=== PATIENT | male | born 1930 | race Caucasian/White ===

== ENCOUNTER 2017-05-20 22:18 | Emergency (ER) | payer MEDICARE, BC ==
[2017-05-20 22:38] VITALS: BP 134/70
[2017-05-20] MEDS ORDERED: Cephalexin 500 MG Cap PO ONE (23:33)
--- NOTE | 2017-05-20 23:34 | EDM.PDOC ---
ED HPI GENERAL MEDICAL PROBLEM - General Chief Complaint: Respiratory Problem Stated Complaint: SWOLLEN LEG SOB Time Seen by Provider: 05/20/17 23:08 Source of Information: Reports: Patient, Family (Daughter, son-in-law), RN Notes Reviewed History Limitations: Reports: Physical Impairment (patient is hard of hearing) - History of Present Illness INITIAL COMMENTS - FREE TEXT/NARRATIVE: The patient has bilateral lower extremity edema with chronic venous stasis changes, however, he developed erythema to his right leg that surrounds the hyperpigmentation of his chronic venous stasis change, first noticed around 02: 00 this morning. It is warm to palpation. The patient has not had a fever, however, he has had chills. No prior similar symptoms. The patient ordinarily ambulates with a walker and cane. The patient is on Coumadin. The patient's PCP is Anne Magana. Right Leg Pain Score (Numeric/FACES): 8 - Related Data Allergies Allergy/AdvReac Type Severity Reaction Status Date / Time No Known Allergies Allergy Verified 05/20/17 22:33 Home Meds: Home Meds Levothyroxine [Synthroid] 50 mcg PO ACBRK 05/26/14 [History] Propranolol [Inderal] 20 mg PO DAILY 05/26/14 [History] Simvastatin [Zocor] 20 mg PO BEDTIME 05/26/14 [History] Allopurinol [Zyloprim] 150 mg PO DAILY 08/21/14 [History] Aspirin [[place] Aspirin] 81 mg PO DAILY 05/20/17 [History] Cholecalciferol (Vitamin D3) [Vitamin D3] 5,000 unit PO ASDIRECTED 05/20/17 [ History] Eye Vitamin? 05/20/17 [History] Ferrous Sulfate. 05/20/17 [History] Furosemide [Lasix] 80 mg PO BID 05/20/17 [History] Pantoprazole Sodium [Protonix] 40 mg PO BID 05/20/17 [History] Potassium Chloride 10 meq PO TID 05/20/17 [History] Warfarin [Coumadin] 2.5 mg PO ASDIRECTED 05/20/17 [History] Warfarin [Coumadin] 5 mg PO MOFR 05/20/17 [History] Cephalexin [Keflex] 500 mg PO Q12H #14 cap 05/21/17 [Rx] Past Medical History Cardiovascular History: Reports: Arrhythmia, CAD, Heart Failure, High Cholesterol, Hypertension Gastrointestinal History: Reports: GERD Genitourinary History: Reports: BPH, Chronic Renal Insuffiency Musculoskeletal History: Reports: Gout (suspected, not confirmed) Neurological History: Reports: Neuropathy, Peripheral (BLE's) Endocrine/Metabolic History: Reports: Hypothyroidism Oncologic (Cancer) History: Reports: Basal Cell Carcinoma - Past Surgical History HEENT Surgical History: Reports: Cataract Surgery (bilateral) Cardiovascular Surgical History: Reports: Coronary Artery Bypass (x 1 vessel), Pacer, Valve Replacement (porcine mitral valve) GI Surgical History: Reports: Cholecystectomy, Hernia, Inguinal (right) Musculoskeletal Surgical History: Reports: Arthroscopic Knee (left) Social & Family History - Tobacco Use Smoking Status *Q: Never Smoker Second Hand Smoke Exposure: No - Alcohol Use Alcohol Use History: No Days Per Week of Alcohol Use: 0 - Recreational Drug Use Recreational Drug Use: No - Living Situation & Occupation Living situation: Reports: , Alone Occupation: Retired ED ROS GENERAL - Review of Systems Review Of Systems: See Below Constitutional: Reports: No Symptoms HEENT: Reports: No Symptoms Respiratory: Reports: No Symptoms Cardiovascular: Reports: No Symptoms Endocrine: Reports: No Symptoms GI/Abdominal: Reports: No Symptoms : Reports: No Symptoms Musculoskeletal: Reports: No Symptoms Skin: Reports: No Symptoms Neurological: Reports: No Symptoms Psychiatric: Reports: No Symptoms Hematologic/Lymphatic: Reports: No Symptoms Immunologic: Reports: No Symptoms ED EXAM, GENERAL - Physical Exam Exam: See Below Exam Limited By: No Limitations General Appearance: Alert, WD/WN, No Apparent Distress Extremities: Other (There are chronic venous stasis changes to both legs, including hyperpigmentation and dried skin to the anterior aspects, however, on the right leg, surrounding the hyperpigmentation areas, is significant erythema , especially to the posterior leg. This does not extend to the foot, or above the knee. There is calor associated with the erythema, and the patient indicates that it is tender to palpation. Both feet are significantly edematous , and there is approximately 2+ pitting edema pretibially bilaterally. Neurovascular status of both lower extremities is intact.) Course - Vital Signs Last Recorded V/S: Last Vital Signs Temp 37.2 C 05/20/17 22:33 Pulse 72 05/20/17 22:33 Resp 18 05/20/17 22:33 BP 134/70 05/20/17 22:33 Pulse Ox 97 05/20/17 22:33 - Orders/Labs/Meds Labs: Laboratory Tests 05/20/17 05/20/17 05/20/17 Range/Units 23:37 23:37 23:37 WBC 26.93 H (4.23-9.07) K/mm3 RBC 3.13 L (4.63-6.08) M/mm3 Hgb 8.8 L (13.7-17.5) gm/L Hct 27.9 L (40.1-51.0) % MCV 89.1 (79.0-92.2) fl MCH 28.1 (25.7-32.2) pg MCHC 31.5 L (32.2-35.5) g/dl RDW Std Deviation 52.6 H (35.1-43.9) fL Plt Count 203 (163-337) K/mm3 MPV 9.6 (9.4-12.3) fl Neutrophils % (Manual) 91 H (40-60) % Band Neutrophils % 0 (0-10) % Lymphocytes % (Manual) 1 L (20-40) % Atypical Lymphs % 0 % Monocytes % (Manual) 8 (2-10) % Eosinophils % (Manual) 0 L (0.8-7.0) % Basophils % (Manual) 0 L (0.2-1.2) Platelet Estimate Adequate Plt Morphology Comment Normal Polychromasia 1+ slight Hypochromasia 1+ slight Poikilocytosis 2+ moderate Anisocytosis 1+ slight Microcytosis 1+ slight Macrocytosis 1+ slight Ovalocytes 1+ slight RBC Morph Comment Abnormal PT 22.1 H (8.0-13.0) SECONDS INR 1.94 Sodium 133 L (136-145) mEq/L Potassium 3.1 L (3.5-5.1) mEq/L Chloride 94 L (98-107) mEq/L Carbon Dioxide 31 (21-32) mEq/L Anion Gap 11.1 (5-15) BUN 54 H (7-18) mg/dL Creatinine 1.9 H (0.7-1.3) mg/dL Est Cr Clr Drug Dosing 30.82 mL/min Estimated GFR (MDRD) 34 (>60) mL/min BUN/Creatinine Ratio 28.4 H (14-18) Glucose 147 H (83-115) mg/dL Calcium 8.9 (8.5-10.1) mg/dL Total Bilirubin 1.4 H (0.2-1.0) mg/dL AST 31 (15-37) U/L ALT 29 (16-63) U/L Alkaline Phosphatase 70 (46-116) U/L Total Protein 6.9 (6.4-8.2) g/dl Albumin 3.6 (3.4-5.0) g/dl Globulin 3.3 gm/dL Albumin/Globulin Ratio 1.1 (1-2) Urine Color (Yellow) Urine Appearance (Clear) Urine pH (5.0-8.0) Ur Specific Noble (1.005-1.030) Urine Protein (Negative) Urine Glucose (UA) (Negative) Urine Ketones (Negative) Urine Occult Blood (Negative) Urine Nitrite (Negative) Urine Bilirubin (Negative) Urine Urobilinogen (0.2-1.0) Ur Leukocyte Esterase (Negative) Urine RBC (0-5) /hpf Urine WBC (0-5) /hpf Ur Epithelial Cells (0-5) /hpf Urine Bacteria (FEW) /hpf Hyaline Casts (0-5) /lpf Waxy Casts (0-5) /lpf Urine Mucus (FEW) /hpf 05/20/17 Range/Units 23:47 WBC (4.23-9.07) K/mm3 RBC (4.63-6.08) M/mm3 Hgb (13.7-17.5) gm/L Hct (40.1-51.0) % MCV (79.0-92.2) fl MCH (25.7-32.2) pg MCHC (32.2-35.5) g/dl RDW Std Deviation (35.1-43.9) fL Plt Count (163-337) K/mm3 MPV (9.4-12.3) fl Neutrophils % (Manual) (40-60) % Band Neutrophils % (0-10) % Lymphocytes % (Manual) (20-40) % Atypical Lymphs % % Monocytes % (Manual) (2-10) % Eosinophils % (Manual) (0.8-7.0) % Basophils % (Manual) (0.2-1.2) Platelet Estimate Plt Morphology Comment Polychromasia Hypochromasia Poikilocytosis Anisocytosis Microcytosis Macrocytosis Ovalocytes RBC Morph Comment PT (8.0-13.0) SECONDS INR Sodium (136-145) mEq/L Potassium (3.5-5.1) mEq/L Chloride (98-107) mEq/L Carbon Dioxide (21-32) mEq/L Anion Gap (5-15) BUN (7-18) mg/dL Creatinine (0.7-1.3) mg/dL Est Cr Clr Drug Dosing mL/min Estimated GFR (MDRD) (>60) mL/min BUN/Creatinine Ratio (14-18) Glucose (83-115) mg/dL Calcium (8.5-10.1) mg/dL Total Bilirubin (0.2-1.0) mg/dL AST (15-37) U/L ALT (16-63) U/L Alkaline Phosphatase (46-116) U/L Total Protein (6.4-8.2) g/dl Albumin (3.4-5.0) g/dl Globulin gm/dL Albumin/Globulin Ratio (1-2) Urine Color Yellow (Yellow) Urine Appearance Clear (Clear) Urine pH 6.0 (5.0-8.0) Ur Specific Noble 1.025 (1.005-1.030) Urine Protein Negative (Negative) Urine Glucose (UA) Negative (Negative) Urine Ketones Negative (Negative) Urine Occult Blood Negative (Negative) Urine Nitrite Negative (Negative) Urine Bilirubin Negative (Negative) Urine Urobilinogen 0.2 (0.2-1.0) Ur Leukocyte Esterase Negative (Negative) Urine RBC 0-5 (0-5) /hpf Urine WBC 0-5 (0-5) /hpf Ur Epithelial Cells Not seen (0-5) /hpf Urine Bacteria Rare (FEW) /hpf Hyaline Casts 0-5 (0-5) /lpf Waxy Casts 0-5 (0-5) /lpf Urine Mucus Moderate H (FEW) /hpf Meds: Medications Discontinued Medications Generic Name Dose Route Start Last Admin Trade Name Freq PRN Reason Stop Dose Admin Cephalexin 500 mg 05/20/17 23:33 05/20/17 23:57 Keflex PO 05/20/17 23:34 500 mg ONETIME ONE Administration - Re-Assessments/Exams Free Text/Narrative Re-Assessment/Exam: 05/20/17 23:26 The patient appears to have cellulitis of his right leg. There is a possibility that this could be a drug-associated rash, although it does not appear to be the skin necrosis associated with Coumadin use. Nevertheless, I will check an INR and then initiate the patient on oral Keflex. 05/21/17 00:58 Test results discussed with the patient, his daughter, and son-in-law. His workup is remarkable for a WBC count significantly elevated at 26.93, but with 0 % bandemia. He has moderate anemia, near his baseline. He is hypokalemic at 3.1 , but his daughter states that he missed a dose of oral potassium today. His renal function is impaired with a BUN/Cr of 54/1.9, up from his baseline of 75/ 1.5 on 08/23/2014. The patient's daughter states that his BUN/Cr was 40/1.29 on 04/02/2017. I suspect that his electrolyte abnormalities and worsening renal function are the result of Lasix, although I cannot be certain at this point. While the patient has several lab abnormalities, I do not see an indication to admit the patient to the hospital. I will e-prescribe Keflex, and I would like the patient follow-up with his PCP tomorrow. The daughter stated that she will see to it. Departure - Departure Time of Disposition: 01:00 Disposition: Home, Self-Care 01 Condition: Fair Clinical Impression: Cellulitis of right leg, Leukocytosis, Hypokalemia, Acute on chronic renal failure - Discharge Information Prescriptions: Cephalexin [Keflex] 500 mg PO Q12H #14 cap Instructions: Hypokalemia, Leukocytosis, Cellulitis, Adult, [id number] Referrals: Anne Magana NP [Primary Care Provider] - Forms: ED Department Discharge Additional Instructions: You were seen in the emergency room for a red rash on your right leg. Workup in the ER included a CBC, CMP, INR, and urinalysis. Your CBC is remarkable for an elevated WBC count of 26.93 and moderate anemia. Your potassium is low at 3.1, and your kidney function is worse, with a BUN/Cr of 54/1.9. Your INR is slightly low at 1.94. Your right leg rash is MOST LIKELY due to cellulitis, although it is possible that this is a reaction to one of your medications. You have been started on the antibiotic Keflex. Take one tablet every 12 hours, as prescribed. We recommend that you follow-up with your PCP, Anne Magana, tomorrow. Some of your medicines will need dose adjustment. If any other problems, please do not hesitate to return to the ER.
== END 2017-05-21 01:26 | disposition home or self-care (01) ==
LOC: JD.ED 22:18
DX: L03.115 Cellulitis of right lower limb (principal); I25.10 Atherosclerotic heart disease of native coronary artery without angina pectoris; I13.0 Hypertensive heart and chronic kidney disease with heart failure and stage 1 through stage 4 chronic kidney disease, or unspecified chronic kidney disease; N17.9 Acute kidney failure, unspecified; N18.9 Chronic kidney disease, unspecified; I50.9 Heart failure, unspecified; E78.00 Pure hypercholesterolemia, unspecified; K21.9 Gastro-esophageal reflux disease without esophagitis; D72.829 Elevated white blood cell count, unspecified; E87.6 Hypokalemia; Z79.899 Other long term (current) drug therapy; Z79.01 Long term (current) use of anticoagulants
CPT/HCPCS: 36415; 80053; 81001; 85025; 85610; 99285; A9270; P9612; 99283

== ENCOUNTER 2018-01-22 11:02 | Emergency (ER) | payer MEDICARE, BC ==
[2018-01-22 11:30] VITALS: BP 129/71
--- NOTE | 2018-01-22 12:56 | EDM.PDOC ---
ED HPI GENERAL MEDICAL PROBLEM - General Chief Complaint: Head Injury Stated Complaint: HEAD INJURY/FALL Time Seen by Provider: 01/22/18 11:13 Source of Information: Reports: Patient History Limitations: Reports: No Limitations - History of Present Illness INITIAL COMMENTS - FREE TEXT/NARRATIVE: The patient presents because he fell. He was outside at his home and he was doing some light gardening and he walked on some unstable ground and he fell and landed on his face. He has some abrasions to his forehead and nose. He also has some neck pain. He did not get knocked out but he had trouble getting up and had to crawl under the shade and then was able to call. He denies any other injuries. 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 He was recently put on antibiotics for that. Onset: Sudden Duration: Hour(s): Location: Reports: Face, Neck Quality: Reports: Sharp Severity: Mild Improves with: Reports: None Worsens with: Reports: None Context: Reports: Activity (He was out gardening and he fell) Associated Symptoms: Reports: No Other Symptoms Neck Pain Score (Numeric/FACES): 0 - Related Data Allergies Allergy/AdvReac Type Severity Reaction Status Date / Time No Known Allergies Allergy Verified 01/22/18 11:30 Home Meds: Home Meds Levothyroxine [Synthroid] 50 mcg PO ACBRK 05/26/14 [History] Propranolol [Inderal] 20 mg PO DAILY 05/26/14 [History] Simvastatin [Zocor] 20 mg PO BEDTIME 05/26/14 [History] Cholecalciferol (Vitamin D3) [Vitamin D3] 5,000 unit PO ASDIRECTED 05/20/17 [ History] Pantoprazole Sodium [Protonix] 40 mg PO BID 05/20/17 [History] Potassium Chloride 10 meq PO DAILY 05/20/17 [History] Warfarin [Coumadin] 2.5 mg PO ASDIRECTED 05/20/17 [History] Warfarin [Coumadin] 5 mg PO MOFR 05/20/17 [History] Cephalexin [Keflex] 500 mg PO Q12H #14 cap 05/21/17 [Rx] Ferrous Sulfate [Ferosul] 300 mg PO TID 01/22/18 [History] Mv-Mn/FA/Vit K/Lycop/Lut/Zeaxa [Ocuvite Eye + Multi Tablet] 1 ea PO DAILY [History] Torsemide [Demadex] 40 mg PO BID 01/22/18 [History] Past Medical History Cardiovascular History: Reports: Arrhythmia, CAD, Heart Failure, High Cholesterol, Hypertension Gastrointestinal History: Reports: GERD Genitourinary History: Reports: BPH, Chronic Renal Insuffiency Musculoskeletal History: Reports: Gout Neurological History: Reports: Neuropathy, Peripheral Endocrine/Metabolic History: Reports: Hypothyroidism Oncologic (Cancer) History: Reports: Basal Cell Carcinoma - Past Surgical History HEENT Surgical History: Reports: Cataract Surgery Cardiovascular Surgical History: Reports: Coronary Artery Bypass, Pacer, Valve Replacement GI Surgical History: Reports: Cholecystectomy, Hernia, Inguinal Musculoskeletal Surgical History: Reports: Arthroscopic Knee Social & Family History - Tobacco Use Smoking Status *Q: Never Smoker Second Hand Smoke Exposure: No - Caffeine Use Caffeine Use: Reports: Coffee - Living Situation & Occupation Living situation: Reports: , Alone Occupation: Retired ED ROS GENERAL - Review of Systems Review Of Systems: See Below Constitutional: Reports: No Symptoms HEENT: Reports: No Symptoms Respiratory: Reports: No Symptoms Cardiovascular: Reports: No Symptoms Endocrine: Reports: No Symptoms GI/Abdominal: Reports: No Symptoms : Reports: No Symptoms Musculoskeletal: Reports: Neck Pain Skin: Reports: No Symptoms Neurological: Reports: No Symptoms ED EXAM, HEAD INJURY - Physical Exam Exam: See Below Exam Limited By: No Limitations General Appearance: Alert, No Apparent Distress Head: Normocephalic, Other (Abrasions to his forehead and nose) Ears: Normal External Exam Nose: Other (Abrasion to his nose with no deformity or crepitus) Neck: Tender Lateral (Mild) Respiratory: No Respiratory Distress, Lungs Clear, Normal Breath Sounds Cardiovascular: Regular Rate, Rhythm, No Edema, No Murmur GI/Abdominal Exam: Soft, Non-Tender, No Organomegaly, No Mass Back Exam: Normal Inspection Extremities: Other (Left leg has erythema and edema) Course - Vital Signs Last Recorded V/S: Last Vital Signs Temp 98.7 F 01/22/18 11:21 Pulse 73 01/22/18 11:21 Resp 18 01/22/18 11:21 BP 129/71 01/22/18 11:21 Pulse Ox 99 01/22/18 11:21 - Orders/Labs/Meds Orders: Active Orders 24 hr Category Date Time Status Cervical Spine wo Cont [CT] Stat Exams 01/22/18 11:43 Taken Head wo Cont [CT] Stat Exams 01/22/18 11:42 Taken - Re-Assessments/Exams Free Text/Narrative Re-Assessment/Exam: 01/22/18 12:[address] of his head and cervical spine shows nothing acute. I will discharge him home. Departure - Departure Time of Disposition: 12:55 Disposition: Home, Self-Care 01 Condition: Good Clinical Impression: Fall Qualifiers: Encounter type: initial encounter Qualified Code(s): W19.XXXA - Unspecified fall, initial encounter Abrasion of face Qualifiers: Encounter type: initial encounter Qualified Code(s): S00.81XA - Abrasion of other part of head, initial encounter Cervical sprain Qualifiers: Encounter type: initial encounter Qualified Code(s): S13.9XXA - Sprain of joints and ligaments of unspecified parts of neck, initial encounter - Discharge Information Referrals: Anne Magana CHARGE POSTER [Primary Care Provider] - 1 Week Additional Instructions: Wash the abrasions on your face a couple times per day with warm soapy water and apply some antibiotic after. Take tylenol for pain. Please return if you are worse. - My Orders Last 24 Hours: My Active Orders 01/22/18 11:42 Head wo Cont [CT] Stat 01/22/18 11:43 Cervical Spine wo Cont [CT] Stat - Assessment/Plan Last 24 Hours: My Active Orders 01/22/18 11:42 Head wo Cont [CT] Stat 01/22/18 11:43 Cervical Spine wo Cont [CT] Stat
--- NOTE | 2018-01-22 13:58 | CT ---
Head CT Technique: Multiple axial sections through the brain were obtained. Intravenous contrast was not utilized. Comparison: Prior head CT exam of 02/28/10. Findings: Ventricles along the basal cisterns and sulci over the convexities are moderately prominent. Minimal diminished density is noted within portions of periventricular and subcortical white matter. No other abnormal parenchymal densities are seen. No evidence of intracranial hemorrhage. No midline shift or mass effect is seen. Moderate mucosal thickening seen within the right maxillary sinus. No acute calvarial abnormality is appreciated. Atherosclerotic calcification is seen within the carotid siphon. Impression: 1. Senescent change as described above. Incidental sinus findings. 2. No acute intracranial abnormality is seen. Diagnostic code #2 I agree with preliminary report from [facility], finalized at 01/22/18, 1:19 PM Central Time
--- NOTE | 2018-01-22 13:58 | CT ---
CT cervical spine Technique: Multiple axial sections were obtained from above C1 inferiorly to the top of T2. Reconstructed sagittal and coronal images were reviewed. Comparison: Previous CT cervical spine study of 03/27/10. Findings: Degenerative change is noted between the dens and anterior arch of C1. Mild disc space narrowing is noted at C2-C3 and C3-C4 as well as posteriorly at C4-C5. Vertebral body heights are maintained. Mild degenerative spurring is seen within the uncovertebral joints at C3-C4 and C4-C5. Posterior skull base is intact. Scattered degenerative change is seen throughout the apophyseal joints. I do not see a definite cervical spine fracture. Preliminary report ad questions a right transverse process of T2 which I do not believe is definitely present. Severe narrowing is noted within the apophyseal joints at C3-C4 on the right side with moderate to severe narrowing seen on the left side at C3-C4. Moderate narrowing is seen bilaterally within the neural foramina at C4-C5. Mild bilateral neural foraminal stenosis is noted at C5-C6. Other neural foramina are felt to be patent. No abnormal subluxation is seen. Impression: 1. Degenerative change as noted above. 2. Nothing acute is seen on CT study of the cervical spine. No definite fracture is identified within the transverse process of T2 on the right side as questioned on preliminary [facility] report. Diagnostic code #2 I agree with preliminary report from [facility], finalized at 01/22/18, 1:25 PM Central Time
== END 2018-01-22 13:05 | disposition home or self-care (01) ==
LOC: JD.ED 11:02
DX: S13.9XXA Sprain of joints and ligaments of unspecified parts of neck, initial encounter (principal); S00.81XA Abrasion of other part of head, initial encounter; I13.0 Hypertensive heart and chronic kidney disease with heart failure and stage 1 through stage 4 chronic kidney disease, or unspecified chronic kidney disease; I50.9 Heart failure, unspecified; E78.00 Pure hypercholesterolemia, unspecified; N18.9 Chronic kidney disease, unspecified; Z79.899 Other long term (current) drug therapy; W19.XXXA Unspecified fall, initial encounter
CPT/HCPCS: 70450; 70450-26; 72125; 72125-26; 99283; 99284-25

== ENCOUNTER 2018-01-24 12:01 | Inpatient (IN) | payer MEDICARE, BC ==
--- NOTE | 2018-01-24 12:28 | EDM.PDOC ---
ED HPI GENERAL MEDICAL PROBLEM - General Chief Complaint: Lower Extremity Injury/Pain Stated Complaint: LEFT LEG POSS. INFECTION Time Seen by Provider: 01/24/18 12:20 Source of Information: Reports: Patient History Limitations: Reports: No Limitations - History of Present Illness INITIAL COMMENTS - FREE TEXT/NARRATIVE: 87-year-old male presents the ED with gradually worsening cellulitis left lower extremity. He seems to be spreading slightly up the leg but it's become much more swollen over the last 2-1/2 days. Patient was seen in clinic on and started on Ceftin ear 300 mg twice daily. He had one tablet that night and subsequent is been taking it twice daily. He has no systemic signs of illness such as fever or chills. States pain in his leg is terrible kept him awake most of the night. It's biting burning it spasms on its own. He has peripheral neuropathy as well as peripheral vascular disease. He's had previous cellulitis in his left lower extremity on a few occasions. No diarrhea or problems with a Ceftin ear at this time. Note the patient is on Coumadin chronically due to atrial fibrillation and his INR on last week January 21 was 1.9. Onset: Gradual Onset Date: 01/18/18 (Gradually worsening redness and swelling left lower extremity to the knee.) Duration: Day(s): Location: Reports: Lower Extremity, Left (Cellulitis left lower extremity. Involves foot to knee.) Quality: Reports: Ache, Burning, Throbbing, Other Severity: Severe (Intermittent muscle spasms in the leg. Rates his current pain 8 or 9 out of 10.) Improves with: Reports: Other (Cool cloth seemed to ease the pain somewhat.) Worsens with: Reports: Movement Context: Denies: Activity, Exercise, Lifting, Sick Contact, Other Associated Symptoms: Reports: Cough, Malaise, Shortness of Breath. 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 RECLAMATION: Reports: Other (see below) Left Lower Leg Pain Score (Numeric/FACES): 10 - Related Data Allergies Allergy/AdvReac Type Severity Reaction Status Date / Time No Known Allergies Allergy Verified 01/22/18 11:30 Home Meds: Home Meds Levothyroxine [Synthroid] 50 mcg PO ACBRK 05/26/14 [History] Propranolol [Inderal] 20 mg PO DAILY 05/26/14 [History] Simvastatin [Zocor] 20 mg PO BEDTIME 05/26/14 [History] Cholecalciferol (Vitamin D3) [Vitamin D3] 5,000 unit PO MOWEFR 05/20/17 [History ] Pantoprazole Sodium [Protonix] 40 mg PO BID 05/20/17 [History] Potassium Chloride 10 meq PO BID 05/20/17 [History] Warfarin [Coumadin] 2.5 mg PO ASDIRECTED 05/20/17 [History] Mv-Mn/FA/Vit K/Lycop/Lut/Zeaxa [Ocuvite Eye + Multi Tablet] 1 ea PO DAILY [History] Torsemide [Demadex] 40 mg PO DAILY 01/22/18 [History] Cefdinir [Omnicef] 300 mg PO Q12HR 01/24/18 [History] Ferrous Sulfate [Ferosul] 5 ml PO TID 01/24/18 [History] Metolazone 2.5 mg PO ASDIRECTED PRN 01/24/18 [History] Past Medical History Cardiovascular History: Reports: Arrhythmia, Bypass, CAD, Heart Failure, High Cholesterol, Hypertension Gastrointestinal History: Reports: GERD Genitourinary History: Reports: BPH, Chronic Renal Insuffiency Musculoskeletal History: Reports: Gout Neurological History: Reports: Neuropathy, Peripheral Endocrine/Metabolic History: Reports: Hypothyroidism Oncologic (Cancer) History: Reports: Basal Cell Carcinoma - Past Surgical History HEENT Surgical History: Reports: Cataract Surgery Cardiovascular Surgical History: Reports: Coronary Artery Bypass, Pacer, Valve Replacement GI Surgical History: Reports: Cholecystectomy, Hernia, Inguinal Musculoskeletal Surgical History: Reports: Arthroscopic Knee Social & Family History - Family History Family Medical History: Noncontributory - Tobacco Use Smoking Status *Q: Never Smoker - Caffeine Use Caffeine Use: Reports: Coffee - Recreational Drug Use Recreational Drug Use: No - Living Situation & Occupation Living situation: Reports: , Alone Occupation: Retired Review of Systems - Review of Systems Review Of Systems: See Below Constitutional: Reports: Weakness. Denies: Chills, Diaphoresis, Fever Eyes: Reports: Decreased Acuity Nose: Reports: Other (Bruised up his nose a bit from falling on [place], May 25.) Mouth/Throat: Reports: No Symptoms Respiratory: Reports: Shortness of Breath, Cough. Denies: Wheezing, Pleuritic Chest Pain (On minimal exertion.), Sputum, Hemoptysis (Occasional nonproductive cough) Cardiovascular: Reports: Edema, Irregular Heart Rate (Chronic dependent edema chronic irregular heartbeat I believe atrial fibrillation.), Other (Known coronary disease). Denies: Chest Pain GI/Abdominal: Reports: No Symptoms Genitourinary: Reports: Other (Urinary frequency with nocturia 4) Musculoskeletal: Reports: Back Pain, Joint Pain (Knees shoulders and neck at times) Skin: Reports: Bruising (Bruising is seen in the easy bleeding because he is on Coumadin.), Rash (Currently has a severe red), Erythema ( painful rash left lower extremity compatible with cellulitisleft lower extremity ) Neurological: Reports: Paresthesia (On this tingling burning lancinating shooting pains in his left lower extremity at present), Difficulty Walking ( Known peripheral neuropathy early unable to walk due to pain in his left lower extremity.), Other Psychiatric: Reports: No Symptoms ED EXAM, GENERAL - Physical Exam Exam: See Below Exam Limited By: No Limitations General Appearance: Alert, WD/WN, Mild Distress, Other Eye Exam: Bilateral Eye: Normal Inspection Nose: Other (Has skinned up his nose from falling 3 days ago. Has a bruise across the bridge of his nose. Bruise between his eyes on his mid forehead with slight swelling and abrasion to the left forehead.) Head: Facial Swelling (Swelling and abrasions to the left mid forehead.As mentioned above), Other Neck: Limited Range of Motion, Tender Lateral (Tender laterally bilaterally. Decreased range of motion). No: Full Range of Motion, Lymphadenopathy (L), Lymphadenopathy (R) Respiratory/Chest: No Respiratory Distress, Lungs Clear, Decreased Breath Sounds , Other (Pacemaker left upper anterior chest.). No: Respiratory Distress, Rhonchi (Slightly decreased air entry to the bases bilaterally with no adventitial sounds at this time), Wheezing Cardiovascular: No Murmur, No Rub, Irregularly Irregular. No: Normal Peripheral Pulses, No Edema GI/Abdominal: Normal Bowel Sounds, Soft, Non-Tender, No Organomegaly, Pelvis Stable Back Exam: Decreased Range of Motion, Other. No: Full Range of Motion, CVA Tenderness (L), CVA Tenderness (R) (Had a very difficult time sitting the patient up due to back pain.) Extremities: Pedal Edema (Severe left lung lower extremity. Mild right lower extremity.), Leg Pain (8 out of 10 left lower extremity below the knee.), Limited Range of Motion (Limited range of motion of his left knee. He clinically has a effusion of the left knee as well particularly in the suprapatellar recess.), Increased Warmth (Throughout the left lower extremity. It is angry and red.), Redness (Left lower extremity is very red and swollen from the dorsal foot to the knee. It is very warm to palpation component with an active infection or cellulitis. The dorsal aspect of his foot is grossly swollen to nearly twice the thickness of his foot) Neurological: Other (Known peripheral neuropathy in both lower extremities.) Psychiatric: Normal Affect, Other (Appears quite tired as he has not slept well for couple of nights due to pain in his leg.) EKG INTERPRETATION EKG Date: 01/24/18 Time: 12:43 Rhythm: Other (100% ventricular paced rhythm at 70/m) Rate (Beats/Min): 70 EKG Interpretation Comments: 100% paced ventricular rhythm. No further analysis attempted. Course - Vital Signs Last Recorded V/S: Last Vital Signs Temp 36.8 C 01/24/18 12:10 Pulse 71 01/24/18 12:10 Resp 16 01/24/18 12:10 BP 122/85 01/24/18 12:10 Pulse Ox 100 01/24/18 12:10 - Orders/Labs/Meds Orders: Active Orders 24 hr Category Date Time Status Admission Status [Patient Status] [ADT] Routine ADT 01/24/18 14:58 Active EKG Documentation Completion [RC] STAT Care 01/24/18 12:22 Active Peripheral IV Care [RC] . DIRECTED Care 01/24/18 12:22 Active VL Duplex Lwr Ext Veins Ltd Lt [US] Stat Exams 01/24/18 12:33 Taken CULTURE BLOOD [BC] Stat Lab 01/24/18 12:20 Received CULTURE BLOOD [BC] Stat Lab 01/24/18 12:45 Received Sodium Chloride 0.9% [Normal Saline] 1,000 ml Med 01/24/18 14:15 Active IV ASDIRECTED Sodium Chloride 0.9% [Saline Flush] Med 01/24/18 12:22 Active 10 ml FLUSH ASDIRECTED PRN Blood Culture x2 Reflex Set [OM.PC] Stat Oth 01/24/18 12:21 Ordered Peripheral IV Insertion Adult [OM.PC] Stat Ot 01/24/18 12:22 Ordered Medication Orders Sodium Chloride (Normal Saline) 1,000 mls @ 75 mls/hr IV ASDIRECTED DARCY Last Admin: 01/24/18 14:39 Dose: 75 mls/hr Sodium Chloride (Saline Flush) 10 ml FLUSH ASDIRECTED PRN PRN Reason: Keep Vein Open Last Admin: 01/24/18 12:49 Dose: 10 ml Admin: 01/24/18 12:31 Dose: 10 ml Labs: Laboratory Tests 01/24/18 01/24/18 01/24/18 Range/Units 12:20 12:20 12:20 WBC 10.95 H (4.23-9.07) K/mm3 RBC 4.27 L (4.63-6.08) M/mm3 Hgb 12.7 L (13.7-17.5) gm/L Hct 38.2 L (40.1-51.0) % MCV 89.5 (79.0-92.2) fl MCH 29.7 (25.7-32.2) pg MCHC 33.2 (32.2-35.5) g/dl RDW Std Deviation 56.0 H (35.1-43.9) fL Plt Count 260 (163-337) K/mm3 MPV 10.2 (9.4-12.3) fl Neutrophils % (Manual) 87 H (40-60) % Band Neutrophils % 0 (0-10) % Lymphocytes % (Manual) 3 L (20-40) % Atypical Lymphs % 0 % Monocytes % (Manual) 9 (2-10) % Eosinophils % (Manual) 0 L (0.8-7.0) % Basophils % (Manual) 1 (0.2-1.2) Platelet Estimate Adequate Plt Morphology Comment Normal RBC Morph Comment Normal PT (9.5-12.1) SECONDS INR Sodium 134 L (136-145) mEq/L Potassium 4.9 (3.5-5.1) mEq/L Chloride 97 L (98-107) mEq/L Carbon Dioxide 27 (21-32) mEq/L Anion Gap 14.9 (5-15) BUN 64 H (7-18) mg/dL Creatinine 1.8 H (0.7-1.3) mg/dL Est Cr Clr Drug Dosing 31.96 mL/min Estimated GFR (MDRD) 36 (>60) mL/min BUN/Creatinine Ratio 35.6 H (14-18) Glucose 115 (83-115) mg/dL Calcium 9.8 (8.5-10.1) mg/dL Magnesium 2.5 H (1.8-2.4) mg/dl Total Bilirubin 1.1 H (0.2-1.0) mg/dL AST 30 (15-37) U/L ALT 47 (16-63) U/L Alkaline Phosphatase 136 H (46-116) U/L Creatine Kinase 71 (39-308) U/L C-Reactive Protein 11.0 H* (<1.0) mg/dL NT-Pro-B Natriuret Pep 2019 H (0-450) pg/mL Total Protein 8.0 (6.4-8.2) g/dl Albumin 3.9 (3.4-5.0) g/dl Globulin 4.1 gm/dL Albumin/Globulin Ratio 1.0 (1-2) //18 Range/Units 12:20 WBC (4.23-9.07) K/mm3 RBC (4.63-6.08) M/mm3 Hgb (13.7-17.5) gm/L Hct (40.1-51.0) % MCV (79.0-92.2) fl MCH (25.7-32.2) pg MCHC (32.2-35.5) g/dl RDW Std Deviation (35.1-43.9) fL Plt Count (163-337) K/mm3 MPV (9.4-12.3) fl Neutrophils % (Manual) (40-60) % Band Neutrophils % (0-10) % Lymphocytes % (Manual) (20-40) % Atypical Lymphs % % Monocytes % (Manual) (2-10) % Eosinophils % (Manual) (0.8-7.0) % Basophils % (Manual) (0.2-1.2) Platelet Estimate Plt Morphology Comment RBC Morph Comment PT 19.3 H (9.5-12.1) SECONDS INR 1.79 Sodium (136-145) mEq/L Potassium (3.5-5.1) mEq/L Chloride (98-107) mEq/L Carbon Dioxide (21-32) mEq/L Anion Gap (5-15) BUN (7-18) mg/dL Creatinine (0.7-1.3) mg/dL Est Cr Clr Drug Dosing mL/min Estimated GFR (MDRD) (>60) mL/min BUN/Creatinine Ratio (14-18) Glucose (83-115) mg/dL Calcium (8.5-10.1) mg/dL Magnesium (1.8-2.4) mg/dl Total Bilirubin (0.2-1.0) mg/dL AST (15-37) U/L ALT (16-63) U/L Alkaline Phosphatase (46-116) U/L Creatine Kinase (39-308) U/L C-Reactive Protein (<1.0) mg/dL NT-Pro-B Natriuret Pep (0-450) pg/mL Total Protein (6.4-8.2) g/dl Albumin (3.4-5.0) g/dl Globulin gm/dL Albumin/Globulin Ratio (1-2) Meds: Medications Generic Name Dose Route Start Last Admin Trade Name Freq PRN Reason Stop Dose Admin Sodium Chloride 1,000 mls @ 75 mls/hr 01/24/18 14:15 01/24/18 14:39 Normal Saline IV 75 mls/hr ASDIRECTED DARCY Administration Sodium Chloride 10 ml 01/24/18 12:22 01/24/18 12:49 Saline Flush FLUSH 10 ml ASDIRECTED PRN Administration Keep Vein Open Discontinued Medications Generic Name Dose Route Start Last Admin Trade Name Freq PRN Reason Stop Dose Admin Furosemide 40 mg 01/24/18 14:13 01/24/18 14:34 Lasix IVPUSH 01/24/18 14:14 40 mg NOW ONE Administration Hydromorphone HCl 0.5 mg 01/24/18 12:31 01/24/18 12:48 Dilaudid IVPUSH 01/24/18 12:32 0.5 mg ONETIME ONE Administration Clindamycin Phosphate 900 mg/ 106 mls @ 100 mls/hr 01/24/18 12:32 01/24/18 12 :49 Sodium Chloride IV 01/24/18 13:35 100 mls/hr ONETIME ONE Administration Vancomycin HCl 1,500 mg/ 250 mls @ 166.667 mls/hr 01/24/18 14:53 Sodium Chloride IV 01/24/18 14:54 ONETIME ONE Ondansetron HCl 4 mg 01/24/18 12:31 01/24/18 12:48 Zofran IVPUSH 01/24/18 12:32 4 mg ONETIME ONE Administration - Radiology Interpretation Free Text/Narrative:: 87-year-old male presents to the ED with painful swollen left lower extremity that is gradually worsened over the last week. Has had previous cellulitis in this extremity. He was seen in clinic last , January 21 and started on Cefdinir 300 mg twice a day. However in spite of antibiotic treatment the cellulitis has progressed as the swelling is worsened dramatically. He is anticoagulated with Coumadin because of arrhythmia. He has last INR apparently was 1.9 on last week. Dosage was not adjusted. He is feeling perhaps slightly more short of breath but he denies any fever or chills. Appetite remains quite good. Clinically he has a severe cellulitis of his left lower extremity. There is no open wounds at this time however it's just a matter of time to the wounds breakdown due to the amount of edema in the left lower extremity. Ultrasound performed of the leg to make sure there is no DVT. Labs including blood cultures 2 to be done with PT/INR. We'll start him on clindamycin 900 mg IV. - Re-Assessments/Exams Free Text/Narrative Re-Assessment/Exam: 01/24/18 13:57 Labs are back. White count is elevated at 10.95 with a left shift of 87% neutrophils and no bands hemoglobin is 12.7 with hematocrit of 38.2. Platelet count is 260,000. PT is 19.3 with an INR of 1.79 in is therefore somewhat subtherapeutic. Sodium is 134 with potassium of 4.9. Chloride is 97 with a bicarbonate of 27. Anion gap is normal at 14.9. BUN is markedly elevated at 64. Creatinine is 1.8. EGFR is 36 indicating stage III chronic kidney disease. Glucose is 1:15. Calcium normal at 9.8. Magnesium 2.5 which is slightly elevated bilirubin is 1.1. AST ALT are normal. C-reactive protein is elevated at 11.0. BNP is elevated at 2019 making fluid management difficult. Will give him Lasix 40 mg IV. Due to his elevated BUN he is going to need some fluids as well. We'll start him on low-dose normal saline at 75 mils an hour 01/24/18 14:05 Doppler ultrasound has been completed on the left lower extremity and no evidence of DVT within the common femoral, superficial femoral or popliteal veins were appreciated. Veins including the posterior tibial and peroneal veins were not well seen due to soft tissue swelling. Plan will be to speak to Dr. Roche --lead application architect hospitalist with a view to admission to the hospital for IV antibiotics. 01/24/18 14:13 I have spoken with Dr. Roche and she will see the patient in the ED. we discussed adding vancomycin to his treatment plan to cover potential MRSA infection ,and she is in agreement. Dosage will be reduced to 15 mg/kg loading dose at due to his renal insufficiency. He will therefore be given 1500 mg IV. Departure - Departure Time of Disposition: 14:55 Disposition: Admitted As Inpatient 68 Condition: Poor Clinical Impression: Cellulitis of left lower extremity, Chronic renal insufficiency, stage III ( moderate), Subtherapeutic international normalized ratio (INR) Congestive heart failure with left ventricular diastolic dysfunction Qualifiers: Congestive heart failure chronicity: chronic Qualified Code(s): I50.32 - Chronic diastolic (congestive) heart failure - Discharge Information Referrals: Anne Magana NP [Primary Care Provider] - Forms: ED Department Discharge Additional Instructions: Patient to be admitted to the med surgery floor on telemetry due to severe cellulitis of his left lower extremity. This is further complicated due to congestive heart failure and renal insufficiency. - My Orders Last 24 Hours: My Active Orders 01/24/18 12:20 CULTURE BLOOD [BC] Stat 01/24/18 12:21 Blood Culture x2 Reflex Set [OM.PC] Stat 01/24/18 12:22 EKG Documentation Completion [RC] STAT Peripheral IV Care [RC] . DIRECTED Sodium Chloride 0.9% [Saline Flush] 10 ml FLUSH ASDIRECTED PRN Peripheral IV Insertion Adult [OM.PC] Stat 01/24/18 12:33 VL Duplex Lwr Ext Veins Ltd Lt [US] Stat 01/24/18 12:45 CULTURE BLOOD [BC] Stat 01/24/18 14:15 Sodium Chloride 0.9% [Normal Saline] 1,000 ml IV ASDIRECTED 01/24/18 14:58 Admission Status [Patient Status] [ADT] Routine - Assessment/Plan Last 24 Hours: My Active Orders 01/24/18 12:20 CULTURE BLOOD [BC] Stat 01/24/18 12:21 Blood Culture x2 Reflex Set [OM.PC] Stat 01/24/18 12:22 EKG Documentation Completion [RC] STAT Peripheral IV Care [RC] . DIRECTED Sodium Chloride 0.9% [Saline Flush] 10 ml FLUSH ASDIRECTED PRN Peripheral IV Insertion Adult [OM.PC] Stat 01/24/18 12:33 VL Duplex Lwr Ext Veins Ltd Lt [US] Stat 01/24/18 12:45 CULTURE BLOOD [BC] Stat 01/24/18 14:15 Sodium Chloride 0.9% [Normal Saline] 1,000 ml IV ASDIRECTED 01/24/18 14:58 Admission Status [Patient Status] [ADT] Routine
[2018-01-24] MEDS ORDERED: HYDROmorphone 0.5 MG/0.5 ML SYRINGE IVPUSH ONE (12:31)
[2018-01-24] MEDS ORDERED: Ondansetron 4 MG/2 ML SDV IVPUSH ONE (12:31)
[2018-01-24] MEDS: Sodium Chloride 0.9% 10 ML Syringe FLUSH PRN ×2 (12:31→12:49)
[2018-01-24] MEDS ORDERED: Clindamycin Phosphate 900 MG in Sodium Chloride 0.9% 100 ML IV ONE (12:32)
[2018-01-24] MEDS ORDERED: Furosemide 40 MG/4 ML VIAL IVPUSH ONE (14:13)
[2018-01-24] MEDS: Sodium Chloride 0.9% 1,000 ML IV SCH (14:39)
--- NOTE | 2018-01-24 15:09 | PCM.HP ---
<Deo Molina - Last Filed: 01/24/18 18:44> H&P History of Present Illness - General Admit Problem/Dx: Admission Diagnosis/Problem Admission Diagnosis/Problem Cellulitis of left lower leg - Related Data Allergies/Adverse Reactions: Allergies Allergy/AdvReac Type Severity Reaction Status Date / Time No Known Allergies Allergy Verified 01/24/18 16:13 Home Medications: Home Meds Levothyroxine [Synthroid] 50 mcg PO ACBRK 05/26/14 [History] Propranolol [Inderal] 20 mg PO DAILY 05/26/14 [History] Simvastatin [Zocor] 20 mg PO BEDTIME 05/26/14 [History] Cholecalciferol (Vitamin D3) [Vitamin D3] 5,000 unit PO MOWEFR 05/20/17 [History ] Pantoprazole Sodium [Protonix] 40 mg PO BID 05/20/17 [History] Potassium Chloride 10 meq PO DAILY 05/20/17 [History] Warfarin [Coumadin] 2.5 mg PO ASDIRECTED 05/20/17 [History] Mv-Mn/FA/Vit K/Lycop/Lut/Zeaxa [Ocuvite Eye + Multi Tablet] 1 ea PO DAILY [History] Torsemide [Demadex] 40 mg PO DAILY 01/22/18 [History] Ferrous Sulfate [Ferosul] 5 ml PO TID 01/24/18 [History] Warfarin [Coumadin] 5 mg PO ASDIRECTED 01/24/18 [History] Exam - Vital Signs Vital Signs: Last Vital Signs Temp 36.9 C 01/24/18 15:50 Pulse 70 01/24/18 15:50 Resp 15 01/24/18 15:50 BP 109/82 01/24/18 15:50 Pulse Ox 97 01/24/18 15:50 - Patient Data Lab Results Last 24 hrs: Laboratory Results - last 24 hr 01/24/18 01/24/18 01/24/18 Range/Units 12:20 12:20 12:20 WBC 10.95 H (4.23-9.07) K/mm3 RBC 4.27 L (4.63-6.08) M/mm3 Hgb 12.7 L (13.7-17.5) gm/L Hct 38.2 L (40.1-51.0) % MCV 89.5 (79.0-92.2) fl MCH 29.7 (25.7-32.2) pg MCHC 33.2 (32.2-35.5) g/dl RDW Std Deviation 56.0 H (35.1-43.9) fL Plt Count 260 (163-337) K/mm3 MPV 10.2 (9.4-12.3) fl Neutrophils % (Manual) 87 H (40-60) % Band Neutrophils % 0 (0-10) % Lymphocytes % (Manual) 3 L (20-40) % Atypical Lymphs % 0 % Monocytes % (Manual) 9 (2-10) % Eosinophils % (Manual) 0 L (0.8-7.0) % Basophils % (Manual) 1 (0.2-1.2) Platelet Estimate Adequate Plt Morphology Comment Normal RBC Morph Comment Normal PT (9.5-12.1) SECONDS INR Sodium 134 L (136-145) mEq/L Potassium 4.9 (3.5-5.1) mEq/L Chloride 97 L (98-107) mEq/L Carbon Dioxide 27 (21-32) mEq/L Anion Gap 14.9 (5-15) BUN 64 H (7-18) mg/dL Creatinine 1.8 H (0.7-1.3) mg/dL Est Cr Clr Drug Dosing 31.96 mL/min Estimated GFR (MDRD) 36 (>60) mL/min BUN/Creatinine Ratio 35.6 H (14-18) Glucose 115 (83-115) mg/dL Calcium 9.8 (8.5-10.1) mg/dL Magnesium 2.5 H (1.8-2.4) mg/dl Total Bilirubin 1.1 H (0.2-1.0) mg/dL AST 30 (15-37) U/L ALT 47 (16-63) U/L Alkaline Phosphatase 136 H (46-116) U/L Creatine Kinase 71 (39-308) U/L C-Reactive Protein 11.0 H* (<1.0) mg/dL NT-Pro-B Natriuret Pep 2019 H (0-450) pg/mL Total Protein 8.0 (6.4-8.2) g/dl Albumin 3.9 (3.4-5.0) g/dl Globulin 4.1 gm/dL Albumin/Globulin Ratio 1.0 (1-2) //18 Range/Units 12:20 WBC (4.23-9.07) K/mm3 RBC (4.63-6.08) M/mm3 Hgb (13.7-17.5) gm/L Hct (40.1-51.0) % MCV (79.0-92.2) fl MCH (25.7-32.2) pg MCHC (32.2-35.5) g/dl RDW Std Deviation (35.1-43.9) fL Plt Count (163-337) K/mm3 MPV (9.4-12.3) fl Neutrophils % (Manual) (40-60) % Band Neutrophils % (0-10) % Lymphocytes % (Manual) (20-40) % Atypical Lymphs % % Monocytes % (Manual) (2-10) % Eosinophils % (Manual) (0.8-7.0) % Basophils % (Manual) (0.2-1.2) Platelet Estimate Plt Morphology Comment RBC Morph Comment PT 19.3 H (9.5-12.1) SECONDS INR 1.79 Sodium (136-145) mEq/L Potassium (3.5-5.1) mEq/L Chloride (98-107) mEq/L Carbon Dioxide (21-32) mEq/L Anion Gap (5-15) BUN (7-18) mg/dL Creatinine (0.7-1.3) mg/dL Est Cr Clr Drug Dosing mL/min Estimated GFR (MDRD) (>60) mL/min BUN/Creatinine Ratio (14-18) Glucose (83-115) mg/dL Calcium (8.5-10.1) mg/dL Magnesium (1.8-2.4) mg/dl Total Bilirubin (0.2-1.0) mg/dL AST (15-37) U/L ALT (16-63) U/L Alkaline Phosphatase (46-116) U/L Creatine Kinase (39-308) U/L C-Reactive Protein (<1.0) mg/dL NT-Pro-B Natriuret Pep (0-450) pg/mL Total Protein (6.4-8.2) g/dl Albumin (3.4-5.0) g/dl Globulin gm/dL Albumin/Globulin Ratio (1-2) Result Diagrams: 01/24/18 12:20 01/24/18 12:20 Orders Last 24hrs: Active Orders 24 hr Category Date Time Status Admission Status [Patient Status] [ADT] Routine ADT 01/24/18 14:58 Active Activity as Tolerated [RC] .Routine Care 01/24/18 15:20 Active Elevate Extremity [RC] Q6HR Care 01/24/18 15:54 Active Insert Guerrero Catheter [Insert Urinary Catheter] [OM.PC] Care 01/25/18 08:00 Ordered Q24H Urinary Catheter Assessment [RC] 10 Care 01/24/18 16:04 Active Consult to Case Management [CONS] Routine Cons 01/26/18 08:00 Active Consult to Occupational Therapy [OT Evaluation and Cons 01/26/18 09:30 Active Treatment] [CONS] Routine Consult to Physical Therapy [PT Evaluation and Cons 01/26/18 09:30 Active Treatment] [CONS] Routine Fluid Restriction [DIET] Diet 01/24/18 Dinner Active Heart Healthy Diet [DIET] Diet 01/24/18 Dinner Active Art Doppler w Stress [US] Routine Exams 01/27/18 09:00 Ordered Echo Comp wo Cont [US] Routine Exams 01/27/18 08:00 Ordered VL Duplex Lwr Ext Veins Ltd Lt [US] Stat Exams 01/24/18 12:33 Taken BMP [BASIC METABOLIC PANEL,BMP] [CHEM] DAILY Lab 01/25/18 05:00 Ordered BMP [BASIC METABOLIC PANEL,BMP] [CHEM] DAILY Lab 01/26/18 05:00 Ordered BMP [BASIC METABOLIC PANEL,BMP] [CHEM] DAILY Lab 01/27/18 05:00 Ordered BMP [BASIC METABOLIC PANEL,BMP] [CHEM] DAILY Lab 01/28/18 05:00 Ordered CBC WITH AUTO DIFF [HEME] DAILY Lab 01/25/18 05:00 Ordered CBC WITH AUTO DIFF [HEME] DAILY Lab 01/26/18 05:00 Ordered CBC WITH AUTO DIFF [HEME] DAILY Lab 01/27/18 05:00 Ordered CBC WITH AUTO DIFF [HEME] DAILY Lab 01/28/18 05:00 Ordered CRP, HIGH SENSITIVITY [REF] DAILY Lab 01/25/18 05:00 Ordered CRP, HIGH SENSITIVITY [REF] DAILY Lab 01/26/18 05:00 Ordered CRP, HIGH SENSITIVITY [REF] DAILY Lab 01/27/18 05:00 Ordered CRP, HIGH SENSITIVITY [REF] DAILY Lab 01/28/18 05:00 Ordered CULTURE BLOOD [BC] Stat Lab 01/24/18 12:20 Received CULTURE BLOOD [BC] Stat Lab 01/24/18 12:45 Received GLYCOSYLATED HEMOGLOBIN,HGBA1C [CHEM] Routine Lab 01/25/18 05:00 Ordered INR,PT,PROTHROMBIN TIME [COAG] DAILY Lab 01/25/18 05:00 Ordered INR,PT,PROTHROMBIN TIME [COAG] DAILY Lab 01/26/18 05:00 Ordered INR,PT,PROTHROMBIN TIME [COAG] DAILY Lab 01/27/18 05:00 Ordered INR,PT,PROTHROMBIN TIME [COAG] DAILY Lab 01/28/18 05:00 Ordered LACTIC ACID [CHEM] DAILY Lab 01/25/18 05:00 Ordered LACTIC ACID [CHEM] DAILY Lab 01/26/18 05:00 Ordered LACTIC ACID [CHEM] DAILY Lab 01/27/18 05:00 Ordered LACTIC ACID [CHEM] DAILY Lab 01/28/18 05:00 Ordered LIPID PANEL [CHEM] Routine Lab 01/25/18 05:00 Ordered MAGNESIUM [CHEM] DAILY Lab 01/25/18 05:00 Ordered MAGNESIUM [CHEM] DAILY Lab 01/26/18 05:00 Ordered MAGNESIUM [CHEM] DAILY Lab 01/27/18 05:00 Ordered MAGNESIUM [CHEM] DAILY Lab 01/28/18 05:00 Ordered PRO B-TYPE NATRIUR PEPT,BNPPRO [CHEM] DAILY Lab 01/25/18 05:00 Ordered PRO B-TYPE NATRIUR PEPT,BNPPRO [CHEM] DAILY Lab 01/26/18 05:00 Ordered TROPONIN I [CHEM] Routine Lab 01/25/18 05:00 Ordered TSH [CHEM] Routine Lab 01/25/18 05:00 Ordered VANCOMYCIN TROUGH [CHEM] Routine Lab 01/27/18 13:30 Ordered Acetaminophen [Tylenol] Med 01/24/18 15:24 Active 650 mg PO Q6H PRN Ampicillin/Sulbactam Na [Unasyn] 1.5 gm Med 01/24/18 18:00 Active Sodium Chloride 0.9% [Normal Saline] 100 ml IV Q6H Cholecalciferol (Vitamin D3) [Vitamin D3] Med 01/25/18 09:00 Active 5,000 unit PO MoWeFr@0900 Ferrous Sulfate [Ferosul] Med 01/24/18 21:00 Pending 5 ml PO TID Furosemide [Lasix] 100 mg Med 01/25/18 10:00 Active Sodium Chloride 0.9% [Normal Saline] 90 ml IV Q24H Gabapentin [Neurontin] Med 01/24/18 21:00 Active 200 mg PO BID Levothyroxine [Synthroid] Med 01/25/18 06:00 Active 50 mcg PO ACBRK Multivitamins,Therapeutic [Thera] Med 01/25/18 09:00 Active 1 each PO DAILY Pantoprazole [ProTONIX] Med 01/24/18 17:00 Active 40 mg PO BID@0700,1700 Potassium Chloride [Klor-Con 10] Med 01/24/18 17:00 Active 10 meq PO BIDMEALS Propranolol [Inderal] Med 01/25/18 09:00 Active 20 mg PO DAILY Simvastatin [Zocor] Med 01/24/18 21:00 Active 20 mg PO BEDTIME Sodium Chloride 0.9% [Normal Saline] 1,000 ml Med 01/24/18 14:15 Active IV ASDIRECTED Sodium Chloride 0.9% [Saline Flush] Med 01/24/18 12:22 Active 10 ml FLUSH ASDIRECTED PRN Vancomycin 1.5 gm Med 01/24/18 16:00 Active Sodium Chloride 0.9% [Normal Saline] 250 ml IV Q24H Vancomycin Pharmacy to Dose [Pharmacy to Dose - Med 01/24/18 15:30 Pending Vancomycin] 1 dose .XX ASDIRECTED Warfarin Pharmacy to Dose [Pharmacy to Dose - Warfarin] Med 01/24/18 16:00 Pending 1 dose .XX ASDIRECTED Warfarin [Coumadin] Med 01/24/18 18:00 Once 5 mg PO ONETIME ONE Blood Culture x2 Reflex Set [OM.PC] Stat Oth 01/24/18 12:21 Ordered Peripheral IV Insertion Adult [OM.PC] Stat Oth 01/24/18 12:22 Ordered JOSSY Hose [Antiembolic Hose] [OM.PC] Routine Oth 01/24/18 16:02 Ordered Resuscitation Status Routine Resus Stat 01/24/18 16:18 Ordered Medication Orders Acetaminophen (Tylenol) 650 mg PO Q6H PRN PRN Reason: Pain/Fever Cholecalciferol (Vitamin D3) 5,000 unit PO MoWeFr@0900 [facility] Gabapentin (Neurontin) 200 mg PO BID [facility] Sodium Chloride (Normal Saline) 1,000 mls @ 75 mls/hr IV ASDIRECTED [facility] Last Admin: 01/24/18 14:39 Dose: 75 mls/hr Ampicillin Sodium/Sulbactam (Sodium 1.5 gm/ Sodium Chloride) 100 mls @ 200 mls/ hr IV Q6H [facility] Vancomycin HCl 1.5 gm/ Sodium (Chloride) 250 mls @ 166.667 mls/hr IV Q24H [facility] Last Admin: 01/24/18 16:34 Dose: 166.667 mls/hr Furosemide 100 mg/ Sodium (Chloride) 100 mls @ 4 mls/hr IV Q24H [facility]; Protocol Stop: 01/27/18 09:59 Levothyroxine Sodium (Synthroid) 50 mcg PO ACBRK [facility] Multivitamins (Thera) 1 each PO DAILY [facility] Non-Formulary Medication (Ferrous Sulfate [Ferosul]) 5 ml PO TID [facility] Pantoprazole Sodium (Protonix) 40 mg PO BID@0700,1700 [facility] Last Admin: 01/24/18 16:34 Dose: 40 mg Potassium Chloride (Klor-Con 10) 10 meq PO BIDMEALS [facility] Last Admin: 01/24/18 16:22 Dose: Propranolol HCl (Inderal) 20 mg PO DAILY [facility] Simvastatin (Zocor) 20 mg PO BEDTIME [facility] Sodium Chloride (Saline Flush) 10 ml FLUSH ASDIRECTED PRN PRN Reason: Keep Vein Open Last Admin: 01/24/18 12:49 Dose: 10 ml Admin: 01/24/18 12:31 Dose: 10 ml Vancomycin HCl (Pharmacy To Dose - Vancomycin) 1 dose .XX ASDIRECTED [facility] Warfarin Sodium (Pharmacy To Dose - Warfarin) 1 dose .XX ASDIRECTED [facility] Warfarin Sodium (Coumadin) 5 mg PO ONETIME ONE Stop: 01/24/18 18:01 <Evelia Roche M - Last Filed: 01/25/18 19:18> H&P History of Present Illness - General Date of Service: 01/24/18 Admit Problem/Dx: Admission Diagnosis/Problem Admission Diagnosis/Problem Cellulitis of left lower leg Source of Information: Patient, Family, Provider History Limitations: Reports: No Limitations - History of Present Illness Initial Comments - Free Text/Narative: 87 year old male describes with minimal words recent, three day swelling to left lower extremity. The skin changes suggest chronic ededma, however the voiced duration of redness, pain and swelling was supported by his daughter. he has had tactile elevated temperature, and was apparetnly seen in a clinic where Ceftin was prescribed. The patient and his family reported taking four doses without improvement. The erythema has expanded, ascending to the kneee. He denies recent trauma, insect bite; the LLE is hairless which has gone unnoticed by the patient and his family. The patient has a patient medical history of PAD/CAD/Valvular heart Disease; he is on Coumadin for A Fib. The patient will be admitted to [facility] telemetry for failed OP Rx for LLE cellulitis. Duration of Symptoms: Reports: Day(s):, Getting Worse Location: Reports: Lower Extremity, Left Quality: Reports: Ache, Burning Severity: Moderate Improves with: Reports: Medication Worsens with: Reports: Movement Associated Symptoms: Reports: Loss of Appetite, Malaise, Weakness Left Lower Leg Pain Score (Numeric/FACES): 10 Past Medical History Cardiovascular History: Reports: Arrhythmia, Bypass, CAD, Heart Failure, High Cholesterol, Hypertension Gastrointestinal History: Reports: GERD Genitourinary History: Reports: BPH, Chronic Renal Insuffiency Musculoskeletal History: Reports: Gout Neurological History: Reports: Neuropathy, Peripheral Endocrine/Metabolic History: Reports: Hypothyroidism Oncologic (Cancer) History: Reports: Basal Cell Carcinoma - Past Surgical History HEENT Surgical History: Reports: Cataract Surgery Cardiovascular Surgical History: Reports: Coronary Artery Bypass, Pacer, Valve Replacement GI Surgical History: Reports: Cholecystectomy, Hernia, Inguinal Musculoskeletal Surgical History: Reports: Arthroscopic Knee Social & Family History - Family History Family Medical History: Noncontributory - Tobacco Use Smoking Status *Q: Never Smoker - Caffeine Use Caffeine Use: Reports: Coffee - Recreational Drug Use Recreational Drug Use: No - Living Situation & Occupation Living situation: Reports: , Alone Occupation: Retired H&P Review of Systems - Review of Systems: Review Of Systems: See Below General: Reports: Malaise, Weakness HEENT: Reports: No Symptoms Pulmonary: Reports: Shortness of Breath Cardiovascular: Reports: No Symptoms Gastrointestinal: Reports: No Symptoms Genitourinary: Reports: No Symptoms Musculoskeletal: Reports: No Symptoms Skin: Reports: No Symptoms Psychiatric: Reports: No Symptoms Neurological: Reports: No Symptoms Hematologic/Lymphatic: Reports: No Symptoms Immunologic: Reports: No Symptoms Exam - Exam Exam: See Below - Vital Signs Vital Signs: Last Vital Signs Temp 36.8 C 01/24/18 12:10 Pulse 71 01/24/18 12:10 Resp 16 01/24/18 12:10 BP 122/85 01/24/18 12:10 Pulse Ox 100 01/24/18 12:10 Weight: 97.432 kg - Exam Quality Assessment: Supplemental Oxygen, DVT Prophylaxis General: Alert, Oriented, Cooperative HEENT: Pupils Equal, Pupils Reactive, PERRLA Neck: Trachea Midline Lungs: Normal Respiratory Effort, Decreased Breath Sounds Cardiovascular: Regular Rate, Regular Rhythm GI/Abdominal Exam: Normal Bowel Sounds, Soft, Non-Tender, No Organomegaly, No Distention (Male) Exam: Deferred Rectal (Males) Exam: Deferred Back Exam: Normal Inspection Extremities: Normal Inspection, Non-Tender, Pedal Edema, Slow Capillary Refill, Leg Pain, Increased Warmth, Redness, Other (hairless) Skin: Warm, Intact Neurological: Cranial Nerves Intact, Normal Speech Neuro Extensive - Mental Status: Alert, Oriented x3 Neuro Extensive - Motor, Sensory, Reflexes: CN II-XII Intact Psychiatric: Alert, Normal Affect, Normal Mood - Patient Data Lab Results Last 24 hrs: Laboratory Results - last 24 hr 01/24/18 01/24/18 01/24/18 Range/Units 12:20 12:20 12:20 WBC 10.95 H (4.23-9.07) K/mm3 RBC 4.27 L (4.63-6.08) M/mm3 Hgb 12.7 L (13.7-17.5) gm/L Hct 38.2 L (40.1-51.0) % MCV 89.5 (79.0-92.2) fl MCH 29.7 (25.7-32.2) pg MCHC 33.2 (32.2-35.5) g/dl RDW Std Deviation 56.0 H (35.1-43.9) fL Plt Count 260 (163-337) K/mm3 MPV 10.2 (9.4-12.3) fl Neutrophils % (Manual) 87 H (40-60) % Band Neutrophils % 0 (0-10) % Lymphocytes % (Manual) 3 L (20-40) % Atypical Lymphs % 0 % Monocytes % (Manual) 9 (2-10) % Eosinophils % (Manual) 0 L (0.8-7.0) % Basophils % (Manual) 1 (0.2-1.2) Platelet Estimate Adequate Plt Morphology Comment Normal RBC Morph Comment Normal PT (9.5-12.1) SECONDS INR Sodium 134 L (136-145) mEq/L Potassium 4.9 (3.5-5.1) mEq/L Chloride 97 L (98-107) mEq/L Carbon Dioxide 27 (21-32) mEq/L Anion Gap 14.9 (5-15) BUN 64 H (7-18) mg/dL Creatinine 1.8 H (0.7-1.3) mg/dL Est Cr Clr Drug Dosing 31.96 mL/min Estimated GFR (MDRD) 36 (>60) mL/min BUN/Creatinine Ratio 35.6 H (14-18) Glucose 115 (83-115) mg/dL Calcium 9.8 (8.5-10.1) mg/dL Magnesium 2.5 H (1.8-2.4) mg/dl Total Bilirubin 1.1 H (0.2-1.0) mg/dL AST 30 (15-37) U/L ALT 47 (16-63) U/L Alkaline Phosphatase 136 H (46-116) U/L Creatine Kinase 71 (39-308) U/L C-Reactive Protein 11.0 H* (<1.0) mg/dL NT-Pro-B Natriuret Pep 2019 H (0-450) pg/mL Total Protein 8.0 (6.4-8.2) g/dl Albumin 3.9 (3.4-5.0) g/dl Globulin 4.1 gm/dL Albumin/Globulin Ratio 1.0 (1-2) 18 Range/Units 12:20 WBC (4.23-9.07) K/mm3 RBC (4.63-6.08) M/mm3 Hgb (13.7-17.5) gm/L Hct (40.1-51.0) % MCV (79.0-92.2) fl MCH (25.7-32.2) pg MCHC (32.2-35.5) g/dl RDW Std Deviation (35.1-43.9) fL Plt Count (163-337) K/mm3 MPV (9.4-12.3) fl Neutrophils % (Manual) (40-60) % Band Neutrophils % (0-10) % Lymphocytes % (Manual) (20-40) % Atypical Lymphs % % Monocytes % (Manual) (2-10) % Eosinophils % (Manual) (0.8-7.0) % Basophils % (Manual) (0.2-1.2) Platelet Estimate Plt Morphology Comment RBC Morph Comment PT 19.3 H (9.5-12.1) SECONDS INR 1.79 Sodium (136-145) mEq/L Potassium (3.5-5.1) mEq/L Chloride (98-107) mEq/L Carbon Dioxide (21-32) mEq/L Anion Gap (5-15) BUN (7-18) mg/dL Creatinine (0.7-1.3) mg/dL Est Cr Clr Drug Dosing mL/min Estimated GFR (MDRD) (>60) mL/min BUN/Creatinine Ratio (14-18) Glucose (83-115) mg/dL Calcium (8.5-10.1) mg/dL Magnesium (1.8-2.4) mg/dl Total Bilirubin (0.2-1.0) mg/dL AST (15-37) U/L ALT (16-63) U/L Alkaline Phosphatase (46-116) U/L Creatine Kinase (39-308) U/L C-Reactive Protein (<1.0) mg/dL NT-Pro-B Natriuret Pep (0-450) pg/mL Total Protein (6.4-8.2) g/dl Albumin (3.4-5.0) g/dl Globulin gm/dL Albumin/Globulin Ratio (1-2) Result Diagrams: 01/25/18 06:24 01/25/18 06:24 Problem List Initiated/Reviewed/Updated: Yes Orders Last 24hrs: Active Orders 24 hr Category Date Time Status Admission Status [Patient Status] [ADT] Routine ADT 01/24/18 14:58 Active EKG Documentation Completion [RC] STAT Care 01/24/18 12:22 Active VL Duplex Lwr Ext Veins Ltd Lt [US] Stat Exams 01/24/18 12:33 Taken CULTURE BLOOD [BC] Stat Lab 01/24/18 12:20 Received CULTURE BLOOD [BC] Stat Lab 01/24/18 12:45 Received Sodium Chloride 0.9% [Normal Saline] 1,000 ml Med 01/24/18 14:15 Active IV ASDIRECTED Sodium Chloride 0.9% [Saline Flush] Med 01/24/18 12:22 Active 10 ml FLUSH ASDIRECTED PRN Blood Culture x2 Reflex Set [OM.PC] Stat Oth 01/24/18 12:21 Ordered Peripheral IV Insertion Adult [OM.PC] Stat Oth 01/24/18 12:22 Ordered Medication Orders Sodium Chloride (Normal Saline) 1,000 mls @ 75 mls/hr IV ASDIRECTED DARCY Last Admin: 01/24/18 14:39 Dose: 75 mls/hr Sodium Chloride (Saline Flush) 10 ml FLUSH ASDIRECTED PRN PRN Reason: Keep Vein Open Last Admin: 01/24/18 12:49 Dose: 10 ml Admin: 01/24/18 12:31 Dose: 10 ml Assessment/Plan Comment:: Impression: LLE Cellulitis w/ failed OP treatment PVD CAD/CABG S/P PPM A fib on Coumadin CHF, query NYHA functional status Hx of Valvular Heart Disease HLD Chronic BPH Hypothyroidism CKD GERD Peripheral neuropathy Plan: Vancomycin/Unasyn Lasix gtt ANIRUDH with stress 2D echo Analgesics Home meds Daily Labs DVT/GI prophylaxis Consult CM/PT/OT
[2018-01-24] MEDS: Potassium Chloride 10 MEQ Tab.ER PO SCH (16:22)
[2018-01-24] MEDS: Pantoprazole 40 MG Tab.CR PO SCH (16:34)
[2018-01-24] MEDS ORDERED: Warfarin 2.5 MG Tab PO SCH (18:00)
[2018-01-24] MEDS ORDERED: Warfarin 5 MG Tab PO ONE (18:00)
[2018-01-24] MEDS: Ampicillin/Sulbactam Na 1.5 GM in Sodium Chloride 0.9% 100 ML IV SCH ×2 (18:17→23:40)
[2018-01-24] MEDS: Simvastatin 20 MG Tab PO SCH (21:21)
[2018-01-24] MEDS: Gabapentin 100 MG Cap PO SCH (21:27)
[2018-01-25] MEDS: Sodium Chloride 0.9% 1,000 ML IV SCH (03:53)
[2018-01-25] MEDS: Ampicillin/Sulbactam Na 1.5 GM in Sodium Chloride 0.9% 100 ML IV SCH ×4 (06:08→23:13)
[2018-01-25] MEDS: Levothyroxine 50 MCG Tab PO SCH (06:10)
[2018-01-25] MEDS: Potassium Chloride 10 MEQ Tab.ER PO SCH ×2 (07:33→16:26)
[2018-01-25] MEDS: Pantoprazole 40 MG Tab.CR PO SCH ×2 (07:34→16:26)
[2018-01-25] MEDS: Propranolol 20 MG Tab PO SCH (08:12)
[2018-01-25] MEDS: Gabapentin 100 MG Cap PO SCH (08:13)
[2018-01-25] MEDS: Cholecalciferol (Vitamin D3) 5,000 UNIT Tab PO SCH (08:13)
[2018-01-25] MEDS: Multivitamins,Therapeutic Tab PO SCH (08:13)
--- NOTE | 2018-01-25 08:36 | US ---
Left lower extremity deep venous ultrasound: Duplex and color flow imaging was obtained of the left common femoral, proximal greater saphenous, superficial femoral, popliteal, posterior tibial and peroneal veins. Right common femoral vein was also evaluated. Subcutaneous edema is seen within the left calf. Posterior tibial and peroneal veins were not able to be adequately compressed and also suboptimally seen for augmentation but phasic flow is felt to be present. Other veins show normal phasic flow, augmentation and compression. Impression: 1. Calf veins not optimally seen secondary to subcutaneous edema within the calf. No secondary evidence of venous thrombosis is seen within the calf veins. 2. Other veins appear normal. No evidence of deep venous thrombosis is seen. Diagnostic code #3 Agree with preliminary report issued by [facility] ([facility] preliminary report dictated on 01/17/17, 2:58 PM Central Time)
[2018-01-25] MEDS ORDERED: Ferrous Sulfate 325 MG Tab PO SCH (09:00)
[2018-01-25] MEDS: Furosemide 100 MG in Sodium Chloride 0.9% 90 ML IV SCH (10:36)
[2018-01-25] MEDS: FERROUS SULFATE 220 MG/5 ML PO SCH ×3 (10:36→20:17)
--- NOTE | 2018-01-25 13:33 | PCM.PN ---
- General Info Date of Service: 01/25/18 Functional Status: Reports: Tolerating Diet, Urinating - Review of Systems General: Reports: No Symptoms HEENT: Reports: No Symptoms Pulmonary: Reports: No Symptoms Cardiovascular: Reports: No Symptoms Gastrointestinal: Reports: No Symptoms Genitourinary: Reports: No Symptoms Musculoskeletal: Reports: No Symptoms Skin: Reports: No Symptoms Neurological: Reports: No Symptoms Psychiatric: Reports: No Symptoms - Patient Data Vitals - Most Recent: Last Vital Signs Temp 36.3 C 01/25/18 12:27 Pulse 72 01/25/18 12:27 Resp 16 01/25/18 12:27 BP 106/49 L 01/25/18 12:27 Pulse Ox 99 01/25/18 12:27 Weight - Most Recent: 97.432 kg I&O - Last 24 Hours: Intake & Output 01/24/18 01/25/18 01/25/18 22:59 06:59 14:59 Intake Total 240 1217 120 Output Total 700 1100 Balance -460 117 120 Lab Results Last 24 Hours: Laboratory Results - last 24 hr 01/25/18 01/25/18 01/25/18 Range/Units 06:24 06:24 06:24 WBC 8.52 (4.23-9.07) K/mm3 RBC 3.58 L (4.63-6.08) M/mm3 Hgb 10.7 L (13.7-17.5) gm/L Hct 32.5 L (40.1-51.0) % MCV 90.8 (79.0-92.2) fl MCH 29.9 (25.7-32.2) pg MCHC 32.9 (32.2-35.5) g/dl RDW Std Deviation 56.2 H (35.1-43.9) fL Plt Count 198 (163-337) K/mm3 MPV 10.2 (9.4-12.3) fl Neut % (Auto) 77.0 H (34.0-67.9) % Lymph % (Auto) 6.0 L (21.8-53.1) % [place] % (Auto) 14.7 H (5.3-12.2) % Eos % (Auto) 1.4 (0.8-7.0) Baso % (Auto) 0.4 (0.1-1.2) % Neut # (Auto) 6.57 H (1.78-5.38) K/mm3 Lymph # (Auto) 0.51 L (1.32-3.57) K/mm3 [place] # (Auto) 1.25 H (0.30-0.82) K/mm3 Eos # (Auto) 0.12 (0.04-0.54) K/mm3 Baso # (Auto) 0.03 (0.01-0.08) K/mm3 Manual Slide Review Abnormal smear PT 25.0 H (9.5-12.1) SECONDS INR 2.33 Sodium 137 (136-145) mEq/L Potassium 4.1 (3.5-5.1) mEq/L Chloride 102 (98-107) mEq/L Carbon Dioxide 26 (21-32) mEq/L Anion Gap 13.1 (5-15) BUN 55 H (7-18) mg/dL Creatinine 1.7 H (0.7-1.3) mg/dL Est Cr Clr Drug Dosing 33.84 mL/min Estimated GFR (MDRD) 38 (>60) mL/min BUN/Creatinine Ratio 32.4 H (14-18) Glucose 117 H (83-115) mg/dL Hemoglobin A1c (4.50-6.20) % Lactic Acid (0.4-2.0) mmol/L Calcium 8.7 (8.5-10.1) mg/dL Magnesium 2.3 (1.8-2.4) mg/dl Troponin I 0.020 (0.00-0.056) ng/mL NT-Pro-B Natriuret Pep (0-450) pg/mL Triglycerides 64 (<150) mg/dL Cholesterol 81 (<200) mg/dL LDL Cholesterol Direct 37 (<100) mg/dL HDL Cholesterol 39.0 L (40-59) mg/dL TSH 3rd Generation 0.918 (0.358-3.74) uIU/mL 01/25/18 01/25/18 01/25/18 Range/Units 06:24 06:24 06:24 WBC (4.23-9.07) K/mm3 RBC (4.63-6.08) M/mm3 Hgb (13.7-17.5) gm/L Hct (40.1-51.0) % MCV (79.0-92.2) fl MCH (25.7-32.2) pg MCHC (32.2-35.5) g/dl RDW Std Deviation (35.1-43.9) fL Plt Count (163-337) K/mm3 MPV (9.4-12.3) fl Neut % (Auto) (34.0-67.9) % Lymph % (Auto) (21.8-53.1) % [place] % (Auto) (5.3-12.2) % Eos % (Auto) (0.8-7.0) Baso % (Auto) (0.1-1.2) % Neut # (Auto) (1.78-5.38) K/mm3 Lymph # (Auto) (1.32-3.57) K/mm3 [place] # (Auto) (0.30-0.82) K/mm3 Eos # (Auto) (0.04-0.54) K/mm3 Baso # (Auto) (0.01-0.08) K/mm3 Manual Slide Review PT (9.5-12.1) SECONDS INR Sodium (136-145) mEq/L Potassium (3.5-5.1) mEq/L Chloride (98-107) mEq/L Carbon Dioxide (21-32) mEq/L Anion Gap (5-15) BUN (7-18) mg/dL Creatinine (0.7-1.3) mg/dL Est Cr Clr Drug Dosing mL/min Estimated GFR (MDRD) (>60) mL/min BUN/Creatinine Ratio (14-18) Glucose (83-115) mg/dL Hemoglobin A1c 6.00 (4.50-6.20) % Lactic Acid 1.1 (0.4-2.0) mmol/L Calcium (8.5-10.1) mg/dL Magnesium (1.8-2.4) mg/dl Troponin I (0.00-0.056) ng/mL NT-Pro-B Natriuret Pep 2147 H (0-450) pg/mL Triglycerides (<150) mg/dL Cholesterol (<200) mg/dL LDL Cholesterol Direct (<100) mg/dL HDL Cholesterol (40-59) mg/dL TSH 3rd Generation (0.358-3.74) uIU/mL Edilson Results Last 24 Hours: Microbiology 01/24/18 12:45 Aerobic Blood Culture - Preliminary Blood - Venous - Lab Draw NO GROWTH AFTER 1 DAY Anaerobic Blood Culture - Preliminary NO GROWTH AFTER 1 DAY 01/24/18 12:20 Aerobic Blood Culture - Preliminary Blood - Venous NO GROWTH AFTER 1 DAY Anaerobic Blood Culture - Preliminary NO GROWTH AFTER 1 DAY Med Orders - Current: Current Medications Acetaminophen (Tylenol) 650 mg PO Q6H PRN PRN Reason: Pain/Fever Cholecalciferol (Vitamin D3) 5,000 unit PO MoWeFr@0900 [facility] Last Admin: 01/25/18 08:13 Dose: 5,000 unit Gabapentin (Neurontin) 200 mg PO BID [facility] Last Admin: 01/25/18 08:13 Dose: Not Given Ampicillin Sodium/Sulbactam (Sodium 1.5 gm/ Sodium Chloride) 100 mls @ 200 mls/ hr IV Q6H [facility] Last Admin: 01/25/18 11:25 Dose: 200 mls/hr Vancomycin HCl 1.5 gm/ Sodium (Chloride) 250 mls @ 166.667 mls/hr IV Q24H [facility] Last Admin: 01/24/18 16:34 Dose: 166.667 mls/hr Furosemide 100 mg/ Sodium (Chloride) 100 mls @ 4 mls/hr IV Q24H [facility]; Protocol Stop: 01/27/18 09:59 Last Admin: 01/25/18 10:36 Dose: 4 mls/hr Levothyroxine Sodium (Synthroid) 50 mcg PO ACBRK [facility] Last Admin: 01/25/18 06:10 Dose: 50 mcg Multivitamins (Thera) 1 each PO DAILY [facility] Last Admin: 01/25/18 08:13 Dose: 1 each Pantoprazole Sodium (Protonix) 40 mg PO BID@0700,1700 [facility] Last Admin: 01/25/18 07:34 Dose: 40 mg Ferrous Sulfate (Elixir 220 Mg/5 Ml) 0 each PO TID [facility] Last Admin: 01/25/18 10:36 Dose: 5 each Potassium Chloride (Klor-Con 10) 10 meq PO BIDMEALS [facility] Last Admin: 01/25/18 07:33 Dose: 10 meq Propranolol HCl (Inderal) 20 mg PO DAILY [facility] Last Admin: 01/25/18 08:12 Dose: 20 mg Simvastatin (Zocor) 20 mg PO BEDTIME [facility] Last Admin: 01/24/18 21:21 Dose: 20 mg Sodium Chloride (Saline Flush) 10 ml FLUSH ASDIRECTED PRN PRN Reason: Keep Vein Open Last Admin: 01/24/18 12:49 Dose: 10 ml Vancomycin HCl (Pharmacy To Dose - Vancomycin) 0 dose .XX ASDIRECTED PRN PRN Reason: RX TO DOSE VANCOMYCIN Warfarin Sodium (Pharmacy To Dose - Warfarin) 0 dose .XX ASDIRECTED PRN PRN Reason: RX TO DOSE WARFARIN Warfarin Sodium (Coumadin) 2.5 mg PO QPM [facility] Stop: 01/25/18 21:00 Discontinued Medications Ferrous Sulfate (Ferrous Sulfate) 325 mg PO TID [facility] Last Admin: 01/25/18 12:41 Dose: Not Given Furosemide (Lasix) 40 mg IVPUSH NOW ONE Stop: 01/24/18 14:14 Last Admin: 01/24/18 14:34 Dose: 40 mg Hydromorphone HCl (Dilaudid) 0.5 mg IVPUSH ONETIME ONE Stop: 01/24/18 12:32 Last Admin: 01/24/18 12:48 Dose: 0.5 mg Clindamycin Phosphate 900 mg/ (Sodium Chloride) 106 mls @ 100 mls/hr IV ONETIME ONE Stop: 01/24/18 13:35 Last Admin: 01/24/18 12:49 Dose: 100 mls/hr Sodium Chloride (Normal Saline) 1,000 mls @ 75 mls/hr IV ASDIRECTED [facility] Last Admin: 01/25/18 03:53 Dose: 75 mls/hr Ondansetron HCl (Zofran) 4 mg IVPUSH ONETIME ONE Stop: 01/24/18 12:32 Last Admin: 01/24/18 12:48 Dose: 4 mg Warfarin Sodium (Coumadin) 5 mg PO ONETIME ONE Stop: 01/24/18 18:01 Last Admin: 01/24/18 18:17 Dose: 5 mg - Exam Quality Assessment: Supplemental Oxygen, DVT Prophylaxis General: Alert, Oriented, Cooperative HEENT: Pupils Equal, Pupils Reactive, EOMI Neck: Trachea Midline, No JVD Lungs: Normal Respiratory Effort Cardiovascular: Regular Rate, Irregular Rhythm GI/Abdominal Exam: Normal Bowel Sounds, Soft, Non-Tender, No Organomegaly, No Distention (Male) Exam: Deferred Back Exam: Normal Inspection Extremities: Normal Inspection, Non-Tender, Pedal Edema, Slow Capillary Refill Wound/Incisions: Erythema Improving Neurological: No New Focal Deficit, Normal Speech Psy/Mental Status: Alert, Normal Affect, Normal Mood - Problem List Review Problem List Initiated/Reviewed/Updated: Yes - My Orders Last 24 Hours: My Active Orders 01/24/18 15:20 Activity as Tolerated [RC] .Routine 01/24/18 15:24 Acetaminophen [Tylenol] 650 mg PO Q6H PRN 01/24/18 15:30 Vancomycin Pharmacy to Dose [Pharmacy to Dose - Vancomycin] 0 dose .XX ASDIRECTED PRN 01/24/18 15:54 Elevate Extremity [RC] Q6HR 01/24/18 16:00 Warfarin Pharmacy to Dose [Pharmacy to Dose - Warfarin] 0 dose .XX ASDIRECTED PRN 01/24/18 16:02 JOSSY Hose [Antiembolic Hose] [OM.PC] Routine 01/24/18 16:04 Urinary Catheter Assessment [RC] 10 01/24/18 16:18 Resuscitation Status Routine 01/24/18 17:00 Pantoprazole [ProTONIX] 40 mg PO BID@0700,1700 Potassium Chloride [Klor-Con 10] 10 meq PO BIDMEALS 01/24/18 18:00 Ampicillin/Sulbactam Na [Unasyn] 1.5 gm Sodium Chloride 0.9% [Normal Saline] 100 ml IV Q6H 01/24/18 21:00 Gabapentin [Neurontin] 200 mg PO BID Simvastatin [Zocor] 20 mg PO BEDTIME 01/24/18 Dinner Fluid Restriction [DIET] Heart Healthy Diet [DIET] 01/25/18 06:00 Levothyroxine [Synthroid] 50 mcg PO ACBRK 01/25/18 06:24 CRP, HIGH SENSITIVITY [REF] DAILY 01/25/18 08:00 Insert Guerrero Catheter [Insert Urinary Catheter] [OM.PC] Q24H 01/25/18 09:00 Cholecalciferol (Vitamin D3) [Vitamin D3] 5,000 unit PO MoWeFr@0900 Multivitamins,Therapeutic [Thera] 1 each PO DAILY Propranolol [Inderal] 20 mg PO DAILY 01/25/18 10:00 Furosemide [Lasix] 100 mg Sodium Chloride 0.9% [Normal Saline] 90 ml IV Q24H 01/25/18 10:45 Patient's Own Medication [Ptom] 0 each PO TID 01/25/18 18:00 Warfarin [Coumadin] 2.5 mg PO QPM 01/26/18 05:00 BMP [BASIC METABOLIC PANEL,BMP] [CHEM] DAILY CBC WITH AUTO DIFF [HEME] DAILY CRP, HIGH SENSITIVITY [REF] DAILY INR,PT,PROTHROMBIN TIME [COAG] DAILY LACTIC ACID [CHEM] DAILY MAGNESIUM [CHEM] DAILY PRO B-TYPE NATRIUR PEPT,BNPPRO [CHEM] DAILY 01/26/18 08:00 Consult to Case Management [CONS] Routine 01/26/18 09:30 Consult to Occupational Therapy [OT Evaluation and Treatment] [CONS] Routine Consult to Physical Therapy [PT Evaluation and Treatment] [CONS] Routine 01/27/18 05:00 BMP [BASIC METABOLIC PANEL,BMP] [CHEM] DAILY CBC WITH AUTO DIFF [HEME] DAILY CRP, HIGH SENSITIVITY [REF] DAILY INR,PT,PROTHROMBIN TIME [COAG] DAILY LACTIC ACID [CHEM] DAILY MAGNESIUM [CHEM] DAILY 01/27/18 08:00 Echo Comp wo Cont [US] Routine 01/27/18 09:00 Art Doppler w Stress [US] Routine 01/28/18 05:00 BMP [BASIC METABOLIC PANEL,BMP] [CHEM] DAILY CBC WITH AUTO DIFF [HEME] DAILY CRP, HIGH SENSITIVITY [REF] DAILY INR,PT,PROTHROMBIN TIME [COAG] DAILY LACTIC ACID [CHEM] DAILY MAGNESIUM [CHEM] DAILY - Plan Plan:: Impression: LLE Cellulitis w/ failed OP treatment PVD CAD/CABG S/P PPM A fib on Coumadin CHF, query NYHA functional status Hx of Valvular Heart Disease HLD Chronic BPH Hypothyroidism CKD GERD Peripheral neuropathy Plan: Vancomycin/Unasyn Lasix gtt ANIRUDH with stress 2D echo Analgesics Home meds Daily Labs DVT/GI prophylaxis Consult CM/PT/OT
[2018-01-25] MEDS ORDERED: Warfarin 2.5 MG Tab PO SCH (18:00)
[2018-01-25] MEDS: Simvastatin 20 MG Tab PO SCH (20:17)
[2018-01-26] MEDS: Ampicillin/Sulbactam Na 1.5 GM in Sodium Chloride 0.9% 100 ML IV SCH ×3 (06:43→17:55)
[2018-01-26] MEDS: Levothyroxine 50 MCG Tab PO SCH (06:43)
[2018-01-26] MEDS: Potassium Chloride 10 MEQ Tab.ER PO SCH ×2 (06:43→17:55)
[2018-01-26] MEDS: Pantoprazole 40 MG Tab.CR PO SCH ×2 (06:43→17:55)
[2018-01-26] MEDS: FERROUS SULFATE 220 MG/5 ML PO SCH ×3 (08:16→21:42)
[2018-01-26] MEDS: Multivitamins,Therapeutic Tab PO SCH (08:16)
[2018-01-26] MEDS: Propranolol 20 MG Tab PO SCH (08:16)
[2018-01-26] MEDS: Furosemide 100 MG in Sodium Chloride 0.9% 90 ML IV SCH (10:53)
--- NOTE | 2018-01-26 13:28 | PCM.PN ---
- General Info Date of Service: 01/26/18 Subjective Update: Patients was seen w/his LLE in a dependent position; increased swelling noted today. However there is less discomfort. Functional Status: Reports: Pain Controlled, Tolerating Diet, Ambulating - Review of Systems General: Reports: Weakness HEENT: Reports: No Symptoms Pulmonary: Reports: Shortness of Breath Cardiovascular: Reports: No Symptoms Gastrointestinal: Reports: No Symptoms Genitourinary: Reports: No Symptoms Musculoskeletal: Reports: No Symptoms Skin: Reports: No Symptoms Neurological: Reports: No Symptoms Psychiatric: Reports: No Symptoms - Patient Data Vitals - Most Recent: Last Vital Signs Temp 36.3 C 01/26/18 11:55 Pulse 71 01/26/18 11:55 Resp 24 H 01/26/18 11:55 BP 99/70 01/26/18 11:55 Pulse Ox 97 01/26/18 11:55 Weight - Most Recent: 100.199 kg I&O - Last 24 Hours: Intake & Output 01/25/18 01/26/18 01/26/18 22:59 06:59 14:59 Intake Total 1500 292 360 Output Total 2575 1280 1035 Balance -1075 -988 -675 Lab Results Last 24 Hours: Laboratory Results - last 24 hr 01/26/18 01/26/18 01/26/18 Range/Units 06:24 06:24 06:24 WBC 7.72 (4.23-9.07) K/mm3 RBC 3.63 L (4.63-6.08) M/mm3 Hgb 10.6 L (13.7-17.5) gm/L Hct 33.2 L (40.1-51.0) % MCV 91.5 (79.0-92.2) fl MCH 29.2 (25.7-32.2) pg MCHC 31.9 L (32.2-35.5) g/dl RDW Std Deviation 56.2 H (35.1-43.9) fL Plt Count 215 (163-337) K/mm3 MPV 10.1 (9.4-12.3) fl Neut % (Auto) 80.6 H (34.0-67.9) % Lymph % (Auto) 6.3 L (21.8-53.1) % [place] % (Auto) 9.7 (5.3-12.2) % Eos % (Auto) 2.2 (0.8-7.0) Baso % (Auto) 0.4 (0.1-1.2) % Neut # (Auto) 6.22 H (1.78-5.38) K/mm3 Lymph # (Auto) 0.49 L (1.32-3.57) K/mm3 [place] # (Auto) 0.75 (0.30-0.82) K/mm3 Eos # (Auto) 0.17 (0.04-0.54) K/mm3 Baso # (Auto) 0.03 (0.01-0.08) K/mm3 Manual Slide Review Abnormal smear PT 30.1 H (9.5-12.1) SECONDS INR 2.82 Sodium 139 (136-145) mEq/L Potassium 3.2 L (3.5-5.1) mEq/L Chloride 104 (98-107) mEq/L Carbon Dioxide 26 (21-32) mEq/L Anion Gap 12.2 (5-15) BUN 38 H (7-18) mg/dL Creatinine 1.5 H (0.7-1.3) mg/dL Est Cr Clr Drug Dosing 38.35 mL/min Estimated GFR (MDRD) 44 (>60) mL/min BUN/Creatinine Ratio 25.3 H (14-18) Glucose 132 H (83-115) mg/dL Lactic Acid (0.4-2.0) mmol/L Calcium 8.5 (8.5-10.1) mg/dL Magnesium 2.0 (1.8-2.4) mg/dl NT-Pro-B Natriuret Pep (0-450) pg/mL 01/26/18 01/26/18 Range/Units 06:24 06:24 WBC (4.23-9.07) K/mm3 RBC (4.63-6.08) M/mm3 Hgb (13.7-17.5) gm/L Hct (40.1-51.0) % MCV (79.0-92.2) fl MCH (25.7-32.2) pg MCHC (32.2-35.5) g/dl RDW Std Deviation (35.1-43.9) fL Plt Count (163-337) K/mm3 MPV (9.4-12.3) fl Neut % (Auto) (34.0-67.9) % Lymph % (Auto) (21.8-53.1) % [place] % (Auto) (5.3-12.2) % Eos % (Auto) (0.8-7.0) Baso % (Auto) (0.1-1.2) % Neut # (Auto) (1.78-5.38) K/mm3 Lymph # (Auto) (1.32-3.57) K/mm3 [place] # (Auto) (0.30-0.82) K/mm3 Eos # (Auto) (0.04-0.54) K/mm3 Baso # (Auto) (0.01-0.08) K/mm3 Manual Slide Review PT (9.5-12.1) SECONDS INR Sodium (136-145) mEq/L Potassium (3.5-5.1) mEq/L Chloride (98-107) mEq/L Carbon Dioxide (21-32) mEq/L Anion Gap (5-15) BUN (7-18) mg/dL Creatinine (0.7-1.3) mg/dL Est Cr Clr Drug Dosing mL/min Estimated GFR (MDRD) (>60) mL/min BUN/Creatinine Ratio (14-18) Glucose (83-115) mg/dL Lactic Acid 1.7 (0.4-2.0) mmol/L Calcium (8.5-10.1) mg/dL Magnesium (1.8-2.4) mg/dl NT-Pro-B Natriuret Pep 2861 H (0-450) pg/mL [place] Results Last 24 Hours: Microbiology 01/24/18 12:45 Aerobic Blood Culture - Preliminary Blood - Venous - Lab Draw NO GROWTH AFTER 2 DAYS Anaerobic Blood Culture - Preliminary NO GROWTH AFTER 2 DAYS 01/24/18 12:20 Aerobic Blood Culture - Preliminary Blood - Venous NO GROWTH AFTER 2 DAYS Anaerobic Blood Culture - Preliminary NO GROWTH AFTER 2 DAYS Med Orders - Current: Current Medications Acetaminophen (Tylenol) 650 mg PO Q6H PRN PRN Reason: Pain/Fever Cholecalciferol (Vitamin D3) 5,000 unit PO MoWeFr@0900 [facility] Last Admin: 01/25/18 08:13 Dose: 5,000 unit Ampicillin Sodium/Sulbactam (Sodium 1.5 gm/ Sodium Chloride) 100 mls @ 200 mls/ hr IV Q6H [facility] Last Admin: 01/26/18 12:08 Dose: 200 mls/hr Vancomycin HCl 1.5 gm/ Sodium (Chloride) 250 mls @ 166.667 mls/hr IV Q24H [facility] Last Admin: 01/25/18 16:25 Dose: 166.667 mls/hr Furosemide 100 mg/ Sodium (Chloride) 100 mls @ 4 mls/hr IV Q24H [facility]; Protocol Stop: 01/27/18 09:59 Last Admin: 01/26/18 10:53 Dose: 4 mls/hr Levothyroxine Sodium (Synthroid) 50 mcg PO ACBRK [facility] Last Admin: 01/26/18 06:43 Dose: 50 mcg Multivitamins (Thera) 1 each PO DAILY [facility] Last Admin: 01/26/18 08:16 Dose: 1 each Pantoprazole Sodium (Protonix) 40 mg PO BID@0700,1700 [facility] Last Admin: 01/26/18 06:43 Dose: 40 mg Ferrous Sulfate (Elixir 220 Mg/5 Ml) 0 each PO TID [facility] Last Admin: 01/26/18 08:16 Dose: 6.8 each Potassium Chloride (Klor-Con 10) 10 meq PO BIDMEALS [facility] Last Admin: 01/26/18 06:43 Dose: 10 meq Propranolol HCl (Inderal) 20 mg PO DAILY [facility] Last Admin: 01/26/18 08:16 Dose: 20 mg Simvastatin (Zocor) 20 mg PO BEDTIME [facility] Last Admin: 01/25/18 20:17 Dose: 20 mg Sodium Chloride (Saline Flush) 10 ml FLUSH ASDIRECTED PRN PRN Reason: Keep Vein Open Last Admin: 01/24/18 12:49 Dose: 10 ml Vancomycin HCl (Pharmacy To Dose - Vancomycin) 0 dose .XX ASDIRECTED PRN PRN Reason: RX TO DOSE VANCOMYCIN Warfarin Sodium (Pharmacy To Dose - Warfarin) 0 dose .XX ASDIRECTED PRN PRN Reason: RX TO DOSE WARFARIN Warfarin Sodium (Coumadin) 2.5 mg PO QPM [facility] Stop: 01/26/18 21:00 Discontinued Medications Ferrous Sulfate (Ferrous Sulfate) 325 mg PO TID [facility] Last Admin: 01/25/18 12:41 Dose: Not Given Furosemide (Lasix) 40 mg IVPUSH NOW ONE Stop: 01/24/18 14:14 Last Admin: 01/24/18 14:34 Dose: 40 mg Gabapentin (Neurontin) 200 mg PO BID [facility] Last Admin: 01/25/18 08:13 Dose: Not Given Hydromorphone HCl (Dilaudid) 0.5 mg IVPUSH ONETIME ONE Stop: 01/24/18 12:32 Last Admin: 01/24/18 12:48 Dose: 0.5 mg Clindamycin Phosphate 900 mg/ (Sodium Chloride) 106 mls @ 100 mls/hr IV ONETIME ONE Stop: 01/24/18 13:35 Last Admin: 01/24/18 12:49 Dose: 100 mls/hr Sodium Chloride (Normal Saline) 1,000 mls @ 75 mls/hr IV ASDIRECTED [facility] Last Admin: 01/25/18 03:53 Dose: 75 mls/hr Ondansetron HCl (Zofran) 4 mg IVPUSH ONETIME ONE Stop: 01/24/18 12:32 Last Admin: 01/24/18 12:48 Dose: 4 mg Warfarin Sodium (Coumadin) 5 mg PO ONETIME ONE Stop: 01/24/18 18:01 Last Admin: 01/24/18 18:17 Dose: 5 mg Warfarin Sodium (Coumadin) 2.5 mg PO QPM [facility] Stop: 01/25/18 21:00 Last Admin: 01/25/18 17:53 Dose: 2.5 mg - Problem List Review Problem List Initiated/Reviewed/Updated: Yes - My Orders Last 24 Hours: My Active Orders 01/26/18 06:24 CRP, HIGH SENSITIVITY [REF] DAILY 01/26/18 08:00 Consult to Case Management [CONS] Routine 01/26/18 09:30 Consult to Occupational Therapy [OT Evaluation and Treatment] [CONS] Routine Consult to Physical Therapy [PT Evaluation and Treatment] [CONS] Routine 01/26/18 18:00 Warfarin [Coumadin] 2.5 mg PO QPM 01/26/18 Lunch 2 Gram Sodium Diet [DIET] Fluid Restriction [DIET] 01/27/18 05:00 BMP [BASIC METABOLIC PANEL,BMP] [CHEM] DAILY CBC WITH AUTO DIFF [HEME] DAILY CRP, HIGH SENSITIVITY [REF] DAILY INR,PT,PROTHROMBIN TIME [COAG] DAILY LACTIC ACID [CHEM] DAILY MAGNESIUM [CHEM] DAILY 01/27/18 08:00 Echo Comp wo Cont [US] Routine 01/27/18 09:00 Art Doppler w Stress [US] Routine 01/28/18 05:00 BMP [BASIC METABOLIC PANEL,BMP] [CHEM] DAILY CBC WITH AUTO DIFF [HEME] DAILY CRP, HIGH SENSITIVITY [REF] DAILY INR,PT,PROTHROMBIN TIME [COAG] DAILY LACTIC ACID [CHEM] DAILY MAGNESIUM [CHEM] DAILY - Plan Plan:: Impression: LLE Cellulitis w/ failed OP treatment PVD CAD/CABG S/P PPM A fib on Coumadin CHF, query NYHA functional status Hx of Valvular Heart Disease HLD Chronic BPH Hypothyroidism CKD GERD Peripheral neuropathy Plan: Vancomycin/Unasyn Lasix gtt ANIRUDH with stress 2D echo Analgesics Home meds Daily Labs DVT/GI prophylaxis Consult CM/PT/OT
[2018-01-26] MEDS ORDERED: Warfarin 2.5 MG Tab PO SCH (18:00)
[2018-01-26] MEDS: Potassium Chloride 20 MEQ Tab.ER PO SCH ×2 (19:45→21:41)
[2018-01-26] MEDS ORDERED: Magnesium Hydroxide 400 MG/5 ML Susp 30 ML Cup PO ONE (21:35)
[2018-01-26] MEDS: Simvastatin 20 MG Tab PO SCH (21:41)
[2018-01-27] MEDS: Ampicillin/Sulbactam Na 1.5 GM in Sodium Chloride 0.9% 100 ML IV SCH ×2 (00:05→06:36)
[2018-01-27] MEDS: Acetaminophen 325 MG Tab PO PRN ×2 (02:31→20:33)
[2018-01-27] MEDS: Levothyroxine 50 MCG Tab PO SCH (06:36)
[2018-01-27] MEDS: Pantoprazole 40 MG Tab.CR PO SCH ×2 (06:36→17:25)
[2018-01-27] MEDS: Potassium Chloride 20 MEQ Tab.ER PO SCH ×2 (09:22→20:33)
[2018-01-27] MEDS: FERROUS SULFATE 220 MG/5 ML PO SCH ×3 (09:22→20:33)
[2018-01-27] MEDS: Cholecalciferol (Vitamin D3) 5,000 UNIT Tab PO SCH (09:22)
[2018-01-27] MEDS: Propranolol 20 MG Tab PO SCH (09:22)
[2018-01-27] MEDS: Multivitamins,Therapeutic Tab PO SCH (09:22)
[2018-01-27] MEDS ORDERED: Vancomycin 1.5 GM in Sodium Chloride 0.9% 500 ML IV SCH (13:12)
--- NOTE | 2018-01-27 14:33 | PCM.PN ---
- General Info Date of Service: 01/27/18 Functional Status: Reports: Tolerating Diet, Urinating - Review of Systems General: Reports: No Symptoms HEENT: Reports: No Symptoms Pulmonary: Reports: No Symptoms Cardiovascular: Reports: No Symptoms Gastrointestinal: Reports: No Symptoms Genitourinary: Reports: No Symptoms Musculoskeletal: Reports: No Symptoms Skin: Reports: No Symptoms Neurological: Reports: No Symptoms Psychiatric: Reports: No Symptoms - Patient Data Vitals - Most Recent: Last Vital Signs Temp 36.6 C 01/27/18 09:21 Pulse 72 01/27/18 09:21 Resp 20 01/27/18 09:21 BP 104/69 01/27/18 09:21 Pulse Ox 99 01/27/18 09:21 Weight - Most Recent: 100.471 kg I&O - Last 24 Hours: Intake & Output 01/26/18 01/27/18 01/27/18 22:59 06:59 14:59 Intake Total 1797 551 650 Output Total 6053 1205 760 Balance 302 -532 -110 Lab Results Last 24 Hours: Laboratory Results - last 24 hr 01/25/18 01/26/18 01/27/18 Range/Units 06:24 06:24 06:25 WBC 8.81 (4.23-9.07) K/mm3 RBC 3.69 L (4.63-6.08) M/mm3 Hgb 10.9 L (13.7-17.5) gm/L Hct 34.1 L (40.1-51.0) % MCV 92.4 H (79.0-92.2) fl MCH 29.5 (25.7-32.2) pg MCHC 32.0 L (32.2-35.5) g/dl RDW Std Deviation 56.6 H (35.1-43.9) fL Plt Count 240 (163-337) K/mm3 MPV 9.9 (9.4-12.3) fl Neut % (Auto) 83.8 H (34.0-67.9) % Lymph % (Auto) 4.4 L (21.8-53.1) % Price % (Auto) 8.9 (5.3-12.2) % Eos % (Auto) 1.9 (0.8-7.0) Baso % (Auto) 0.3 (0.1-1.2) % Neut # (Auto) 7.38 H (1.78-5.38) K/mm3 Lymph # (Auto) 0.39 L (1.32-3.57) K/mm3 Price # (Auto) 0.78 (0.30-0.82) K/mm3 Eos # (Auto) 0.17 (0.04-0.54) K/mm3 Baso # (Auto) 0.03 (0.01-0.08) K/mm3 Manual Slide Review Abnormal smear PT (9.5-12.1) SECONDS INR Sodium (136-145) mEq/L Potassium (3.5-5.1) mEq/L Chloride (98-107) mEq/L Carbon Dioxide (21-32) mEq/L Anion Gap (5-15) BUN (7-18) mg/dL Creatinine (0.7-1.3) mg/dL Est Cr Clr Drug Dosing mL/min Estimated GFR (MDRD) (>60) mL/min BUN/Creatinine Ratio (14-18) Glucose (83-115) mg/dL Lactic Acid (0.4-2.0) mmol/L Calcium (8.5-10.1) mg/dL Magnesium (1.8-2.4) mg/dl C-React Prot High Sens 90.77 67.26 mg/L 01/27/18 01/27/18 01/27/18 Range/Units 06:25 06:25 06:25 WBC (4.23-9.07) K/mm3 RBC (4.63-6.08) M/mm3 Hgb (13.7-17.5) gm/L Hct (40.1-51.0) % MCV (79.0-92.2) fl MCH (25.7-32.2) pg MCHC (32.2-35.5) g/dl RDW Std Deviation (35.1-43.9) fL Plt Count (163-337) K/mm3 MPV (9.4-12.3) fl Neut % (Auto) (34.0-67.9) % Lymph % (Auto) (21.8-53.1) % Price % (Auto) (5.3-12.2) % Eos % (Auto) (0.8-7.0) Baso % (Auto) (0.1-1.2) % Neut # (Auto) (1.78-5.38) K/mm3 Lymph # (Auto) (1.32-3.57) K/mm3 Price # (Auto) (0.30-0.82) K/mm3 Eos # (Auto) (0.04-0.54) K/mm3 Baso # (Auto) (0.01-0.08) K/mm3 Manual Slide Review PT 28.7 H (9.5-12.1) SECONDS INR 2.68 Sodium 142 (136-145) mEq/L Potassium 3.8 (3.5-5.1) mEq/L Chloride 106 (98-107) mEq/L Carbon Dioxide 29 (21-32) mEq/L Anion Gap 10.8 (5-15) BUN 34 H (7-18) mg/dL Creatinine 1.6 H (0.7-1.3) mg/dL Est Cr Clr Drug Dosing 35.95 mL/min Estimated GFR (MDRD) 41 (>60) mL/min BUN/Creatinine Ratio 21.3 H (14-18) Glucose 113 (83-115) mg/dL Lactic Acid 1.1 (0.4-2.0) mmol/L Calcium 8.7 (8.5-10.1) mg/dL Magnesium 2.2 (1.8-2.4) mg/dl C-React Prot High Sens mg/L Edilson Results Last 24 Hours: Microbiology 01/24/18 12:45 Aerobic Blood Culture - Preliminary Blood - Venous - Lab Draw NO GROWTH AFTER 3 DAYS Anaerobic Blood Culture - Preliminary NO GROWTH AFTER 3 DAYS 01/24/18 12:20 Aerobic Blood Culture - Preliminary Blood - Venous NO GROWTH AFTER 3 DAYS Anaerobic Blood Culture - Preliminary NO GROWTH AFTER 3 DAYS Med Orders - Current: Current Medications Acetaminophen (Tylenol) 650 mg PO Q6H PRN PRN Reason: Pain/Fever Last Admin: 01/27/18 02:31 Dose: 650 mg Cholecalciferol (Vitamin D3) 5,000 unit PO MoWeFr@0900 [facility] Last Admin: 01/27/18 09:22 Dose: 5,000 unit Vancomycin HCl 1.5 gm/ Sodium (Chloride) 500 mls @ 333.333 mls/hr IV Q24H [facility] Levothyroxine Sodium (Synthroid) 50 mcg PO ACBRK [facility] Last Admin: 01/27/18 06:36 Dose: 50 mcg Multivitamins (Thera) 1 each PO DAILY [facility] Last Admin: 01/27/18 09:22 Dose: 1 each Pantoprazole Sodium (Protonix) 40 mg PO BID@0700,1700 [facility] Last Admin: 01/27/18 06:36 Dose: 40 mg Ferrous Sulfate (Elixir 220 Mg/5 Ml) 0 each PO TID [facility] Last Admin: 01/27/18 09:22 Dose: 6.8 each Potassium Chloride (Klor-Con M20) 40 meq PO BID [facility] Last Admin: 01/27/18 09:22 Dose: 40 meq Propranolol HCl (Inderal) 20 mg PO DAILY [facility] Last Admin: 01/27/18 09:22 Dose: 20 mg Simvastatin (Zocor) 20 mg PO BEDTIME [facility] Last Admin: 01/26/18 21:41 Dose: 20 mg Sodium Chloride (Saline Flush) 10 ml FLUSH ASDIRECTED PRN PRN Reason: Keep Vein Open Last Admin: 01/24/18 12:49 Dose: 10 ml Vancomycin HCl (Pharmacy To Dose - Vancomycin) 0 dose .XX ASDIRECTED PRN PRN Reason: RX TO DOSE VANCOMYCIN Warfarin Sodium (Pharmacy To Dose - Warfarin) 0 dose .XX ASDIRECTED PRN PRN Reason: RX TO DOSE WARFARIN Warfarin Sodium (Coumadin) 5 mg PO ONETIME ONE Stop: 01/27/18 18:01 Discontinued Medications Ferrous Sulfate (Ferrous Sulfate) 325 mg PO TID [facility] Last Admin: 01/25/18 12:41 Dose: Not Given Furosemide (Lasix) 40 mg IVPUSH NOW ONE Stop: 01/24/18 14:14 Last Admin: 01/24/18 14:34 Dose: 40 mg Gabapentin (Neurontin) 200 mg PO BID [facility] Last Admin: 01/25/18 08:13 Dose: Not Given Hydromorphone HCl (Dilaudid) 0.5 mg IVPUSH ONETIME ONE Stop: 01/24/18 12:32 Last Admin: 01/24/18 12:48 Dose: 0.5 mg Clindamycin Phosphate 900 mg/ (Sodium Chloride) 106 mls @ 100 mls/hr IV ONETIME ONE Stop: 01/24/18 13:35 Last Admin: 01/24/18 12:49 Dose: 100 mls/hr Sodium Chloride (Normal Saline) 1,000 mls @ 75 mls/hr IV ASDIRECTED [facility] Last Admin: 01/25/18 03:53 Dose: 75 mls/hr Ampicillin Sodium/Sulbactam (Sodium 1.5 gm/ Sodium Chloride) 100 mls @ 200 mls/ hr IV Q6H [facility] Last Admin: 01/27/18 06:36 Dose: 200 mls/hr Vancomycin HCl 1.5 gm/ Sodium (Chloride) 250 mls @ 166.667 mls/hr IV Q24H [facility] Last Admin: 01/26/18 15:37 Dose: 166.667 mls/hr Furosemide 100 mg/ Sodium (Chloride) 100 mls @ 4 mls/hr IV Q24H [facility]; Protocol Stop: 01/27/18 09:59 Last Admin: 01/26/18 10:53 Dose: 4 mls/hr Vancomycin HCl 1.5 gm/ Sodium (Chloride) 500 mls @ 333.333 mls/hr IV Q24H [facility] Magnesium Hydroxide (Milk Of Magnesia) 30 ml PO ONETIME ONE Stop: 01/26/18 21:36 Last Admin: 01/26/18 21:41 Dose: 30 ml Ondansetron HCl (Zofran) 4 mg IVPUSH ONETIME ONE Stop: 01/24/18 12:32 Last Admin: 01/24/18 12:48 Dose: 4 mg Potassium Chloride (Klor-Con 10) 10 meq PO BIDMEALS [facility] Last Admin: 01/26/18 17:55 Dose: 10 meq Warfarin Sodium (Coumadin) 5 mg PO ONETIME ONE Stop: 01/24/18 18:01 Last Admin: 01/24/18 18:17 Dose: 5 mg Warfarin Sodium (Coumadin) 2.5 mg PO QPM [facility] Stop: 01/25/18 21:00 Last Admin: 01/25/18 17:53 Dose: 2.5 mg Warfarin Sodium (Coumadin) 2.5 mg PO QPM [facility] Stop: 01/26/18 21:00 Last Admin: 01/26/18 19:00 Dose: 2.5 mg - Exam Quality Assessment: DVT Prophylaxis General: Alert, Oriented, Cooperative, No Acute Distress HEENT: Pupils Equal, Pupils Reactive, EOMI Neck: Trachea Midline, No JVD Lungs: Normal Respiratory Effort Cardiovascular: Regular Rate, Regular Rhythm GI/Abdominal Exam: Normal Bowel Sounds, Soft, Non-Tender, No Organomegaly, No Distention (Male) Exam: Deferred Back Exam: Normal Inspection Extremities: Pedal Edema, Slow Capillary Refill, Redness, Other (cool, hairless ; dorsum edema) Skin: Cool Neurological: No New Focal Deficit, Normal Speech Psy/Mental Status: Alert, Normal Affect, Normal Mood - Problem List Review Problem List Initiated/Reviewed/Updated: Yes - My Orders Last 24 Hours: My Active Orders 01/26/18 19:00 Potassium Chloride [Klor-Con M20] 40 meq PO BID 01/27/18 06:25 CRP, HIGH SENSITIVITY [REF] DAILY 01/27/18 08:00 Echo Comp wo Cont [US] Routine 01/27/18 09:00 Art Doppler w Stress [US] Routine 01/27/18 11:07 Remove Guerrero Catheter [Urinary Catheter Removal] [RC] Per Unit Routine 01/27/18 15:30 VANCOMYCIN TROUGH [CHEM] Routine 01/27/18 18:00 Warfarin [Coumadin] 5 mg PO ONETIME ONE 01/28/18 05:00 BMP [BASIC METABOLIC PANEL,BMP] [CHEM] DAILY CBC WITH AUTO DIFF [HEME] DAILY CRP, HIGH SENSITIVITY [REF] DAILY INR,PT,PROTHROMBIN TIME [COAG] DAILY LACTIC ACID [CHEM] DAILY MAGNESIUM [CHEM] DAILY PRO B-TYPE NATRIUR PEPT,BNPPRO [CHEM] Routine - Plan Plan:: Impression: LLE Cellulitis w/ failed OP treatment PVD CAD/CABG S/P PPM A fib on Coumadin CHF, query NYHA functional status Hx of Valvular Heart Disease HLD Chronic BPH Hypothyroidism CKD GERD Peripheral neuropathy Plan: Vancomycin/Unasyn Lasix gtt ANIRUDH with stress 2D echo Analgesics Home meds Daily Labs DVT/GI prophylaxis Consult CM/PT/OT
[2018-01-27] MEDS: Vancomycin 1.5 GM in Sodium Chloride 0.9% 500 ML IV SCH ×2 (15:12→16:41)
--- NOTE | 2018-01-27 16:33 | US ---
Left lower extremity arterial duplex ultrasound: Duplex and color flow imaging was obtained of the left lower extremity. Findings: Arteries are not well seen due to soft tissue swelling. Mild amount of plaque is seen within the superficial femoral vein. Dorsalis pedis vein was not visualized. Other veins do not appear occluded but difficult on this study to exclude areas of stenosis. Impression: 1. Suboptimal study as noted above. No findings of arterial occlusion are seen within left lower extremity. Diagnostic code #2
[2018-01-27] MEDS ORDERED: Warfarin 5 MG Tab PO ONE (18:00)
[2018-01-27] MEDS: Simvastatin 20 MG Tab PO SCH (20:34)
[2018-01-28] MEDS: Levothyroxine 50 MCG Tab PO SCH (05:55)
[2018-01-28] MEDS: Pantoprazole 40 MG Tab.CR PO SCH ×2 (05:59→17:36)
[2018-01-28] MEDS: Propranolol 20 MG Tab PO SCH (08:38)
[2018-01-28] MEDS: Multivitamins,Therapeutic Tab PO SCH (08:39)
[2018-01-28] MEDS: FERROUS SULFATE 220 MG/5 ML PO SCH ×3 (08:39→20:33)
[2018-01-28] MEDS: Potassium Chloride 20 MEQ Tab.ER PO SCH (11:09)
[2018-01-28] MEDS ORDERED: Furosemide 40 MG/4 ML VIAL IV SCH (14:00)
--- NOTE | 2018-01-28 15:49 | PCM.PN ---
- General Info Date of Service: 01/28/18 Functional Status: Reports: Pain Controlled, Tolerating Diet, Urinating - Review of Systems General: Reports: No Symptoms HEENT: Reports: No Symptoms Pulmonary: Reports: No Symptoms Cardiovascular: Reports: No Symptoms Gastrointestinal: Reports: No Symptoms Genitourinary: Reports: No Symptoms Musculoskeletal: Reports: No Symptoms Skin: Reports: No Symptoms Neurological: Reports: No Symptoms Psychiatric: Reports: No Symptoms - Patient Data Vitals - Most Recent: Last Vital Signs Temp 36.2 C 01/28/18 13:07 Pulse 72 01/28/18 13:07 Resp 20 01/28/18 08:25 BP 118/84 01/28/18 13:07 Pulse Ox 98 01/28/18 13:07 Weight - Most Recent: 100.726 kg I&O - Last 24 Hours: Intake & Output 01/28/18 01/28/18 01/28/18 06:59 14:59 22:59 Intake Total 300 480 Output Total 500 Balance -200 480 Lab Results Last 24 Hours: Laboratory Results - last 24 hr 01/27/18 01/27/18 01/28/18 Range/Units 06:25 15:30 06:25 WBC 11.76 H (4.23-9.07) K/mm3 RBC 3.85 L (4.63-6.08) M/mm3 Hgb 11.6 L (13.7-17.5) gm/L Hct 36.0 L (40.1-51.0) % MCV 93.5 H (79.0-92.2) fl MCH 30.1 (25.7-32.2) pg MCHC 32.2 (32.2-35.5) g/dl RDW Std Deviation 57.9 H (35.1-43.9) fL Plt Count 244 (163-337) K/mm3 MPV 9.8 (9.4-12.3) fl Neut % (Auto) 85.7 H (34.0-67.9) % Lymph % (Auto) 4.0 L (21.8-53.1) % Love % (Auto) 8.1 (5.3-12.2) % Eos % (Auto) 1.5 (0.8-7.0) Baso % (Auto) 0.1 (0.1-1.2) % Neut # (Auto) 10.08 H (1.78-5.38) K/mm3 Lymph # (Auto) 0.47 L (1.32-3.57) K/mm3 Love # (Auto) 0.95 H (0.30-0.82) K/mm3 Eos # (Auto) 0.18 (0.04-0.54) K/mm3 Baso # (Auto) 0.01 (0.01-0.08) K/mm3 Manual Slide Review Abnormal smear PT (9.5-12.1) SECONDS INR Sodium (136-145) mEq/L Potassium (3.5-5.1) mEq/L Chloride (98-107) mEq/L Carbon Dioxide (21-32) mEq/L Anion Gap (5-15) BUN (7-18) mg/dL Creatinine (0.7-1.3) mg/dL Est Cr Clr Drug Dosing mL/min Estimated GFR (MDRD) (>60) mL/min BUN/Creatinine Ratio (14-18) Glucose (83-115) mg/dL Lactic Acid (0.4-2.0) mmol/L Calcium (8.5-10.1) mg/dL Magnesium (1.8-2.4) mg/dl C-React Prot High Sens 45.55 mg/L NT-Pro-B Natriuret Pep (0-450) pg/mL Vancomycin Trough 20.4 H (10.0-20.0) 01/28/18 01/28/18 01/28/18 Range/Units 06:25 06:25 06:25 WBC (4.23-9.07) K/mm3 RBC (4.63-6.08) M/mm3 Hgb (13.7-17.5) gm/L Hct (40.1-51.0) % MCV (79.0-92.2) fl MCH (25.7-32.2) pg MCHC (32.2-35.5) g/dl RDW Std Deviation (35.1-43.9) fL Plt Count (163-337) K/mm3 MPV (9.4-12.3) fl Neut % (Auto) (34.0-67.9) % Lymph % (Auto) (21.8-53.1) % Love % (Auto) (5.3-12.2) % Eos % (Auto) (0.8-7.0) Baso % (Auto) (0.1-1.2) % Neut # (Auto) (1.78-5.38) K/mm3 Lymph # (Auto) (1.32-3.57) K/mm3 Love # (Auto) (0.30-0.82) K/mm3 Eos # (Auto) (0.04-0.54) K/mm3 Baso # (Auto) (0.01-0.08) K/mm3 Manual Slide Review PT 37.7 H (9.5-12.1) SECONDS INR 3.55 Sodium 141 (136-145) mEq/L Potassium 4.7 (3.5-5.1) mEq/L Chloride 106 (98-107) mEq/L Carbon Dioxide 28 (21-32) mEq/L Anion Gap 11.7 (5-15) BUN 31 H (7-18) mg/dL Creatinine 1.3 (0.7-1.3) mg/dL Est Cr Clr Drug Dosing 44.25 mL/min Estimated GFR (MDRD) 52 (>60) mL/min BUN/Creatinine Ratio 23.8 H (14-18) Glucose 110 (83-115) mg/dL Lactic Acid 1.3 (0.4-2.0) mmol/L Calcium 8.8 (8.5-10.1) mg/dL Magnesium 2.2 (1.8-2.4) mg/dl C-React Prot High Sens mg/L NT-Pro-B Natriuret Pep (0-450) pg/mL Vancomycin Trough (10.0-20.0) 01/28/18 Range/Units 06:25 WBC (4.23-9.07) K/mm3 RBC (4.63-6.08) M/mm3 Hgb (13.7-17.5) gm/L Hct (40.1-51.0) % MCV (79.0-92.2) fl MCH (25.7-32.2) pg MCHC (32.2-35.5) g/dl RDW Std Deviation (35.1-43.9) fL Plt Count (163-337) K/mm3 MPV (9.4-12.3) fl Neut % (Auto) (34.0-67.9) % Lymph % (Auto) (21.8-53.1) % Love % (Auto) (5.3-12.2) % Eos % (Auto) (0.8-7.0) Baso % (Auto) (0.1-1.2) % Neut # (Auto) (1.78-5.38) K/mm3 Lymph # (Auto) (1.32-3.57) K/mm3 Love # (Auto) (0.30-0.82) K/mm3 Eos # (Auto) (0.04-0.54) K/mm3 Baso # (Auto) (0.01-0.08) K/mm3 Manual Slide Review PT (9.5-12.1) SECONDS INR Sodium (136-145) mEq/L Potassium (3.5-5.1) mEq/L Chloride (98-107) mEq/L Carbon Dioxide (21-32) mEq/L Anion Gap (5-15) BUN (7-18) mg/dL Creatinine (0.7-1.3) mg/dL Est Cr Clr Drug Dosing mL/min Estimated GFR (MDRD) (>60) mL/min BUN/Creatinine Ratio (14-18) Glucose (83-115) mg/dL Lactic Acid (0.4-2.0) mmol/L Calcium (8.5-10.1) mg/dL Magnesium (1.8-2.4) mg/dl C-React Prot High Sens mg/L NT-Pro-B Natriuret Pep 3869 H (0-450) pg/mL Vancomycin Trough (10.0-20.0) Edilson Results Last 24 Hours: Microbiology 01/24/18 12:45 Aerobic Blood Culture - Preliminary Blood - Venous - Lab Draw NO GROWTH AFTER 4 DAYS Anaerobic Blood Culture - Preliminary NO GROWTH AFTER 4 DAYS 01/24/18 12:20 Aerobic Blood Culture - Preliminary Blood - Venous NO GROWTH AFTER 4 DAYS Anaerobic Blood Culture - Preliminary NO GROWTH AFTER 4 DAYS Med Orders - Current: Current Medications Acetaminophen (Tylenol) 650 mg PO Q6H PRN PRN Reason: Pain/Fever Last Admin: 01/27/18 20:33 Dose: 650 mg Cholecalciferol (Vitamin D3) 5,000 unit PO MoWeFr@0900 [facility] Last Admin: 01/27/18 09:22 Dose: 5,000 unit Furosemide (Lasix) 40 mg IV BIDDIURETIC [facility] Vancomycin HCl 1.25 gm/ Sodium (Chloride) 250 mls @ 166.667 mls/hr IV Q24H [facility] Levothyroxine Sodium (Synthroid) 50 mcg PO ACBRK [facility] Last Admin: 01/28/18 05:55 Dose: 50 mcg Multivitamins (Thera) 1 each PO DAILY [facility] Last Admin: 01/28/18 08:39 Dose: 1 each Pantoprazole Sodium (Protonix) 40 mg PO BID@0700,1700 [facility] Last Admin: 01/28/18 05:59 Dose: 40 mg Ferrous Sulfate (Elixir 220 Mg/5 Ml) 0 each PO TID [facility] Last Admin: 01/28/18 08:39 Dose: 6.8 each Propranolol HCl (Inderal) 20 mg PO DAILY [facility] Last Admin: 01/28/18 08:38 Dose: 20 mg Simvastatin (Zocor) 20 mg PO BEDTIME [facility] Last Admin: 01/27/18 20:34 Dose: 20 mg Sodium Chloride (Saline Flush) 10 ml FLUSH ASDIRECTED PRN PRN Reason: Keep Vein Open Last Admin: 01/24/18 12:49 Dose: 10 ml Vancomycin HCl (Pharmacy To Dose - Vancomycin) 0 dose .XX ASDIRECTED PRN PRN Reason: RX TO DOSE VANCOMYCIN Warfarin Sodium (Pharmacy To Dose - Warfarin) 0 dose .XX ASDIRECTED PRN PRN Reason: RX TO DOSE WARFARIN Discontinued Medications Ferrous Sulfate (Ferrous Sulfate) 325 mg PO TID [facility] Last Admin: 01/25/18 12:41 Dose: Not Given Furosemide (Lasix) 40 mg IVPUSH NOW ONE Stop: 01/24/18 14:14 Last Admin: 01/24/18 14:34 Dose: 40 mg Gabapentin (Neurontin) 200 mg PO BID [facility] Last Admin: 01/25/18 08:13 Dose: Not Given Hydromorphone HCl (Dilaudid) 0.5 mg IVPUSH ONETIME ONE Stop: 01/24/18 12:32 Last Admin: 01/24/18 12:48 Dose: 0.5 mg Clindamycin Phosphate 900 mg/ (Sodium Chloride) 106 mls @ 100 mls/hr IV ONETIME ONE Stop: 01/24/18 13:35 Last Admin: 01/24/18 12:49 Dose: 100 mls/hr Sodium Chloride (Normal Saline) 1,000 mls @ 75 mls/hr IV ASDIRECTED [facility] Last Admin: 01/25/18 03:53 Dose: 75 mls/hr Ampicillin Sodium/Sulbactam (Sodium 1.5 gm/ Sodium Chloride) 100 mls @ 200 mls/ hr IV Q6H [facility] Last Admin: 01/27/18 06:36 Dose: 200 mls/hr Vancomycin HCl 1.5 gm/ Sodium (Chloride) 250 mls @ 166.667 mls/hr IV Q24H [facility] Last Admin: 01/26/18 15:37 Dose: 166.667 mls/hr Furosemide 100 mg/ Sodium (Chloride) 100 mls @ 4 mls/hr IV Q24H [facility]; Protocol Stop: 01/27/18 09:59 Last Admin: 01/26/18 10:53 Dose: 4 mls/hr Vancomycin HCl 1.5 gm/ Sodium (Chloride) 500 mls @ 333.333 mls/hr IV Q24H [facility] Last Admin: 01/27/18 15:12 Dose: Not Given Vancomycin HCl 1.5 gm/ Sodium (Chloride) 500 mls @ 333.333 mls/hr IV Q24H [facility] Last Admin: 01/27/18 16:41 Dose: Not Given Magnesium Hydroxide (Milk Of Magnesia) 30 ml PO ONETIME ONE Stop: 01/26/18 21:36 Last Admin: 01/26/18 21:41 Dose: 30 ml Ondansetron HCl (Zofran) 4 mg IVPUSH ONETIME ONE Stop: 01/24/18 12:32 Last Admin: 01/24/18 12:48 Dose: 4 mg Potassium Chloride (Klor-Con 10) 10 meq PO BIDMEALS [facility] Last Admin: 01/26/18 17:55 Dose: 10 meq Potassium Chloride (Klor-Con M20) 40 meq PO BID [facility] Last Admin: 01/28/18 11:09 Dose: Not Given Warfarin Sodium (Coumadin) 5 mg PO ONETIME ONE Stop: 01/24/18 18:01 Last Admin: 01/24/18 18:17 Dose: 5 mg Warfarin Sodium (Coumadin) 2.5 mg PO QPM [facility] Stop: 01/25/18 21:00 Last Admin: 01/25/18 17:53 Dose: 2.5 mg Warfarin Sodium (Coumadin) 2.5 mg PO QPM [facility] Stop: 01/26/18 21:00 Last Admin: 01/26/18 19:00 Dose: 2.5 mg Warfarin Sodium (Coumadin) 5 mg PO ONETIME ONE Stop: 01/27/18 18:01 Last Admin: 01/27/18 17:25 Dose: 5 mg - Exam Quality Assessment: Supplemental Oxygen, DVT Prophylaxis General: Alert, Oriented, Cooperative, No Acute Distress HEENT: Pupils Equal, Pupils Reactive, EOMI Neck: Trachea Midline, No JVD Lungs: Normal Respiratory Effort, Decreased Breath Sounds, Wheezing Cardiovascular: Regular Rate, Irregular Rhythm GI/Abdominal Exam: Normal Bowel Sounds, Soft, Non-Tender, No Organomegaly, No Distention (Male) Exam: Deferred Back Exam: Normal Inspection Extremities: Pedal Edema, Slow Capillary Refill, Pallor Wound/Incisions: Erythema Neurological: No New Focal Deficit, Normal Speech Psy/Mental Status: Alert, Normal Affect, Normal Mood - Problem List Review Problem List Initiated/Reviewed/Updated: Yes - My Orders Last 24 Hours: My Active Orders 01/28/18 06:25 CRP, HIGH SENSITIVITY [REF] DAILY 01/28/18 14:00 Furosemide [Lasix] 40 mg IV BIDDIURETIC 01/28/18 16:00 Vancomycin 1.25 gm Sodium Chloride 0.9% [Normal Saline] 250 ml IV Q24H - Plan Plan:: Impression: LLE Cellulitis w/ failed OP treatment PVD-->art duplex inconclusive, doubt accuracy Vas surg consult TBA CAD/CABG 2D echo with sev TR; mild-mod /abnormal AVR; LVEF 45-50% S/P PPM A fib on Coumadin, supratherapeutic CHF, query NYHA functional status Hx of Valvular Heart Disease HLD Chronic BPH Hypothyroidism CKD GERD Peripheral neuropathy Plan: INR elevated-->hold Vancomycin; Unasyn DCd Lasix IVP Gen Surg eval for wound assessment; OM eval PT wound care Analgesics Home meds Daily Labs DVT/GI prophylaxis Consult CM/PT/OT
--- NOTE | 2018-01-28 17:10 | CR ---
Chest: Portable view of the chest was obtained. Comparison: Prior chest x-ray of 08/21/14. Heart is mildly enlarged but somewhat accentuated from portable technique. Tortuous thoracic aorta is seen. 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 Pacemaker is present. Lungs are clear with no acute parenchymal densities. Bony structures are grossly intact. Impression: 1. Incidental findings. Nothing acute is seen on portable chest x-ray. Diagnostic code #2
[2018-01-28] MEDS: Albuterol/Ipratropium 3.0-0.5 MG/3 ML Neb Soln NEB SCH (20:11)
[2018-01-28] MEDS: Simvastatin 20 MG Tab PO SCH (20:33)
[2018-01-28] MEDS: Acetaminophen 325 MG Tab PO PRN (20:33)
[2018-01-29] MEDS: Albuterol/Ipratropium 3.0-0.5 MG/3 ML Neb Soln NEB SCH ×4 (05:00→20:18)
[2018-01-29] MEDS: Levothyroxine 50 MCG Tab PO SCH (06:25)
[2018-01-29] MEDS: Pantoprazole 40 MG Tab.CR PO SCH ×2 (06:26→16:49)
[2018-01-29] MEDS: Furosemide 40 MG/4 ML VIAL IV SCH (08:06)
[2018-01-29] MEDS: Multivitamins,Therapeutic Tab PO SCH (08:07)
[2018-01-29] MEDS: Cholecalciferol (Vitamin D3) 5,000 UNIT Tab PO SCH (08:07)
[2018-01-29] MEDS: FERROUS SULFATE 220 MG/5 ML PO SCH ×3 (08:07→21:13)
[2018-01-29] MEDS: Propranolol 20 MG Tab PO SCH (08:07)
--- NOTE | 2018-01-29 12:37 | PCM.CONSN ---
- General Info Date of Service: 01/29/18 - Patient Data Vitals - Most Recent: Last Vital Signs Temp 98.1 F 01/29/18 11:22 Pulse 73 01/29/18 11:22 Resp 22 H 01/29/18 11:22 BP 110/67 01/29/18 11:22 Pulse Ox 97 01/29/18 11:22 Weight - Most Recent: 102.013 kg I&O - Last 24 Hours: Intake & Output 01/28/18 01/29/18 01/29/18 23:59 07:59 15:59 Intake Total 490 100 300 Output Total 625 800 Balance -135 -700 300 Lab Results Last 24 Hours: Laboratory Results - last 24 hr 01/28/18 01/29/18 01/29/18 Range/Units 06:25 05:55 05:55 WBC 12.14 H (4.23-9.07) K/mm3 RBC 3.55 L (4.63-6.08) M/mm3 Hgb 10.4 L (13.7-17.5) gm/L Hct 33.1 L (40.1-51.0) % MCV 93.2 H (79.0-92.2) fl MCH 29.3 (25.7-32.2) pg MCHC 31.4 L (32.2-35.5) g/dl RDW Std Deviation 58.0 H (35.1-43.9) fL Plt Count 219 (163-337) K/mm3 MPV 10.0 (9.4-12.3) fl Neut % (Auto) 85.2 H (34.0-67.9) % Lymph % (Auto) 3.8 L (21.8-53.1) % [place] % (Auto) 8.8 (5.3-12.2) % Eos % (Auto) 1.2 (0.8-7.0) Baso % (Auto) 0.2 (0.1-1.2) % Neut # (Auto) 10.34 H (1.78-5.38) K/mm3 Lymph # (Auto) 0.46 L (1.32-3.57) K/mm3 [place] # (Auto) 1.07 H (0.30-0.82) K/mm3 Eos # (Auto) 0.15 (0.04-0.54) K/mm3 Baso # (Auto) 0.02 (0.01-0.08) K/mm3 Manual Slide Review Abnormal smear Sodium 139 (136-145) mEq/L Potassium 4.2 (3.5-5.1) mEq/L Chloride 103 (98-107) mEq/L Carbon Dioxide 29 (21-32) mEq/L Anion Gap 11.2 (5-15) BUN 32 H (7-18) mg/dL Creatinine 1.4 H (0.7-1.3) mg/dL Est Cr Clr Drug Dosing 41.09 mL/min Estimated GFR (MDRD) 48 (>60) mL/min BUN/Creatinine Ratio 22.9 H (14-18) Glucose 104 (83-115) mg/dL Calcium 8.5 (8.5-10.1) mg/dL C-Reactive Protein 5.2 H* (<1.0) mg/dL C-React Prot High Sens 35.68 mg/L Edilson Results Last 24 Hours: Microbiology 01/24/18 12:20 Aerobic Blood Culture - Preliminary Blood - Venous NO GROWTH AFTER 5 DAYS Anaerobic Blood Culture - Preliminary NO GROWTH AFTER 5 DAYS 01/24/18 12:45 Aerobic Blood Culture - Preliminary Blood - Venous - Lab Draw NO GROWTH AFTER 4 DAYS Anaerobic Blood Culture - Preliminary NO GROWTH AFTER 4 DAYS Med Orders - Current: Current Medications Acetaminophen (Tylenol) 650 mg PO Q6H PRN PRN Reason: Pain/Fever Last Admin: 01/28/18 20:33 Dose: 650 mg Albuterol/Ipratropium (Duoneb 3.0-0.5 Mg/3 Ml) 3 ml NEB Q6HRRT [facility] Last Admin: 01/29/18 08:59 Dose: 3 ml Cholecalciferol (Vitamin D3) 5,000 unit PO MoWeFr@0900 [facility] Last Admin: 01/29/18 08:07 Dose: 5,000 unit Furosemide (Lasix) 40 mg IV DAILY [facility] Last Admin: 01/29/18 08:06 Dose: 40 mg Vancomycin HCl 1.25 gm/ Sodium (Chloride) 250 mls @ 166.667 mls/hr IV Q24H [facility] Last Admin: 01/28/18 16:05 Dose: 166.667 mls/hr Levothyroxine Sodium (Synthroid) 50 mcg PO ACBRK [facility] Last Admin: 01/29/18 06:25 Dose: 50 mcg Multivitamins (Thera) 1 each PO DAILY [facility] Last Admin: 01/29/18 08:07 Dose: 1 each Pantoprazole Sodium (Protonix) 40 mg PO BID@0700,1700 [facility] Last Admin: 01/29/18 06:26 Dose: 40 mg Ferrous Sulfate (Elixir 220 Mg/5 Ml) 0 each PO TID [facility] Last Admin: 01/29/18 08:07 Dose: 1 each Propranolol HCl (Inderal) 20 mg PO DAILY [facility] Last Admin: 01/29/18 08:07 Dose: 20 mg Simvastatin (Zocor) 20 mg PO BEDTIME [facility] Last Admin: 01/28/18 20:33 Dose: 20 mg Sodium Chloride (Saline Flush) 10 ml FLUSH ASDIRECTED PRN PRN Reason: Keep Vein Open Last Admin: 01/24/18 12:49 Dose: 10 ml Vancomycin HCl (Pharmacy To Dose - Vancomycin) 0 dose .XX ASDIRECTED PRN PRN Reason: RX TO DOSE VANCOMYCIN Warfarin Sodium (Pharmacy To Dose - Warfarin) 0 dose .XX ASDIRECTED PRN PRN Reason: RX TO DOSE WARFARIN Discontinued Medications Ferrous Sulfate (Ferrous Sulfate) 325 mg PO TID [facility] Last Admin: 01/25/18 12:41 Dose: Not Given Furosemide (Lasix) 40 mg IVPUSH NOW ONE Stop: 01/24/18 14:14 Last Admin: 01/24/18 14:34 Dose: 40 mg Furosemide (Lasix) 40 mg IV BIDDIURETIC [facility] Last Admin: 01/28/18 16:05 Dose: 40 mg Gabapentin (Neurontin) 200 mg PO BID [facility] Last Admin: 01/25/18 08:13 Dose: Not Given Hydromorphone HCl (Dilaudid) 0.5 mg IVPUSH ONETIME ONE Stop: 01/24/18 12:32 Last Admin: 01/24/18 12:48 Dose: 0.5 mg Clindamycin Phosphate 900 mg/ (Sodium Chloride) 106 mls @ 100 mls/hr IV ONETIME ONE Stop: 01/24/18 13:35 Last Admin: 01/24/18 12:49 Dose: 100 mls/hr Sodium Chloride (Normal Saline) 1,000 mls @ 75 mls/hr IV ASDIRECTED [facility] Last Admin: 01/25/18 03:53 Dose: 75 mls/hr Ampicillin Sodium/Sulbactam (Sodium 1.5 gm/ Sodium Chloride) 100 mls @ 200 mls/ hr IV Q6H [facility] Last Admin: 01/27/18 06:36 Dose: 200 mls/hr Vancomycin HCl 1.5 gm/ Sodium (Chloride) 250 mls @ 166.667 mls/hr IV Q24H [facility] Last Admin: 01/26/18 15:37 Dose: 166.667 mls/hr Furosemide 100 mg/ Sodium (Chloride) 100 mls @ 4 mls/hr IV Q24H [facility]; Protocol Stop: 01/27/18 09:59 Last Admin: 01/26/18 10:53 Dose: 4 mls/hr Vancomycin HCl 1.5 gm/ Sodium (Chloride) 500 mls @ 333.333 mls/hr IV Q24H [facility] Last Admin: 01/27/18 15:12 Dose: Not Given Vancomycin HCl 1.5 gm/ Sodium (Chloride) 500 mls @ 333.333 mls/hr IV Q24H [facility] Last Admin: 01/27/18 16:41 Dose: Not Given Magnesium Hydroxide (Milk Of Magnesia) 30 ml PO ONETIME ONE Stop: 01/26/18 21:36 Last Admin: 01/26/18 21:41 Dose: 30 ml Ondansetron HCl (Zofran) 4 mg IVPUSH ONETIME ONE Stop: 01/24/18 12:32 Last Admin: 01/24/18 12:48 Dose: 4 mg Potassium Chloride (Klor-Con 10) 10 meq PO BIDMEALS [facility] Last Admin: 01/26/18 17:55 Dose: 10 meq Potassium Chloride (Klor-Con M20) 40 meq PO BID [facility] Last Admin: 01/28/18 11:09 Dose: Not Given Warfarin Sodium (Coumadin) 5 mg PO ONETIME ONE Stop: 01/24/18 18:01 Last Admin: 01/24/18 18:17 Dose: 5 mg Warfarin Sodium (Coumadin) 2.5 mg PO QPM [facility] Stop: 01/25/18 21:00 Last Admin: 01/25/18 17:53 Dose: 2.5 mg Warfarin Sodium (Coumadin) 2.5 mg PO QPM [facility] Stop: 01/26/18 21:00 Last Admin: 01/26/18 19:00 Dose: 2.5 mg Warfarin Sodium (Coumadin) 5 mg PO ONETIME ONE Stop: 01/27/18 18:01 Last Admin: 01/27/18 17:25 Dose: 5 mg Consult PN Assessment/Plan Procedures: Procedures ASSAY OF DIGOXIN TOTAL (05/26/14) ASSAY OF MAGNESIUM (06/16/17) ASSAY OF NATRIURETIC PEPTIDE (08/21/14) ASSAY OF TROPONIN QUANT (08/21/14) ASSAY OF VANCOMYCIN (05/26/14) BLOOD CULTURE FOR BACTERIA (08/21/14) C-REACTIVE PROTEIN (08/21/14) CHEST X-RAY 1 VIEW FRONTAL (05/26/14) CHEST X-RAY 2VW FRONTAL&LATL (08/21/14) COMPLETE CBC W/AUTO DIFF WBC (09/15/17) COMPREHEN METABOLIC PANEL (05/20/17) CREATINE MB FRACTION (08/21/14) CT HEAD/BRAIN W/O DYE (01/22/18) CT NECK SPINE W/O DYE (01/22/18) ELECTROCARDIOGRAM TRACING (08/21/14) EMERGENCY DEPT VISIT (01/22/18) EMERGENCY DEPT VISIT (05/20/17) EXTRACRANIAL BILAT STUDY (05/26/14) GAIT TRAINING THERAPY (05/26/14) INSERT BLADDER CATHETER (05/26/14) MEASURE BLOOD OXYGEN LEVEL (08/21/14) METABOLIC PANEL TOTAL CA (09/15/17) NEUROMUSCULAR REEDUCATION (05/26/14) OT EVALUATION (08/21/14) PROTHROMBIN TIME (05/20/17) PT EVALUATION (08/21/14) ROUTINE VENIPUNCTURE (09/15/17) SELF CARE MNGMENT TRAINING (05/26/14) THER/PROPH/DIAG INJ IV PUSH (08/21/14) THROMBOPLASTIN TIME PARTIAL (08/21/14) TTE W/DOPPLER COMPLETE (05/26/14) UPR/LXTR ART STDY 3+ LVLS (05/26/14) URINALYSIS AUTO W/SCOPE (05/20/17) Problem List Initiated/Reviewed/Updated: Yes Plan: surgical consult dictated JMVera
--- NOTE | 2018-01-29 16:57 | PCM.PN ---
- General Info Date of Service: 01/29/18 Subjective Update: Spoke to patient and daughters several times today, meeting was initiated late morning with CM, topics covered included current response to therapy and adding radiographic imaging. ATB was covered, art duplex results were reviewed again as well as reason original gen surg solution consultant was no longer available. The patient's daughter prior to the arrival of the surgeon did not ask questions and during that time frame did not participate. During the meeting, she asked about a transfer to [place], and was told that we could call for a transfer but the reason for the transfer may influence the acceptance. Thus if it was for continuing the ATB treatment and like services, there may be a refusal. On the other hand, if it was a request of the patient or family, that it would likely result in a transfer. Case management topics: return to home without assictance; HH; inpatient rehab at [facility]. 1Observation of patient during meeting resulted in additional concerns for patient needs based on injuries sustained while at home alone. Wound care assessment was requested for LLE, that need was met however once an UNNA boot was placed after the surgery consult. After the visit with the surgeon, the patient's daughter appeared satisfied with the current level of care. Plain films have been ordered to evaluate his LLE, initially, an MRI was scheduled however the patient has a pacemaker which is not MRI compatible. DENISE WADE: a bedside Doppler assessment of his arterial wave form was performed by the surgeon which documented a biphasic waveform. Family meeting time 30 minutes. The patient was observed ambulating with a walker, staff accompanied him; this was observed by the filing writer as well as the surgeon. During that setting he walked with an Unna boot on his LLE without difficulty. Additional time with patient and family, 15 minutes. Instructions per the surgeon, wear for one week continuously. His daughter however stated, "He will wear it unless it hurts him." Case management note (copy of case management original note) "In this morning to follow up with Stefan and his daughters. We discussed all options for his discharge pending his testing and response to treatment for his leg. Dr Villar will be in to see him later today. I explain to them the options of home with family cares, Home Health, and rehab stay at retirement. They would like to look into options and apply to [facility] and [facility] to be prepared if needed next week. Dr Roche in to meet with family and discuss POC. Dr Villar arrived to [facility]. Daughter signed referral for retirement home for #1 [facility] [address] [facility] [facility] in [place] to consider. Therapy will come to reevaluate Stefan as we learned daughter works part time and he will also need assistance with bating at this time. I assist Stefan out of recliner twice this morning and he could not lift himself from sitting to standing. He tells me at home his recliner lifts him but not at the table or from his bed. Toilet has a raiser and rails. He reports he can not get out of tub and the shower is in the basement. I encourage him and provide support that as he heals we hope he regains his strength. We will meet again on Thursday and adjust plan as needed per his improvement and the offers he receives. Home Health may also be an option for him and we discuss home bound status and their services. Team to follow on Thursday. Applications given to daughters to start on and [employer] brochures for they review". Functional Status: Reports: Pain Controlled, Tolerating Diet, Ambulating - Review of Systems General: Reports: Weakness, Appetite (very good, finished tray) HEENT: Reports: No Symptoms Pulmonary: Reports: No Symptoms Cardiovascular: Reports: No Symptoms Gastrointestinal: Reports: No Symptoms Genitourinary: Reports: Other (excoriated groin; present prior to hospital stay ) Musculoskeletal: Reports: No Symptoms Skin: Reports: No Symptoms Neurological: Reports: No Symptoms Psychiatric: Reports: No Symptoms - Patient Data Vitals - Most Recent: Last Vital Signs Temp 36.7 C 01/29/18 11:22 Pulse 73 01/29/18 11:22 Resp 22 H 01/29/18 11:22 BP 110/67 01/29/18 11:22 Pulse Ox 90 L 01/29/18 14:54 Weight - Most Recent: 102.013 kg I&O - Last 24 Hours: Intake & Output 01/29/18 01/29/18 01/29/18 06:59 14:59 22:59 Intake Total 100 300 610 Output Total 800 1225 Balance -700 300 -615 Lab Results Last 24 Hours: Laboratory Results - last 24 hr 01/28/18 01/29/18 01/29/18 Range/Units 06:25 05:55 05:55 WBC 12.14 H (4.23-9.07) K/mm3 RBC 3.55 L (4.63-6.08) M/mm3 Hgb 10.4 L (13.7-17.5) gm/L Hct 33.1 L (40.1-51.0) % MCV 93.2 H (79.0-92.2) fl MCH 29.3 (25.7-32.2) pg MCHC 31.4 L (32.2-35.5) g/dl RDW Std Deviation 58.0 H (35.1-43.9) fL Plt Count 219 (163-337) K/mm3 MPV 10.0 (9.4-12.3) fl Neut % (Auto) 85.2 H (34.0-67.9) % Lymph % (Auto) 3.8 L (21.8-53.1) % [place] % (Auto) 8.8 (5.3-12.2) % Eos % (Auto) 1.2 (0.8-7.0) Baso % (Auto) 0.2 (0.1-1.2) % Neut # (Auto) 10.34 H (1.78-5.38) K/mm3 Lymph # (Auto) 0.46 L (1.32-3.57) K/mm3 [place] # (Auto) 1.07 H (0.30-0.82) K/mm3 Eos # (Auto) 0.15 (0.04-0.54) K/mm3 Baso # (Auto) 0.02 (0.01-0.08) K/mm3 Manual Slide Review Abnormal smear Sodium 139 (136-145) mEq/L Potassium 4.2 (3.5-5.1) mEq/L Chloride 103 (98-107) mEq/L Carbon Dioxide 29 (21-32) mEq/L Anion Gap 11.2 (5-15) BUN 32 H (7-18) mg/dL Creatinine 1.4 H (0.7-1.3) mg/dL Est Cr Clr Drug Dosing 41.09 mL/min Estimated GFR (MDRD) 48 (>60) mL/min BUN/Creatinine Ratio 22.9 H (14-18) Glucose 104 (83-115) mg/dL Calcium 8.5 (8.5-10.1) mg/dL C-Reactive Protein 5.2 H* (<1.0) mg/dL C-React Prot High Sens 35.68 mg/L [place] Results Last 24 Hours: Microbiology 01/24/18 12:45 Aerobic Blood Culture - Preliminary Blood - Venous - Lab Draw NO GROWTH AFTER 5 DAYS Anaerobic Blood Culture - Preliminary NO GROWTH AFTER 5 DAYS 01/24/18 12:20 Aerobic Blood Culture - Preliminary Blood - Venous NO GROWTH AFTER 5 DAYS Anaerobic Blood Culture - Preliminary NO GROWTH AFTER 5 DAYS Med Orders - Current: Current Medications Acetaminophen (Tylenol) 650 mg PO Q6H PRN PRN Reason: Pain/Fever Last Admin: 01/28/18 20:33 Dose: 650 mg Albuterol/Ipratropium (Duoneb 3.0-0.5 Mg/3 Ml) 3 ml NEB Q6HRRT [facility] Last Admin: 01/29/18 14:53 Dose: 3 ml Cephalexin (Keflex) 500 mg PO BID [facility] Cholecalciferol (Vitamin D3) 5,000 unit PO MoWeFr@0900 [facility] Last Admin: 01/29/18 08:07 Dose: 5,000 unit Furosemide (Lasix) 40 mg IV DAILY [facility] Last Admin: 01/29/18 08:06 Dose: 40 mg Vancomycin HCl 1.25 gm/ Sodium (Chloride) 250 mls @ 166.667 mls/hr IV Q24H [facility] Last Admin: 01/29/18 16:31 Dose: 166.667 mls/hr Levothyroxine Sodium (Synthroid) 50 mcg PO ACBRK [facility] Last Admin: 01/29/18 06:25 Dose: 50 mcg Multivitamins (Thera) 1 each PO DAILY [facility] Last Admin: 01/29/18 08:07 Dose: 1 each Pantoprazole Sodium (Protonix) 40 mg PO BID@0700,1700 [facility] Last Admin: 01/29/18 06:26 Dose: 40 mg Ferrous Sulfate (Elixir 220 Mg/5 Ml) 0 each PO TID [facility] Last Admin: 01/29/18 15:00 Dose: 1 each Propranolol HCl (Inderal) 20 mg PO DAILY [facility] Last Admin: 01/29/18 08:07 Dose: 20 mg Simvastatin (Zocor) 20 mg PO BEDTIME [facility] Last Admin: 01/28/18 20:33 Dose: 20 mg Sodium Chloride (Saline Flush) 10 ml FLUSH ASDIRECTED PRN PRN Reason: Keep Vein Open Last Admin: 01/24/18 12:49 Dose: 10 ml Vancomycin HCl (Pharmacy To Dose - Vancomycin) 0 dose .XX ASDIRECTED PRN PRN Reason: RX TO DOSE VANCOMYCIN Warfarin Sodium (Pharmacy To Dose - Warfarin) 0 dose .XX ASDIRECTED PRN PRN Reason: RX TO DOSE WARFARIN Discontinued Medications Ferrous Sulfate (Ferrous Sulfate) 325 mg PO TID [facility] Last Admin: 01/25/18 12:41 Dose: Not Given Furosemide (Lasix) 40 mg IVPUSH NOW ONE Stop: 01/24/18 14:14 Last Admin: 01/24/18 14:34 Dose: 40 mg Furosemide (Lasix) 40 mg IV BIDDIURETIC [facility] Last Admin: 01/28/18 16:05 Dose: 40 mg Gabapentin (Neurontin) 200 mg PO BID [facility] Last Admin: 01/25/18 08:13 Dose: Not Given Hydromorphone HCl (Dilaudid) 0.5 mg IVPUSH ONETIME ONE Stop: 01/24/18 12:32 Last Admin: 01/24/18 12:48 Dose: 0.5 mg Clindamycin Phosphate 900 mg/ (Sodium Chloride) 106 mls @ 100 mls/hr IV ONETIME ONE Stop: 01/24/18 13:35 Last Admin: 01/24/18 12:49 Dose: 100 mls/hr Sodium Chloride (Normal Saline) 1,000 mls @ 75 mls/hr IV ASDIRECTED [facility] Last Admin: 01/25/18 03:53 Dose: 75 mls/hr Ampicillin Sodium/Sulbactam (Sodium 1.5 gm/ Sodium Chloride) 100 mls @ 200 mls/ hr IV Q6H [facility] Last Admin: 01/27/18 06:36 Dose: 200 mls/hr Vancomycin HCl 1.5 gm/ Sodium (Chloride) 250 mls @ 166.667 mls/hr IV Q24H [facility] Last Admin: 01/26/18 15:37 Dose: 166.667 mls/hr Furosemide 100 mg/ Sodium (Chloride) 100 mls @ 4 mls/hr IV Q24H [facility]; Protocol Stop: 01/27/18 09:59 Last Admin: 01/26/18 10:53 Dose: 4 mls/hr Vancomycin HCl 1.5 gm/ Sodium (Chloride) 500 mls @ 333.333 mls/hr IV Q24H [facility] Last Admin: 01/27/18 15:12 Dose: Not Given Vancomycin HCl 1.5 gm/ Sodium (Chloride) 500 mls @ 333.333 mls/hr IV Q24H [facility] Last Admin: 01/27/18 16:41 Dose: Not Given Magnesium Hydroxide (Milk Of Magnesia) 30 ml PO ONETIME ONE Stop: 01/26/18 21:36 Last Admin: 01/26/18 21:41 Dose: 30 ml Ondansetron HCl (Zofran) 4 mg IVPUSH ONETIME ONE Stop: 01/24/18 12:32 Last Admin: 01/24/18 12:48 Dose: 4 mg Potassium Chloride (Klor-Con 10) 10 meq PO BIDMEALS [facility] Last Admin: 01/26/18 17:55 Dose: 10 meq Potassium Chloride (Klor-Con M20) 40 meq PO BID [facility] Last Admin: 01/28/18 11:09 Dose: Not Given Warfarin Sodium (Coumadin) 5 mg PO ONETIME ONE Stop: 01/24/18 18:01 Last Admin: 01/24/18 18:17 Dose: 5 mg Warfarin Sodium (Coumadin) 2.5 mg PO QPM [facility] Stop: 01/25/18 21:00 Last Admin: 01/25/18 17:53 Dose: 2.5 mg Warfarin Sodium (Coumadin) 2.5 mg PO QPM [facility] Stop: 01/26/18 21:00 Last Admin: 01/26/18 19:00 Dose: 2.5 mg Warfarin Sodium (Coumadin) 5 mg PO ONETIME ONE Stop: 01/27/18 18:01 Last Admin: 01/27/18 17:25 Dose: 5 mg - Exam Quality Assessment: DVT Prophylaxis (Coumadin/therapeutic INR) General: Alert, Oriented, Cooperative, No Acute Distress HEENT: Pupils Equal, Pupils Reactive, EOMI Neck: Trachea Midline, No JVD Lungs: Normal Respiratory Effort Cardiovascular: Regular Rate, Irregular Rhythm GI/Abdominal Exam: Normal Bowel Sounds, No Organomegaly, No Distention (Male) Exam: Deferred, Other (see nursing notes) Back Exam: Normal Inspection Extremities: Pedal Edema (3-->2--1.5 pitting; improved cf 01/24 presentation), Slow Capillary Refill, Leg Pain (chronic), Redness, Other (cool, hairless bilateral LE; erythema moderately improved) Skin: Cool Wound/Incisions: Erythema Improving Neurological: No New Focal Deficit, Normal Gait, Normal Speech Psy/Mental Status: Alert, Normal Affect, Normal Mood - Problem List Review Problem List Initiated/Reviewed/Updated: Yes - My Orders Last 24 Hours: My Active Orders 01/28/18 16:00 Vancomycin 1.25 gm Sodium Chloride 0.9% [Normal Saline] 250 ml IV Q24H 01/28/18 16:31 Notify Provider Consults [RC] ASDIRECTED 01/28/18 16:38 RT Aerosol Therapy [RC] ASDIRECTED 01/28/18 20:08 Consult to Physician [CONS] Routine 01/28/18 20:09 Notify Provider Consults [RC] ASDIRECTED 01/28/18 21:00 Albuterol/Ipratropium [DuoNeb 3.0-0.5 MG/3 ML] 3 ml NEB Q6HRRT 01/28/18 Dinner Fluid Restriction [DIET] 01/29/18 09:00 Consult to Physical Therapy [PT Evaluation and Treatment] [CONS] Routine Furosemide [Lasix] 40 mg IV DAILY 01/29/18 16:31 Foot 2V Lt [CR] Routine 01/29/18 21:00 Cephalexin [Keflex] 500 mg PO BID 01/30/18 05:00 BMP [BASIC METABOLIC PANEL,BMP] [CHEM] DAILY CBC WITH AUTO DIFF [HEME] DAILY CRP [C-REACTIVE PROTEIN] [CHEM] DAILY INR,PT,PROTHROMBIN TIME [COAG] DAILY 01/31/18 05:00 BMP [BASIC METABOLIC PANEL,BMP] [CHEM] DAILY CBC WITH AUTO DIFF [HEME] DAILY CRP [C-REACTIVE PROTEIN] [CHEM] DAILY INR,PT,PROTHROMBIN TIME [COAG] DAILY 01/31/18 15:30 VANCOMYCIN TROUGH [CHEM] Timed 02/01/18 05:00 BMP [BASIC METABOLIC PANEL,BMP] [CHEM] DAILY CBC WITH AUTO DIFF [HEME] DAILY CRP [C-REACTIVE PROTEIN] [CHEM] DAILY INR,PT,PROTHROMBIN TIME [COAG] DAILY 02/02/18 05:00 INR,PT,PROTHROMBIN TIME [COAG] DAILY - Plan Plan:: Impression: LLE Cellulitis w/ failed OP treatment PVD (pain when elevated/improves with dependent position)-->art duplex inconclusive, doubt accuracy; Improvement noted Doppler results per Dr Jordan Vas surg consult OP, 02/08/18 CAD/CABG 2D echo with sev TR; mild-mod /abnormal AVR; LVEF 45-50% S/P PPM A fib on Coumadin, supratherapeutic CHF, query NYHA functional status Hx of Valvular Heart Disease HLD Chronic BPH Hypothyroidism CKD GERD Peripheral neuropathy Plan: INR-->resume per protocol Vancomycin, level to be drain Thursday, 01/31; added Keflex 500 mg BID, renal dose Lasix as per schedule Gen Surg/radiology studies, plain films ordered; OM eval (doubt) PT wound care--UNNA BOOT Analgesics Home meds Daily Labs DVT/GI prophylaxis Consult CM/PT/OT
--- NOTE | 2018-01-29 17:18 | CR ---
Left tibia and fibula: AP and lateral views of the left tibia and fibula were obtained. Comparison: No prior tibia or fibula study. Slight osteophytes are noted off the tibial margins on both sides. Calcification is seen along the medial epicondyle presumably dystrophic. Calcifications are seen off the lateral patella also felt to be dystrophic. Bony structures are osteopenic. No acute bony abnormality is noted. Chondrocalcinosis is also seen. Impression: 1. Chondrocalcinosis and degenerative change as well as osteopenia. 2. Dystrophic calcifications as noted above. 3. Nothing acute is seen on left tibia and fibula study. Diagnostic code #2
--- NOTE | 2018-01-29 17:19 | CR ---
Left foot: 2 views of the left foot were obtained. Comparison: No prior left foot exam. Soft tissue swelling is seen. Bony structures are osteopenic. No definite focal erosive change is seen. Incidental plantar spur is seen with slight dystrophic calcifications within proximal plantar fascia. No fracture or dislocation is seen. Impression: 1. Soft tissue swelling. Other incidental findings. No definite acute bony abnormality is appreciated. Diagnostic code #3
[2018-01-29] MEDS: Nystatin Topical Powder 15 GM Bottle TOP PRN ×2 (17:40→21:14)
[2018-01-29] MEDS: Simvastatin 20 MG Tab PO SCH (21:13)
[2018-01-29] MEDS: Cephalexin 500 MG Cap PO SCH (21:13)
[2018-01-30] MEDS: Albuterol/Ipratropium 3.0-0.5 MG/3 ML Neb Soln NEB SCH ×2 (03:20→09:03)
[2018-01-30] MEDS: Pantoprazole 40 MG Tab.CR PO SCH ×3 (04:53→16:11)
[2018-01-30] MEDS: Levothyroxine 50 MCG Tab PO SCH ×2 (04:53→07:08)
[2018-01-30] MEDS: Furosemide 40 MG/4 ML VIAL IV SCH (08:18)
[2018-01-30] MEDS: Cephalexin 500 MG Cap PO SCH ×2 (08:18→22:02)
[2018-01-30] MEDS: FERROUS SULFATE 220 MG/5 ML PO SCH ×3 (08:18→22:02)
[2018-01-30] MEDS: Multivitamins,Therapeutic Tab PO SCH (08:18)
[2018-01-30] MEDS: Propranolol 20 MG Tab PO SCH (08:18)
[2018-01-30] MEDS: Nystatin Topical Powder 15 GM Bottle TOP PRN (08:35)
--- NOTE | 2018-01-30 09:35 | PCM.PN ---
- General Info Date of Service: 01/30/18 Subjective Update: The patient has no complaints and is able to ambulate on his LLE without difficulty with the UNNA boot. Overall progress was reviewed with the patient and his two daughters present. The patient felt that his Beatriz skin infection treated with Nystatin was a result of the antibiotic therapy. Topical treatment will continue with attention to cleaning and drying the area. Question by daughter, Joann regarding WBCs cf CRP. Explanation of inflammatory marker was provided. In general, there is marked improvement regarding his PE as well as lab results. BNP was questioned, he is no longer being (IV) diuresed but managed with home meds as well as dietary restrictions. The attempt to diurese was unsuccessful with more input than documented by exogenous fluid ingestion. Bun/Cr have improved, this was over looked by family but pointed out by staff. Use of IS was requested (by daughter) and encouraged by staff. CXR have been unremarkable, Nebs were provided based on observation of family that patient may have been wheezing, however, he has maintained O2 sat > 98% as well as resp exam WNL. Nebs have been changed from scheduled to prn per family. Disposition: DC on Thursday, 02/01 is expected, Vanco to be stopped 01/31. Vancomycin was a topic briefly as to whether the patient's LLE has improved, yes it has. The addition of Keflex was mentioned. At this writing no additional questions or concerns regarding ATBs were voiced. Verification regarding removal of UNNA boot occurred, it will be removed by Dr ezekiel Magana; appt scheduled is 02/04/18 as an outpatient. Family meetin minutes Functional Status: Reports: Pain Controlled, Tolerating Diet, Ambulating, Urinating, Other (groin decreased redness) - Review of Systems General: Reports: No Symptoms HEENT: Reports: No Symptoms Pulmonary: Reports: No Symptoms Cardiovascular: Reports: No Symptoms Gastrointestinal: Reports: No Symptoms Genitourinary: Reports: No Symptoms Musculoskeletal: Reports: No Symptoms Skin: Reports: No Symptoms Neurological: Reports: No Symptoms Psychiatric: Reports: No Symptoms - Patient Data Vitals - Most Recent: Last Vital Signs Temp 36.8 C 01/30/18 08:17 Pulse 72 01/30/18 08:17 Resp 18 01/30/18 08:17 BP 106/67 01/30/18 08:17 Pulse Ox 97 01/30/18 09:03 Weight - Most Recent: 101.968 kg I&O - Last 24 Hours: Intake & Output 01/29/18 01/30/18 01/30/18 22:59 06:59 14:59 Intake Total 1010 400 Output Total 1375 425 Balance -365 -25 Lab Results Last 24 Hours: Laboratory Results - last 24 hr 01/30/18 01/30/18 01/30/18 Range/Units 05:35 05:35 05:35 WBC 11.34 H (4.23-9.07) K/mm3 RBC 3.34 L (4.63-6.08) M/mm3 Hgb 10.0 L (13.7-17.5) gm/L Hct 30.7 L (40.1-51.0) % MCV 91.9 (79.0-92.2) fl MCH 29.9 (25.7-32.2) pg MCHC 32.6 (32.2-35.5) g/dl RDW Std Deviation 56.2 H (35.1-43.9) fL Plt Count 198 (163-337) K/mm3 MPV 9.7 (9.4-12.3) fl Neut % (Auto) 84.3 H (34.0-67.9) % Lymph % (Auto) 4.2 L (21.8-53.1) % Stoddard % (Auto) 9.2 (5.3-12.2) % Eos % (Auto) 1.2 (0.8-7.0) Baso % (Auto) 0.2 (0.1-1.2) % Neut # (Auto) 9.56 H (1.78-5.38) K/mm3 Lymph # (Auto) 0.48 L (1.32-3.57) K/mm3 Stoddard # (Auto) 1.04 H (0.30-0.82) K/mm3 Eos # (Auto) 0.14 (0.04-0.54) K/mm3 Baso # (Auto) 0.02 (0.01-0.08) K/mm3 Manual Slide Review Abnormal smear PT 28.9 H (9.5-12.1) SECONDS INR 2.70 Sodium 137 (136-145) mEq/L Potassium 4.0 (3.5-5.1) mEq/L Chloride 102 (98-107) mEq/L Carbon Dioxide 27 (21-32) mEq/L Anion Gap 12.0 (5-15) BUN 34 H (7-18) mg/dL Creatinine 1.2 (0.7-1.3) mg/dL Est Cr Clr Drug Dosing 47.93 mL/min Estimated GFR (MDRD) 58 (>60) mL/min BUN/Creatinine Ratio 28.3 H (14-18) Glucose 109 (83-115) mg/dL Calcium 8.5 (8.5-10.1) mg/dL C-Reactive Protein 5.6 H* (<1.0) mg/dL Edilson Results Last 24 Hours: Microbiology 01/24/18 12:45 Aerobic Blood Culture - Preliminary Blood - Venous - Lab Draw NO GROWTH AFTER 5 DAYS Anaerobic Blood Culture - Preliminary NO GROWTH AFTER 5 DAYS 01/24/18 12:20 Aerobic Blood Culture - Preliminary Blood - Venous NO GROWTH AFTER 5 DAYS Anaerobic Blood Culture - Preliminary NO GROWTH AFTER 5 DAYS Med Orders - Current: Current Medications Acetaminophen (Tylenol) 650 mg PO Q6H PRN PRN Reason: Pain/Fever Last Admin: 01/28/18 20:33 Dose: 650 mg Albuterol/Ipratropium (Duoneb 3.0-0.5 Mg/3 Ml) 3 ml NEB Q6HRRT [facility] Last Admin: 01/30/18 09:03 Dose: Not Given Cephalexin (Keflex) 500 mg PO BID [facility] Last Admin: 01/30/18 08:18 Dose: 500 mg Cholecalciferol (Vitamin D3) 5,000 unit PO MoWeFr@0900 [facility] Last Admin: 01/29/18 08:07 Dose: 5,000 unit Furosemide (Lasix) 40 mg IV DAILY [facility] Last Admin: 01/30/18 08:18 Dose: 40 mg Vancomycin HCl 1.25 gm/ Sodium (Chloride) 250 mls @ 166.667 mls/hr IV Q24H [facility] Last Admin: 01/29/18 16:31 Dose: 166.667 mls/hr Levothyroxine Sodium (Synthroid) 50 mcg PO ACBRK [facility] Last Admin: 01/30/18 07:08 Dose: Not Given Multivitamins (Thera) 1 each PO DAILY [facility] Last Admin: 01/30/18 08:18 Dose: 1 each Nystatin (Nystop) 0 gm TOP QID PRN PRN Reason: Rash Last Admin: 01/30/18 08:35 Dose: 1 applic Pantoprazole Sodium (Protonix) 40 mg PO BID@0700,1700 [facility] Last Admin: 01/30/18 07:08 Dose: Not Given Ferrous Sulfate (Elixir 220 Mg/5 Ml) 0 each PO TID [facility] Last Admin: 01/30/18 08:18 Dose: 1 each Propranolol HCl (Inderal) 20 mg PO DAILY [facility] Last Admin: 01/30/18 08:18 Dose: 20 mg Simvastatin (Zocor) 20 mg PO BEDTIME [facility] Last Admin: 01/29/18 21:13 Dose: 20 mg Sodium Chloride (Saline Flush) 10 ml FLUSH ASDIRECTED PRN PRN Reason: Keep Vein Open Last Admin: 01/24/18 12:49 Dose: 10 ml Vancomycin HCl (Pharmacy To Dose - Vancomycin) 0 dose .XX ASDIRECTED PRN PRN Reason: RX TO DOSE VANCOMYCIN Warfarin Sodium (Pharmacy To Dose - Warfarin) 0 dose .XX ASDIRECTED PRN PRN Reason: RX TO DOSE WARFARIN Warfarin Sodium (Coumadin) 5 mg PO ONETIME ONE Stop: 01/30/18 18:01 Discontinued Medications Ferrous Sulfate (Ferrous Sulfate) 325 mg PO TID [facility] Last Admin: 01/25/18 12:41 Dose: Not Given Furosemide (Lasix) 40 mg IVPUSH NOW ONE Stop: 01/24/18 14:14 Last Admin: 01/24/18 14:34 Dose: 40 mg Furosemide (Lasix) 40 mg IV BIDDIURETIC [facility] Last Admin: 01/28/18 16:05 Dose: 40 mg Gabapentin (Neurontin) 200 mg PO BID [facility] Last Admin: 01/25/18 08:13 Dose: Not Given Hydromorphone HCl (Dilaudid) 0.5 mg IVPUSH ONETIME ONE Stop: 01/24/18 12:32 Last Admin: 01/24/18 12:48 Dose: 0.5 mg Clindamycin Phosphate 900 mg/ (Sodium Chloride) 106 mls @ 100 mls/hr IV ONETIME ONE Stop: 01/24/18 13:35 Last Admin: 01/24/18 12:49 Dose: 100 mls/hr Sodium Chloride (Normal Saline) 1,000 mls @ 75 mls/hr IV ASDIRECTED [facility] Last Admin: 01/25/18 03:53 Dose: 75 mls/hr Ampicillin Sodium/Sulbactam (Sodium 1.5 gm/ Sodium Chloride) 100 mls @ 200 mls/ hr IV Q6H [facility] Last Admin: 01/27/18 06:36 Dose: 200 mls/hr Vancomycin HCl 1.5 gm/ Sodium (Chloride) 250 mls @ 166.667 mls/hr IV Q24H [facility] Last Admin: 01/26/18 15:37 Dose: 166.667 mls/hr Furosemide 100 mg/ Sodium (Chloride) 100 mls @ 4 mls/hr IV Q24H [facility]; Protocol Stop: 01/27/18 09:59 Last Admin: 01/26/18 10:53 Dose: 4 mls/hr Vancomycin HCl 1.5 gm/ Sodium (Chloride) 500 mls @ 333.333 mls/hr IV Q24H [facility] Last Admin: 01/27/18 15:12 Dose: Not Given Vancomycin HCl 1.5 gm/ Sodium (Chloride) 500 mls @ 333.333 mls/hr IV Q24H [facility] Last Admin: 01/27/18 16:41 Dose: Not Given Magnesium Hydroxide (Milk Of Magnesia) 30 ml PO ONETIME ONE Stop: 01/26/18 21:36 Last Admin: 01/26/18 21:41 Dose: 30 ml Ondansetron HCl (Zofran) 4 mg IVPUSH ONETIME ONE Stop: 01/24/18 12:32 Last Admin: 01/24/18 12:48 Dose: 4 mg Potassium Chloride (Klor-Con 10) 10 meq PO BIDMEALS [facility] Last Admin: 01/26/18 17:55 Dose: 10 meq Potassium Chloride (Klor-Con M20) 40 meq PO BID [facility] Last Admin: 01/28/18 11:09 Dose: Not Given Warfarin Sodium (Coumadin) 5 mg PO ONETIME ONE Stop: 01/24/18 18:01 Last Admin: 01/24/18 18:17 Dose: 5 mg Warfarin Sodium (Coumadin) 2.5 mg PO QPM [facility] Stop: 01/25/18 21:00 Last Admin: 01/25/18 17:53 Dose: 2.5 mg Warfarin Sodium (Coumadin) 2.5 mg PO QPM [facility] Stop: 01/26/18 21:00 Last Admin: 01/26/18 19:00 Dose: 2.5 mg Warfarin Sodium (Coumadin) 5 mg PO ONETIME ONE Stop: 01/27/18 18:01 Last Admin: 01/27/18 17:25 Dose: 5 mg - Exam Quality Assessment: DVT Prophylaxis ((Coumadin)) General: Alert, Oriented, Cooperative, No Acute Distress HEENT: Pupils Equal, Pupils Reactive, EOMI Neck: Trachea Midline, No JVD Lungs: Normal Respiratory Effort Cardiovascular: Regular Rate, Irregular Rhythm GI/Abdominal Exam: Normal Bowel Sounds, Soft, Non-Tender, No Organomegaly, No Distention (Male) Exam: Deferred (appliaction of Nystatin powder by RN) Back Exam: Normal Inspection Extremities: Normal Inspection Skin: Warm Wound/Incisions: Healing Well, Dressing Dry and Intact, No Drainage, Erythema Improving Neurological: Normal Gait, Normal Speech Psy/Mental Status: Alert, Normal Affect, Normal Mood - Problem List Review Problem List Initiated/Reviewed/Updated: Yes - My Orders Last 24 Hours: My Active Orders 01/29/18 09:00 Consult to Physical Therapy [PT Evaluation and Treatment] [CONS] Routine Furosemide [Lasix] 40 mg IV DAILY 01/29/18 17:27 Nystatin [Nystop] 0 gm TOP QID PRN 01/29/18 21:00 Cephalexin [Keflex] 500 mg PO BID 01/30/18 09:06 Incentive Spirometry [RT Incentive Spirometry] [RC] ASDIRECTED 01/30/18 18:00 Warfarin [Coumadin] 5 mg PO ONETIME ONE 01/31/18 05:00 BMP [BASIC METABOLIC PANEL,BMP] [CHEM] DAILY CBC WITH AUTO DIFF [HEME] DAILY CRP [C-REACTIVE PROTEIN] [CHEM] DAILY INR,PT,PROTHROMBIN TIME [COAG] DAILY LACTIC ACID [CHEM] Routine 01/31/18 15:30 VANCOMYCIN TROUGH [CHEM] Timed 02/01/18 05:00 BMP [BASIC METABOLIC PANEL,BMP] [CHEM] DAILY CBC WITH AUTO DIFF [HEME] DAILY CRP [C-REACTIVE PROTEIN] [CHEM] DAILY INR,PT,PROTHROMBIN TIME [COAG] DAILY 02/02/18 05:00 INR,PT,PROTHROMBIN TIME [COAG] DAILY - Plan Plan:: Impression: LLE Cellulitis w/ failed OP treatment PVD (pain when elevated/improves with dependent position)-->art duplex inconclusive, doubt accuracy; mixed picture probable venous component Improvement noted Doppler results per Dr Jordan Vas surg consult OP, 02/08/18 Plain films--no evidence of OM CAD/CABG 2D echo with sev TR; mild-mod /abnormal AVR; LVEF 45-50% S/P PPM A fib on Coumadin, therapeutic CHF, query NYHA functional status Hx of Valvular Heart Disease, AVR HLD Chronic BPH Hypothyroidism CKD GERD Peripheral neuropathy Plan: INR-->resume per protocol Vancomycin, level to be drain Thursday, 01/31; added Keflex 500 mg BID, renal dose Lasix as per schedule Gen Surg/radiology studies, plain films ordered; OM eval (doubt) PT wound care--UNNA BOOT Analgesics Home meds Daily Labs DVT/GI prophylaxis Consult CM/PT/OT LOS>96 hours for treatment LLE
[2018-01-30] MEDS ORDERED: Albuterol/Ipratropium 3.0-0.5 MG/3 ML Neb Soln NEB PRN (10:32)
[2018-01-30] MEDS ORDERED: Warfarin 5 MG Tab PO ONE (18:00)
[2018-01-30] MEDS: Simvastatin 20 MG Tab PO SCH (22:02)
[2018-01-31] MEDS: Levothyroxine 50 MCG Tab PO SCH (05:46)
[2018-01-31] MEDS: Pantoprazole 40 MG Tab.CR PO SCH ×2 (05:46→06:44)
[2018-01-31] MEDS: Multivitamins,Therapeutic Tab PO SCH (08:35)
[2018-01-31] MEDS: FERROUS SULFATE 220 MG/5 ML PO SCH (08:35)
[2018-01-31] MEDS: Furosemide 40 MG/4 ML VIAL IV SCH (08:36)
[2018-01-31] MEDS: Propranolol 20 MG Tab PO SCH (08:36)
[2018-01-31] MEDS: Cephalexin 500 MG Cap PO SCH ×2 (08:36→12:10)
[2018-01-31 09:03] VITALS: BP 132/74
--- NOTE | 2018-01-31 11:26 | PCM.DCSUM1 ---
Discharge Summary - Hospital Course Free Text/Narrative:: Patient was able to ambulate without difficulty on the day of discharge. He walked three laps this morning before discharge; and had no complaint of SOB, CP , dizziness, or lower extremity discomfort. The lab results and imaging were again reviewed with the patient and family. Office appointments were also reviewed, the patient will see his PCP, Anne Magana after the surgical office appointments. The groin area was also addressed, the fungal/yeast infection will be treated with Nystatin. As a result of the Thursday discharge, the patient was given his current bottle actively being used for his care. Also the next dose of Keflex 500 mg cap has been provided and documented by his nurse. A short discussion after the family meeting occurred. The patient will not pursue home health for now, and will utilize his current care givers for his needs. The patient's home medication were continued at [facility]. That includes his diuretic, Torsemide. Family meeting 15 minutes. Renal dose Keflex was prescribed. Family meetings were held every day, lab results were printed for the patient's daughter. A minimal of 15 minutes was held for any family meeting. Staff was present, an opportunity for questions for family and patient were provided. As mentioned above because the patient was DCd on a Thursday, keflex and Nystatin were provided at [facility]. Lastly the patient was instructed on how to take a bath or shower with the UNNA boot. Also to cover or protect his feet when ambulating including the UNNA boot. This was reinforced multiple times during the end of his hospitalization. Additionally needs/services were offered and at [facility] were declined. Diagnosis LLE cellulitis (acute on chronic)--had Vancomycin, discharged on Keflex; gen surg consult with UNNA boot placed; ambulated without difficult (NO PAIN) three laps before DC. 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 Imaging was left to the discretion of the provider. Diet--resume with attentuion to fluid restriction and sodium content Meds resume home meds; antibiotics : Keflex and Nystatin Activity as tolerated, has been able to increase his activity level without difficulty. Patient and Family were instructed on how to protect UNNA boot and protect his feet. HPI Initial Comments: 87 year old male describes with minimal words recent, three day swelling to left lower extremity. The skin changes suggest chronic ededma, however the voiced duration of redness, pain and swelling was supported by his daughter. he has had tactile elevated temperature, and was apparetnly seen in a clinic where Ceftin was prescribed. The patient and his family reported taking four doses without improvement. The erythema has expanded, ascending to the kneee. He denies recent trauma, insect bite; the LLE is hairless which has gone unnoticed by the patient and his family. The patient has a patient medical history of PAD/CAD/Valvular heart Disease; he is on Coumadin for A Fib. The patient will be admitted to [facility] telemetry for failed OP Rx for LLE cellulitis. - Discharge Data Discharge Date: 01/31/18 Discharge Disposition: Home, Self-Care 01 Condition: Good - Patient Summary/Data Consults: Consultations 01/26/18 08:00 Consult to Case Management [CONS] Routine 01/26/18 09:30 Consult to Occupational Therapy [OT Evaluation and Treatment] [CONS] Routine 01/28/18 20:08 Consult to Physician [CONS] Routine 01/29/18 09:00 Consult to Physical Therapy [PT Evaluation and Treatment] [CONS] Routine - Patient Instructions Diet: Usual Diet as Tolerated Fluid Restriction: per previous instructions by provider, no change Activity: As Tolerated Driving: Do Not Drive Showering/Bathing: May Shower (follow directions for UNNA boot coverage) Notify Provider of: Fever, Increased Pain, Nausea and/or Vomiting - Discharge Plan Prescriptions/Med Rec: Cephalexin [Keflex] 500 mg PO BID 10 Days #20 cap Nystatin [Nystop] 1 - 2 gm TOP QID PRN 7 Days #60 bottle PRN Reason: Rash Home Medications: Home Meds Levothyroxine [Synthroid] 50 mcg PO ACBRK 05/26/14 [History] Propranolol [Inderal] 20 mg PO DAILY 05/26/14 [History] Simvastatin [Zocor] 20 mg PO BEDTIME 05/26/14 [History] Cholecalciferol (Vitamin D3) [Vitamin D3] 5,000 unit PO MOWEFR 05/20/17 [History ] Pantoprazole Sodium [Protonix] 40 mg PO BID 05/20/17 [History] Potassium Chloride 10 meq PO DAILY 05/20/17 [History] Warfarin [Coumadin] 2.5 mg PO ASDIRECTED 05/20/17 [History] Mv-Mn/FA/Vit K/Lycop/Lut/Zeaxa [Ocuvite Eye + Multi Tablet] 1 ea PO DAILY [History] Torsemide [Demadex] 40 mg PO DAILY 01/22/18 [History] Ferrous Sulfate [Ferosul] 5 ml PO TID 01/24/18 [History] Warfarin [Coumadin] 5 mg PO ASDIRECTED 01/24/18 [History] Cephalexin [Keflex] 500 mg PO BID 10 Days #20 cap 01/31/18 [Rx] Nystatin [Nystop] 1 - 2 gm TOP QID PRN 7 Days #60 bottle 01/31/18 [Rx] Patient Handouts: Cellulitis, Adult, Heart Failure, [id number] Referrals: Stefan Villar MD [Physician] - (Please schedule follow-up appointment with Dr. Villar 02/04/18 so he can remove the TOMI boot. ) Josette Aranda NP [Ordering Only Provider] - 02/08/18 11:30 am (Vascular surgeon BILINGUAL CUST[employer]ER SERVICE SPECIALIST. Appointment is at 11:30 ENGINEERING TECH, 10:30 Mountain Time. Clinicals, face sheet, radiology, referral have been faxed to them to ensure adequate follow-up.) Anne Magana NP [Primary Care Provider] - (Please schedule a follow up apt for week of February 14.) - General Info Date of Service: 01/24/18 Functional Status: Reports: Pain Controlled, Tolerating Diet, Ambulating, Urinating - Review of Systems General: Reports: No Symptoms HEENT: Reports: No Symptoms Pulmonary: Reports: No Symptoms Cardiovascular: Reports: No Symptoms Gastrointestinal: Reports: No Symptoms Genitourinary: Reports: No Symptoms Musculoskeletal: Reports: No Symptoms Skin: Reports: No Symptoms Neurological: Reports: No Symptoms Psychiatric: Reports: No Symptoms - Patient Data Vitals - Most Recent: Last Vital Signs Temp 36.4 C 01/31/18 08:21 Pulse 73 01/31/18 08:21 Resp 22 H 01/31/18 08:21 BP 132/74 01/31/18 08:21 Pulse Ox 97 01/31/18 08:21 Weight - Most Recent: 101.242 kg I&O - Last 24 hours: Intake & Output 01/30/18 01/31/18 01/31/18 22:59 06:59 14:59 Intake Total 580 400 400 Output Total 1550 875 Balance -970 -475 400 Lab Results - Last 24 hrs: Laboratory Results - last 24 hr 01/31/18 01/31/18 01/31/18 Range/Units 05:55 05:55 05:55 WBC 11.36 H (4.23-9.07) K/mm3 RBC 3.48 L (4.63-6.08) M/mm3 Hgb 10.3 L (13.7-17.5) gm/L Hct 32.0 L (40.1-51.0) % MCV 92.0 (79.0-92.2) fl MCH 29.6 (25.7-32.2) pg MCHC 32.2 (32.2-35.5) g/dl RDW Std Deviation 56.9 H (35.1-43.9) fL Plt Count 211 (163-337) K/mm3 MPV 9.8 (9.4-12.3) fl Neut % (Auto) 83.9 H (34.0-67.9) % Lymph % (Auto) 4.8 L (21.8-53.1) % Vance % (Auto) 8.5 (5.3-12.2) % Eos % (Auto) 1.8 (0.8-7.0) Baso % (Auto) 0.3 (0.1-1.2) % Neut # (Auto) 9.55 H (1.78-5.38) K/mm3 Lymph # (Auto) 0.54 L (1.32-3.57) K/mm3 Vance # (Auto) 0.96 H (0.30-0.82) K/mm3 Eos # (Auto) 0.20 (0.04-0.54) K/mm3 Baso # (Auto) 0.03 (0.01-0.08) K/mm3 Manual Slide Review Abnormal smear PT 23.5 H (9.5-12.1) SECONDS INR 2.19 Sodium 138 (136-145) mEq/L Potassium 4.2 (3.5-5.1) mEq/L Chloride 103 (98-107) mEq/L Carbon Dioxide 28 (21-32) mEq/L Anion Gap 11.2 (5-15) BUN 34 H (7-18) mg/dL Creatinine 1.4 H (0.7-1.3) mg/dL Est Cr Clr Drug Dosing 41.09 mL/min Estimated GFR (MDRD) 48 (>60) mL/min BUN/Creatinine Ratio 24.3 H (14-18) Glucose 107 (83-115) mg/dL Lactic Acid (0.4-2.0) mmol/L Calcium 8.6 (8.5-10.1) mg/dL C-Reactive Protein 5.2 H* (<1.0) mg/dL 01/31/18 Range/Units 05:55 WBC (4.23-9.07) K/mm3 RBC (4.63-6.08) M/mm3 Hgb (13.7-17.5) gm/L Hct (40.1-51.0) % MCV (79.0-92.2) fl MCH (25.7-32.2) pg MCHC (32.2-35.5) g/dl RDW Std Deviation (35.1-43.9) fL Plt Count (163-337) K/mm3 MPV (9.4-12.3) fl Neut % (Auto) (34.0-67.9) % Lymph % (Auto) (21.8-53.1) % Vance % (Auto) (5.3-12.2) % Eos % (Auto) (0.8-7.0) Baso % (Auto) (0.1-1.2) % Neut # (Auto) (1.78-5.38) K/mm3 Lymph # (Auto) (1.32-3.57) K/mm3 Vance # (Auto) (0.30-0.82) K/mm3 Eos # (Auto) (0.04-0.54) K/mm3 Baso # (Auto) (0.01-0.08) K/mm3 Manual Slide Review PT (9.5-12.1) SECONDS INR Sodium (136-145) mEq/L Potassium (3.5-5.1) mEq/L Chloride (98-107) mEq/L Carbon Dioxide (21-32) mEq/L Anion Gap (5-15) BUN (7-18) mg/dL Creatinine (0.7-1.3) mg/dL Est Cr Clr Drug Dosing mL/min Estimated GFR (MDRD) (>60) mL/min BUN/Creatinine Ratio (14-18) Glucose (83-115) mg/dL Lactic Acid 1.2 (0.4-2.0) mmol/L Calcium (8.5-10.1) mg/dL C-Reactive Protein (<1.0) mg/dL CANDI Results - Last 24 hrs: Microbiology 01/24/18 12:45 Aerobic Blood Culture - Preliminary Blood - Venous - Lab Draw NO GROWTH AFTER 6 DAYS Anaerobic Blood Culture - Preliminary NO GROWTH AFTER 6 DAYS 01/24/18 12:20 Aerobic Blood Culture - Preliminary Blood - Venous NO GROWTH AFTER 6 DAYS Anaerobic Blood Culture - Preliminary NO GROWTH AFTER 6 DAYS Med Orders - Current: Current Medications Acetaminophen (Tylenol) 650 mg PO Q6H PRN PRN Reason: Pain/Fever Last Admin: 01/28/18 20:33 Dose: 650 mg Albuterol/Ipratropium (Duoneb 3.0-0.5 Mg/3 Ml) 3 ml NEB Q6HRRT PRN PRN Reason: for SOB/wheeze Last Admin: 01/30/18 22:10 Dose: 3 ml Cephalexin (Keflex) 500 mg PO BID [facility] Last Admin: 01/31/18 08:36 Dose: 500 mg Cholecalciferol (Vitamin D3) 5,000 unit PO MoWeFr@0900 [facility] Last Admin: 01/29/18 08:07 Dose: 5,000 unit Furosemide (Lasix) 40 mg IV DAILY [facility] Last Admin: 01/31/18 08:36 Dose: 40 mg Levothyroxine Sodium (Synthroid) 50 mcg PO ACBRK [facility] Last Admin: 01/31/18 05:46 Dose: 50 mcg Multivitamins (Thera) 1 each PO DAILY [facility] Last Admin: 01/31/18 08:35 Dose: 1 each Nystatin (Nystop) 0 gm TOP QID PRN PRN Reason: Rash Last Admin: 01/30/18 08:35 Dose: 1 applic Pantoprazole Sodium (Protonix) 40 mg PO BID@0700,1700 [facility] Last Admin: 01/31/18 06:44 Dose: Not Given Ferrous Sulfate (Elixir 220 Mg/5 Ml) 0 each PO TID [facility] Last Admin: 01/31/18 08:35 Dose: 1 each Propranolol HCl (Inderal) 20 mg PO DAILY [facility] Last Admin: 01/31/18 08:36 Dose: 20 mg Simvastatin (Zocor) 20 mg PO BEDTIME [facility] Last Admin: 01/30/18 22:02 Dose: 20 mg Sodium Chloride (Saline Flush) 10 ml FLUSH ASDIRECTED PRN PRN Reason: Keep Vein Open Last Admin: 01/24/18 12:49 Dose: 10 ml Warfarin Sodium (Pharmacy To Dose - Warfarin) 0 dose .XX ASDIRECTED PRN PRN Reason: RX TO DOSE WARFARIN Warfarin Sodium (Coumadin) 2.5 mg PO ONETIME ONE Stop: 01/31/18 18:01 Discontinued Medications Albuterol/Ipratropium (Duoneb 3.0-0.5 Mg/3 Ml) 3 ml NEB Q6HRRT [facility] Last Admin: 01/30/18 09:03 Dose: Not Given Ferrous Sulfate (Ferrous Sulfate) 325 mg PO TID [facility] Last Admin: 01/25/18 12:41 Dose: Not Given Furosemide (Lasix) 40 mg IVPUSH NOW ONE Stop: 01/24/18 14:14 Last Admin: 01/24/18 14:34 Dose: 40 mg Furosemide (Lasix) 40 mg IV BIDDIURETIC [facility] Last Admin: 01/28/18 16:05 Dose: 40 mg Gabapentin (Neurontin) 200 mg PO BID [facility] Last Admin: 01/25/18 08:13 Dose: Not Given Hydromorphone HCl (Dilaudid) 0.5 mg IVPUSH ONETIME ONE Stop: 01/24/18 12:32 Last Admin: 01/24/18 12:48 Dose: 0.5 mg Clindamycin Phosphate 900 mg/ (Sodium Chloride) 106 mls @ 100 mls/hr IV ONETIME ONE Stop: 01/24/18 13:35 Last Admin: 01/24/18 12:49 Dose: 100 mls/hr Sodium Chloride (Normal Saline) 1,000 mls @ 75 mls/hr IV ASDIRECTED [facility] Last Admin: 01/25/18 03:53 Dose: 75 mls/hr Ampicillin Sodium/Sulbactam (Sodium 1.5 gm/ Sodium Chloride) 100 mls @ 200 mls/ hr IV Q6H [facility] Last Admin: 01/27/18 06:36 Dose: 200 mls/hr Vancomycin HCl 1.5 gm/ Sodium (Chloride) 250 mls @ 166.667 mls/hr IV Q24H [facility] Last Admin: 01/26/18 15:37 Dose: 166.667 mls/hr Furosemide 100 mg/ Sodium (Chloride) 100 mls @ 4 mls/hr IV Q24H [facility]; Protocol Stop: 01/27/18 09:59 Last Admin: 01/26/18 10:53 Dose: 4 mls/hr Vancomycin HCl 1.5 gm/ Sodium (Chloride) 500 mls @ 333.333 mls/hr IV Q24H [facility] Last Admin: 01/27/18 15:12 Dose: Not Given Vancomycin HCl 1.5 gm/ Sodium (Chloride) 500 mls @ 333.333 mls/hr IV Q24H [facility] Last Admin: 01/27/18 16:41 Dose: Not Given Vancomycin HCl 1.25 gm/ Sodium (Chloride) 250 mls @ 166.667 mls/hr IV Q24H [facility] Stop: 01/30/18 16:01 Last Admin: 01/30/18 16:11 Dose: 166.667 mls/hr Magnesium Hydroxide (Milk Of Magnesia) 30 ml PO ONETIME ONE Stop: 01/26/18 21:36 Last Admin: 01/26/18 21:41 Dose: 30 ml Ondansetron HCl (Zofran) 4 mg IVPUSH ONETIME ONE Stop: 01/24/18 12:32 Last Admin: 01/24/18 12:48 Dose: 4 mg Potassium Chloride (Klor-Con 10) 10 meq PO BIDMEALS [facility] Last Admin: 01/26/18 17:55 Dose: 10 meq Potassium Chloride (Klor-Con M20) 40 meq PO BID [facility] Last Admin: 01/28/18 11:09 Dose: Not Given Vancomycin HCl (Pharmacy To Dose - Vancomycin) 0 dose .XX ASDIRECTED PRN PRN Reason: RX TO DOSE VANCOMYCIN Warfarin Sodium (Coumadin) 5 mg PO ONETIME ONE Stop: 01/24/18 18:01 Last Admin: 01/24/18 18:17 Dose: 5 mg Warfarin Sodium (Coumadin) 2.5 mg PO QPM [facility] Stop: 01/25/18 21:00 Last Admin: 01/25/18 17:53 Dose: 2.5 mg Warfarin Sodium (Coumadin) 2.5 mg PO QPM [facility] Stop: 01/26/18 21:00 Last Admin: 01/26/18 19:00 Dose: 2.5 mg Warfarin Sodium (Coumadin) 5 mg PO ONETIME ONE Stop: 01/27/18 18:01 Last Admin: 01/27/18 17:25 Dose: 5 mg Warfarin Sodium (Coumadin) 5 mg PO ONETIME ONE Stop: 01/30/18 18:01 Last Admin: 01/30/18 18:14 Dose: 5 mg - Exam Quality Assessment: Reports: DVT Prophylaxis (Coumadin) General: Reports: Alert, Oriented, Cooperative, No Acute Distress HEENT: Reports: Pupils Equal, Pupils Reactive, EOMI Neck: Reports: Trachea Midline, No JVD Lungs: Reports: Normal Respiratory Effort Cardiovascular: Reports: Regular Rate, Irregular Rhythm GI/Abdominal Exam: Normal Bowel Sounds, Soft, Non-Tender, No Organomegaly, No Distention (Male) Exam: Other (see notes, yeast infection) Rectal (Males) Exam: Deferred Back Exam: Reports: Normal Inspection Extremities: Normal Inspection, Pedal Edema (decreased <1+, UNNA boot of LLE) Skin: Reports: Cool Wound/Incisions: Reports: Healing Well, Dressing Dry and Intact Neurological: Reports: No New Focal Deficit Psy/Mental Status: Reports: Alert, Normal Affect, Normal Mood
[2018-01-31] MEDS ORDERED: Warfarin 2.5 MG Tab PO ONE (18:00)
--- NOTE | 2018-02-01 10:46 | CONS ---
CONSULTING PHYSICIAN: Stefan Villar MD DATE OF CONSULTATION: 01/29/2018 Congestive heart failure is also a contributing factor to his lower extremity. We will consider to get a prostatic specific antigen. If very high, I would consider looking at that metastatic disease as a source of his lower extremity swelling on the left. MMODAL /[id number]
--- NOTE | 2018-02-01 10:46 | CONS ---
CONSULTING PHYSICIAN: Stefan Villar MD DATE OF CONSULTATION: 01/29/2018 HISTORY OF PRESENT ILLNESS: An 87-year-old who presented to the ER on January 24, 2018, with lower extremity erythema and swelling. Chandler to be cellulitis. He was started on Cefotan in the clinic and then eventually seen in the emergency room and admitted. He had no systemic sign of illness such as fever or chills, but did have pain in the leg, keeping awake at night. He carries a diagnosis of peripheral neuropathy, although he is not diabetic for the last 10 years. Clinical history of peripheral vascular disease such as claudication or night pain has been difficult to clearly establish. The patient is a poor historian. He is on Coumadin due to atrial fibrillation, has been on Neurontin because of worsening renal failure. This was stopped and had variable help. PAST MEDICAL HISTORY: The patient has a past history of coronary artery disease, bypass surgery, heart failure, high cholesterol. He reports some hypothyroidism, basal cell carcinomas, and chronic renal insufficiency with an estimated glomerular filtration of 44. The patient states that he is not diabetic. SOCIAL HISTORY: His daughter is nurse from [place] and is very involved in the case. Never smoked. REVIEW OF SYSTEMS: No chest pain, shortness of breath, cough, hoarseness, wheezing, fainting, weakness, numbness, or convulsions. Does have occasionally shortness of breath. No pleuritic chest pain. Does have edema in the legs, it has been there for a while, he says about a month. It has been a gradual onset. No paresthesias in the lower extremities. FAMILY HISTORY: Negative. PHYSICAL EXAMINATION: VITAL SIGNS: Temperature 36, pulse 71, respirations 61, blood pressure 122/85. EYES: Sclerae white. Extraocular muscle motion normal. ORAL CAVITY: Healthy mucous membrane with mouth and tongue. NECK: Supple. No nodes. No thyromegaly. Trachea midline. LUNGS: Clear. No rales, rhonchi, fremitus, or dullness. HEART: Heart tones are regular rate at this time. ABDOMEN: Soft. EXTREMITIES: Upper extremities; no angulation deformities. Lower extremities show dependent rubor left worse than the right. Rubor extends up to the leg just below the tibial tuberosity. On the right, there is some dependent rubor, dryness of the nails. Doppler exam demonstrated good dorsalis and posterior tibialis in both legs. Right is better than the left. The left has lot of edema over the foot. I cannot feel good femoral pulses or popliteal pulses bilaterally. SKIN: Warm and dry. NEUROLOGIC: No sensorineural deficit. Cranial nerves III through XII intact. PSYCHIATRIC: Very poor historian. Memory is poor. LABORATORY DATA: Natriuretic hormone is 2000. ASSESSMENT: Lower extremity edema, left much worse than the right. Venous and arterial ultrasounds are inconclusive. Suspect either venous disease or arterial disease or a combination, it is unclear at this time. The patient's unwillingness to keep the leg elevated because of pain suggests arterial disease and he is always dangling it over the side of the bed and does not follow instructions for elevation. The dependent rubor also would suggest arterial disease, it is uncertain at this time. The Doppler studies done at the bedside does mitigate against the peripheral vascular disease. RECOMMENDATION: Recommendation is to treat him with an Unna boot and ambulate him; however, if there is too much pain with Unna boot, to remove it immediately. We would recommend prostatic specific antigen to look at his prostate suspecting of possibility of lymph nodes as a source of enlargement as the source of swelling of that leg, although I do not feel any growth in his groin. We would make sure he gets a good vascular evaluation. MMODAL /[id number]
== END 2018-01-31 12:34 | disposition home or self-care (01) | DRG 603 ==
LOC: JD.ED 12:01 → JD.MS 14:58
PROVIDERS: ADMIT Internal Medicine Cardiovascular Disease; ATTEND Internal Medicine Cardiovascular Disease
DX: L03.116 Cellulitis of left lower limb (principal); I50.32 Chronic diastolic (congestive) heart failure; I13.0 Hypertensive heart and chronic kidney disease with heart failure and stage 1 through stage 4 chronic kidney disease, or unspecified chronic kidney disease; I48.91 Unspecified atrial fibrillation; N18.3 Chronic kidney disease, stage 3 (moderate); K21.9 Gastro-esophageal reflux disease without esophagitis; I73.9 Peripheral vascular disease, unspecified; I25.10 Atherosclerotic heart disease of native coronary artery without angina pectoris; N40.0 Benign prostatic hyperplasia without lower urinary tract symptoms; M10.9 Gout, unspecified; E78.5 Hyperlipidemia, unspecified; E03.9 Hypothyroidism, unspecified; C44.91 Basal cell carcinoma of skin, unspecified; G62.9 Polyneuropathy, unspecified; I35.0 Nonrheumatic aortic (valve) stenosis; Z79.01 Long term (current) use of anticoagulants; Z79.899 Other long term (current) drug therapy; Z95.1 Presence of aortocoronary bypass graft; Z95.2 Presence of prosthetic heart valve; Z95.0 Presence of cardiac pacemaker
CPT/HCPCS: 36415; 80053; 82550; 83735; 83880; 85007; 85027; 85610; 86140; 87040 ×2; 93005; 93971; 96365; 96375; 99285; J1170; J1940; J2405; J7030; J7040; J7050 ×2; 51702; 71045; 71045-26; 73590-26-LT; 73590-LT; 73620-26-LT; 73620-LT; 80048; 80061; 80202; 83036; 83605; 84443; 84484; 85025; 86141; 93010; 93306; 93925; 93925-26; 94640; 94761; 97116-GP; 97162-GP; 97164-GP; 97165-GO; A9270-GY; J0295; J3370

== ENCOUNTER 2018-02-12 14:40 | Emergency (ER) | payer MEDICARE, BC ==
[2018-02-12 14:55] VITALS: BP 121/70
--- NOTE | 2018-02-12 15:23 | EDM.PDOC ---
ED HPI GENERAL MEDICAL PROBLEM - General Chief Complaint: Abdominal Pain Stated Complaint: Constipation Time Seen by Provider: 02/12/18 15:00 Source of Information: Reports: Patient, Family, RN Notes Reviewed History Limitations: Reports: No Limitations - History of Present Illness INITIAL COMMENTS - FREE TEXT/NARRATIVE: Patient presents for complaints of constipation and rectal pressure. His last Bm was approximately 2 days ago and is described as small and hard. He feels like he is sitting on a rock. He reports intermittent abdominal cramps. He has tried suppositories, fleets enema and milk of magnesia with no relief. No nausea or vomiting. He was admitted to the hospital on 01/24/18 for cellulitis and subsequently discharged on 01/31/18. He just finished his oral antibiotics yesterday. He attributes the constipation to the antibiotics. He was on Keflex. He was referred to general surgery for further management of his cellulitis and Unnaboot treatments. Rectal Pain Score (Numeric/FACES): 10 - Related Data Allergies Allergy/AdvReac Type Severity Reaction Status Date / Time No Known Allergies Allergy Verified 01/24/18 16:13 Home Meds: Home Meds Levothyroxine [Synthroid] 50 mcg PO ACBRK 05/26/14 [History] Propranolol [Inderal] 20 mg PO DAILY 05/26/14 [History] Simvastatin [Zocor] 20 mg PO BEDTIME 05/26/14 [History] Cholecalciferol (Vitamin D3) [Vitamin D3] 5,000 unit PO MOWEFR 05/20/17 [History ] Pantoprazole Sodium [Protonix] 40 mg PO BID 05/20/17 [History] Potassium Chloride 10 meq PO BID 05/20/17 [History] Warfarin [Coumadin] 2.5 mg PO SUTUTHSA 05/20/17 [History] Mv-Mn/FA/Vit K/Lycop/Lut/Zeaxa [Ocuvite Eye + Multi Tablet] 1 ea PO DAILY [History] Torsemide [Demadex] 40 mg PO DAILY 01/22/18 [History] Ferrous Sulfate [Ferosul] 5 ml PO TID 01/24/18 [History] Warfarin [Coumadin] 5 mg PO MOWEFR 01/24/18 [History] Nystatin [Nystop] 1 - 2 gm TOP QID PRN 7 Days #60 bottle 01/31/18 [Rx] Past Medical History Cardiovascular History: Reports: Arrhythmia, Bypass, CAD, Heart Failure, High Cholesterol, Hypertension Gastrointestinal History: Reports: GERD Genitourinary History: Reports: BPH, Chronic Renal Insuffiency Musculoskeletal History: Reports: Gout Neurological History: Reports: Neuropathy, Peripheral Endocrine/Metabolic History: Reports: Hypothyroidism Oncologic (Cancer) History: Reports: Basal Cell Carcinoma Dermatologic History: Reports: Cellulitis - Past Surgical History HEENT Surgical History: Reports: Cataract Surgery Cardiovascular Surgical History: Reports: Coronary Artery Bypass, Pacer, Valve Replacement GI Surgical History: Reports: Cholecystectomy, Hernia, Inguinal Musculoskeletal Surgical History: Reports: Arthroscopic Knee Social & Family History - Family History Family Medical History: Noncontributory - Tobacco Use Smoking Status *Q: Never Smoker - Caffeine Use Caffeine Use: Reports: Coffee, Soda, Tea - Recreational Drug Use Recreational Drug Use: No - Living Situation & Occupation Living situation: Reports: , Alone Occupation: Retired ED ROS GENERAL - Review of Systems Review Of Systems: See Below Constitutional: Reports: No Symptoms. Denies: Fever, Chills Respiratory: Reports: No Symptoms Cardiovascular: Reports: No Symptoms GI/Abdominal: Reports: Abdominal Pain, Constipation. Denies: Diarrhea, Nausea, Vomiting : Reports: No Symptoms. Denies: Discharge, Dysuria ED EXAM, GI/ABD - Physical Exam Exam: See Below Exam Limited By: No Limitations General Appearance: Alert, WD/WN, No Apparent Distress Respiratory/Chest: No Respiratory Distress, Lungs Clear, Normal Breath Sounds Cardiovascular: Normal Peripheral Pulses, Regular Rate, Rhythm, No Murmur GI/Abdominal Exam: Soft, Non-Tender, No Organomegaly, No Distention, Abnormal Bowel Sounds (hyperactive ) Neurological: Alert, Oriented, Normal Cognition Course - Vital Signs Last Recorded V/S: Last Vital Signs Temp 98.0 F 02/12/18 14:54 Pulse 73 02/12/18 14:54 Resp 20 02/12/18 14:54 BP 121/70 02/12/18 14:54 Pulse Ox 100 02/12/18 14:54 - Orders/Labs/Meds Orders: Active Orders 24 hr Category Date Time Status Enema [RC] ASDIRECTED Care 02/12/18 15:39 Active Abdomen 2V AP Flat Upright [CR] Stat Exams 06/15/18 15:19 Taken - Re-Assessments/Exams Free Text/Narrative Re-Assessment/Exam: Flat and upright abdominal x-rays obtained. Patient had large amount of stool in his colon with increased bowel gas pattern. He had a few air fluid levels on upright film. Clinically, patient does not appear to have a bowel obstruction and improved with enemas. Initially, we utilized a fleets enema. The patient was able to pass some hard stool and had improvement in his rectal pressure. We continued with two soap suds enemas. The patient had good results and significant improvement in his discomfort. He was discharged home. Discharge instructions as documented. Departure - Departure Time of Disposition: 18:22 Disposition: Home, Self-Care 01 Condition: Good Clinical Impression: Constipation Qualifiers: Constipation type: unspecified constipation type Qualified Code(s): K59.00 - Constipation, unspecified - Discharge Information Instructions: Constipation, Adult Referrals: Anne Magana NP [Primary Care Provider] - Forms: ED Department Discharge Additional Instructions: Drink plenty of fluids Start stool softener of your choice. Recommend Miralax 1 capful twice a day until bowels become regular then you can reduce to once a day. Increase fiber in your diet with fruits, vegetables and whole grains Follow-up with your primary care provider if you continue to have problems. - My Orders Last 24 Hours: My Active Orders 02/12/18 15:19 Abdomen 2V AP Flat Upright [CR] Stat 02/12/18 15:39 Enema [RC] ASDIRECTED - Assessment/Plan Last 24 Hours: My Active Orders 02/12/18 15:19 Abdomen 2V AP Flat Upright [CR] Stat 02/12/18 15:39 Enema [RC] ASDIRECTED
--- NOTE | 2018-02-15 08:25 | CR ---
Abdomen: Supine and upright views of the abdomen were obtained. Comparison: No prior abdominal x-rays. Surgical clips are seen within the pelvis. Surgical clips are noted from prior cholecystectomy. Scattered gas within small bowel and colon is seen which appears within normal limits. No abnormal amounts of stool are seen. No free air is identified. Vascular calcification is seen. Impression: 1. Incidental findings. Nothing acute is identified. Diagnostic code #2
== END 2018-02-12 18:10 | disposition home or self-care (01) ==
LOC: JD.ED 14:40
DX: K59.00 Constipation, unspecified (principal); I13.0 Hypertensive heart and chronic kidney disease with heart failure and stage 1 through stage 4 chronic kidney disease, or unspecified chronic kidney disease; I50.9 Heart failure, unspecified; N18.9 Chronic kidney disease, unspecified; I25.810 Atherosclerosis of coronary artery bypass graft(s) without angina pectoris; E78.00 Pure hypercholesterolemia, unspecified; K21.9 Gastro-esophageal reflux disease without esophagitis; Z95.1 Presence of aortocoronary bypass graft; Z79.899 Other long term (current) drug therapy; Z79.01 Long term (current) use of anticoagulants; E03.9 Hypothyroidism, unspecified
CPT/HCPCS: 74019; 74019-26; 99283

== ENCOUNTER 2018-02-16 08:47 | Inpatient (IN) | payer MEDICARE, BC ==
--- NOTE | 2018-02-16 09:07 | EDM.PDOC ---
ED HPI GENERAL MEDICAL PROBLEM - General Chief Complaint: Lower Extremity Injury/Pain Stated Complaint: RIGHT FOOT PAIN Time Seen by Provider: 02/16/18 09:07 Source of Information: Reports: Patient History Limitations: Reports: No Limitations - History of Present Illness INITIAL COMMENTS - FREE TEXT/NARRATIVE: 87-year-old male presents to the ED with acute onset of severe pain right foot degree dorsal foot , that started shortly after midnight today. Timoptic the rest of the night. He did not eat any breakfast this morning due to the severity of the pain. States the pain is constant with a burning component. Occasionally become sharp and lancinating like an electric shock in his foot. Patient has chronic dependent edema in both lower extremities. His chronic cellulitis of both lower extremities. At present he has severe pain to touch on the dorsal aspect of his right foot. The skin is angry and very erythematous. He denies any systemic symptoms such as fever chills nausea vomiting. Pain is 15 out of 10. Onset: Today Onset Date: 02/16/18 Onset Time: 00:10 Duration: Hour(s): Location: Reports: Lower Extremity, Right (Right lower extremity primarily the dorsal foot.) Right Leg Pain Score (Numeric/FACES): 10 - Related Data Allergies Allergy/AdvReac Type Severity Reaction Status Date / Time No Known Allergies Allergy Verified 02/16/18 08:57 Home Meds: Home Meds Levothyroxine [Synthroid] 50 mcg PO ACBRK 05/26/14 [History] Propranolol [Inderal] 20 mg PO DAILY 05/26/14 [History] Simvastatin [Zocor] 20 mg PO BEDTIME 05/26/14 [History] Cholecalciferol (Vitamin D3) [Vitamin D3] 5,000 unit PO MOWEFR 05/20/17 [History ] Pantoprazole Sodium [Protonix] 40 mg PO BID 05/20/17 [History] Potassium Chloride 10 meq PO BID 05/20/17 [History] Warfarin [Coumadin] 2.5 mg PO SUTUTHSA 05/20/17 [History] Mv-Mn/FA/Vit K/Lycop/Lut/Zeaxa [Ocuvite Eye + Multi Tablet] 1 ea PO DAILY [History] Torsemide [Demadex] 40 mg PO DAILY 01/22/18 [History] Ferrous Sulfate [Ferosul] 5 ml PO TID 01/24/18 [History] Warfarin [Coumadin] 5 mg PO MOWEFR 01/24/18 [History] Nystatin [Nystop] 1 - 2 gm TOP QID PRN 7 Days #60 bottle 01/31/18 [Rx] Past Medical History Cardiovascular History: Reports: Arrhythmia, Bypass, CAD, Heart Failure, High Cholesterol, Hypertension Gastrointestinal History: Reports: GERD Genitourinary History: Reports: BPH, Chronic Renal Insuffiency Musculoskeletal History: Reports: Gout Neurological History: Reports: Neuropathy, Peripheral Endocrine/Metabolic History: Reports: Hypothyroidism Oncologic (Cancer) History: Reports: Basal Cell Carcinoma Dermatologic History: Reports: Cellulitis - Past Surgical History HEENT Surgical History: Reports: Cataract Surgery Cardiovascular Surgical History: Reports: Coronary Artery Bypass, Pacer, Valve Replacement GI Surgical History: Reports: Cholecystectomy, Hernia, Inguinal Musculoskeletal Surgical History: Reports: Arthroscopic Knee Social & Family History - Family History Family Medical History: Noncontributory - Caffeine Use Caffeine Use: Reports: Coffee, Soda, Tea - Living Situation & Occupation Living situation: Reports: , Alone Occupation: Retired Review of Systems - Review of Systems Review Of Systems: See Below Constitutional: Reports: Other (Tired from not sleeping all night.). Denies: Chills, Diaphoresis, Fever, Weakness Eyes: Reports: Other (Wears eyeglasses.) Ears: Reports: No Symptoms Mouth/Throat: Reports: No Symptoms Respiratory: Reports: Shortness of Breath, Cough (Occasional nonproductive cough ) Cardiovascular: Reports: Edema (Chronic lower extremity edema with). Denies: Chest Pain, Irregular Heart Rate ( recurrent cellulitis.), Palpitations, Syncope , Other GI/Abdominal: Reports: Other (Occasional positive constipation) Genitourinary: Reports: Other (Urinary frequency due to BPH.) Musculoskeletal: Reports: Back Pain, Joint Pain (Arthritis particularly knees hips lower back and neck. Had previous right total knee replacement for the most part was not ambulatory.) Skin: Reports: Rash (Both lower extremities. Chronic edema both lower extremities left worse than the right.) Neurological: Reports: Difficulty Walking, Other (Known peripheral neuropathy in lower extremities.) Psychiatric: Reports: No Symptoms ED EXAM, GENERAL - Physical Exam Exam: See Below Exam Limited By: No Limitations General Appearance: Alert, Moderate Distress (Reports significant pain right foot. It is constant with occasional sharp lancinating electric-like shock pain suggesting neurogenic source.) Eye Exam: Bilateral Eye: Normal Inspection Neck: Normal Inspection, Supple, Non-Tender, Full Range of Motion. No: Carotid Bruit, Lymphadenopathy (L), Lymphadenopathy (R) Respiratory/Chest: No Respiratory Distress, Lungs Clear, Normal Breath Sounds Cardiovascular: Regular Rate, Rhythm, No JVD, Other (Pulses are not palpable below the knee in either leg due to dependent edema. At present unable to assess pulses dorsal aspect of right foot due to the severity of the pain dorsal foot.). No: Normal Peripheral Pulses, No Edema Peripheral Pulses: 1+: Femoral (R) GI/Abdominal: Soft (Firm to palpation.), Non-Tender (Mildly distended and tympanitic), No Abnormal Bruit, No Mass, Pelvis Stable, Distended, Other Extremities: Other (Patient has 4+ pitting edema left lower extremity up to the knee. There is evidence of chronic cellulitis and venous insufficiency dermatitis of the anterior leg nearly up to the tibial tuberosity. Currently there is slight warmth and erythema to the dorsal foot and ankle area on the left side. On the right side his dorsal foot is very angry in appearance. Erythematous and very tender to touch. Difficult to assess. Toes are cold bilaterally. He has 3+ pitting edema on the right lower extremity.) Psychiatric: Anxious, Other (In obvious discomfort) Skin Exam: Warm, Dry, Intact, Erythema (Please see history of present illness erythema both lower extremities particularly the right dorsal foot at this time. ) Course - Vital Signs Last Recorded V/S: Last Vital Signs Temp 36.7 C 02/16/18 08:50 Pulse 72 02/16/18 08:50 Resp 18 02/16/18 08:50 BP 115/65 02/16/18 08:50 Pulse Ox 100 02/16/18 08:50 - Orders/Labs/Meds Orders: Active Orders 24 hr Category Date Time Status Admission Status [Patient Status] [ADT] Routine ADT 02/16/18 12:44 Active Admission Status [Patient Status] [ADT] Routine ADT 02/16/18 12:44 Ordered EKG Documentation Completion [RC] STAT Care 02/16/18 09:19 Active Chest 1V Frontal [CR] Stat Exams 02/16/18 09:19 Taken Sodium Chloride 0.9% [Normal Saline] 1,000 ml Med 02/16/18 09:15 Active IV ASDIRECTED Medication Orders Sodium Chloride (Normal Saline) 1,000 mls @ 100 mls/hr IV ASDIRECTED DARCY Last Admin: 02/16/18 09:43 Dose: 100 mls/hr Labs: Laboratory Tests 02/16/18 02/16/18 02/16/18 Range/Units 09:30 09:30 09:30 WBC 11.68 H (4.23-9.07) K/mm3 RBC 3.75 L (4.63-6.08) M/mm3 Hgb 11.0 L (13.7-17.5) gm/L Hct 33.4 L (40.1-51.0) % MCV 89.1 (79.0-92.2) fl MCH 29.3 (25.7-32.2) pg MCHC 32.9 (32.2-35.5) g/dl RDW Std Deviation 56.3 H (35.1-43.9) fL Plt Count 271 (163-337) K/mm3 MPV 9.9 (9.4-12.3) fl Neutrophils % (Manual) 81 H (40-60) % Band Neutrophils % 2 (0-10) % Lymphocytes % (Manual) 8 L (20-40) % Atypical Lymphs % 0 % Monocytes % (Manual) 9 (2-10) % Eosinophils % (Manual) 0 L (0.8-7.0) % Basophils % (Manual) 0 L (0.2-1.2) Differential Comment See note Platelet Estimate Adequate Anisocytosis 1+ slight RBC Morph Comment Not Reportable PT (9.5-12.1) SECONDS INR D-Dimer, Quantitative 0.54 H (0.19-0.50) mg/L Sodium 133 L (136-145) mEq/L Potassium 3.9 (3.5-5.1) mEq/L Chloride 96 L (98-107) mEq/L Carbon Dioxide 28 (21-32) mEq/L Anion Gap 12.9 (5-15) BUN 47 H (7-18) mg/dL Creatinine 1.6 H (0.7-1.3) mg/dL Est Cr Clr Drug Dosing 35.95 mL/min Estimated GFR (MDRD) 41 (>60) mL/min BUN/Creatinine Ratio 29.4 H (14-18) Glucose 109 (83-115) mg/dL Lactic Acid (0.4-2.0) mmol/L Uric Acid 12.4 H (3.5-7.2) mg/dL Calcium 8.8 (8.5-10.1) mg/dL Magnesium 2.4 (1.8-2.4) mg/dl Total Bilirubin 0.7 (0.2-1.0) mg/dL AST 44 H (15-37) U/L ALT 44 (16-63) U/L Alkaline Phosphatase 135 H (46-116) U/L Creatine Kinase 60 (39-308) U/L C-Reactive Protein 0.4 (<1.0) mg/dL NT-Pro-B Natriuret Pep (0-450) pg/mL Total Protein 7.4 (6.4-8.2) g/dl Albumin 3.7 (3.4-5.0) g/dl Globulin 3.7 gm/dL Albumin/Globulin Ratio 1.0 (1-2) 02/16/18 02/16/18 02/16/18 Range/Units 09:30 09:30 09:30 WBC (4.23-9.07) K/mm3 RBC (4.63-6.08) M/mm3 Hgb (13.7-17.5) gm/L Hct (40.1-51.0) % MCV (79.0-92.2) fl MCH (25.7-32.2) pg MCHC (32.2-35.5) g/dl RDW Std Deviation (35.1-43.9) fL Plt Count (163-337) K/mm3 MPV (9.4-12.3) fl Neutrophils % (Manual) (40-60) % Band Neutrophils % (0-10) % Lymphocytes % (Manual) (20-40) % Atypical Lymphs % % Monocytes % (Manual) (2-10) % Eosinophils % (Manual) (0.8-7.0) % Basophils % (Manual) (0.2-1.2) Differential Comment Platelet Estimate Anisocytosis RBC Morph Comment PT 27.9 H (9.5-12.1) SECONDS INR 2.61 D-Dimer, Quantitative (0.19-0.50) mg/L Sodium (136-145) mEq/L Potassium (3.5-5.1) mEq/L Chloride (98-107) mEq/L Carbon Dioxide (21-32) mEq/L Anion Gap (5-15) BUN (7-18) mg/dL Creatinine (0.7-1.3) mg/dL Est Cr Clr Drug Dosing mL/min Estimated GFR (MDRD) (>60) mL/min BUN/Creatinine Ratio (14-18) Glucose (83-115) mg/dL Lactic Acid 1.9 (0.4-2.0) mmol/L Uric Acid (3.5-7.2) mg/dL Calcium (8.5-10.1) mg/dL Magnesium (1.8-2.4) mg/dl Total Bilirubin (0.2-1.0) mg/dL AST (15-37) U/L ALT (16-63) U/L Alkaline Phosphatase (46-116) U/L Creatine Kinase (39-308) U/L C-Reactive Protein (<1.0) mg/dL NT-Pro-B Natriuret Pep 1211 H (0-450) pg/mL Total Protein (6.4-8.2) g/dl Albumin (3.4-5.0) g/dl Globulin gm/dL Albumin/Globulin Ratio (1-2) Meds: Medications Generic Name Dose Route Start Last Admin Trade Name Nano PRN Reason Stop Dose Admin Sodium Chloride 1,000 mls @ 100 mls/hr 02/16/18 09:15 02/16/18 09:43 Normal Saline IV 100 mls/hr ASDIRECTED DARCY Administration Discontinued Medications Generic Name Dose Route Start Last Admin Trade Name Nano PRN Reason Stop Dose Admin Hydromorphone HCl 0.5 mg 02/16/18 09:12 02/16/18 09:32 Dilaudid IVPUSH 02/16/18 09:13 0.5 mg ONETIME ONE Administration Hydromorphone HCl 0.5 mg 02/16/18 10:02 02/16/18 10:11 Dilaudid IVPUSH 02/16/18 10:03 0.5 mg ONETIME ONE Administration Ceftriaxone Sodium 2 gm/ 100 mls @ 100 mls/hr 02/16/18 10:22 02/16/18 10:31 Sodium Chloride IV 02/16/18 11:21 100 mls/hr ONETIME ONE Administration Lidocaine HCl 5 ml 02/16/18 09:13 02/16/18 09:19 Xylocaine 2% Jelly TOP 02/16/18 09:14 Not Given ONETIME ONE Lidocaine HCl 10 ml 02/16/18 09:14 02/16/18 09:10 Xylocaine 2% Jelly MUCMEM 02/16/18 09:15 10 ml ONETIME ONE Administration Lidocaine HCl Confirm 02/16/18 09:11 02/16/18 09:18 Xylocaine 2% Jelly Administered 02/16/18 09:12 Not Given Dose 10 ml .ROUTE .STK-MED ONE Methylprednisolone Sodium Succinate 125 mg 02/16/18 11:46 02/16/18 12:02 Solu-Medrol IVPUSH 02/16/18 11:47 125 mg ONETIME ONE Administration Ondansetron HCl 4 mg 02/16/18 09:13 02/16/18 09:30 Zofran IVPUSH 02/16/18 09:14 4 mg ONETIME ONE Administration - Radiology Interpretation Free Text/Narrative:: 87-year-old male presents to the ED with severe pain in his right lower extremity particularly the dorsal foot since shortly after midnight last night. States it awoke him from sleep. Pain is severe that it's kept him awake the rest of the night. Describes it is cost of pain burning with occasional sharp sharp stabbing lancinating pain like an electric shock suggesting neurogenic pain. And is on Coumadin I suspect due to intermittent atrial fibrillation. Medically he appears to be in sinus rhythm at this time. Plan topical lidocaine to dorsal foot to see if it can be some the discomfort so that we can obtain a Doppler ultrasound to make sure that he has not embolized his right foot. Given Dilaudid 0.5 mg IV with Zofran 4 mg IV for pain relief. Routine labs including CPK and a d-dimer and lactic acid to be drawn at this time. Doppler ultrasound of his right foot vasculature when he can tolerate the pressure of the ultrasound machine. - Re-Assessments/Exams Free Text/Narrative Re-Assessment/Exam: 02/16/18 09:55 patient had good dorsalis pedis pulses and posterior tibial pulses bilaterally on Doppler ultrasound. This test was performed by nurse. 06/19/18 10:02 patient reports he still having significant pain dorsal aspect of his right foot area and appears to be neurogenic in origin. He seems to tolerate the first dose of Dilaudid 0.5 mg without any issue. Will repeat similar dosage. 02/16/18 10:21 Labs are now back. White count total is 11.68 with 81% neutrophils and 2% band suggesting an infective process. Hemoglobin is 11.0 with hematocrit of 33.4. MCV is normal at 89.1. Platelet count normal 271,000. PT is 27.9 with a therapeutic INR of 2.61. D-dimer is normal at 0.54 for his age. Normal for his age would be up to 0.85. Serum sodium slightly low at 133. Potassium 3.9. Chloride 96 with a bicarbonate of 28. And a gap is normal at 12.9. BUN is slightly elevated at 47 with a creatinine of 1.6. EGFR is 41 a stage III chronic kidney disease. Glucose is 109. Lactic acid is 1.9. Uric acid is markedly elevated at 12.4 suggesting the possibility of a gout as a cause of his pain. It is also likely contributing to interstitial nephritis. Serum calcium is normal at 8.8. Magnesium normal at 2.4. Bilirubin shows it to be 0.7. AST is 44 with an ALT of 44. Alk phosphatase mildly elevated 135. Creatinine kinase is normal at 60. C-reactive protein is 0.4. BNP is mildly elevated at 1211. Therefore believe the cause of his acute pain is likely acute gouty arthritis in the metatarsals of his right foot. There may be an overlying cellulitis as well but CRP being quite low is not suggestive of an acute infective process.. There appears to be a component of neurogenic pain as well. 02/16/18 10:[address] Roche in regards to possible admission to the hospital. Apparently plenty of difficulties arose with last admission with family members. She will last social human services assistants to come and visit with the daughter prior to discussing any possibility of admission to the hospital at this time. We'll treat him appropriately. Colchicine is contraindicated as he is on a statin. Tomlinson function is too poor to except anti-inflammatories worse nonsteroidals. He therefore will require pain management and steroids. Will given initial dose of Solu-Medrol 125 mg IV in the ED. 02/16/18: 12;10 patient is to be admitted to the med surgery floor. Departure - Departure Time of Disposition: 12:10 Disposition: Admitted As Inpatient 68 Condition: Fair Clinical Impression: Cellulitis of right lower extremity, Gouty arthritis of right foot, Chronic renal insufficiency, stage III (moderate), Hyperuricemia CHF (congestive heart failure) Qualifiers: Heart failure type: diastolic Heart failure chronicity: chronic Qualified Code( s): I50.32 - Chronic diastolic (congestive) heart failure - Discharge Information Referrals: Anne Magana NP [Primary Care Provider] - Forms: ED Department Discharge - My Orders Last 24 Hours: My Active Orders 02/16/18 09:15 Sodium Chloride 0.9% [Normal Saline] 1,000 ml IV ASDIRECTED 02/16/18 09:19 EKG Documentation Completion [RC] STAT Chest 1V Frontal [CR] Stat 02/16/18 12:44 Admission Status [Patient Status] [ADT] Routine Admission Status [Patient Status] [ADT] Routine - Assessment/Plan Last 24 Hours: My Active Orders 02/16/18 09:15 Sodium Chloride 0.9% [Normal Saline] 1,000 ml IV ASDIRECTED 02/16/18 09:19 EKG Documentation Completion [RC] STAT Chest 1V Frontal [CR] Stat 02/16/18 12:44 Admission Status [Patient Status] [ADT] Routine Admission Status [Patient Status] [ADT] Routine
[2018-02-16] MEDS ORDERED: Lidocaine 2% Jelly 10 ML Urojet ONE (09:11)
[2018-02-16] MEDS ORDERED: HYDROmorphone 0.5 MG/0.5 ML SYRINGE IVPUSH ONE ×2 (09:12→10:02)
[2018-02-16] MEDS ORDERED: Lidocaine 2% Jelly 5 ML Tube TOP ONE (09:13)
[2018-02-16] MEDS ORDERED: Ondansetron 4 MG/2 ML SDV IVPUSH ONE (09:13)
[2018-02-16] MEDS ORDERED: Lidocaine 2% Jelly 10 ML Urojet MUCMEM ONE (09:14)
[2018-02-16] MEDS ORDERED: Sodium Chloride 0.9% 1,000 ML IV SCH (09:15)
[2018-02-16] MEDS ORDERED: cefTRIAXone 2 GM in Sodium Chloride 0.9% 100 ML IV ONE (10:22)
[2018-02-16] MEDS ORDERED: methylPREDNISolone Sodium Succinate 125 MG/2 ML SDV IVPUSH ONE (11:46)
[2018-02-16] MEDS ORDERED: Nystatin Topical Powder 15 GM Bottle TOP PRN (14:52)
--- NOTE | 2018-02-16 15:15 | PCM.HP ---
H&P History of Present Illness - General Date of Service: 02/16/18 Admit Problem/Dx: Admission Diagnosis/Problem Admission Diagnosis/Problem Cellulitis and abscess of foot excluding toe Source of Information: Patient, Old Records, Provider History Limitations: Reports: No Limitations - History of Present Illness Initial Comments - Free Text/Narative: This is an 87 y/o male with PMHx significant for previous LLE cellulitis, chronic LE edema, gout, heart failure, HTN, HLD, GERD, chronic renal insufficiency, gout, peripheral neuropathy, hypothyroidism, CAD s/p CABG, pacemaker, and cholecystectomy who comes in with complaint of severe right foot pain. Patient reports fatigue, shortness of breath, occasional nonproductive cough, chronic LE edema with recurrent cellulitis, occasional constipation, urinary frequency due to BPH, back pain, joint pain with arthritis, b/l LE rash , and difficulty walking. He denies chills, diaphoresis, fever, weakness, HEENT complaints, chest pain, palpitations, syncope, or psychiatric complaints. Patient was recently hospitalized from 01/24/18 through 01/31/18 for LLE cellulitis. His work-up in the ED showed CBC remarkable for WBC 11.68, Hgb 11.0, 81% neutrophils. CMP remarkable for Na 133, chloride 96, BUN 47, Cr 1.6, eGFR 41, AST 44, alk phos 135. Uric acid elevated at 12.4. Lactic acid 1.9 BNP 1211. CRP 0.4. Rocephin 2gm IV x 1 given in ED. Patient reports that he woke up early this morning at approximately 00:10 with shooting pains in his right foot. He presented to the ED as his pain did not improve. Pain in ED was 15/10. Current pain is 4/10. Patient reports pain is better at rest. Patient reports that he has had gout attacks before and feels that this pain is more of a burning quality. He states that he was previously on gout medications but these were discontinued. He also reports that he typically cannot feel his toes. He lives at home alone and reports that he walks around his house although it is painful to do so. He is subsequently admitted to Med/Surg. He is a never smoker. Code status is Full Code with no intubation. PCP is Anne Magana NP. Right Leg Pain Score (Numeric/FACES): 10 - Related Data Allergies/Adverse Reactions: Allergies Allergy/AdvReac Type Severity Reaction Status Date / Time No Known Allergies Allergy Verified 02/16/18 08:57 Home Medications: Home Meds Levothyroxine [Synthroid] 50 mcg PO ACBRK 05/26/14 [History] Propranolol [Inderal] 20 mg PO DAILY 05/26/14 [History] Simvastatin [Zocor] 20 mg PO BEDTIME 05/26/14 [History] Cholecalciferol (Vitamin D3) [Vitamin D3] 5,000 unit PO MOWEFR 05/20/17 [History ] Pantoprazole Sodium [Protonix] 40 mg PO BID 05/20/17 [History] Potassium Chloride 10 meq PO BID 05/20/17 [History] Warfarin [Coumadin] 2.5 mg PO SUTUTHSA 05/20/17 [History] Mv-Mn/FA/Vit K/Lycop/Lut/Zeaxa [Ocuvite Eye + Multi Tablet] 1 ea PO DAILY [History] Torsemide [Demadex] 40 mg PO DAILY 01/22/18 [History] Ferrous Sulfate [Ferosul] 5 ml PO TID 01/24/18 [History] Warfarin [Coumadin] 5 mg PO MOWEFR 01/24/18 [History] Nystatin [Nystop] 1 - 2 gm TOP QID PRN 7 Days #60 bottle 01/31/18 [Rx] Past Medical History HEENT History: Reports: Cataract Cardiovascular History: Reports: Arrhythmia, Bypass, CAD, Heart Failure, High Cholesterol, Hypertension Gastrointestinal History: Reports: GERD Genitourinary History: Reports: BPH, Chronic Renal Insuffiency Musculoskeletal History: Reports: Gout Neurological History: Reports: Neuropathy, Peripheral Endocrine/Metabolic History: Reports: Hypothyroidism Hematologic History: Reports: Blood Transfusion(s) Oncologic (Cancer) History: Reports: Basal Cell Carcinoma Dermatologic History: Reports: Cellulitis - Past Surgical History HEENT Surgical History: Reports: Cataract Surgery Cardiovascular Surgical History: Reports: Coronary Artery Bypass, Pacer, Valve Replacement GI Surgical History: Reports: Cholecystectomy, Hernia, Inguinal Musculoskeletal Surgical History: Reports: Arthroscopic Knee Social & Family History - Family History Family Medical History: Noncontributory - Tobacco Use Smoking Status *Q: Never Smoker Second Hand Smoke Exposure: No - Caffeine Use Caffeine Use: Reports: Coffee, Soda, Tea - Recreational Drug Use Recreational Drug Use: No - Living Situation & Occupation Living situation: Reports: , Alone Occupation: Retired H&P Review of Systems - Review of Systems: Review Of Systems: See Below General: Reports: No Symptoms. Denies: Fever, Chills HEENT: Reports: No Symptoms Pulmonary: Reports: Cough (occasional, nonproductive ). Denies: Shortness of Breath, Sputum Cardiovascular: Reports: Edema. Denies: Chest Pain Gastrointestinal: Reports: No Symptoms. Denies: Abdominal Pain, Constipation, Diarrhea, Nausea, Vomiting Genitourinary: Reports: No Symptoms. Denies: Dysuria, Frequency Musculoskeletal: Reports: Foot Pain Skin: Reports: No Symptoms Psychiatric: Reports: No Symptoms. Denies: Confusion, Depression Neurological: Reports: No Symptoms. Denies: Confusion, Dizziness, Headache Hematologic/Lymphatic: Reports: No Symptoms Immunologic: Reports: No Symptoms Exam - Exam Exam: See Below - Vital Signs Vital Signs: Last Vital Signs Temp 98.1 F 02/16/18 08:50 Pulse 72 02/16/18 08:50 Resp 18 02/16/18 08:50 BP 115/65 02/16/18 08:50 Pulse Ox 100 02/16/18 08:50 Weight: 218 lb - Exam Quality Assessment: No: Supplemental Oxygen General: Alert, Oriented, Cooperative, Other (Patient lying in bed and appeared comfortable. He is not in any acute distress. ) HEENT: EOMI, Mucosa Moist & Jeffers, Pupils Equal, Pupils Reactive Neck: Supple. No: Lymphadenopathy Lungs: Clear to Auscultation, Normal Respiratory Effort Cardiovascular: Regular Rate, Regular Rhythm, Systolic Murmur (grade II/), Other (LLE 3-4+ pitting edema and RLE 2+ pitting edema.) GI/Abdominal Exam: Normal Bowel Sounds, Soft, Non-Tender, Distended (mild ), Other (Male) Exam: Deferred Rectal (Males) Exam: Deferred Extremities: Normal Range of Motion, Pedal Edema, Slow Capillary Refill, Leg Pain (TTP), Increased Warmth, Redness, Other (There is venous stasis dermatitis present b/l LE. Right foot dorsal side is erythematous with edema to dorsal aspect. Scar present to right knee s/p R-TKA ) Peripheral Pulses: 1+: Posterior Tibial (L), Posterior Tibial (R), Dorsalis Pedis (L), Dorsalis Pedis (R), 2+: Radial (L), Radial (R) Skin: Warm, Dry, Intact, Other (There is venous stasis dermatitis present b/l LE. Right foot dorsal side is erythematous. Onychomycosis present b/l toenails. TTP ). No: Wound Neurological: Cranial Nerves Intact, Reflexes Equal Bilateral, Strength Equal Bilateral Neuro Extensive - Mental Status: Alert, Oriented x3, Normal Mood/Affect, Normal Cognition, Memory Intact Neuro Extensive - Motor, Sensory, Reflexes: CN II-XII Intact (grossly ) Psychiatric: Alert, Normal Affect, Normal Mood - Patient Data Lab Results Last 24 hrs: Laboratory Results - last 24 hr 02/16/18 02/16/18 02/16/18 Range/Units 09:30 09:30 09:30 WBC 11.68 H (4.23-9.07) K/mm3 RBC 3.75 L (4.63-6.08) M/mm3 Hgb 11.0 L (13.7-17.5) gm/L Hct 33.4 L (40.1-51.0) % MCV 89.1 (79.0-92.2) fl MCH 29.3 (25.7-32.2) pg MCHC 32.9 (32.2-35.5) g/dl RDW Std Deviation 56.3 H (35.1-43.9) fL Plt Count 271 (163-337) K/mm3 MPV 9.9 (9.4-12.3) fl Neutrophils % (Manual) 81 H (40-60) % Band Neutrophils % 2 (0-10) % Lymphocytes % (Manual) 8 L (20-40) % Atypical Lymphs % 0 % Monocytes % (Manual) 9 (2-10) % Eosinophils % (Manual) 0 L (0.8-7.0) % Basophils % (Manual) 0 L (0.2-1.2) Differential Comment See note Platelet Estimate Adequate Anisocytosis 1+ slight RBC Morph Comment Not Reportable PT (9.5-12.1) SECONDS INR D-Dimer, Quantitative 0.54 H (0.19-0.50) mg/L Sodium 133 L (136-145) mEq/L Potassium 3.9 (3.5-5.1) mEq/L Chloride 96 L (98-107) mEq/L Carbon Dioxide 28 (21-32) mEq/L Anion Gap 12.9 (5-15) BUN 47 H (7-18) mg/dL Creatinine 1.6 H (0.7-1.3) mg/dL Est Cr Clr Drug Dosing 35.95 mL/min Estimated GFR (MDRD) 41 (>60) mL/min BUN/Creatinine Ratio 29.4 H (14-18) Glucose 109 (83-115) mg/dL Lactic Acid (0.4-2.0) mmol/L Uric Acid 12.4 H (3.5-7.2) mg/dL Calcium 8.8 (8.5-10.1) mg/dL Magnesium 2.4 (1.8-2.4) mg/dl Total Bilirubin 0.7 (0.2-1.0) mg/dL AST 44 H (15-37) U/L ALT 44 (16-63) U/L Alkaline Phosphatase 135 H (46-116) U/L Creatine Kinase 60 (39-308) U/L C-Reactive Protein 0.4 (<1.0) mg/dL NT-Pro-B Natriuret Pep (0-450) pg/mL Total Protein 7.4 (6.4-8.2) g/dl Albumin 3.7 (3.4-5.0) g/dl Globulin 3.7 gm/dL Albumin/Globulin Ratio 1.0 (1-2) 02/16/18 02/16/18 02/16/18 Range/Units 09:30 09:30 09:30 WBC (4.23-9.07) K/mm3 RBC (4.63-6.08) M/mm3 Hgb (13.7-17.5) gm/L Hct (40.1-51.0) % MCV (79.0-92.2) fl MCH (25.7-32.2) pg MCHC (32.2-35.5) g/dl RDW Std Deviation (35.1-43.9) fL Plt Count (163-337) K/mm3 MPV (9.4-12.3) fl Neutrophils % (Manual) (40-60) % Band Neutrophils % (0-10) % Lymphocytes % (Manual) (20-40) % Atypical Lymphs % % Monocytes % (Manual) (2-10) % Eosinophils % (Manual) (0.8-7.0) % Basophils % (Manual) (0.2-1.2) Differential Comment Platelet Estimate Anisocytosis RBC Morph Comment PT 27.9 H (9.5-12.1) SECONDS INR 2.61 D-Dimer, Quantitative (0.19-0.50) mg/L Sodium (136-145) mEq/L Potassium (3.5-5.1) mEq/L Chloride (98-107) mEq/L Carbon Dioxide (21-32) mEq/L Anion Gap (5-15) BUN (7-18) mg/dL Creatinine (0.7-1.3) mg/dL Est Cr Clr Drug Dosing mL/min Estimated GFR (MDRD) (>60) mL/min BUN/Creatinine Ratio (14-18) Glucose (83-115) mg/dL Lactic Acid 1.9 (0.4-2.0) mmol/L Uric Acid (3.5-7.2) mg/dL Calcium (8.5-10.1) mg/dL Magnesium (1.8-2.4) mg/dl Total Bilirubin (0.2-1.0) mg/dL AST (15-37) U/L ALT (16-63) U/L Alkaline Phosphatase (46-116) U/L Creatine Kinase (39-308) U/L C-Reactive Protein (<1.0) mg/dL NT-Pro-B Natriuret Pep 1211 H (0-450) pg/mL Total Protein (6.4-8.2) g/dl Albumin (3.4-5.0) g/dl Globulin gm/dL Albumin/Globulin Ratio (1-2) Result Diagrams: 02/16/18 09:30 02/16/18 09:30 Problem List Initiated/Reviewed/Updated: Yes Orders Last 24hrs: Active Orders 24 hr Category Date Time Status Admission Status [Patient Status] [ADT] Routine ADT 02/16/18 12:44 Active Admission Status [Patient Status] [ADT] Routine ADT 02/16/18 12:44 Active EKG Documentation Completion [RC] STAT Care 02/16/18 09:19 Active Clear Liquid Diet [DIET] Diet 02/16/18 Dinner Active Chest 1V Frontal [CR] Stat Exams 02/16/18 09:19 Taken Cholecalciferol (Vitamin D3) [Vitamin D3] Med 02/17/18 14:52 Ordered 5,000 unit PO MOWEFR Ferrous Sulfate [Ferosul] Med 02/16/18 15:00 Ordered 5 ml PO TID Levothyroxine [Synthroid] Med 02/17/18 06:00 Ordered 50 mcg PO ACBRK Mv-Mn/FA/Vit K/Lycop/Lut/Zeaxa [Ocuvite Eye + Multi Med 02/17/18 09:00 Ordered Tablet] 1 ea PO DAILY Nystatin [Nystop] Med 02/16/18 14:52 Ordered 1 - 2 gm TOP QID PRN Pantoprazole [ProTONIX] Med 02/16/18 21:00 Ordered 40 mg PO BID Potassium Chloride [Potassium Chloride] Med 02/16/18 21:00 Ordered 10 meq PO BID Propranolol [Inderal] Med 02/17/18 09:00 Ordered 20 mg PO DAILY Simvastatin [Zocor] Med 02/16/18 21:00 Ordered 20 mg PO BEDTIME Sodium Chloride 0.9% [Normal Saline] 1,000 ml Med 02/16/18 09:15 Active IV ASDIRECTED Torsemide [Demadex] Med 02/17/18 09:00 Ordered 40 mg PO DAILY Warfarin [Coumadin] Med 02/16/18 15:00 Ordered 2.5 mg PO SUTUTHSA Warfarin [Coumadin] Med 02/17/18 14:52 Ordered 5 mg PO MOWEFR Medication Orders Cholecalciferol (Vitamin D3) 5,000 unit PO MOWEFR DARCY Sodium Chloride (Normal Saline) 1,000 mls @ 100 mls/hr IV ASDIRECTED DARCY Last Admin: 02/16/18 09:43 Dose: 100 mls/hr Levothyroxine Sodium (Synthroid) 50 mcg PO ACBRK DARCY Non-Formulary Medication (Ferrous Sulfate [Ferosul]) 5 ml PO TID DARCY Non-Formulary Medication (Mv-Mn/Fa/Vit K/Lycop/Lut/Zeaxa [Ocuvite Eye + Multi Tablet]) 1 ea PO DAILY DARCY Non-Formulary Medication (Potassium Chloride [Potassium Chloride]) 10 meq PO BID DARCY Nystatin (Nystop) 1 - 2 gm TOP QID PRN PRN Reason: Rash Pantoprazole Sodium (Protonix) 40 mg PO BID DARCY Propranolol HCl (Inderal) 20 mg PO DAILY DARCY Simvastatin (Zocor) 20 mg PO BEDTIME DARCY Torsemide (Demadex) 40 mg PO DAILY DARCY Warfarin Sodium (Coumadin) 2.5 mg PO SUTUTHSA DARCY Warfarin Sodium (Coumadin) 5 mg PO MOWEFR [facility] Assessment/Plan Comment:: I/P Impression: Acute right foot pain - Risk factors: recent hospitalization for cellulitis, PVD, chronic renal insufficiency, chronic LE edema, hx of gout and is currently not on treatment - Infection vs gout --> With CRP 0.4, WBC 11.68 (mild elevation, appears to be chronic), and afebrile therefore suspicious for gout - Uric acid 12.4 in ED - Patient is unable to be on NSAIDs, colchicine, allopurinol with CKD III and per patient, he was taken off of these medications by other provider - Methylprednisolone 125 mg IV x 1 given in ED --> will give methylprednisolone 40 mg IV x 1 tonight and then transition to prednisone 40 mg po daily with taper at d/c - Pain control with dilaudid 0.5 mg prn, consider tramadol and lidocaine patch if no relief - He reports difficulty ambulating with current right foot pain --> will consult PT/OT - Will evaluate MRSA Heart failure - 2D Echo in December 2017 read as: EF 45-50%, elevated left atrial and left ventricular end diastolic pressures, mild concentric LVH, severely dilated left atrium - Continue home meds - Propranolol per home med list --> query cardio selective beta jim - Clear liquid diet ordered initially --> will advance diet to 2 gm Na diet with 2 L fluid restriction - Breathing treatments and oxygen therapy prn - RT consult - Read for CXR performed in ED pending Chronic renal insufficiency - BUN 47, Cr 1.6, eGFR 41 in ED - IVF NS 100 ml/hr started in ED --> will decrease to 50 ml/hr - Appears to be at his baseline - Monitor Leukocytosis - WBC 11.68 in ED - Likely 2/2 chronic inflammation - Monitor Hyponatremia - Na 133 in ED - IVF NS 100 ml/hr started in ED --> will decrease to 50 ml/hr - Thermotabs as indicated, balance with CHF - Monitor Chronic: BPH Hypothyroidism CKD III GERD Peripheral neuropathy PVD CAD/CABG S/P PPM Hx of Valvular Heart Disease HLD A fib on Coumadin --> continue during admit Plan: IVF NS 50 ml/hr Analgesics Steroids Home meds Daily Labs 2 gm Na diet with 2L fluid restriction DVT: Warfarin (patient is on this medication at home) GI prophylaxis: Protonix Consult CM/SW Consult PT/OT/RT Code status: Full code with DNI per patient PCP: Anne Magana NP
[2018-02-16] MEDS ORDERED: Acetaminophen 325 MG Tab PO PRN (15:39)
[2018-02-16] MEDS ORDERED: HYDROmorphone 0.5 MG/0.5 ML SYRINGE IVPUSH PRN (15:39)
[2018-02-16] MEDS ORDERED: Bisacodyl 5 MG Tab PO PRN (15:39)
[2018-02-16] MEDS ORDERED: Albuterol 0.083% 2.5 MG/3 ML Neb Soln NEB PRN (15:39)
[2018-02-16] MEDS ORDERED: Docusate Sodium 100 MG Cap PO PRN (15:39)
[2018-02-16] MEDS ORDERED: Promethazine 6.25 MG in Sodium Chloride 0.9% 50 ML IV PRN (15:39)
[2018-02-16] MEDS ORDERED: Magnesium Hydroxide 400 MG/5 ML Susp 30 ML Cup PO PRN (15:39)
[2018-02-16] MEDS ORDERED: Polyethylene Glycol 3350 Powder 17 GM Packet PO PRN (15:39)
[2018-02-16] MEDS ORDERED: Promethazine 25 MG Tab PO PRN (15:39)
[2018-02-16] MEDS ORDERED: Temazepam 7.5 MG Cap PO PRN (15:39)
[2018-02-16] MEDS ORDERED: Acetaminophen/oxyCODONE 325-5 MG Tab PO PRN (15:39)
[2018-02-16] MEDS ORDERED: Albuterol/Ipratropium 3.0-0.5 MG/3 ML Neb Soln NEB PRN (15:39)
[2018-02-16] MEDS: FERROUS SULFATE 220 MG/5 ML PO SCH ×2 (17:31→20:22)
[2018-02-16] MEDS: Sodium Chloride 0.9% 1,000 ML IV SCH (17:51)
[2018-02-16] MEDS ORDERED: METHYLPREDNISOLONE SOD SUCC IV ONE (20:00)
[2018-02-16] MEDS ORDERED: methylPREDNISolone Sodium Succinate 40 MG/1 ML SDV IVPUSH ONE (20:00)
[2018-02-16] MEDS ORDERED: SODIUM CHLORIDE 0.9% IV ONE (20:00)
[2018-02-16] MEDS: Potassium Chloride 10 MEQ Tab.ER PO SCH (20:21)
[2018-02-16] MEDS: Pantoprazole 40 MG Tab.CR PO SCH (20:21)
[2018-02-16] MEDS: Simvastatin 20 MG Tab PO SCH (20:21)
[2018-02-17] MEDS: Sodium Chloride 0.9% 1,000 ML IV SCH (04:04)
[2018-02-17] MEDS: Levothyroxine 50 MCG Tab PO SCH (06:34)
[2018-02-17] MEDS: Multivitamins with Minerals/Folic Acid/Lutein/Zeaxanth Tab PO SCH (08:25)
[2018-02-17] MEDS: Potassium Chloride 10 MEQ Tab.ER PO SCH ×2 (08:25→21:35)
[2018-02-17] MEDS: Pantoprazole 40 MG Tab.CR PO SCH ×2 (08:25→21:35)
[2018-02-17] MEDS: Propranolol 20 MG Tab PO SCH (08:25)
[2018-02-17] MEDS: predniSONE 20 MG Tab PO SCH (08:26)
[2018-02-17] MEDS: Torsemide 20 MG Tab PO SCH (08:26)
[2018-02-17] MEDS: FERROUS SULFATE 220 MG/5 ML PO SCH ×3 (08:26→21:35)
--- NOTE | 2018-02-17 08:29 | CR ---
Chest: Portable view of the chest was obtained. Comparison: Prior chest x-ray of 01/28/18. Heart size appears within normal limits for portable technique. Tortuous thoracic aorta is seen as well as atherosclerotic calcification within the aortic knob. Sternotomy wires are present for prosthetic heart valve. Pacemaker is present. Lungs are clear with no acute parenchymal densities. Bony structures are grossly intact. Impression: 1. Incidental findings. Nothing acute is seen. No significant change is seen from previous chest x-ray. Diagnostic code #2
[2018-02-17] MEDS ORDERED: Cholecalciferol (Vitamin D3) 5,000 UNIT Tab PO SCH (09:00)
[2018-02-17] MEDS ORDERED: SODIUM CHLORIDE 0.9% IV SCH (09:00)
[2018-02-17] MEDS ORDERED: METHYLPREDNISOLONE SOD SUCC IV SCH (09:00)
[2018-02-17] MEDS ORDERED: Sodium Chloride 0.9% 1,000 ML IV SCH (11:45)
[2018-02-17] MEDS: cefTRIAXone 2 GM in Sodium Chloride 0.9% 100 ML IV SCH (12:49)
[2018-02-17] MEDS: Insulin Aspart 100 Units/ML 3 ML Pen SUBCUT SCH ×2 (17:57→22:16)
[2018-02-17] MEDS ORDERED: Warfarin 5 MG Tab PO SCH (18:00)
--- NOTE | 2018-02-17 20:08 | PCM.PN ---
- General Info Date of Service: 02/17/18 Admission Dx/Problem (Free Text): Admission Diagnosis/Problem Admission Diagnosis/Problem Cellulitis and abscess of foot excluding toe Functional Status: Reports: Pain Controlled, Tolerating Diet, Ambulating, Urinating - Review of Systems General: Reports: No Symptoms. Denies: Fever, Weakness, Fatigue, Chills HEENT: Reports: No Symptoms Pulmonary: Reports: No Symptoms. Denies: Shortness of Breath, Cough Cardiovascular: Reports: No Symptoms. Denies: Chest Pain, Palpitations Gastrointestinal: Reports: Constipation (mild). Denies: Abdominal Pain Genitourinary: Reports: No Symptoms Musculoskeletal: Reports: Leg Pain (TTP only) Skin: Reports: Other (erythema bilateral lower extremities) Neurological: Reports: No Symptoms Psychiatric: Reports: No Symptoms - Patient Data Vitals - Most Recent: Last Vital Signs Temp 98.1 F 02/17/18 15:59 Pulse 71 02/17/18 15:59 Resp 16 02/17/18 17:56 BP 132/82 02/17/18 15:59 Pulse Ox 97 02/17/18 17:56 Weight - Most Recent: 221 lb 9.6 oz I&O - Last 24 Hours: Intake & Output 02/17/18 02/17/18 02/17/18 06:59 14:59 22:59 Intake Total 653 124 2390 Output Total 800 850 Balance 111 360 200 Lab Results Last 24 Hours: Laboratory Results - last 24 hr 02/17/18 02/17/18 02/17/18 Range/Units 06:20 06:20 14:05 WBC 13.71 H (4.23-9.07) K/mm3 RBC 3.45 L (4.63-6.08) M/mm3 Hgb 10.2 L (13.7-17.5) gm/L Hct 31.1 L (40.1-51.0) % MCV 90.1 (79.0-92.2) fl MCH 29.6 (25.7-32.2) pg MCHC 32.8 (32.2-35.5) g/dl RDW Std Deviation 56.5 H (35.1-43.9) fL Plt Count 191 (163-337) K/mm3 MPV 10.5 (9.4-12.3) fl Neut % (Auto) 92.4 H (34.0-67.9) % Lymph % (Auto) 3.5 L (21.8-53.1) % Whiteside % (Auto) 3.7 L (5.3-12.2) % Eos % (Auto) 0 L (0.8-7.0) Baso % (Auto) 0.0 L (0.1-1.2) % Neut # (Auto) 12.67 H (1.78-5.38) K/mm3 Lymph # (Auto) 0.48 L (1.32-3.57) K/mm3 Whiteside # (Auto) 0.51 (0.30-0.82) K/mm3 Eos # (Auto) 0.00 L (0.04-0.54) K/mm3 Baso # (Auto) 0.00 L (0.01-0.08) K/mm3 Manual Slide Review Abnormal smear Sodium 136 (136-145) mEq/L Potassium 4.6 (3.5-5.1) mEq/L Chloride 100 (98-107) mEq/L Carbon Dioxide 28 (21-32) mEq/L Anion Gap 12.6 (5-15) BUN 37 H (7-18) mg/dL Creatinine 1.4 H (0.7-1.3) mg/dL Est Cr Clr Drug Dosing 41.09 mL/min Estimated GFR (MDRD) 48 (>60) mL/min BUN/Creatinine Ratio 26.4 H (14-18) Glucose 140 H (83-115) mg/dL POC Glucose (83-110) mg/dL Lactic Acid (0.4-2.0) mmol/L Calcium 8.6 (8.5-10.1) mg/dL Magnesium 2.1 (1.8-2.4) mg/dl C-Reactive Protein 2.5 H* (<1.0) mg/dL 02/17/18 02/17/18 Range/Units 14:05 17:10 WBC (4.23-9.07) K/mm3 RBC (4.63-6.08) M/mm3 Hgb (13.7-17.5) gm/L Hct (40.1-51.0) % MCV (79.0-92.2) fl MCH (25.7-32.2) pg MCHC (32.2-35.5) g/dl RDW Std Deviation (35.1-43.9) fL Plt Count (163-337) K/mm3 MPV (9.4-12.3) fl Neut % (Auto) (34.0-67.9) % Lymph % (Auto) (21.8-53.1) % Whiteside % (Auto) (5.3-12.2) % Eos % (Auto) (0.8-7.0) Baso % (Auto) (0.1-1.2) % Neut # (Auto) (1.78-5.38) K/mm3 Lymph # (Auto) (1.32-3.57) K/mm3 [place] # (Auto) (0.30-0.82) K/mm3 Eos # (Auto) (0.04-0.54) K/mm3 Baso # (Auto) (0.01-0.08) K/mm3 Manual Slide Review Sodium (136-145) mEq/L Potassium (3.5-5.1) mEq/L Chloride (98-107) mEq/L Carbon Dioxide (21-32) mEq/L Anion Gap (5-15) BUN (7-18) mg/dL Creatinine (0.7-1.3) mg/dL Est Cr Clr Drug Dosing mL/min Estimated GFR (MDRD) (>60) mL/min BUN/Creatinine Ratio (14-18) Glucose (83-115) mg/dL POC Glucose 153 H (83-110) mg/dL Lactic Acid 3.3 H (0.4-2.0) mmol/L Calcium (8.5-10.1) mg/dL Magnesium (1.8-2.4) mg/dl C-Reactive Protein (<1.0) mg/dL Med Orders - Current: Current Medications Acetaminophen (Tylenol) 650 mg PO Q4H PRN PRN Reason: Pain (Mild 1-3)/fever Albuterol (Proventil Neb Soln) 2.5 mg NEB Q2H PRN PRN Reason: Shortness Of Breath/wheezing Albuterol/Ipratropium (Duoneb 3.0-0.5 Mg/3 Ml) 3 ml NEB Q4H PRN PRN Reason: Shortness Of Breath/wheezing Bisacodyl (Dulcolax) 5 mg PO DAILY PRN PRN Reason: Constipation Cholecalciferol (Vitamin D3) 5,000 unit PO MOWEFR [facility] Last Admin: 02/17/18 08:30 Dose: 5,000 unit Docusate Sodium (Colace) 100 mg PO BID PRN PRN Reason: Constipation Hydromorphone HCl (Dilaudid) 0.5 mg IVPUSH Q2H PRN PRN Reason: Pain (severe 7-10) Promethazine HCl 6.25 mg/ (Sodium Chloride) 50.25 mls @ 100 mls/hr IV Q6H PRN PRN Reason: Nausea/Vomiting Ceftriaxone Sodium 2 gm/ (Sodium Chloride) 100 mls @ 100 mls/hr IV Q24H [facility] Last Admin: 02/17/18 12:49 Dose: 100 mls/hr Insulin Aspart (Novolog) 0 unit SUBCUT QIDACANDBED [facility]; Protocol Last Admin: 02/17/18 17:57 Dose: Not Given Levothyroxine Sodium (Synthroid) 50 mcg PO ACBRK [facility] Last Admin: 02/17/18 06:34 Dose: 50 mcg Magnesium Hydroxide (Milk Of Magnesia) 30 ml PO Q12H PRN PRN Reason: Constipation Ferrous Sulfate Elixir 220 Mg/5 Ml * *Own Med 5 ml PO TID [facility] Last Admin: 02/17/18 14:31 Dose: 5 ml Nystatin (Nystop) 1 - 2 gm TOP QID PRN PRN Reason: Rash Oxycodone/Acetaminophen (Percocet 325-5 Mg) 1 tab PO Q4H PRN PRN Reason: Pain (moderate 4-6) Pantoprazole Sodium (Protonix) 40 mg PO BID [facility] Last Admin: 02/17/18 08:25 Dose: 40 mg Polyethylene Glycol (Miralax) 17 gm PO DAILY PRN PRN Reason: Constipation Potassium Chloride (Klor-Con 10) 10 meq PO BID [facility] Last Admin: 02/17/18 08:25 Dose: 10 meq Prednisone (Prednisone) 40 mg PO DAILY [facility] Stop: 02/19/18 09:01 Last Admin: 02/17/18 08:26 Dose: 40 mg Promethazine HCl (Phenergan) 25 mg PO Q6H PRN PRN Reason: Nausea/Vomiting Propranolol HCl (Inderal) 20 mg PO DAILY [facility] Last Admin: 02/17/18 08:25 Dose: 20 mg Senna/Docusate Sodium (Senna Plus) 1 tab PO BID PRN PRN Reason: Constipation Simvastatin (Zocor) 20 mg PO BEDTIME [facility] Last Admin: 02/16/18 20:21 Dose: 20 mg Temazepam (Restoril) 7.5 mg PO BEDTIME PRN PRN Reason: Sleep Torsemide (Demadex) 40 mg PO DAILY [facility] Last Admin: 02/17/18 08:26 Dose: 40 mg Vit A/Vit C/Vit E/Selen/Cu/Zn/Lutei (Icaps Mv) 1 tab PO DAILY [facility] Last Admin: 02/17/18 08:25 Dose: 1 tab Warfarin Sodium (Coumadin) 2.5 mg PO [email or web address] [facility] Warfarin Sodium (Coumadin) 5 mg PO [email or web address] [facility] Last Admin: 02/17/18 17:12 Dose: 5 mg Discontinued Medications Hydromorphone HCl (Dilaudid) 0.5 mg IVPUSH ONETIME ONE Stop: 02/16/18 09:13 Last Admin: 02/16/18 09:32 Dose: 0.5 mg Hydromorphone HCl (Dilaudid) 0.5 mg IVPUSH ONETIME ONE Stop: 02/16/18 10:03 Last Admin: 02/16/18 10:11 Dose: 0.5 mg Sodium Chloride (Normal Saline) 1,000 mls @ 100 mls/hr IV ASDIRECTED [facility] Last Admin: 02/16/18 09:43 Dose: 100 mls/hr Ceftriaxone Sodium 2 gm/ (Sodium Chloride) 100 mls @ 100 mls/hr IV ONETIME ONE Stop: 02/16/18 11:21 Last Admin: 02/16/18 10:31 Dose: 100 mls/hr Methylprednisolone Sodium Succinate 20 mg/ Sodium Chloride 250.16 mls @ 250.16 mls/hr IV BID [facility] Sodium Chloride (Normal Saline) 1,000 mls @ 50 mls/hr IV ASDIRECTED [facility] Last Admin: 02/17/18 04:04 Dose: 50 mls/hr Sodium Chloride (Normal Saline) 1,000 mls @ 100 mls/hr IV ASDIRECTED [facility] Stop: 02/17/18 17:45 Lidocaine HCl (Xylocaine 2% Jelly) 5 ml TOP ONETIME ONE Stop: 02/16/18 09:14 Last Admin: 02/16/18 09:19 Dose: Not Given Lidocaine HCl (Xylocaine 2% Jelly) 10 ml MUCMEM ONETIME ONE Stop: 02/16/18 09:15 Last Admin: 02/16/18 09:10 Dose: 10 ml Lidocaine HCl (Xylocaine 2% Jelly) Confirm Administered Dose 10 ml .ROUTE .STK- MED ONE Stop: 02/16/18 09:12 Last Admin: 02/16/18 09:18 Dose: Not Given Methylprednisolone Sodium Succinate (Solu-Medrol) 125 mg IVPUSH ONETIME ONE Stop: 02/16/18 11:47 Last Admin: 02/16/18 12:02 Dose: 125 mg Methylprednisolone Sodium Succinate (Solu-Medrol) 20 mg IVPUSH ONETIME ONE Stop: 02/16/18 20:01 Last Admin: 02/16/18 20:21 Dose: 20 mg Ondansetron HCl (Zofran) 4 mg IVPUSH ONETIME ONE Stop: 02/16/18 09:14 Last Admin: 02/16/18 09:30 Dose: 4 mg Prednisone (Prednisone) 30 mg PO DAILY [facility] Stop: 02/22/18 09:01 Prednisone (Prednisone) 20 mg PO DAILY [facility] Stop: 02/25/18 09:01 Prednisone (Prednisone) 10 mg PO DAILY [facility] Stop: 02/28/18 09:01 - Exam Quality Assessment: DVT Prophylaxis General: Alert, Oriented HEENT: Pupils Equal, Pupils Reactive, EOMI, Mucous Membr. Moist/[place] Neck: Supple Lungs: Clear to Auscultation, Normal Respiratory Effort Cardiovascular: Regular Rate, Regular Rhythm GI/Abdominal Exam: Normal Bowel Sounds, Soft, Non-Tender, No Organomegaly, No Distention, No Abnormal Bruit, No Mass, Pelvis Stable (Male) Exam: Deferred Back Exam: Normal Inspection, Full Range of Motion Extremities: Normal Range of Motion, Pedal Edema (L>R, 4+ edema present on the dorsal aspect of the left foot, 2-3+ edema on right foot), Slow Capillary Refill , Leg Pain (mild, TTP), Redness (Improving), Other (venous stasis bilaterally). No: Increased Warmth (Improving) Peripheral Pulses: 1+: Posterior Tibial (L), Posterior Tibial (R), Dorsalis Pedis (L), Dorsalis Pedis (R) Skin: Warm, Dry, Intact Neurological: No New Focal Deficit Psy/Mental Status: Alert, Normal Affect, Normal Mood - Problem List & Annotations (1) Cellulitis SNOMED Code(s): 976473317 Code(s): L03.90 - CELLULITIS, UNSPECIFIED Status: Chronic Priority: High Current Visit: Yes (2) CHF (congestive heart failure) SNOMED Code(s): 03861580 Code(s): I50.9 - HEART FAILURE, UNSPECIFIED Status: Chronic Priority: Medium Current Visit: Yes Qualifiers: Heart failure type: diastolic Heart failure chronicity: chronic Qualified Code(s): I50.32 - Chronic diastolic (congestive) heart failure (3) Chronic renal insufficiency, stage III (moderate) SNOMED Code(s): 728747186 Code(s): N18.3 - CHRONIC KIDNEY DISEASE, STAGE 3 (MODERATE) Status: Chronic Priority: Medium Current Visit: Yes (4) Gouty arthritis of right foot SNOMED Code(s): 0075993374335933 Code(s): M10.9 - GOUT, UNSPECIFIED Status: Acute Priority: High Current Visit: Yes (5) Hyponatremia SNOMED Code(s): 68652024 Code(s): E87.1 - HYPO-OSMOLALITY AND HYPONATREMIA Status: Acute Priority : Medium Current Visit: Yes (6) Leukocytosis SNOMED Code(s): 690826570, 568920506 Code(s): D72.829 - ELEVATED WHITE BLOOD CELL COUNT, UNSPECIFIED Status: Acute Priority: High Current Visit: Yes Qualifiers: Leukocytosis type: unspecified Qualified Code(s): D72.829 - Elevated white blood cell count, unspecified - Problem List Review Problem List Initiated/Reviewed/Updated: Yes - My Orders Last 24 Hours: My Active Orders 02/16/18 19:07 Consult to [employer] Specialist [CONS] Routine 02/17/18 16:20 Blood Culture x2 Reflex Set [OM.PC] Stat 02/17/18 16:35 CULTURE BLOOD [BC] Stat 02/17/18 16:50 CULTURE BLOOD [BC] Stat 02/17/18 16:53 Blood Glucose Check, Bedside [RC] WITHMEALSANDBED 02/17/18 17:00 Insulin Aspart [NovoLOG] See Protocol SUBCUT QIDACANDBED 02/17/18 20:00 LACTIC ACID [CHEM] Routine 02/18/18 05:11 CRP [C-REACTIVE PROTEIN] [CHEM] AM 02/19/18 05:11 CRP [C-REACTIVE PROTEIN] [CHEM] AM 02/20/18 05:11 CRP [C-REACTIVE PROTEIN] [CHEM] AM 02/21/18 05:11 CRP [C-REACTIVE PROTEIN] [CHEM] AM 02/22/18 05:11 CRP [C-REACTIVE PROTEIN] [CHEM] AM - Plan Plan:: I/P Impression: Acute right foot pain - Risk factors: recent hospitalization for cellulitis, PVD, chronic LE edema , hx of gout w/ no treatment - Infection vs gout: -Uric acid 12.4 in ED, WBC appears to be chronically elevated, afebrile-- > suspicious for gout -WBC 11.68--> 13.71, CRP 0.4--> 2.5, Lactic Acid 1.9-->3.3 -Blood Cultures, repeat Lactic acid Q6H -Continue IV Rocephin 2g Q daily - Pt not on NSAIDs/colchicine/allopurinol d/t CKD III --> per pt, was taken off of these medications by other provider - Methylprednisolone 125 mg IV x 1 given in ED --> continue 40 mg IV--> prednisone 40 mg po daily with taper at d/c - Pain control with dilaudid 0.5 mg prn, consider tramadol and lidocaine patch if no relief - He reports difficulty ambulating with current right foot pain --> will consult PT/OT - Will evaluate for MRSA Heart failure - 2D Echo in December 2017 read as: -EF 45-50% -Elevated left atrial and left ventricular end diastolic pressures -Mild concentric LVH -Severely dilated left atrium - CXR performed in ED--> no acute abnormalities - Continue home meds - Propranolol per home med list --> query cardio selective beta jim - 2 gm Na diet with 2 L fluid restriction - Breathing treatments and oxygen therapy prn - RT consult Chronic renal insufficiency - BUN 47, Cr 1.6, eGFR 41 in ED - IVF NS 100 ml/hr started in ED --> continue x 6 hrs - Appears to be at his baseline - Monitor Resolved: Hyponatremia - Na 133 in ED--> 136 - IVF NS 100 ml/hr started in ED --> continue x 6hrs - Thermotabs as indicated, balance with CHF - Monitor Chronic: BPH Hypothyroidism CKD III GERD Peripheral neuropathy PVD CAD/CABG S/P PPM Hx of Valvular Heart Disease HLD Afib on Coumadin --> continue during admit Plan: IVF NS 50 ml/hr Analgesics Steroids Home meds Daily Labs 2 gm Na diet with 2L fluid restriction DVT: Warfarin (patient is on this medication at home) GI prophylaxis: Protonix Consult CM/SW Consult PT/OT/RT Code status: Full code with DNI per patient PCP: Anne Magana NP
[2018-02-17] MEDS: Simvastatin 20 MG Tab PO SCH (21:35)
[2018-02-18] MEDS: Levothyroxine 50 MCG Tab PO SCH (05:51)
[2018-02-18] MEDS: Insulin Aspart 100 Units/ML 3 ML Pen SUBCUT SCH ×2 (06:06→12:37)
[2018-02-18] MEDS: FERROUS SULFATE 220 MG/5 ML PO SCH (08:34)
[2018-02-18] MEDS: Propranolol 20 MG Tab PO SCH (08:35)
[2018-02-18] MEDS: Pantoprazole 40 MG Tab.CR PO SCH (08:35)
[2018-02-18] MEDS: Multivitamins with Minerals/Folic Acid/Lutein/Zeaxanth Tab PO SCH (08:35)
[2018-02-18] MEDS: Torsemide 20 MG Tab PO SCH (08:35)
[2018-02-18] MEDS: predniSONE 20 MG Tab PO SCH (08:35)
[2018-02-18] MEDS: Potassium Chloride 10 MEQ Tab.ER PO SCH (08:35)
[2018-02-18] MEDS: cefTRIAXone 2 GM in Sodium Chloride 0.9% 100 ML IV SCH (10:42)
[2018-02-18 12:18] VITALS: BP 128/84
[2018-02-18] MEDS ORDERED: Pneumococcal 13-Valent Conjugate Vaccine 0.5 ML Syringe IM ONE (13:00)
--- NOTE | 2018-02-18 15:20 | PCM.DCSUM1 ---
Discharge Summary - Hospital Course HPI Initial Comments: 87-year-old male presents to the ED with acute onset of severe pain right foot degree dorsal foot , that started shortly after midnight today. Timoptic the rest of the night. He did not eat any breakfast this morning due to the severity of the pain. States the pain is constant with a burning component. Occasionally become sharp and lancinating like an electric shock in his foot. Patient has chronic dependent edema in both lower extremities. His chronic cellulitis of both lower extremities. At present he has severe pain to touch on the dorsal aspect of his right foot. The skin is angry and very erythematous. He denies any systemic symptoms such as fever chills nausea vomiting. Pain is 15 out of 10. Diagnosis: Stroke: No - Discharge Data Discharge Date: 02/18/18 (ADMIT 02/16/18) Discharge Disposition: Home, Self-Care 01 Condition: Good - Discharge Diagnosis/Problem(s) (1) Cellulitis SNOMED Code(s): 971036194 ICD Code: L03.90 - CELLULITIS, UNSPECIFIED Status: Chronic Priority: High (2) CHF (congestive heart failure) SNOMED Code(s): 53296777 ICD Code: I50.9 - HEART FAILURE, UNSPECIFIED Status: Chronic Priority: Medium Qualifiers: Heart failure type: diastolic Heart failure chronicity: chronic Qualified Code(s): I50.32 - Chronic diastolic (congestive) heart failure (3) Chronic renal insufficiency, stage III (moderate) SNOMED Code(s): 360286001 ICD Code: N18.3 - CHRONIC KIDNEY DISEASE, STAGE 3 (MODERATE) Status: Chronic Priority: Medium (4) Gouty arthritis of right foot SNOMED Code(s): 1937926042777342 ICD Code: M10.9 - GOUT, UNSPECIFIED Status: Acute Priority: High (5) Hyponatremia SNOMED Code(s): 60643554 ICD Code: E87.1 - HYPO-OSMOLALITY AND HYPONATREMIA Status: Acute Priority : Medium (6) Leukocytosis SNOMED Code(s): 273922102, 587386430 ICD Code: D72.829 - ELEVATED WHITE BLOOD CELL COUNT, UNSPECIFIED Status: Acute Priority: High Qualifiers: Leukocytosis type: unspecified Qualified Code(s): D72.829 - Elevated white blood cell count, unspecified - Patient Summary/Data Operative Procedure(s) Performed: none Complications: none Consults: Consultations 02/16/18 15:39 Consult to Case Management [CONS] Routine Consult to Roll Tender [CONS] Routine Consult to Spiritual Care [CONS] Routine OT Evaluation and Treatment [CONS] Routine PT Evaluation and Treatment [CONS] Routine Respiratory Care Assess and Treatment [CONS] Routine 02/16/18 19:07 Consult to Personal Insurance Advisor [CONS] Routine Labs Pending at D/C: none Recommended Follow-up Testing/Procedures: Follow up with PCP in 7-10 days--> Tdap, uric acid Planned Operative Procedure(s) after DC: none Hospital Course: I/P Impression: Acute right foot pain, improved - Risk factors: recent hospitalization for cellulitis, PVD, chronic LE edema , hx of gout w/ no treatment - Infection vs gout: -Uric acid 12.4 in ED, WBC appears to be chronically elevated, afebrile-- > suspicious for gout -WBC 13.71--> 14.75, CRP 2.5-->1.2, Lactic Acid 3.3-->1.8 -Blood Cultures--> no growth -WBC elevated most likely 2/2 prednisone -Continue IV Rocephin 2g Q daily--> D/C today - Pt not on NSAIDs/colchicine/allopurinol d/t CKD III --> per pt, was taken off of these medications by other provider - Methylprednisolone 125 mg IV x 1 given in ED --> continue 40 mg IV--> prednisone 40 mg po daily with taper at d/c - Pain control with dilaudid 0.5 mg prn, consider tramadol and lidocaine patch if no relief - He reports difficulty ambulating with current right foot pain --> will consult PT/OT --> recommend walker and outpt therapy - Will evaluate for MRSA--> negative Heart failure - 2D Echo in December 2017 read as: -EF 45-50% -Elevated left atrial and left ventricular end diastolic pressures -Mild concentric LVH -Severely dilated left atrium - CXR performed in ED--> no acute abnormalities - Continue home meds - Propranolol per home med list --> query cardio selective beta jim - 2 gm Na diet with 2 L fluid restriction - Breathing treatments and oxygen therapy prn - RT consult Chronic renal insufficiency - BUN 47, Cr 1.6, eGFR 41 in ED - IVF NS 100 ml/hr started in ED --> continue x 6 hrs--> D/C - Appears to be at his baseline - Monitor Resolved: Hyponatremia - Na 133 in ED--> 136 - IVF NS 100 ml/hr started in ED --> continue x 6hrs - Thermotabs as indicated, balance with CHF - Monitor Chronic: BPH Hypothyroidism CKD III GERD Peripheral neuropathy PVD CAD/CABG S/P PPM Hx of Valvular Heart Disease HLD Afib on Coumadin --> continue during admit Plan: IVF NS 50 ml/hr Analgesics Steroids Home meds Daily Labs 2 gm Na diet with 2L fluid restriction DVT: Warfarin (patient is on this medication at home) GI prophylaxis: Protonix Consult CM/SW Consult PT/OT/RT Code status: Full code with DNI per patient PCP: Anne Magana NP D/C home today, does not want Home Health services Stefan has recovered well after being admitted for Cellulitis/possible gout. He has a history of recent hospitalization for cellulitis, gout, and chronic peripheral edema. It is recommended he wear compression stockings at home and continue a 2g sodium diet and 2L fluid restriction. During his stay, there was no adjustment to his diuretic and the edema in the lower extremities decreased substantially with just this diet adjustment. He was also given steroids and antibiotics during his stay to cover for possible infection and gout. Blood cultures were negative and both CRP and lactic acid have trended down, therefore his antibiotic treatment will stop today. PT/OT recommending walker and home health or outpatient therapy if he does not want to do home health. He refused home health therefore outpatient therapy order was given as well as a list of therapy facilities in area. He was also discharged home with a walker. He should follow-up with his primary care provider in 7-10 days. His uric acid was elevated here and should be rechecked by his PCP. He also may need a Tdap vaccination, this can be followed up further with his PCP. He was discharged home on prednisone x10 days for completion of treatment. He will be discharged home today. - Patient Instructions Diet: Usual Diet as Tolerated Activity: As Tolerated Driving: Do Not Drive Showering/Bathing: May Shower Notify Provider of: Fever, Increased Pain, Swelling and Redness, Nausea and/or Vomiting - Discharge Plan Prescriptions/Med Rec: predniSONE 40 mg PO DAILY #10 tablet Home Medications: Home Meds Levothyroxine [Synthroid] 50 mcg PO ACBRK 05/26/14 [History] Propranolol [Inderal] 20 mg PO DAILY 05/26/14 [History] Simvastatin [Zocor] 20 mg PO BEDTIME 05/26/14 [History] Cholecalciferol (Vitamin D3) [Vitamin D3] 5,000 unit PO MOWEFR 05/20/17 [History ] Pantoprazole Sodium [Protonix] 40 mg PO BID 05/20/17 [History] Potassium Chloride 10 meq PO BID 05/20/17 [History] Warfarin [Coumadin] 2.5 mg PO SUTUTHSA 05/20/17 [History] Mv-Mn/FA/Vit K/Lycop/Lut/Zeaxa [Ocuvite Eye + Multi Tablet] 1 ea PO DAILY [History] Torsemide [Demadex] 40 mg PO DAILY 01/22/18 [History] Ferrous Sulfate [Ferosul] 5 ml PO TID 01/24/18 [History] Warfarin [Coumadin] 5 mg PO MOWEFR 01/24/18 [History] Nystatin [Nystop] 1 - 2 gm TOP QID PRN 7 Days #60 bottle 01/31/18 [Rx] predniSONE 40 mg PO DAILY #10 tablet 02/18/18 [Rx] Patient Handouts: Low-Purine Eating Plan, Gout, [id number], Hyponatremia, [id number], Uric Acid Nephropathy, Hyponatremia, Cellulitis, Adult, Easy-to- Read Forms: ED Department Discharge Referrals: Anne Magana NP [Primary Care Provider] - 02/22/18 1:30 pm (Please follow up Anne Magana on February 22 at 1330.) - Discharge Summary/Plan Comment DC Time >30 min.: Yes (40) - General Info Date of Service: 02/18/18 Admission Dx/Problem (Free Text: Admission Diagnosis/Problem Admission Diagnosis/Problem Cellulitis and abscess of foot excluding toe Functional Status: Reports: Pain Controlled, Tolerating Diet, Ambulating, Urinating - Review of Systems General: Reports: No Symptoms. Denies: Fever, Weakness, Fatigue, Chills HEENT: Reports: No Symptoms Pulmonary: Reports: No Symptoms. Denies: Shortness of Breath, Cough Cardiovascular: Reports: No Symptoms. Denies: Chest Pain, Palpitations Gastrointestinal: Reports: No Symptoms. Denies: Abdominal Pain Genitourinary: Reports: No Symptoms Musculoskeletal: Reports: Leg Pain (bilaterally, ttp only, improving) Skin: Reports: Other (decreasing warmth and erythema bilateral lower extremities ) Neurological: Reports: No Symptoms Psychiatric: Reports: No Symptoms - Patient Data Vitals - Most Recent: Last Vital Signs Temp 97.3 F 02/18/18 11:40 Pulse 71 02/18/18 11:40 Resp 14 02/18/18 11:40 BP 128/84 02/18/18 11:40 Pulse Ox 97 02/18/18 11:40 Weight - Most Recent: 223 lb 2 oz I&O - Last 24 hours: Intake & Output 02/18/18 02/18/18 02/18/18 06:59 14:59 22:59 Intake Total 300 760 Output Total 1450 1100 Balance -1150 -340 Lab Results - Last 24 hrs: Laboratory Results - last 24 hr 02/17/18 02/17/18 02/17/18 Range/Units 17:10 20:20 21:39 WBC (4.23-9.07) K/mm3 RBC (4.63-6.08) M/mm3 Hgb (13.7-17.5) gm/L Hct (40.1-51.0) % MCV (79.0-92.2) fl MCH (25.7-32.2) pg MCHC (32.2-35.5) g/dl RDW Std Deviation (35.1-43.9) fL Plt Count (163-337) K/mm3 MPV (9.4-12.3) fl Neut % (Auto) (34.0-67.9) % Lymph % (Auto) (21.8-53.1) % [place] % (Auto) (5.3-12.2) % Eos % (Auto) (0.8-7.0) Baso % (Auto) (0.1-1.2) % Neut # (Auto) (1.78-5.38) K/mm3 Lymph # (Auto) (1.32-3.57) K/mm3 [place] # (Auto) (0.30-0.82) K/mm3 Eos # (Auto) (0.04-0.54) K/mm3 Baso # (Auto) (0.01-0.08) K/mm3 Manual Slide Review PT (9.5-12.1) SECONDS INR Sodium (136-145) mEq/L Potassium (3.5-5.1) mEq/L Chloride (98-107) mEq/L Carbon Dioxide (21-32) mEq/L Anion Gap (5-15) BUN (7-18) mg/dL Creatinine (0.7-1.3) mg/dL Est Cr Clr Drug Dosing mL/min Estimated GFR (MDRD) (>60) mL/min BUN/Creatinine Ratio (14-18) Glucose (83-115) mg/dL POC Glucose 153 H 164 H (83-110) mg/dL Lactic Acid 1.8 (0.4-2.0) mmol/L Calcium (8.5-10.1) mg/dL C-Reactive Protein (<1.0) mg/dL 02/18/18 02/18/18 02/18/18 Range/Units 05:38 05:38 05:38 WBC 14.75 H (4.23-9.07) K/mm3 RBC 3.35 L (4.63-6.08) M/mm3 Hgb 9.8 L (13.7-17.5) gm/L Hct 30.8 L (40.1-51.0) % MCV 91.9 (79.0-92.2) fl MCH 29.3 (25.7-32.2) pg MCHC 31.8 L (32.2-35.5) g/dl RDW Std Deviation 58.8 H (35.1-43.9) fL Plt Count 196 (163-337) K/mm3 MPV 10.1 (9.4-12.3) fl Neut % (Auto) 87.4 H (34.0-67.9) % Lymph % (Auto) 3.0 L (21.8-53.1) % [place] % (Auto) 9.1 (5.3-12.2) % Eos % (Auto) 0.1 L (0.8-7.0) Baso % (Auto) 0.0 L (0.1-1.2) % Neut # (Auto) 12.89 H (1.78-5.38) K/mm3 Lymph # (Auto) 0.44 L (1.32-3.57) K/mm3 [place] # (Auto) 1.34 H (0.30-0.82) K/mm3 Eos # (Auto) 0.02 L (0.04-0.54) K/mm3 Baso # (Auto) 0.00 L (0.01-0.08) K/mm3 Manual Slide Review Abnormal smear PT 36.3 H (9.5-12.1) SECONDS INR 3.41 Sodium 137 (136-145) mEq/L Potassium 4.3 (3.5-5.1) mEq/L Chloride 101 (98-107) mEq/L Carbon Dioxide 28 (21-32) mEq/L Anion Gap 12.3 (5-15) BUN 47 H (7-18) mg/dL Creatinine 1.5 H (0.7-1.3) mg/dL Est Cr Clr Drug Dosing 38.35 mL/min Estimated GFR (MDRD) 44 (>60) mL/min BUN/Creatinine Ratio 31.3 H (14-18) Glucose 119 H (83-115) mg/dL POC Glucose (83-110) mg/dL Lactic Acid (0.4-2.0) mmol/L Calcium 8.3 L (8.5-10.1) mg/dL C-Reactive Protein 1.2 H* (<1.0) mg/dL 02/18/18 02/18/18 Range/Units 05:53 11:37 WBC (4.23-9.07) K/mm3 RBC (4.63-6.08) M/mm3 Hgb (13.7-17.5) gm/L Hct (40.1-51.0) % MCV (79.0-92.2) fl MCH (25.7-32.2) pg MCHC (32.2-35.5) g/dl RDW Std Deviation (35.1-43.9) fL Plt Count (163-337) K/mm3 MPV (9.4-12.3) fl Neut % (Auto) (34.0-67.9) % Lymph % (Auto) (21.8-53.1) % [place] % (Auto) (5.3-12.2) % Eos % (Auto) (0.8-7.0) Baso % (Auto) (0.1-1.2) % Neut # (Auto) (1.78-5.38) K/mm3 Lymph # (Auto) (1.32-3.57) K/mm3 [place] # (Auto) (0.30-0.82) K/mm3 Eos # (Auto) (0.04-0.54) K/mm3 Baso # (Auto) (0.01-0.08) K/mm3 Manual Slide Review PT (9.5-12.1) SECONDS INR Sodium (136-145) mEq/L Potassium (3.5-5.1) mEq/L Chloride (98-107) mEq/L Carbon Dioxide (21-32) mEq/L Anion Gap (5-15) BUN (7-18) mg/dL Creatinine (0.7-1.3) mg/dL Est Cr Clr Drug Dosing mL/min Estimated GFR (MDRD) (>60) mL/min BUN/Creatinine Ratio (14-18) Glucose (83-115) mg/dL POC Glucose 129 H 119 H (83-110) mg/dL Lactic Acid (0.4-2.0) mmol/L Calcium (8.5-10.1) mg/dL C-Reactive Protein (<1.0) mg/dL Med Orders - Current: Current Medications Acetaminophen (Tylenol) 650 mg PO Q4H PRN PRN Reason: Pain (Mild 1-3)/fever Albuterol (Proventil Neb Soln) 2.5 mg NEB Q2H PRN PRN Reason: Shortness Of Breath/wheezing Albuterol/Ipratropium (Duoneb 3.0-0.5 Mg/3 Ml) 3 ml NEB Q4H PRN PRN Reason: Shortness Of Breath/wheezing Bisacodyl (Dulcolax) 5 mg PO DAILY PRN PRN Reason: Constipation Cholecalciferol (Vitamin D3) 5,000 [facility] Last Admin: 02/17/18 08:30 Dose: 5,000 unit Docusate Sodium (Colace) 100 mg PO BID PRN PRN Reason: Constipation Hydromorphone HCl (Dilaudid) 0.5 mg IVPUSH Q2H PRN PRN Reason: Pain (severe 7-10) Promethazine HCl 6.25 mg/ (Sodium Chloride) 50.25 mls @ 100 mls/hr IV Q6H PRN PRN Reason: Nausea/Vomiting Ceftriaxone Sodium 2 gm/ (Sodium Chloride) 100 mls @ 100 mls/hr IV Q24H [facility] Last Admin: 02/18/18 10:42 Dose: 100 mls/hr Insulin Aspart (Novolog) 0 unit SUBCUT QIDACANDBED [facility]; Protocol Last Admin: 02/18/18 12:37 Dose: Not Given Levothyroxine Sodium (Synthroid) 50 mcg PO ACBRK [facility] Last Admin: 02/18/18 05:51 Dose: 50 mcg Magnesium Hydroxide (Milk Of Magnesia) 30 ml PO Q12H PRN PRN Reason: Constipation Ferrous Sulfate Elixir 220 Mg/5 Ml * *Own Med 5 ml PO TID [facility] Last Admin: 02/18/18 08:34 Dose: 5 ml Nystatin (Nystop) 1 - 2 gm TOP QID PRN PRN Reason: Rash Oxycodone/Acetaminophen (Percocet 325-5 Mg) 1 tab PO Q4H PRN PRN Reason: Pain (moderate 4-6) Pantoprazole Sodium (Protonix) 40 mg PO BID [facility] Last Admin: 02/18/18 08:35 Dose: 40 mg Polyethylene Glycol (Miralax) 17 gm PO DAILY PRN PRN Reason: Constipation Last Admin: 02/18/18 08:34 Dose: 17 gm Potassium Chloride (Klor-Con 10) 10 meq PO BID [facility] Last Admin: 02/18/18 08:35 Dose: 10 meq Prednisone (Prednisone) 40 mg PO DAILY [facility] Stop: 02/19/18 09:01 Last Admin: 02/18/18 08:35 Dose: 40 mg Promethazine HCl (Phenergan) 25 mg PO Q6H PRN PRN Reason: Nausea/Vomiting Propranolol HCl (Inderal) 20 mg PO DAILY [facility] Last Admin: 02/18/18 08:35 Dose: 20 mg Senna/Docusate Sodium (Senna Plus) 1 tab PO BID PRN PRN Reason: Constipation Simvastatin (Zocor) 20 mg PO BEDTIME [facility] Last Admin: 02/17/18 21:35 Dose: 20 mg Temazepam (Restoril) 7.5 mg PO BEDTIME PRN PRN Reason: Sleep Torsemide (Demadex) 40 mg PO DAILY [facility] Last Admin: 02/18/18 08:35 Dose: 40 mg Vit A/Vit C/Vit E/Selen/Cu/Zn/Lutei (Icaps Mv) 1 tab PO DAILY [facility] Last Admin: 02/18/18 08:35 Dose: 1 tab Warfarin Sodium (Coumadin) 2.5 mg PO SuTuThSa@1800 DARCY Warfarin Sodium (Coumadin) 5 mg PO MoWeFr@1800 [facility] Last Admin: 02/17/18 17:12 Dose: 5 mg Discontinued Medications Hydromorphone HCl (Dilaudid) 0.5 mg IVPUSH ONETIME ONE Stop: 02/16/18 09:13 Last Admin: 02/16/18 09:32 Dose: 0.5 mg Hydromorphone HCl (Dilaudid) 0.5 mg IVPUSH ONETIME ONE Stop: 02/16/18 10:03 Last Admin: 02/16/18 10:11 Dose: 0.5 mg Sodium Chloride (Normal Saline) 1,000 mls @ 100 mls/hr IV ASDIRECTED [facility] Last Admin: 02/16/18 09:43 Dose: 100 mls/hr Ceftriaxone Sodium 2 gm/ (Sodium Chloride) 100 mls @ 100 mls/hr IV ONETIME ONE Stop: 02/16/18 11:21 Last Admin: 02/16/18 10:31 Dose: 100 mls/hr Methylprednisolone Sodium Succinate 20 mg/ Sodium Chloride 250.16 mls @ 250.16 mls/hr IV BID [facility] Sodium Chloride (Normal Saline) 1,000 mls @ 50 mls/hr IV ASDIRECTED [facility] Last Admin: 02/17/18 04:04 Dose: 50 mls/hr Sodium Chloride (Normal Saline) 1,000 mls @ 100 mls/hr IV ASDIRECTED [facility] Stop: 02/17/18 17:45 Lidocaine HCl (Xylocaine 2% Jelly) 5 ml TOP ONETIME ONE Stop: 02/16/18 09:14 Last Admin: 02/16/18 09:19 Dose: Not Given Lidocaine HCl (Xylocaine 2% Jelly) 10 ml MUCMEM ONETIME ONE Stop: 02/16/18 09:15 Last Admin: 02/16/18 09:10 Dose: 10 ml Lidocaine HCl (Xylocaine 2% Jelly) Confirm Administered Dose 10 ml .ROUTE .STK- MED ONE Stop: 02/16/18 09:12 Last Admin: 02/16/18 09:18 Dose: Not Given Methylprednisolone Sodium Succinate (Solu-Medrol) 125 mg IVPUSH ONETIME ONE Stop: 02/16/18 11:47 Last Admin: 02/16/18 12:02 Dose: 125 mg Methylprednisolone Sodium Succinate (Solu-Medrol) 20 mg IVPUSH ONETIME ONE Stop: 02/16/18 20:01 Last Admin: 02/16/18 20:21 Dose: 20 mg Ondansetron HCl (Zofran) 4 mg IVPUSH ONETIME ONE Stop: 02/16/18 09:14 Last Admin: 02/16/18 09:30 Dose: 4 mg Pneumococcal 13-Valent Conj Vacc (Prevnar 13) 0.5 ml IM .ONCE ONE Stop: 02/18/18 13:01 Last Admin: 02/18/18 13:04 Dose: 0.5 ml Prednisone (Prednisone) 30 mg PO DAILY [facility] Stop: 02/22/18 09:01 Prednisone (Prednisone) 20 mg PO DAILY [facility] Stop: 02/25/18 09:01 Prednisone (Prednisone) 10 mg PO DAILY [facility] Stop: 02/28/18 09:01 - Exam Quality Assessment: Reports: DVT Prophylaxis General: Reports: Alert, Oriented, Cooperative, No Acute Distress HEENT: Reports: Pupils Equal, Pupils Reactive, EOMI, Mucous Membr. Moist/[place] Neck: Reports: Supple Lungs: Reports: Clear to Auscultation, Normal Respiratory Effort Cardiovascular: Reports: Regular Rate, Regular Rhythm GI/Abdominal Exam: Normal Bowel Sounds, Soft, Non-Tender, No Organomegaly, No Distention, No Abnormal Bruit, No Mass, Pelvis Stable (Male) Exam: Deferred Rectal (Males) Exam: Deferred Back Exam: Reports: Normal Inspection, Full Range of Motion Extremities: Normal Range of Motion, Pedal Edema (L>R, 3+ edema present on dorsal aspect of left foot, 2+ on right foot- improving), Slow Capillary Refill , Leg Pain (ttp only), Redness (decreasing). No: Increased Warmth Skin: Reports: Warm, Dry, Intact Neurological: Reports: No New Focal Deficit Psy/Mental Status: Reports: Alert, Normal Affect, Normal Mood
[2018-02-18] MEDS ORDERED: Warfarin 2.5 MG Tab PO SCH (18:00)
[2018-02-20] MEDS ORDERED: predniSONE 10 MG Tab PO SCH (09:00)
[2018-02-23] MEDS ORDERED: predniSONE 20 MG Tab PO SCH (09:00)
[2018-02-26] MEDS ORDERED: predniSONE 10 MG Tab PO SCH (09:00)
== END 2018-02-18 14:10 | disposition home or self-care (01) | DRG 603 ==
LOC: JD.ED 08:47 → JD.MS 12:44
PROVIDERS: ADMIT Emergency Medicine; ATTEND Internal Medicine Cardiovascular Disease
PROC: 3E0234Z Introduction of Serum, Toxoid and Vaccine into Muscle, Percutaneous Approach (ICD-10-PCS; principal; 2018-02-18)
DX: L03.115 Cellulitis of right lower limb (principal); I13.0 Hypertensive heart and chronic kidney disease with heart failure and stage 1 through stage 4 chronic kidney disease, or unspecified chronic kidney disease; I50.32 Chronic diastolic (congestive) heart failure; L02.611 Cutaneous abscess of right foot; E87.1 Hypo-osmolality and hyponatremia; N18.3 Chronic kidney disease, stage 3 (moderate); I25.10 Atherosclerotic heart disease of native coronary artery without angina pectoris; E78.00 Pure hypercholesterolemia, unspecified; K21.9 Gastro-esophageal reflux disease without esophagitis; L03.116 Cellulitis of left lower limb; M10.9 Gout, unspecified; I87.2 Venous insufficiency (chronic) (peripheral); L30.9 Dermatitis, unspecified; F41.9 Anxiety disorder, unspecified; I48.91 Unspecified atrial fibrillation; G62.9 Polyneuropathy, unspecified; K59.00 Constipation, unspecified; N40.1 Benign prostatic hyperplasia with lower urinary tract symptoms; R35.0 Frequency of micturition; M15.9 Polyosteoarthritis, unspecified; E03.9 Hypothyroidism, unspecified; E78.5 Hyperlipidemia, unspecified; I73.9 Peripheral vascular disease, unspecified; D72.829 Elevated white blood cell count, unspecified; T38.0X5A Adverse effect of glucocorticoids and synthetic analogues, initial encounter; R26.2 Difficulty in walking, not elsewhere classified; Z79.899 Other long term (current) drug therapy; Z79.01 Long term (current) use of anticoagulants; M54.5 Low back pain; M25.562 Pain in left knee; M25.561 Pain in right knee; M25.552 Pain in left hip; M25.551 Pain in right hip; M54.2 Cervicalgia; R21 Rash and other nonspecific skin eruption; M79.671 Pain in right foot; R06.02 Shortness of breath; R05 Cough; L53.9 Erythematous condition, unspecified; R60.0 Localized edema; E79.0 Hyperuricemia without signs of inflammatory arthritis and tophaceous disease; Z85.828 Personal history of other malignant neoplasm of skin; Z95.0 Presence of cardiac pacemaker; Z95.2 Presence of prosthetic heart valve; Z90.49 Acquired absence of other specified parts of digestive tract; Z96.651 Presence of right artificial knee joint; Z95.1 Presence of aortocoronary bypass graft; Z23 Encounter for immunization
CPT/HCPCS: 36415; 71045; 80053; 82550; 83605; 83735; 83880; 84550; 85007; 85027; 85379; 85610; 86140; 93005; 96361; 96365; 96375; 96376; 99285; J0696; J1170 ×2; J2405; J2930; J7030; J7040; 80048; 82962; 85025; 87040; 90670; 93010; 97110-GP; 97116-GP; 97161-GP; 97165-GO; A9270-GY; J2920

== ENCOUNTER 2019-06-24 08:23 | Inpatient (IN) | payer MEDICARE, BC ==
[2019-06-24] MEDS ORDERED: Sodium Chloride 0.9% 10 ML Syringe FLUSH PRN (08:58)
--- NOTE | 2019-06-24 09:01 | EDM.PDOC ---
ED HPI GENERAL MEDICAL PROBLEM - General Chief Complaint: Lower Extremity Injury/Pain Stated Complaint: LT LEG SWOLLEN Time Seen by Provider: 06/24/19 08:45 Source of Information: Reports: Patient, Family, RN Notes Reviewed - History of Present Illness INITIAL COMMENTS - FREE TEXT/NARRATIVE: 88-year-old male is brought here to the ED this morning by family with concern for possible cellulitis left lower extremity. He does have history of CHF, chronic peripheral leg edema, chronic erythema of both lower legs according to family but today the left lower leg is more brightly erythematous and also warm may be somewhat more edematous than baseline. He states that the left lower leg typically is more swollen than the right. He lives up at the [facility], is by himself. He does ambulate with a walker and is reported to have still been doing that okay. There is no reported fever or chills. He is not anymore short of breath than usual. He does appear to have mild confusion, not very talkative, does answer simple questions. Majority of history is obtained from family, apparently a daughter. Bilateral Lower Leg Pain Score (Numeric/FACES): 5 - Related Data Allergies Allergy/AdvReac Type Severity Reaction Status Date / Time No Known Allergies Allergy Verified 06/24/19 08:35 Home Meds: Home Meds Acetaminophen [Acetaminophen Extra Strength] 1,000 mg PO Q6H PRN 04/04/19 [ History] Allopurinol [Zyloprim] 100 mg PO BID 04/04/19 [History] Cholecalciferol (Vitamin D3) [Vitamin D3] 5,000 unit PO DAILY 04/04/19 [History] Ferrous Sulfate 300 mg PO TID 04/04/19 [History] Levothyroxine [Synthroid] 50 mcg PO ACBREAKFAST 04/04/19 [History] Lutein/Minerals/Vit A,C & E [Ocuvite] 1 tab PO DAILY 04/04/19 [History] Pantoprazole Sodium [Protonix] 40 mg PO BID 04/04/19 [History] Potassium Chloride 10 meq PO TID 04/04/19 [History] Propranolol [Inderal] 20 mg PO DAILY 04/04/19 [History] Simvastatin [Zocor] 20 mg PO DAILY 04/04/19 [History] Torsemide 20 mg PO DAILY 04/04/19 [History] Warfarin Sodium [Coumadin] 5 mg PO MOWEFR 04/04/19 [History] Warfarin [Coumadin] 2.5 mg PO SUTUTHSA 04/04/19 [History] metOLazone [Metolazone] 2.5 mg PO MOWEFR 06/24/19 [History] Past Medical History HEENT History: Reports: Cataract Cardiovascular History: Reports: Arrhythmia, Bypass, CAD, Heart Failure, High Cholesterol, Hypertension Gastrointestinal History: Reports: GERD Genitourinary History: Reports: BPH, Chronic Renal Insuffiency Musculoskeletal History: Reports: Gout Neurological History: Reports: Neuropathy, Peripheral Endocrine/Metabolic History: Reports: Hypothyroidism Hematologic History: Reports: Blood Transfusion(s) Oncologic (Cancer) History: Reports: Basal Cell Carcinoma Dermatologic History: Reports: Cellulitis - Past Surgical History HEENT Surgical History: Reports: Cataract Surgery Cardiovascular Surgical History: Reports: Coronary Artery Bypass, Pacer, Valve Replacement GI Surgical History: Reports: Cholecystectomy, Hernia, Inguinal Musculoskeletal Surgical History: Reports: Arthroscopic Knee Social & Family History - Family History Family Medical History: Noncontributory - Tobacco Use Smoking Status *Q: Never Smoker - Caffeine Use Caffeine Use: Reports: Coffee, Soda, Tea - Recreational Drug Use Recreational Drug Use: No - Living Situation & Occupation Living situation: Reports: , Alone Occupation: Retired Review of Systems - Review of Systems Review Of Systems: See Below Constitutional: Denies: Chills, Fever Mouth/Throat: Reports: No Symptoms Respiratory: Reports: Shortness of Breath (Mild chronic). Denies: Cough Cardiovascular: Denies: Chest Pain GI/Abdominal: Denies: Abdominal Pain Musculoskeletal: Reports: Back Pain (Chronic) Skin: Reports: Erythema (Intense erythema left lower leg, moderate erythema right lower leg, chronic) Neurological: Reports: Confusion (Mild, chronic). Denies: Trouble Speaking ED EXAM, GENERAL - Physical Exam Exam: See Below General Appearance: Alert, No Apparent Distress Throat/Mouth: Normal Inspection Head: Atraumatic Neck: Other Respiratory/Chest: No Respiratory Distress (No JVD), Lungs Clear, Normal Breath Sounds Cardiovascular: Regular Rate, Rhythm GI/Abdominal: Soft, Non-Tender. No: Guarding Extremities: Pedal Edema (Bilateral, left much greater than right), Leg Pain ( Mild tenderness bilateral lower legs), Increased Warmth (Left lower anterior distal leg), Redness (Bilateral, left more intense than right primarily anterior lower legs) Neurological: Alert, No Motor/Sensory Deficits Skin Exam: Erythema (Bilateral lower legs, skin otherwise clear) EKG INTERPRETATION EKG Date: 06/24/19 Rhythm: Other (Paced rhythm) Rate (Beats/Min): 71 Course - Vital Signs Last Recorded V/S: Last Vital Signs Temp 97.8 F 06/24/19 08:33 Pulse 77 06/24/19 08:33 Resp 21 H 06/24/19 08:33 BP 117/71 06/24/19 08:33 Pulse Ox 100 06/24/19 08:33 - Orders/Labs/Meds Orders: Active Orders 24 hr Category Date Time Status EKG 12 Lead [EKG Documentation Completion] [] STAT Care 06/24/19 08:58 Active Peripheral IV Care [] . DIRECTED Care 06/24/19 09:00 Active CULTURE BLOOD [BC] Stat Lab 06/24/19 09:20 Received REFLEX LACTIC ACID YES OR NO [CHEM] Routine Lab 06/24/19 10:05 Received Sodium Chloride 0.9% [Saline Flush] Med 06/24/19 08:58 Active 10 ml FLUSH ASDIRECTED PRN cefTRIAXone [Rocephin] 2 gm Med 06/24/19 11:00 Active Sodium Chloride 0.9% [Normal Saline] 100 ml IV Q24H Peripheral IV Insertion Adult [OM.PC] Stat Oth 06/24/19 08:59 Ordered Medication Orders Ceftriaxone Sodium 2 gm/ (Sodium Chloride) 100 mls @ 200 mls/hr IV Q24H [facility] Last Admin: 06/24/19 11:11 Dose: 200 mls/hr Sodium Chloride (Saline Flush) 10 ml FLUSH ASDIRECTED PRN PRN Reason: Keep Vein Open Last Admin: 06/24/19 10:52 Dose: 10 ml Labs: Laboratory Tests 06/24/19 06/24/19 06/24/19 Range/Units 09:20 09:20 09:20 WBC 9.24 H (4.23-9.07) K/mm3 RBC 3.01 L (4.63-6.08) M/mm3 Hgb 8.6 L D (13.7-17.5) gm/dl Hct 27.8 L (40.1-51.0) % MCV 92.4 H (79.0-92.2) fl MCH 28.6 (25.7-32.2) pg MCHC 30.9 L (32.2-35.5) g/dl RDW Std Deviation 58.3 H (35.1-43.9) fL Plt Count 275 (163-337) K/mm3 MPV 9.0 L (9.4-12.3) fl Neutrophils % (Manual) 85 H (40-60) % Band Neutrophils % 0 (0-10) % Lymphocytes % (Manual) 7 L (20-40) % Atypical Lymphs % 0 % Monocytes % (Manual) 5 (2-10) % Eosinophils % (Manual) 2 (0.8-7.0) % Basophils % (Manual) 1 (0.2-1.2) Platelet Estimate Adequate Poikilocytosis 1+ slight Anisocytosis 1+ slight RBC Morph Comment unit aide tech PT (9.7-12.0) SECONDS INR Sodium 133 L (136-145) mEq/L Potassium 2.6 L (3.5-5.1) mEq/L Chloride 92 L (98-107) mEq/L Carbon Dioxide 32 (21-32) mEq/L Anion Gap 11.6 (5-15) BUN 87 H (7-18) mg/dL Creatinine 1.9 H (0.7-1.3) mg/dL Est Cr Clr Drug Dosing 30.63 mL/min Estimated GFR (MDRD) 34 (>60) mL/min BUN/Creatinine Ratio 45.8 H (14-18) Glucose 165 H (83-115) mg/dL Lactic Acid (0.4-2.0) mmol/L Calcium 9.1 (8.5-10.1) mg/dL Total Bilirubin 0.7 (0.2-1.0) mg/dL AST 21 (15-37) U/L ALT 25 (16-63) U/L Alkaline Phosphatase 97 (46-116) U/L Troponin I 0.091 H* (0.00-0.056) ng/mL C-Reactive Protein < 0.2 (<1.0) mg/dL Total Protein 7.3 (6.4-8.2) g/dl Albumin 3.5 (3.4-5.0) g/dl Globulin 3.8 gm/dL Albumin/Globulin Ratio 0.9 L (1-2) 06/24/19 06/24/19 Range/Units 09:20 09:20 WBC (4.23-9.07) K/mm3 RBC (4.63-6.08) M/mm3 Hgb (13.7-17.5) gm/dl Hct (40.1-51.0) % MCV (79.0-92.2) fl MCH (25.7-32.2) pg MCHC (32.2-35.5) g/dl RDW Std Deviation (35.1-43.9) fL Plt Count (163-337) K/mm3 MPV (9.4-12.3) fl Neutrophils % (Manual) (40-60) % Band Neutrophils % (0-10) % Lymphocytes % (Manual) (20-40) % Atypical Lymphs % % Monocytes % (Manual) (2-10) % Eosinophils % (Manual) (0.8-7.0) % Basophils % (Manual) (0.2-1.2) Platelet Estimate Poikilocytosis Anisocytosis RBC Morph Comment PT 18.6 H (9.7-12.0) SECONDS INR 1.76 Sodium (136-145) mEq/L Potassium (3.5-5.1) mEq/L Chloride (98-107) mEq/L Carbon Dioxide (21-32) mEq/L Anion Gap (5-15) BUN (7-18) mg/dL Creatinine (0.7-1.3) mg/dL Est Cr Clr Drug Dosing mL/min Estimated GFR (MDRD) (>60) mL/min BUN/Creatinine Ratio (14-18) Glucose (83-115) mg/dL Lactic Acid 2.2 H (0.4-2.0) mmol/L Calcium (8.5-10.1) mg/dL Total Bilirubin (0.2-1.0) mg/dL AST (15-37) U/L ALT (16-63) U/L Alkaline Phosphatase (46-116) U/L Troponin I (0.00-0.056) ng/mL C-Reactive Protein (<1.0) mg/dL Total Protein (6.4-8.2) g/dl Albumin (3.4-5.0) g/dl Globulin gm/dL Albumin/Globulin Ratio (1-2) Meds: Medications Generic Name Dose Route Start Last Admin Trade Name Freq PRN Reason Stop Dose Admin Ceftriaxone Sodium 2 gm/ 100 mls @ 200 mls/hr 06/24/19 11:00 06/24/19 11:11 Sodium Chloride IV 200 mls/hr Q24H DARCY Administration Sodium Chloride 10 ml 06/24/19 08:58 06/24/19 10:52 Saline Flush FLUSH 10 ml ASDIRECTED PRN Administration Keep Vein Open Discontinued Medications Generic Name Dose Route Start Last Admin Trade Name Freq PRN Reason Stop Dose Admin Potassium Chloride 40 meq 06/24/19 10:58 06/24/19 11:11 Klor-Con M20 PO 06/24/19 10:59 40 meq ONETIME ONE Administration - Re-Assessments/Exams Free Text/Narrative Re-Assessment/Exam: 06/24/19 11:43 White blood count 9600, C-reactive protein is normal. Lactic acid did come back at 2.2. Hemoglobin 8.6 with history of chronic anemia. Creatinine 1.9, BUN 87, troponin 0.09. I did order blood cultures 2 with anticipation of need for IV antibiotics for cellulitis left leg. He was afebrile, initial vitals, presentation did not meet septic alert criteria. With his history of CHF fluid bolus not ordered or clinically indicated while here in the ED. I have discussed this with Dr. Fisher hospitalist inspector canned food reconditioning. IV Rocephin ordered. Patient will be admitted for further treatment. Also potassium came back very low at 2.6. He has been given potassium 40 mEq by mouth. Departure - Departure Time of Disposition: 11:47 Disposition: Admitted As Inpatient 68 Condition: Serious Clinical Impression: Hypokalemia Cellulitis Qualifiers: Site of cellulitis: extremity Site of cellulitis of extremity: lower extremity Laterality: left Qualified Code(s): L03.116 - Cellulitis of left lower limb - Discharge Information ED Communication - Discussed Case With (1) Discussed Case With (1): Admitting Provider (Dr Ibrahim, decision to admit at about 10:45) - My Orders Last 24 Hours: My Active Orders 06/24/19 08:58 EKG 12 Lead [EKG Documentation Completion] [RC] STAT Sodium Chloride 0.9% [Saline Flush] 10 ml FLUSH ASDIRECTED PRN 06/24/19 08:59 Peripheral IV Insertion Adult [OM.PC] Stat 06/24/19 09:00 Peripheral IV Care [RC] . DIRECTED 06/24/19 09:20 CULTURE BLOOD [BC] Stat 06/24/19 10:05 REFLEX LACTIC ACID YES OR NO [CHEM] Routine 06/24/19 11:00 cefTRIAXone [Rocephin] 2 gm Sodium Chloride 0.9% [Normal Saline] 100 ml IV Q24H - Assessment/Plan Last 24 Hours: My Active Orders 06/24/19 08:58 EKG 12 Lead [EKG Documentation Completion] [RC] STAT Sodium Chloride 0.9% [Saline Flush] 10 ml FLUSH ASDIRECTED PRN 06/24/19 08:59 Peripheral IV Insertion Adult [OM.PC] Stat 06/24/19 09:00 Peripheral IV Care [RC] . DIRECTED 06/24/19 09:20 CULTURE BLOOD [BC] Stat 06/24/19 10:05 REFLEX LACTIC ACID YES OR NO [CHEM] Routine 06/24/19 11:00 cefTRIAXone [Rocephin] 2 gm Sodium Chloride 0.9% [Normal Saline] 100 ml IV Q24H
--- NOTE | 2019-06-24 10:34 | CR ---
Chest: Portable view of the chest was obtained. Comparison: Prior chest x-ray of 02/16/18. Heart size appears within normal limits for portable technique. Tortuous thoracic aorta is stable. 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 Pacemaker is noted. Lungs are clear with no acute parenchymal change. Bony structures are grossly intact. Impression: 1. Nothing acute is appreciated on portable chest x-ray. Diagnostic code #2
[2019-06-24] MEDS ORDERED: Potassium Chloride 20 MEQ Tab.ER PO ONE (10:58)
[2019-06-24] MEDS: cefTRIAXone 2 GM in Sodium Chloride 0.9% 100 ML IV SCH (11:11)
[2019-06-24] MEDS ORDERED: Vancomycin 1.75 GM in Sodium Chloride 0.9% 500 ML IV ONE (12:30)
[2019-06-24] MEDS ORDERED: Ondansetron 4 MG/2 ML SDV IV PRN (15:03)
[2019-06-24] MEDS ORDERED: Furosemide 100 MG/10 ML SDV IVPUSH ONE (15:05)
--- NOTE | 2019-06-24 15:14 | PCM.HP.2 ---
H&P History of Present Illness - General Date of Service: 06/24/19 Admit Problem/Dx: Admission Diagnosis/Problem Admission Diagnosis/Problem Cellulitis - History of Present Illness Initial Comments - Free Text/Narative: 88-year-old male with known right-sided heart failure and chronic lower extremity peripheral edema was brought in by family to the emergency room secondary to left lower calf pain. History was primarily obtained from the daughters one of which is the POA. He slept through most of the interview, but was arousable and did answer direct questions. He is hard of hearing. Patient has a history of stasis dermatitis and recurrent lower extremity cellulitis. Lower extremities appear to have a little greater erythema and warmth today but seem to be baseline in tenderness. He had a 7 lbs wt gain over the last 3 weeks since moving to [facility].Denies any fever, chills, shortness of breath, dyspnea on exertion, orthopnea, or PND. Patient sees Dr. Santos in cardiology. He is on torsemide 80 mg daily in divided doses. Apparently patient has been hospitalized in December secondary to low hemoglobin of 8.4. He had guaiac positive stools and end up having an upper and lower endoscopy. This is been going on for last 3 years since he was on Eliquis. It appears he has had 3- 4 endoscopies and colonoscopies specifically with no significant bleeding found except on capsule endoscopy. According to family he was found to have a slow bleed in the small intestine. Occasionally he still needs to get transfused and generally once she drops into the mid eights with his hemoglobin he becomes symptomatic. Labs in the emergency room: WBC 9.24, hemoglobin 8.6, platelets 275, INR 1.76, sodium 133, potassium 2.6, BUN 87, creatinine 1.9, normal anion gap, troponin 0.091, BNP 2214. Chest x-ray showed no acute changes. In the emergency room he was given 2 g ceftriaxone and potassium 40 mEq by mouth. No fluid pulse given. Family refused vancomycin. Blood cultures were obtained. Bilateral Lower Leg Pain Score (Numeric/FACES): 5 - Related Data Allergies/Adverse Reactions: Allergies Allergy/AdvReac Type Severity Reaction Status Date / Time No Known Allergies Allergy Verified 06/24/19 08:35 Home Medications: Home Meds Acetaminophen [Acetaminophen Extra Strength] 1,000 mg PO Q6H PRN 04/04/19 [ History] Allopurinol [Zyloprim] 100 mg PO BID 04/04/19 [History] Cholecalciferol (Vitamin D3) [Vitamin D3] 5,000 unit PO DAILY 04/04/19 [History] Ferrous Sulfate 300 mg PO TID 04/04/19 [History] Levothyroxine [Synthroid] 50 mcg PO ACBREAKFAST 04/04/19 [History] Lutein/Minerals/Vit A,C & E [Ocuvite] 1 tab PO DAILY 04/04/19 [History] Pantoprazole Sodium [Protonix] 40 mg PO BID 04/04/19 [History] Potassium Chloride 10 meq PO TID 04/04/19 [History] Propranolol [Inderal] 20 mg PO DAILY 04/04/19 [History] Simvastatin [Zocor] 20 mg PO DAILY 04/04/19 [History] Torsemide 20 mg PO DAILY 04/04/19 [History] Warfarin Sodium [Coumadin] 5 mg PO MOWEFR 04/04/19 [History] Warfarin [Coumadin] 2.5 mg PO SUTUTHSA 04/04/19 [History] metOLazone [Metolazone] 2.5 mg PO MOWEFR 06/24/19 [History] Past Medical History HEENT History: Reports: Cataract Cardiovascular History: Reports: Arrhythmia, Blood Clots/VTE/DVT, Bypass, CAD, Heart Failure, Heart Valve Replacement, High Cholesterol, Hypertension, Pacemaker Gastrointestinal History: Reports: Chronic Constipation, GERD Genitourinary History: Reports: BPH, Chronic Renal Insuffiency Musculoskeletal History: Reports: Gout, Osteoarthritis Neurological History: Reports: Neuropathy, Peripheral Psychiatric History: Reports: None Endocrine/Metabolic History: Reports: Hypothyroidism Hematologic History: Reports: Anemia, Blood Transfusion(s) Oncologic (Cancer) History: Reports: Basal Cell Carcinoma, Prostate Dermatologic History: Reports: Cellulitis - Past Surgical History HEENT Surgical History: Reports: Cataract Surgery Cardiovascular Surgical History: Reports: Coronary Artery Bypass, Pacer, Valve Replacement GI Surgical History: Reports: Cholecystectomy, Hernia, Inguinal Male Surgical History: Reports: None Endocrine Surgical History: Reports: None Musculoskeletal Surgical History: Reports: Arthroscopic Knee Dermatological Surgical History: Reports: Skin Biopsy Social & Family History - Family History Family Medical History: Noncontributory - Tobacco Use Smoking Status *Q: Never Smoker - Caffeine Use Caffeine Use: Reports: Coffee, Soda, Tea - Recreational Drug Use Recreational Drug Use: No - Living Situation & Occupation Living situation: Reports: , Alone Occupation: Retired H&P Review of Systems - Review of Systems: Review Of Systems: ROS reveals no pertinent complaints other than HPI. Exam - Exam Exam: See Below - Vital Signs Vital Signs: Last Vital Signs Temp 97.3 F 06/24/19 13:22 Pulse 74 06/24/19 13:22 Resp 20 06/24/19 13:22 BP 125/95 H 06/24/19 13:22 Pulse Ox 98 06/24/19 13:22 Weight: 220 lb - Exam Quality Assessment: No: Supplemental Oxygen General: Lethargic HEENT: Conjunctiva Clear Neck: Supple, Trachea Midline, 2 Lungs: Clear to Auscultation, Normal Respiratory Effort Cardiovascular: Regular Rate, Regular Rhythm GI/Abdominal Exam: Normal Bowel Sounds, Soft, Non-Tender, No Organomegaly, No Distention, No Abnormal Bruit, No Mass, Pelvis Stable Back Exam: Normal Inspection, Full Range of Motion, NT Extremities: Pedal Edema (bilateral lower extremity edema left worse than right) , Leg Pain, Increased Warmth (well-demarcated erythema and warmth bilateral lower extremities worse on the anterior shins.). No: Non-Tender (tender left calf with edema) Neuro Extensive - Mental Status: Slow Response to Commands Neuro Extensive - Motor, Sensory, Reflexes: CN II-XII Intact - Patient Data Lab Results Last 24 hrs: Laboratory Results - last 24 hr 06/24/19 06/24/19 06/24/19 Range/Units 09:20 09:20 09:20 WBC 9.24 H (4.23-9.07) K/mm3 RBC 3.01 L (4.63-6.08) M/mm3 Hgb 8.6 L D (13.7-17.5) gm/dl Hct 27.8 L (40.1-51.0) % MCV 92.4 H (79.0-92.2) fl MCH 28.6 (25.7-32.2) pg MCHC 30.9 L (32.2-35.5) g/dl RDW Std Deviation 58.3 H (35.1-43.9) fL Plt Count 275 (163-337) K/mm3 MPV 9.0 L (9.4-12.3) fl Neutrophils % (Manual) 85 H (40-60) % Band Neutrophils % 0 (0-10) % Lymphocytes % (Manual) 7 L (20-40) % Atypical Lymphs % 0 % Monocytes % (Manual) 5 (2-10) % Eosinophils % (Manual) 2 (0.8-7.0) % Basophils % (Manual) 1 (0.2-1.2) Platelet Estimate Adequate Poikilocytosis 1+ slight Anisocytosis 1+ slight RBC Morph Comment director inpatient headache program PT (9.7-12.0) SECONDS INR Sodium 133 L (136-145) mEq/L Potassium 2.6 L (3.5-5.1) mEq/L Chloride 92 L (98-107) mEq/L Carbon Dioxide 32 (21-32) mEq/L Anion Gap 11.6 (5-15) BUN 87 H (7-18) mg/dL Creatinine 1.9 H (0.7-1.3) mg/dL Est Cr Clr Drug Dosing 30.63 mL/min Estimated GFR (MDRD) 34 (>60) mL/min BUN/Creatinine Ratio 45.8 H (14-18) Glucose 165 H (83-115) mg/dL Lactic Acid (0.4-2.0) mmol/L Calcium 9.1 (8.5-10.1) mg/dL Total Bilirubin 0.7 (0.2-1.0) mg/dL AST 21 (15-37) U/L ALT 25 (16-63) U/L Alkaline Phosphatase 97 (46-116) U/L Troponin I 0.091 H* (0.00-0.056) ng/mL C-Reactive Protein < 0.2 (<1.0) mg/dL NT-Pro-B Natriuret Pep (0-450) pg/mL Total Protein 7.3 (6.4-8.2) g/dl Albumin 3.5 (3.4-5.0) g/dl Globulin 3.8 gm/dL Albumin/Globulin Ratio 0.9 L (1-2) 06/24/19 06/24/19 06/24/19 Range/Units 09:20 09:20 12:05 WBC (4.23-9.07) K/mm3 RBC (4.63-6.08) M/mm3 Hgb (13.7-17.5) gm/dl Hct (40.1-51.0) % MCV (79.0-92.2) fl MCH (25.7-32.2) pg MCHC (32.2-35.5) g/dl RDW Std Deviation (35.1-43.9) fL Plt Count (163-337) K/mm3 MPV (9.4-12.3) fl Neutrophils % (Manual) (40-60) % Band Neutrophils % (0-10) % Lymphocytes % (Manual) (20-40) % Atypical Lymphs % % Monocytes % (Manual) (2-10) % Eosinophils % (Manual) (0.8-7.0) % Basophils % (Manual) (0.2-1.2) Platelet Estimate Poikilocytosis Anisocytosis RBC Morph Comment PT 18.6 H (9.7-12.0) SECONDS INR 1.76 Sodium (136-145) mEq/L Potassium (3.5-5.1) mEq/L Chloride (98-107) mEq/L Carbon Dioxide (21-32) mEq/L Anion Gap (5-15) BUN (7-18) mg/dL Creatinine (0.7-1.3) mg/dL Est Cr Clr Drug Dosing mL/min Estimated GFR (MDRD) (>60) mL/min BUN/Creatinine Ratio (14-18) Glucose (83-115) mg/dL Lactic Acid 2.2 H (0.4-2.0) mmol/L Calcium (8.5-10.1) mg/dL Total Bilirubin (0.2-1.0) mg/dL AST (15-37) U/L ALT (16-63) U/L Alkaline Phosphatase (46-116) U/L Troponin I (0.00-0.056) ng/mL C-Reactive Protein (<1.0) mg/dL NT-Pro-B Natriuret Pep 2314 H (0-450) pg/mL Total Protein (6.4-8.2) g/dl Albumin (3.4-5.0) g/dl Globulin gm/dL Albumin/Globulin Ratio (1-2) 10/25/19 10/25/19 Range/Units 13:55 13:55 WBC (4.23-9.07) K/mm3 RBC (4.63-6.08) M/mm3 Hgb (13.7-17.5) gm/dl Hct (40.1-51.0) % MCV (79.0-92.2) fl MCH (25.7-32.2) pg MCHC (32.2-35.5) g/dl RDW Std Deviation (35.1-43.9) fL Plt Count (163-337) K/mm3 MPV (9.4-12.3) fl Neutrophils % (Manual) (40-60) % Band Neutrophils % (0-10) % Lymphocytes % (Manual) (20-40) % Atypical Lymphs % % Monocytes % (Manual) (2-10) % Eosinophils % (Manual) (0.8-7.0) % Basophils % (Manual) (0.2-1.2) Platelet Estimate Poikilocytosis Anisocytosis RBC Morph Comment PT (9.7-12.0) SECONDS INR Sodium 133 L (136-145) mEq/L Potassium 3.2 L (3.5-5.1) mEq/L Chloride 93 L (98-107) mEq/L Carbon Dioxide 31 (21-32) mEq/L Anion Gap 12.2 (5-15) BUN 85 H (7-18) mg/dL Creatinine 1.7 H (0.7-1.3) mg/dL Est Cr Clr Drug Dosing 34.24 mL/min Estimated GFR (MDRD) 38 (>60) mL/min BUN/Creatinine Ratio 50.0 H (14-18) Glucose 150 H (83-115) mg/dL Lactic Acid 1.7 (0.4-2.0) mmol/L Calcium 8.9 (8.5-10.1) mg/dL Total Bilirubin (0.2-1.0) mg/dL AST (15-37) U/L ALT (16-63) U/L Alkaline Phosphatase (46-116) U/L Troponin I (0.00-0.056) ng/mL C-Reactive Protein (<1.0) mg/dL NT-Pro-B Natriuret Pep (0-450) pg/mL Total Protein (6.4-8.2) g/dl Albumin (3.4-5.0) g/dl Globulin gm/dL Albumin/Globulin Ratio (1-2) Result Diagrams: 06/24/19 09:20 06/24/19 13:55 Problem List Initiated/Reviewed/Updated: Yes Orders Last 24hrs: Active Orders 24 hr Category Date Time Status Patient Status [ADT] Routine ADT 06/24/19 15:09 Ordered EKG 12 Lead [EKG Documentation Completion] [RC] STAT Care 06/24/19 08:58 Active Oxygen Therapy [RC] PRN Care 06/24/19 15:03 Ordered Peripheral IV Care [RC] . DIRECTED Care 06/24/19 09:00 Active Up With Assistance [RC] ASDIRECTED Care 06/24/19 15:03 Ordered Urinary Catheter Assessment [RC] ASDIRECTED Care 06/24/19 15:08 Ordered Urinary Catheter Insertion [Insert Urinary Catheter] [ Care 06/24/19 15:15 Ordered OM.PC] Q24H VTE/DVT Education [RC] PER UNIT ROUTINE Care 06/24/19 15:03 Ordered Vital Signs [RC] Q4H Care 06/24/19 15:03 Ordered OT Evaluation and Treatment [CONS] Routine Cons 06/24/19 15:04 Ordered PT Evaluation and Treatment [CONS] Routine Cons 06/24/19 15:04 Ordered Heart Healthy Diet [DIET] Diet 06/24/19 Lunch Active CBC WITH AUTO DIFF [HEME] AM Lab 06/25/19 05:11 Ordered CBC WITH AUTO DIFF [HEME] AM Lab 06/26/19 05:11 Ordered CBC WITH AUTO DIFF [HEME] AM Lab 06/27/19 05:11 Ordered CBC WITH AUTO DIFF [HEME] AM Lab 06/28/19 05:11 Ordered CBC WITH AUTO DIFF [HEME] AM Lab 06/29/19 05:11 Ordered COMPREHENSIVE METABOLIC PN,CMP [CHEM] AM Lab 06/25/19 05:11 Ordered COMPREHENSIVE METABOLIC PN,CMP [CHEM] AM Lab 06/26/19 05:11 Ordered COMPREHENSIVE METABOLIC PN,CMP [CHEM] AM Lab 06/27/19 05:11 Ordered COMPREHENSIVE METABOLIC PN,CMP [CHEM] AM Lab 06/28/19 05:11 Ordered COMPREHENSIVE METABOLIC PN,CMP [CHEM] AM Lab 06/29/19 05:11 Ordered CULTURE BLOOD [BC] Stat Lab 06/24/19 09:20 Received MAGNESIUM [CHEM] AM Lab 06/25/19 05:11 Ordered MAGNESIUM [CHEM] AM Lab 06/26/19 05:11 Ordered MAGNESIUM [CHEM] AM Lab 06/27/19 05:11 Ordered MAGNESIUM [CHEM] AM Lab 06/28/19 05:11 Ordered MAGNESIUM [CHEM] AM Lab 06/29/19 05:11 Ordered PACKED CELLS [RED BLOOD CELLS LP] [BBK] Routine Lab 06/24/19 13:55 Received TYPE AND SCREEN [BBK] Routine Lab 06/24/19 13:55 Received Acetaminophen [Tylenol] Med 06/24/19 15:03 Ordered 650 mg PO Q4H PRN Furosemide [Lasix] 100 mg Med 06/24/19 15:15 Ordered Sodium Chloride 0.9% [Normal Saline] 90 ml IV TITRATE Ondansetron [Zofran] Med 06/24/19 15:03 Ordered 4 mg IV Q4H PRN Potassium Chloride [Klor-Con M20] Med 06/24/19 21:00 Ordered 40 meq PO BEDTIME Sodium Chloride 0.9% [Saline Flush] Med 06/24/19 08:58 Active 10 ml FLUSH ASDIRECTED PRN cefTRIAXone [Rocephin] 2 gm Med 06/24/19 11:00 Active Sodium Chloride 0.9% [Normal Saline] 100 ml IV Q24H Peripheral IV Insertion Adult [OM.PC] Stat Oth 06/24/19 08:59 Ordered Transfuse PRBC [Transfuse Red Blood Cells] [COMM] Oth 06/24/19 14:21 Ordered Routine Transfuse Red Blood Cells [COMM] Routine Oth 06/24/19 14:21 Ordered Resuscitation Status Routine Resus Stat 06/24/19 15:03 Ordered Medication Orders Acetaminophen (Tylenol) 650 mg PO Q4H PRN PRN Reason: Pain (Mild 1-3)/fever Ceftriaxone Sodium 2 gm/ (Sodium Chloride) 100 mls @ 200 mls/hr IV Q24H DARCY Last Admin: 06/24/19 11:11 Dose: 200 mls/hr Furosemide 100 mg/ Sodium (Chloride) 100 mls @ 10 mls/hr IV TITRATE DARCY; Protocol Ondansetron HCl (Zofran) 4 mg IV Q4H PRN PRN Reason: Nausea/Vomiting Potassium Chloride (Klor-Con M20) 40 meq PO BEDTIME DARCY Stop: 06/24/19 21:01 Sodium Chloride (Saline Flush) 10 ml FLUSH ASDIRECTED PRN PRN Reason: Keep Vein Open Last Admin: 06/24/19 10:52 Dose: 10 ml Assessment/Plan Comment:: Assessment * bilateral lower extremity symptomatic edema secondary to right heart failure, acute on chronic * worsening lower extremity edema, redness, pain, and tenderness * BNP 2314 * 7 lbs wt gain over the last 3 weeks since moving to [facility]. * ECG ventricular pacing. * Spoke with Dr. Santos (his fiberglasser) who recommends Lasix push follow by ggt * Not on LOWELL/ARB 2.2 CRI * bilateral lower extremity cellulitis * worsening lower extremity edema, redness, pain, warmth, and tenderness * WBC 9.24 with 85% neutrophils * Lactic acid initially 2.2--> repeat 1.7 * CRP<0.2 * Stage 3b CRI * eGFR 34; Cr Clr 30.6 * Hypokalemia * K+ 2.6 --> 3.2 * given K-Dur 40 mEq in ER * Chronic blood loss anemia * Transfuse 1 unit PRBC 2/2 blood loss and active heart disease * Follow H/H * Previous capsule endoscopy found slow small intestinal bleed per daughter * On Warfarin for symptomatic LLE DVT * LLE DVT treated with Warfarin * Subtherapeutic Plan * Admit to ICU for close monitoring of cardiac status and I/Os * Lasix 80 mg IV push followed by Lasix ggt - Aim for approximate 7 lbs weight loss * Guerrero for Strict I/Os * 1 unit PRBC * Follow H/H * Pharmacy to dose Warfarin - Pt. has a long history of slow blood loss and is on Warfarin for symptomatic DVT. * Consider palliative care. * VTE prophylaxis with warfarin * DNR/DNI * Follow CBC, CMP, Mag daily - Mortality Measure Prognosis:: Poor
[2019-06-24] MEDS: Furosemide 100 MG in Sodium Chloride 0.9% 90 ML IV SCH (15:53)
[2019-06-24] MEDS ORDERED: Sodium Chloride 0.9% 250 ML IV ONE (16:00)
[2019-06-24] MEDS ORDERED: Sodium Chloride 0.9% 250 ML ONE (16:21)
[2019-06-24] MEDS ORDERED: Non-Formulary Medication 1 Each (Acetaminophen 1,000 MG) PO PRN (16:40)
[2019-06-24] MEDS: Warfarin 5 MG Tab PO SCH (17:00)
[2019-06-24] MEDS: Acetaminophen 325 MG Tab PO PRN (18:23)
[2019-06-24] MEDS ORDERED: Albuterol/Ipratropium 3.0-0.5 MG/3 ML Neb Soln ONE (18:33)
[2019-06-24] MEDS: Albuterol/Ipratropium 3.0-0.5 MG/3 ML Neb Soln NEB PRN (18:35)
[2019-06-24] MEDS: Pantoprazole 40 MG Tab.CR PO SCH (20:02)
[2019-06-24] MEDS: Allopurinol 100 MG Tab PO SCH (20:02)
[2019-06-24] MEDS ORDERED: Potassium Chloride 20 MEQ Tab.ER PO SCH (21:00)
[2019-06-25] MEDS: Levothyroxine 50 MCG Tab PO SCH (06:35)
[2019-06-25] MEDS: Pantoprazole 40 MG Tab.CR PO SCH ×2 (08:39→21:10)
[2019-06-25] MEDS: Allopurinol 100 MG Tab PO SCH ×2 (08:39→21:10)
[2019-06-25] MEDS: Propranolol 20 MG Tab PO SCH (08:39)
[2019-06-25] MEDS: Simvastatin 20 MG Tab PO SCH (08:39)
[2019-06-25] MEDS ORDERED: Potassium Chloride 20 MEQ Tab.ER PO ONE ×2 (09:30→16:19)
[2019-06-25] MEDS: Albuterol/Ipratropium 3.0-0.5 MG/3 ML Neb Soln NEB PRN (09:37)
[2019-06-25] MEDS: cefTRIAXone 2 GM in Sodium Chloride 0.9% 100 ML IV SCH (11:29)
[2019-06-25] MEDS: Acetaminophen 325 MG Tab PO PRN (11:29)
[2019-06-25] MEDS: Furosemide 100 MG in Sodium Chloride 0.9% 90 ML IV SCH (13:16)
--- NOTE | 2019-06-25 16:18 | PCM.PN ---
- General Info Date of Service: 06/25/19 Admission Dx/Problem (Free Text): Admission Diagnosis/Problem Admission Diagnosis/Problem Cellulitis Subjective Update: Patient has had significant improvement in his lower extremity edema. Less painful and red. He did receive 2 units packed red blood cells yesterday. Functional Status: Reports: Pain Controlled - Review of Systems General: Reports: No Symptoms HEENT: Reports: No Symptoms Pulmonary: Reports: No Symptoms Cardiovascular: Reports: Edema. Denies: Chest Pain - Patient Data Vitals - Most Recent: Last Vital Signs Temp 98.7 F 06/25/19 14:47 Pulse 78 06/24/19 22:12 Resp 16 06/25/19 14:47 BP 102/72 06/25/19 14:47 Pulse Ox 97 06/25/19 15:03 Weight - Most Recent: 228 lb 3.2 oz I&O - Last 24 Hours: Intake & Output 06/25/19 06/25/19 06/25/19 06:59 14:59 22:59 Intake Total 442 420 Output Total 1685 1025 Balance -1243 -605 Lab Results Last 24 Hours: Laboratory Results - last 24 hr 06/24/19 06/24/19 06/25/19 Range/Units 13:55 20:25 04:25 WBC 10.38 H (4.23-9.07) K/mm3 RBC 3.44 L (4.63-6.08) M/mm3 Hgb 8.7 L 9.8 L (13.7-17.5) gm/dl Hct 27.8 L 31.3 L (40.1-51.0) % MCV 91.0 (79.0-92.2) fl MCH 28.5 (25.7-32.2) pg MCHC 31.3 L (32.2-35.5) g/dl RDW Std Deviation 57.3 H (35.1-43.9) fL Plt Count 235 (163-337) K/mm3 MPV 9.6 (9.4-12.3) fl Neut % (Auto) 80.4 H (34.0-67.9) % Lymph % (Auto) 3.3 L (21.8-53.1) % Todd % (Auto) 12.6 H (5.3-12.2) % Eos % (Auto) 2.8 (0.8-7.0) Baso % (Auto) 0.2 (0.1-1.2) % Neut # (Auto) 8.35 H (1.78-5.38) K/mm3 Lymph # (Auto) 0.34 L (1.32-3.57) K/mm3 [place] # (Auto) 1.31 H (0.30-0.82) K/mm3 Eos # (Auto) 0.29 (0.04-0.54) K/mm3 Baso # (Auto) 0.02 (0.01-0.08) K/mm3 Manual Slide Review Abnormal smear PT (9.7-12.0) SECONDS INR Sodium (136-145) mEq/L Potassium (3.5-5.1) mEq/L Chloride (98-107) mEq/L Carbon Dioxide (21-32) mEq/L Anion Gap (5-15) BUN (7-18) mg/dL Creatinine (0.7-1.3) mg/dL Est Cr Clr Drug Dosing mL/min Estimated GFR (MDRD) (>60) mL/min BUN/Creatinine Ratio (14-18) Glucose (83-115) mg/dL Calcium (8.5-10.1) mg/dL Magnesium (1.8-2.4) mg/dl Total Bilirubin (0.2-1.0) mg/dL AST (15-37) U/L ALT (16-63) U/L Alkaline Phosphatase (46-116) U/L Total Protein (6.4-8.2) g/dl Albumin (3.4-5.0) g/dl Globulin gm/dL Albumin/Globulin Ratio (1-2) TSH 3rd Generation (0.358-3.74) uIU/mL Blood Type A POSITIVE Gel Antibody Screen Negative Crossmatch See Detail 06/25/19 06/25/19 06/25/19 Range/Units 04:25 04:25 04:25 WBC (4.23-9.07) K/mm3 RBC (4.63-6.08) M/mm3 Hgb (13.7-17.5) gm/dl Hct (40.1-51.0) % MCV (79.0-92.2) fl MCH (25.7-32.2) pg MCHC (32.2-35.5) g/dl RDW Std Deviation (35.1-43.9) fL Plt Count (163-337) K/mm3 MPV (9.4-12.3) fl Neut % (Auto) (34.0-67.9) % Lymph % (Auto) (21.8-53.1) % Todd % (Auto) (5.3-12.2) % Eos % (Auto) (0.8-7.0) Baso % (Auto) (0.1-1.2) % Neut # (Auto) (1.78-5.38) K/mm3 Lymph # (Auto) (1.32-3.57) K/mm3 Todd # (Auto) (0.30-0.82) K/mm3 Eos # (Auto) (0.04-0.54) K/mm3 Baso # (Auto) (0.01-0.08) K/mm3 Manual Slide Review PT 20.2 H (9.7-12.0) SECONDS INR 1.92 Sodium 135 L (136-145) mEq/L Potassium 2.9 L (3.5-5.1) mEq/L Chloride 96 L (98-107) mEq/L Carbon Dioxide 30 (21-32) mEq/L Anion Gap 11.9 (5-15) BUN 82 H (7-18) mg/dL Creatinine 2.3 H (0.7-1.3) mg/dL Est Cr Clr Drug Dosing 25.30 mL/min Estimated GFR (MDRD) 27 (>60) mL/min BUN/Creatinine Ratio 35.7 H (14-18) Glucose 129 H (83-115) mg/dL Calcium 8.7 (8.5-10.1) mg/dL Magnesium 2.1 (1.8-2.4) mg/dl Total Bilirubin 1.5 H (0.2-1.0) mg/dL AST 26 (15-37) U/L ALT 23 (16-63) U/L Alkaline Phosphatase 91 (46-116) U/L Total Protein 6.9 (6.4-8.2) g/dl Albumin 3.2 L (3.4-5.0) g/dl Globulin 3.7 gm/dL Albumin/Globulin Ratio 0.9 L (1-2) TSH 3rd Generation 3.926 H (0.358-3.74) uIU/mL Blood Type Gel Antibody Screen Crossmatch Edilson Results Last 24 Hours: Microbiology 06/24/19 09:20 Aerobic Blood Culture - Preliminary Blood NO GROWTH AFTER 1 DAY Anaerobic Blood Culture - Preliminary NO GROWTH AFTER 1 DAY Med Orders - Current: Current Medications Acetaminophen (Tylenol) 650 mg PO Q4H PRN PRN Reason: Pain (Mild 1-3)/fever Last Admin: 06/25/19 11:29 Dose: 650 mg Albuterol/Ipratropium (Duoneb 3.0-0.5 Mg/3 Ml) 3 ml NEB Q4HRRT PRN PRN Reason: Wheezing Last Admin: 06/25/19 09:37 Dose: 3 ml Allopurinol (Zyloprim) 100 mg PO BID [facility] Last Admin: 06/25/19 08:39 Dose: 100 mg Ceftriaxone Sodium 2 gm/ (Sodium Chloride) 100 mls @ 200 mls/hr IV Q24H [facility] Last Admin: 06/25/19 11:29 Dose: 200 mls/hr Furosemide 100 mg/ Sodium (Chloride) 100 mls @ 10 mls/hr IV TITRATE [facility]; Protocol Last Infusion: 06/25/19 14:30 Dose: 5 mg/hr, 5 mls/hr Levothyroxine Sodium (Synthroid) 50 mcg PO ACBREAKFAST [facility] Last Admin: 06/25/19 06:35 Dose: 50 mcg Non-Formulary Medication (Ferrous Sulfate) 300 mg PO TID [facility] Ondansetron HCl (Zofran) 4 mg IV Q4H PRN PRN Reason: Nausea/Vomiting Pantoprazole Sodium (Protonix) 40 mg PO BID [facility] Last Admin: 06/25/19 08:39 Dose: 40 mg Potassium Chloride (Klor-Con M20) 40 meq PO BEDTIME [facility] Stop: 06/26/19 21:01 Propranolol HCl (Inderal) 20 mg PO DAILY [facility] Last Admin: 06/25/19 08:39 Dose: 20 mg Simvastatin (Zocor) 20 mg PO DAILY [facility] Last Admin: 06/25/19 08:39 Dose: 20 mg Sodium Chloride (Saline Flush) 10 ml FLUSH ASDIRECTED PRN PRN Reason: Keep Vein Open Last Admin: 06/24/19 10:52 Dose: 10 ml Warfarin Sodium (Pharmacy To Dose - Warfarin) 1 dose .XX ASDIRECTED [facility] Warfarin Sodium (Coumadin) 5 mg PO MoWeFr@1800 [facility] Last Admin: 06/24/19 17:00 Dose: 5 mg Warfarin Sodium (Coumadin) 2.5 mg PO SuTuThSa@1800 [facility] Discontinued Medications Albuterol/Ipratropium (Duoneb 3.0-0.5 Mg/3 Ml) Confirm Administered Dose 3 ml .ROUTE .STK-MED ONE Stop: 06/24/19 18:34 Last Admin: 06/24/19 18:40 Dose: Not Given Furosemide (Lasix) 80 mg IVPUSH NOW ONE Stop: 06/24/19 15:06 Last Admin: 06/24/19 16:10 Dose: 80 mg Vancomycin HCl 1.75 gm/ Sodium (Chloride) 500 mls @ 250 mls/hr IV ONETIME ONE Stop: 06/24/19 14:29 Last Admin: 06/24/19 16:47 Dose: Not Given Vancomycin HCl 1.25 gm/ Sodium (Chloride) 250 mls @ 166.667 mls/hr IV Q24H [facility] Sodium Chloride (Normal Saline) Confirm Administered Dose 250 mls @ as directed .ROUTE .STK-MED ONE Stop: 06/24/19 16:22 Last Admin: 06/24/19 16:49 Dose: Not Given Sodium Chloride (Normal Saline) 250 mls @ 50 mls/hr IV ONETIME ONE Stop: 06/24/19 20:59 Last Admin: 06/24/19 16:57 Dose: 50 mls/hr Non-Formulary Medication (Acetaminophen) 1,000 mg PO Q6H PRN PRN Reason: Pain Potassium Chloride (Klor-Con M20) 40 meq PO ONETIME ONE Stop: 06/24/19 10:59 Last Admin: 06/24/19 11:11 Dose: 40 meq Potassium Chloride (Klor-Con M20) 40 meq PO BEDTIME [facility] Stop: 06/24/19 21:01 Last Admin: 06/24/19 20:01 Dose: 40 meq Potassium Chloride (Klor-Con M20) 40 meq PO ONETIME ONE Stop: 06/25/19 09:31 Last Admin: 06/25/19 11:29 Dose: 40 meq Vancomycin HCl (Pharmacy To Dose - Vancomycin) 1 dose .XX ASDIRECTED PRN PRN Reason: RX TO DOSE VANCO - Exam General: Alert, Oriented HEENT: Pupils Equal, Pupils Reactive, EOMI, Mucous Membr. Moist/[place] Neck: Supple Lungs: Clear to Auscultation, Normal Respiratory Effort Cardiovascular: Regular Rate, Regular Rhythm Extremities: Pedal Edema, Redness (Slightly improved) Skin: Warm, Dry, Intact - Problem List Review Problem List Initiated/Reviewed/Updated: Yes - My Orders Last 24 Hours: My Active Orders 06/24/19 15:15 Urinary Catheter Insertion [Insert Urinary Catheter] [OM.PC] Q24H 06/24/19 15:30 Furosemide [Lasix] 100 mg Sodium Chloride 0.9% [Normal Saline] 90 ml IV TITRATE Pharmacy to Dose - Warfarin 1 dose .XX ASDIRECTED 06/24/19 16:50 Intake and Output Strict [RC] Q2HR 06/24/19 18:00 Warfarin [Coumadin] 5 mg PO MoWeFr@1800 06/24/19 18:31 Albuterol/Ipratropium [DuoNeb 3.0-0.5 MG/3 ML] 3 ml NEB Q4HRRT PRN 06/24/19 18:32 RT Aerosol Therapy [RC] ASDIRECTED 06/24/19 20:51 Transfuse RBC [Transfuse Red Blood Cells] [COMM] Routine 06/24/19 21:00 Allopurinol [Zyloprim] 100 mg PO BID Ferrous Sulfate 300 mg PO TID Pantoprazole [ProTONIX] 40 mg PO BID 06/25/19 06:00 Levothyroxine [Synthroid] 50 mcg PO ACBREAKFAST 06/25/19 09:00 Propranolol [Inderal] 20 mg PO DAILY Simvastatin [Zocor] 20 mg PO DAILY 06/25/19 18:00 Warfarin [Coumadin] 2.5 mg PO SuTuThSa@1800 06/25/19 21:00 Potassium Chloride [Klor-Con M20] 40 meq PO BEDTIME 06/26/19 05:11 CBC WITH AUTO DIFF [HEME] AM COMPREHENSIVE METABOLIC PN,CMP [CHEM] AM INR,PT,PROTHROMBIN TIME [COAG] AM MAGNESIUM [CHEM] AM 06/27/19 05:11 CBC WITH AUTO DIFF [HEME] AM COMPREHENSIVE METABOLIC PN,CMP [CHEM] AM INR,PT,PROTHROMBIN TIME [COAG] AM MAGNESIUM [CHEM] AM 06/28/19 05:11 CBC WITH AUTO DIFF [HEME] AM COMPREHENSIVE METABOLIC PN,CMP [CHEM] AM INR,PT,PROTHROMBIN TIME [COAG] AM MAGNESIUM [CHEM] AM 06/29/19 05:11 CBC WITH AUTO DIFF [HEME] AM COMPREHENSIVE METABOLIC PN,CMP [CHEM] AM INR,PT,PROTHROMBIN TIME [COAG] AM MAGNESIUM [CHEM] AM - Plan Plan:: Assessment * bilateral lower extremity symptomatic edema secondary to right heart failure, acute on chronic * worsening lower extremity edema, redness, pain, and tenderness * BNP 2314 * 7 lbs wt gain over the last 3 weeks since moving to [facility]. * ECG ventricular pacing. * Spoke with Dr. Santos (his invas tech) who recommends Lasix push follow by ggt * Not on LOWELL/ARB 2.2 CRI * Patient had a 4 pound weight gain even though he had 1.5 L negative fluid balance. Based on symptoms the weights are likely incorrect. 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 has a long history of slow blood loss and is on Warfarin for symptomatic DVT. * Consider palliative care. * VTE prophylaxis with warfarin * DNR/DNI * Follow CBC, CMP, Mag daily
[2019-06-25] MEDS: Warfarin 2.5 MG Tab PO SCH (17:15)
[2019-06-25] MEDS: Potassium Chloride 20 MEQ Tab.ER PO SCH (21:10)
[2019-06-26] MEDS: Levothyroxine 50 MCG Tab PO SCH (05:29)
[2019-06-26] MEDS: Furosemide 100 MG in Sodium Chloride 0.9% 90 ML IV SCH ×2 (05:44→23:57)
[2019-06-26] MEDS: Pantoprazole 40 MG Tab.CR PO SCH ×3 (08:10→21:01)
[2019-06-26] MEDS: Simvastatin 20 MG Tab PO SCH (08:10)
[2019-06-26] MEDS: Propranolol 20 MG Tab PO SCH (08:10)
[2019-06-26] MEDS: Allopurinol 100 MG Tab PO SCH ×3 (08:10→21:01)
[2019-06-26] MEDS: Albuterol/Ipratropium 3.0-0.5 MG/3 ML Neb Soln NEB PRN ×3 (08:23→16:32)
[2019-06-26] MEDS ORDERED: Ferrous Sulfate 324 MG Tab.EC PO SCH (09:00)
--- NOTE | 2019-06-26 09:12 | CR ---
Chest: Portable view of the chest was obtained. Comparison: Prior chest x-ray of 06/24/19. Heart size is within normal limits for portable technique. Thoracic aorta is again noted to be tortuous. Atherosclerotic calcification is seen within the aortic knob. 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 Lungs show no acute parenchymal change. Bony structures are grossly intact. Impression: 1. Nothing acute is appreciated on portable chest x-ray. 2. No appreciable change is seen from previous chest x-ray. Diagnostic code #2
[2019-06-26] MEDS: Vancomycin 1 GM, Vancomycin 250 MG in Sodium Chloride 0.9% 250 ML IV SCH (09:16)
[2019-06-26] MEDS: FERROUS SULFATE PO SCH ×4 (09:37→21:01)
--- NOTE | 2019-06-26 15:03 | PCM.PN ---
- General Info Date of Service: 06/26/19 Admission Dx/Problem (Free Text): Admission Diagnosis/Problem Admission Diagnosis/Problem Cellulitis Subjective Update: No complaints. Resting comfortable. Functional Status: Reports: Tolerating Diet, Ambulating - Review of Systems General: Reports: No Symptoms HEENT: Reports: No Symptoms Pulmonary: Reports: No Symptoms Cardiovascular: Reports: No Symptoms Neurological: Reports: No Symptoms Psychiatric: Reports: No Symptoms - Patient Data Vitals - Most Recent: Last Vital Signs Temp 98.4 F 06/26/19 11:56 Pulse 72 06/26/19 04:00 Resp 22 H 06/26/19 11:56 BP 115/65 06/26/19 11:56 Pulse Ox 97 06/26/19 14:14 Weight - Most Recent: 229 lb I&O - Last 24 Hours: Intake & Output 06/25/19 06/26/19 06/26/19 22:59 06:59 14:59 Intake Total 1508 354 120 Output Total 082 580 2577 Balance 792 -887 -3653 Imaging Impressions - Last 24 Hours: CXR - nothing acute Lab Results Last 24 Hours: Laboratory Results - last 24 hr 06/26/19 06/26/19 06/26/19 Range/Units 04:10 04:10 04:10 WBC 11.27 H (4.23-9.07) K/mm3 RBC 3.40 L (4.63-6.08) M/mm3 Hgb 9.8 L (13.7-17.5) gm/dl Hct 31.3 L (40.1-51.0) % MCV 92.1 (79.0-92.2) fl MCH 28.8 (25.7-32.2) pg MCHC 31.3 L (32.2-35.5) g/dl RDW Std Deviation 59.0 H (35.1-43.9) fL Plt Count 227 (163-337) K/mm3 MPV 9.7 (9.4-12.3) fl Neut % (Auto) 79.8 H (34.0-67.9) % Lymph % (Auto) 2.3 L (21.8-53.1) % [place] % (Auto) 13.3 H (5.3-12.2) % Eos % (Auto) 3.3 (0.8-7.0) Baso % (Auto) 0.4 (0.1-1.2) % Neut # (Auto) 9.00 H (1.78-5.38) K/mm3 Lymph # (Auto) 0.26 L (1.32-3.57) K/mm3 [place] # (Auto) 1.50 H (0.30-0.82) K/mm3 Eos # (Auto) 0.37 (0.04-0.54) K/mm3 Baso # (Auto) 0.04 (0.01-0.08) K/mm3 Manual Slide Review Abnormal smear PT 21.7 H (9.7-12.0) SECONDS INR 2.07 Sodium 134 L (136-145) mEq/L Potassium 3.8 (3.5-5.1) mEq/L Chloride 97 L (98-107) mEq/L Carbon Dioxide 29 (21-32) mEq/L Anion Gap 11.8 (5-15) BUN 76 H (7-18) mg/dL Creatinine 1.7 H (0.7-1.3) mg/dL Est Cr Clr Drug Dosing 34.24 mL/min Estimated GFR (MDRD) 38 (>60) mL/min BUN/Creatinine Ratio 44.7 H (14-18) Glucose 134 H (83-115) mg/dL Calcium 8.8 (8.5-10.1) mg/dL Magnesium 2.3 (1.8-2.4) mg/dl Total Bilirubin 0.6 (0.2-1.0) mg/dL AST 23 (15-37) U/L ALT 22 (16-63) U/L Alkaline Phosphatase 97 (46-116) U/L NT-Pro-B Natriuret Pep (0-450) pg/mL Total Protein 6.8 (6.4-8.2) g/dl Albumin 3.2 L (3.4-5.0) g/dl Globulin 3.6 gm/dL Albumin/Globulin Ratio 0.9 L (1-2) 06/26/19 Range/Units 08:15 WBC (4.23-9.07) K/mm3 RBC (4.63-6.08) M/mm3 Hgb (13.7-17.5) gm/dl Hct (40.1-51.0) % MCV (79.0-92.2) fl MCH (25.7-32.2) pg MCHC (32.2-35.5) g/dl RDW Std Deviation (35.1-43.9) fL Plt Count (163-337) K/mm3 MPV (9.4-12.3) fl Neut % (Auto) (34.0-67.9) % Lymph % (Auto) (21.8-53.1) % [place] % (Auto) (5.3-12.2) % Eos % (Auto) (0.8-7.0) Baso % (Auto) (0.1-1.2) % Neut # (Auto) (1.78-5.38) K/mm3 Lymph # (Auto) (1.32-3.57) K/mm3 [place] # (Auto) (0.30-0.82) K/mm3 Eos # (Auto) (0.04-0.54) K/mm3 Baso # (Auto) (0.01-0.08) K/mm3 Manual Slide Review PT (9.7-12.0) SECONDS INR Sodium (136-145) mEq/L Potassium (3.5-5.1) mEq/L Chloride (98-107) mEq/L Carbon Dioxide (21-32) mEq/L Anion Gap (5-15) BUN (7-18) mg/dL Creatinine (0.7-1.3) mg/dL Est Cr Clr Drug Dosing mL/min Estimated GFR (MDRD) (>60) mL/min BUN/Creatinine Ratio (14-18) Glucose (83-115) mg/dL Calcium (8.5-10.1) mg/dL Magnesium (1.8-2.4) mg/dl Total Bilirubin (0.2-1.0) mg/dL AST (15-37) U/L ALT (16-63) U/L Alkaline Phosphatase (46-116) U/L NT-Pro-B Natriuret Pep 2998 H (0-450) pg/mL Total Protein (6.4-8.2) g/dl Albumin (3.4-5.0) g/dl Globulin gm/dL Albumin/Globulin Ratio (1-2) Edilson Results Last 24 Hours: Microbiology 06/24/19 09:20 Aerobic Blood Culture - Preliminary Blood NO GROWTH AFTER 2 DAYS Anaerobic Blood Culture - Preliminary NO GROWTH AFTER 2 DAYS Med Orders - Current: Current Medications Acetaminophen (Tylenol) 650 mg PO Q4H PRN PRN Reason: Pain (Mild 1-3)/fever Last Admin: 06/25/19 11:29 Dose: 650 mg Albuterol/Ipratropium (Duoneb 3.0-0.5 Mg/3 Ml) 3 ml NEB Q4HRRT PRN PRN Reason: Wheezing Last Admin: 06/26/19 12:15 Dose: 3 ml Allopurinol (Zyloprim) 100 mg PO BID [facility] Last Admin: 06/26/19 08:10 Dose: 100 mg Bisacodyl (Dulcolax) 5 mg PO ASDIRECTED PRN PRN Reason: CONSTIPATION Guaifenesin (Mucinex) 600 mg PO BID [facility] Furosemide 100 mg/ Sodium (Chloride) 100 mls @ 10 mls/hr IV TITRATE [facility]; Protocol Last Admin: 06/26/19 05:44 Dose: 5 mg/hr, 5 mls/hr Vancomycin HCl 1 gm/Vancomycin HCl 250 mg/ Sodium Chloride 250 mls @ 250 mls/ hr IV Q24H [facility] Last Admin: 06/26/19 09:16 Dose: 250 mls/hr Levothyroxine Sodium (Synthroid) 50 mcg PO ACBREAKFAST [facility] Last Admin: 06/26/19 05:29 Dose: 50 mcg Ferrous Sulfate Elixir *Pt Own Supply* 0 mg PO TID [facility] Last Admin: 06/26/19 14:11 Dose: 220 mg Ondansetron HCl (Zofran) 4 mg IV Q4H PRN PRN Reason: Nausea/Vomiting Pantoprazole Sodium (Protonix) 40 mg PO BID [facility] Last Admin: 06/26/19 08:10 Dose: 40 mg Potassium Chloride (Klor-Con M20) 40 meq PO BEDTIME [facility] Stop: 06/26/19 21:01 Last Admin: 06/25/19 21:10 Dose: 40 meq Propranolol HCl (Inderal) 20 mg PO DAILY [facility] Last Admin: 06/26/19 08:10 Dose: 20 mg Simvastatin (Zocor) 20 mg PO DAILY [facility] Last Admin: 06/26/19 08:10 Dose: 20 mg Sodium Chloride (Saline Flush) 10 ml FLUSH ASDIRECTED PRN PRN Reason: Keep Vein Open Last Admin: 06/24/19 10:52 Dose: 10 ml Vancomycin HCl (Pharmacy To Dose - Vancomycin) 1 dose .XX ASDIRECTED [facility] Warfarin Sodium (Pharmacy To Dose - Warfarin) 1 dose .XX ASDIRECTED [facility] Warfarin Sodium (Coumadin) 5 mg PO MoWeFr@1800 [facility] Last Admin: 06/24/19 17:00 Dose: 5 mg Warfarin Sodium (Coumadin) 2.5 mg PO SuTuThSa@1800 [facility] Last Admin: 06/25/19 17:15 Dose: 2.5 mg Discontinued Medications Albuterol/Ipratropium (Duoneb 3.0-0.5 Mg/3 Ml) Confirm Administered Dose 3 ml .ROUTE .STK-MED ONE Stop: 06/24/19 18:34 Last Admin: 06/24/19 18:40 Dose: Not Given Ferrous Sulfate (Ferrous Sulfate) 220 mg PO TIDMEALS [facility] Last Admin: 06/26/19 10:07 Dose: Not Given Furosemide (Lasix) 80 mg IVPUSH NOW ONE Stop: 06/24/19 15:06 Last Admin: 06/24/19 16:10 Dose: 80 mg Ceftriaxone Sodium 2 gm/ (Sodium Chloride) 100 mls @ 200 mls/hr IV Q24H [facility] Last Admin: 06/25/19 11:29 Dose: 200 mls/hr Vancomycin HCl 1.75 gm/ Sodium (Chloride) 500 mls @ 250 mls/hr IV ONETIME ONE Stop: 06/24/19 14:29 Last Admin: 06/24/19 16:47 Dose: Not Given Vancomycin HCl 1.25 gm/ Sodium (Chloride) 250 mls @ 166.667 mls/hr IV Q24H [facility] Sodium Chloride (Normal Saline) Confirm Administered Dose 250 mls @ as directed .ROUTE .STK-MED ONE Stop: 06/24/19 16:22 Last Admin: 06/24/19 16:49 Dose: Not Given Sodium Chloride (Normal Saline) 250 mls @ 50 mls/hr IV ONETIME ONE Stop: 06/24/19 20:59 Last Admin: 06/24/19 16:57 Dose: 50 mls/hr Non-Formulary Medication (Acetaminophen) 1,000 mg PO Q6H PRN PRN Reason: Pain Potassium Chloride (Klor-Con M20) 40 meq PO ONETIME ONE Stop: 06/24/19 10:59 Last Admin: 06/24/19 11:11 Dose: 40 meq Potassium Chloride (Klor-Con M20) 40 meq PO BEDTIME [facility] Stop: 06/24/19 21:01 Last Admin: 06/24/19 20:01 Dose: 40 meq Potassium Chloride (Klor-Con M20) 40 meq PO ONETIME ONE Stop: 06/25/19 09:31 Last Admin: 06/25/19 11:29 Dose: 40 meq Potassium Chloride (Klor-Con M20) 20 meq PO ONETIME ONE Stop: 06/25/19 16:20 Last Admin: 06/25/19 17:15 Dose: 20 meq Vancomycin HCl (Pharmacy To Dose - Vancomycin) 1 dose .XX ASDIRECTED PRN PRN Reason: RX TO DOSE VANCO - Exam General: Alert, Oriented HEENT: Pupils Equal Neck: Supple Lungs: Clear to Auscultation, Normal Respiratory Effort Cardiovascular: Regular Rate, Regular Rhythm Extremities: Other (Decreased swelling. Not much change in the bilateral lower extremity) - Problem List Review Problem List Initiated/Reviewed/Updated: Yes - My Orders Last 24 Hours: My Active Orders 06/25/19 18:00 Warfarin [Coumadin] 2.5 mg PO SuTuThSa@1800 06/25/19 21:00 Potassium Chloride [Klor-Con M20] 40 meq PO BEDTIME 06/26/19 08:00 Bisacodyl [Dulcolax] 5 mg PO ASDIRECTED PRN 06/26/19 08:30 RT Chest Physiotherapy [RC] ASDIRECTED RT Incentive Spirometry [RC] ASDIRECTED 06/26/19 08:45 Pharmacy to Dose - Vancomycin 1 dose .XX ASDIRECTED 06/26/19 09:30 Ferrous Sulfate 0 mg PO TID Vancomycin 1 gm Vancomycin 250 mg Sodium Chloride 0.9% [Normal Saline] 250 ml IV Q24H 06/26/19 21:00 guaiFENesin [Mucinex] 600 mg PO BID 06/26/19 Lunch Fluid Restriction [DIET] 06/27/19 05:11 CBC WITH AUTO DIFF [HEME] AM COMPREHENSIVE METABOLIC PN,CMP [CHEM] AM INR,PT,PROTHROMBIN TIME [COAG] AM MAGNESIUM [CHEM] AM 06/28/19 05:11 CBC WITH AUTO DIFF [HEME] AM COMPREHENSIVE METABOLIC PN,CMP [CHEM] AM INR,PT,PROTHROMBIN TIME [COAG] AM MAGNESIUM [CHEM] AM 06/28/19 08:30 VANCOMYCIN TROUGH [CHEM] Timed 06/29/19 05:11 CBC WITH AUTO DIFF [HEME] AM COMPREHENSIVE METABOLIC PN,CMP [CHEM] AM INR,PT,PROTHROMBIN TIME [COAG] AM MAGNESIUM [CHEM] AM - Plan Plan:: Assessment * bilateral lower extremity symptomatic edema secondary to right heart failure, acute on chronic * worsening lower extremity edema, redness, pain, and tenderness * BNP increased to 3,000 * No weight loss since hospitalization despite negative fluid balance and Lasix drip. * 7 lbs wt gain over the last 3 weeks since moving to [facility]. * ECG ventricular pacing. * Spoke with Dr. Santos (his cut plug packer) who recommends Lasix push follow by ggt * Not on LOWELL/ARB secondary to CRI * bilateral lower extremity cellulitis * worsening lower extremity edema, redness, pain, warmth, and tenderness * Initial WBC 9.24 --> 10.38 -->11.3 * Lactic acid initially 2.2--> repeat 1.7 * CRP<0.2 * Stage 3b CRI * eGFR 34; Cr Clr 30.6 * Hypokalemia - resolved * K+ 2.6 --> 3.2 --> 2.9 -->3.8 * given K-Dur 40 mEq 2 times just related * Chronic blood loss anemia * Transfused 2 units PRBC 2/2 blood loss and active heart disease * Follow H/H * Previous capsule endoscopy found slow small intestinal bleed per daughter * On Warfarin for symptomatic LLE DVT * LLE DVT treated with Warfarin * Therapeutic today * Wet Cough * CXR - nothing acute Plan * ICU for close monitoring of cardiac status and I/Os * Lasix ggt - Aim for approximate 7 lbs weight loss - 100 ml/hr * Fluid restriction 1,500 ml/day * [place]ro for Strict I/Os * Switch from Rocephin to Vancomycin for MRSA coverage. Failed Rocephin tx. * Mucinex 600 mg BID * Nebs PRN * Incentive spirometry/ acapella * Follow H/H * Pharmacy to dose Warfarin - Pt. has a long history of slow blood loss and is on Warfarin for symptomatic DVT. * Keep legs elevated. * Consider palliative care. * VTE prophylaxis with warfarin * DNR/DNI * Follow CBC, CMP, Mag daily
[2019-06-26] MEDS: Warfarin 2.5 MG Tab PO SCH (17:11)
[2019-06-26] MEDS: Potassium Chloride 20 MEQ Tab.ER PO SCH ×2 (19:37→21:00)
[2019-06-26] MEDS: Acetaminophen 325 MG Tab PO PRN (19:38)
[2019-06-26] MEDS: guaiFENesin 600 MG Tab.ER PO SCH ×2 (19:39→21:00)
[2019-06-27] MEDS: Levothyroxine 50 MCG Tab PO SCH (05:19)
[2019-06-27] MEDS ORDERED: FERROUS SULFATE PO SCH (07:23)
[2019-06-27] MEDS: Allopurinol 100 MG Tab PO SCH ×3 (07:40→21:01)
[2019-06-27] MEDS: guaiFENesin 600 MG Tab.ER PO SCH ×3 (07:40→21:00)
[2019-06-27] MEDS: Propranolol 20 MG Tab PO SCH ×2 (07:40→08:22)
[2019-06-27] MEDS: Pantoprazole 40 MG Tab.CR PO SCH ×3 (07:40→21:00)
[2019-06-27] MEDS: Simvastatin 20 MG Tab PO SCH ×2 (07:40→08:22)
[2019-06-27] MEDS: FERROUS SULFATE PO SCH ×3 (07:51→17:51)
[2019-06-27] MEDS: Vancomycin 1 GM, Vancomycin 250 MG in Sodium Chloride 0.9% 250 ML IV SCH (09:10)
[2019-06-27] MEDS: Albuterol/Ipratropium 3.0-0.5 MG/3 ML Neb Soln NEB SCH ×4 (09:31→21:28)
[2019-06-27] MEDS ORDERED: Albuterol 0.5% 2.5 MG/0.5 ML Neb Soln NEB PRN (10:00)
[2019-06-27] MEDS: Furosemide 100 MG in Sodium Chloride 0.9% 90 ML IV SCH ×2 (10:59→21:32)
--- NOTE | 2019-06-27 11:59 | US ---
Limited abdominal ultrasound: Multiple real-time images of the 4 quadrants were obtained. Small amount of ascites is seen within the abdomen. Impression: 1. Findings as noted above. Diagnostic code #3
--- NOTE | 2019-06-27 13:32 | PCM.PN ---
- General Info Date of Service: 06/27/19 Admission Dx/Problem (Free Text): Admission Diagnosis/Problem Admission Diagnosis/Problem Cellulitis Subjective Update: patient continues to have improvement in his lower extremity discomfort. Functional Status: Reports: Pain Controlled - Review of Systems General: Reports: No Symptoms HEENT: Reports: No Symptoms Pulmonary: Reports: No Symptoms Cardiovascular: Reports: No Symptoms - Patient Data Vitals - Most Recent: Last Vital Signs Temp 97.5 F 06/27/19 12:00 Pulse 75 06/27/19 12:00 Resp 18 06/27/19 12:00 BP 121/68 06/27/19 12:00 Pulse Ox 96 06/27/19 12:00 Weight - Most Recent: 230 lb 12.796 oz I&O - Last 24 Hours: Intake & Output 06/26/19 06/27/19 06/27/19 22:59 06:59 14:59 Intake Total 1152 204 340 Output Total 725 751 7077 Balance 268 -596 -451 Lab Results Last 24 Hours: Laboratory Results - last 24 hr 06/27/19 06/27/19 06/27/19 Range/Units 04:44 04:44 04:44 WBC 10.32 H (4.23-9.07) K/mm3 RBC 3.31 L (4.63-6.08) M/mm3 Hgb 9.5 L (13.7-17.5) gm/dl Hct 31.1 L (40.1-51.0) % MCV 94.0 H (79.0-92.2) fl MCH 28.7 (25.7-32.2) pg MCHC 30.5 L (32.2-35.5) g/dl RDW Std Deviation 59.5 H (35.1-43.9) fL Plt Count 203 (163-337) K/mm3 MPV 10.0 (9.4-12.3) fl Neut % (Auto) 78.7 H (34.0-67.9) % Lymph % (Auto) 3.0 L (21.8-53.1) % [place] % (Auto) 13.2 H (5.3-12.2) % Eos % (Auto) 4.0 (0.8-7.0) Baso % (Auto) 0.4 (0.1-1.2) % Neut # (Auto) 8.13 H (1.78-5.38) K/mm3 Lymph # (Auto) 0.31 L (1.32-3.57) K/mm3 [place] # (Auto) 1.36 H (0.30-0.82) K/mm3 Eos # (Auto) 0.41 (0.04-0.54) K/mm3 Baso # (Auto) 0.04 (0.01-0.08) K/mm3 Manual Slide Review Abnormal smear PT 21.4 H (9.7-12.0) SECONDS INR 2.04 Sodium 137 (136-145) mEq/L Potassium 4.1 (3.5-5.1) mEq/L Chloride 100 (98-107) mEq/L Carbon Dioxide 29 (21-32) mEq/L Anion Gap 12.1 (5-15) BUN 67 H (7-18) mg/dL Creatinine 1.8 H (0.7-1.3) mg/dL Est Cr Clr Drug Dosing 32.33 mL/min Estimated GFR (MDRD) 36 (>60) mL/min BUN/Creatinine Ratio 37.2 H (14-18) Glucose 124 H (83-115) mg/dL Calcium 8.5 (8.5-10.1) mg/dL Magnesium 2.2 (1.8-2.4) mg/dl Total Bilirubin 0.6 (0.2-1.0) mg/dL AST 28 (15-37) U/L ALT 24 (16-63) U/L Alkaline Phosphatase 107 (46-116) U/L NT-Pro-B Natriuret Pep (0-450) pg/mL Total Protein 6.7 (6.4-8.2) g/dl Albumin 3.0 L (3.4-5.0) g/dl Globulin 3.7 gm/dL Albumin/Globulin Ratio 0.8 L (1-2) Vitamin B12 (193-986) pg/ml 06/27/19 06/27/19 Range/Units 04:44 09:45 WBC (4.23-9.07) K/mm3 RBC (4.63-6.08) M/mm3 Hgb (13.7-17.5) gm/dl Hct (40.1-51.0) % MCV (79.0-92.2) fl MCH (25.7-32.2) pg MCHC (32.2-35.5) g/dl RDW Std Deviation (35.1-43.9) fL Plt Count (163-337) K/mm3 MPV (9.4-12.3) fl Neut % (Auto) (34.0-67.9) % Lymph % (Auto) (21.8-53.1) % [place] % (Auto) (5.3-12.2) % Eos % (Auto) (0.8-7.0) Baso % (Auto) (0.1-1.2) % Neut # (Auto) (1.78-5.38) K/mm3 Lymph # (Auto) (1.32-3.57) K/mm3 [place] # (Auto) (0.30-0.82) K/mm3 Eos # (Auto) (0.04-0.54) K/mm3 Baso # (Auto) (0.01-0.08) K/mm3 Manual Slide Review PT (9.7-12.0) SECONDS INR Sodium (136-145) mEq/L Potassium (3.5-5.1) mEq/L Chloride (98-107) mEq/L Carbon Dioxide (21-32) mEq/L Anion Gap (5-15) BUN (7-18) mg/dL Creatinine (0.7-1.3) mg/dL Est Cr Clr Drug Dosing mL/min Estimated GFR (MDRD) (>60) mL/min BUN/Creatinine Ratio (14-18) Glucose (83-115) mg/dL Calcium (8.5-10.1) mg/dL Magnesium (1.8-2.4) mg/dl Total Bilirubin (0.2-1.0) mg/dL AST (15-37) U/L ALT (16-63) U/L Alkaline Phosphatase (46-116) U/L NT-Pro-B Natriuret Pep 3218 H (0-450) pg/mL Total Protein (6.4-8.2) g/dl Albumin (3.4-5.0) g/dl Globulin gm/dL Albumin/Globulin Ratio (1-2) Vitamin B12 773 (193-986) pg/ml [place] Results Last 24 Hours: Microbiology 06/24/19 09:20 Aerobic Blood Culture - Preliminary Blood NO GROWTH AFTER 3 DAYS Anaerobic Blood Culture - Preliminary NO GROWTH AFTER 3 DAYS Med Orders - Current: Current Medications Acetaminophen (Tylenol) 650 mg PO Q4H PRN PRN Reason: Pain (Mild 1-3)/fever Last Admin: 06/26/19 19:38 Dose: 650 mg Albuterol (Proventil) 2.5 mg NEB Q4HRRT PRN PRN Reason: Wheezing Albuterol/Ipratropium (Duoneb 3.0-0.5 Mg/3 Ml) 3 ml NEB Q4HRRT [facility] Last Admin: 06/27/19 09:31 Dose: 3 ml Allopurinol (Zyloprim) 100 mg PO BID [facility] Last Admin: 06/27/19 08:22 Dose: Not Given Bisacodyl (Dulcolax) 5 mg PO DAILY PRN PRN Reason: CONSTIPATION Guaifenesin (Mucinex) 600 mg PO BID [facility] Last Admin: 06/27/19 08:22 Dose: Not Given Furosemide 100 mg/ Sodium (Chloride) 100 mls @ 10 mls/hr IV TITRATE [facility]; Protocol Last Infusion: 06/27/19 11:13 Dose: 7.5 mg/hr, 7.5 mls/hr Vancomycin HCl 1 gm/Vancomycin HCl 250 mg/ Sodium Chloride 250 mls @ 250 mls/ hr IV Q24H [facility] Last Admin: 06/27/19 09:10 Dose: 250 mls/hr Levothyroxine Sodium (Synthroid) 50 mcg PO ACBREAKFAST [facility] Last Admin: 06/27/19 05:19 Dose: 50 mcg Ondansetron HCl (Zofran) 4 mg IV Q4H PRN PRN Reason: Nausea/Vomiting Pantoprazole Sodium (Protonix) 40 mg PO BID [facility] Last Admin: 06/27/19 08:22 Dose: Not Given Ferrous Sulfate Elixir *Pt Own Supply* 0 each PO TIDMEALS [facility] Last Admin: 06/27/19 11:51 Dose: 5 each Propranolol HCl (Inderal) 20 mg PO DAILY [facility] Last Admin: 06/27/19 08:22 Dose: Not Given Simvastatin (Zocor) 20 mg PO DAILY [facility] Last Admin: 06/27/19 08:22 Dose: Not Given Sodium Chloride (Saline Flush) 10 ml FLUSH ASDIRECTED PRN PRN Reason: Keep Vein Open Last Admin: 06/24/19 10:52 Dose: 10 ml Vancomycin HCl (Pharmacy To Dose - Vancomycin) 1 dose .XX ASDIRECTED [facility] Warfarin Sodium (Pharmacy To Dose - Warfarin) 1 dose .XX ASDIRECTED [facility] Warfarin Sodium (Coumadin) 5 mg PO [email or web address] [facility] Last Admin: 06/24/19 17:00 Dose: 5 mg Warfarin Sodium (Coumadin) 2.5 mg PO [email or web address] [facility] Last Admin: 06/26/19 17:11 Dose: 2.5 mg Discontinued Medications Albuterol/Ipratropium (Duoneb 3.0-0.5 Mg/3 Ml) 3 ml NEB Q4HRRT PRN PRN Reason: Wheezing Last Admin: 06/26/19 16:32 Dose: 3 ml Albuterol/Ipratropium (Duoneb 3.0-0.5 Mg/3 Ml) Confirm Administered Dose 3 ml .ROUTE .STK-MED ONE Stop: 06/24/19 18:34 Last Admin: 06/24/19 18:40 Dose: Not Given Ferrous Sulfate (Ferrous Sulfate) 220 mg PO TIDMEALS [facility] Last Admin: 06/26/19 10:07 Dose: Not Given Furosemide (Lasix) 80 mg IVPUSH NOW ONE Stop: 06/24/19 15:06 Last Admin: 06/24/19 16:10 Dose: 80 mg Ceftriaxone Sodium 2 gm/ (Sodium Chloride) 100 mls @ 200 mls/hr IV Q24H [facility] Last Admin: 06/25/19 11:29 Dose: 200 mls/hr Vancomycin HCl 1.75 gm/ Sodium (Chloride) 500 mls @ 250 mls/hr IV ONETIME ONE Stop: 06/24/19 14:29 Last Admin: 06/24/19 16:47 Dose: Not Given Vancomycin HCl 1.25 gm/ Sodium (Chloride) 250 mls @ 166.667 mls/hr IV Q24H [facility] Sodium Chloride (Normal Saline) Confirm Administered Dose 250 mls @ as directed .ROUTE .STK-MED ONE Stop: 06/24/19 16:22 Last Admin: 06/24/19 16:49 Dose: Not Given Sodium Chloride (Normal Saline) 250 mls @ 50 mls/hr IV ONETIME ONE Stop: 06/24/19 20:59 Last Admin: 06/24/19 16:57 Dose: 50 mls/hr Non-Formulary Medication (Acetaminophen) 1,000 mg PO Q6H PRN PRN Reason: Pain Ferrous Sulfate Elixir *Pt Own Supply* 0 mg PO TID DARCY Last Admin: 06/26/19 21:01 Dose: Not Given Ferrous Sulfate Elixir *Pt Own Supply* 0 each PO TID DARCY Potassium Chloride (Klor-Con M20) 40 meq PO ONETIME ONE Stop: 06/24/19 10:59 Last Admin: 06/24/19 11:11 Dose: 40 meq Potassium Chloride (Klor-Con M20) 40 meq PO BEDTIME DARCY Stop: 06/24/19 21:01 Last Admin: 06/24/19 20:01 Dose: 40 meq Potassium Chloride (Klor-Con M20) 40 meq PO ONETIME ONE Stop: 06/25/19 09:31 Last Admin: 06/25/19 11:29 Dose: 40 meq Potassium Chloride (Klor-Con M20) 40 meq PO BEDTIME DARCY Stop: 06/26/19 21:01 Last Admin: 06/26/19 21:00 Dose: Not Given Potassium Chloride (Klor-Con M20) 20 meq PO ONETIME ONE Stop: 06/25/19 16:20 Last Admin: 06/25/19 17:15 Dose: 20 meq Vancomycin HCl (Pharmacy To Dose - Vancomycin) 1 dose .XX ASDIRECTED PRN PRN Reason: RX TO DOSE VANCO - Exam Quality Assessment: No: Supplemental Oxygen General: Alert Neck: Supple Lungs: Normal Respiratory Effort, Wheezing Cardiovascular: Regular Rate, Regular Rhythm GI/Abdominal Exam: Normal Bowel Sounds, Soft, Non-Tender, Distended Extremities: Other (improved pedal edema. Continued warmth with erythema and lower extremities.) Skin: Warm Psy/Mental Status: Alert - Problem List Review Problem List Initiated/Reviewed/Updated: Yes - My Orders Last 24 Hours: My Active Orders 06/26/19 21:00 guaiFENesin [Mucinex] 600 mg PO BID 06/27/19 07:45 Patient's Own Medication [Ptom] 0 each PO TIDMEALS 06/27/19 09:47 Abdomen 2V AP Flat Upright [CR] Routine 06/27/19 10:00 Albuterol [Proventil] 2.5 mg NEB Q4HRRT PRN Albuterol/Ipratropium [DuoNeb 3.0-0.5 MG/3 ML] 3 ml NEB Q4HRRT 06/28/19 05:11 CBC WITH AUTO DIFF [HEME] AM COMPREHENSIVE METABOLIC PN,CMP [CHEM] AM INR,PT,PROTHROMBIN TIME [COAG] AM MAGNESIUM [CHEM] AM 06/28/19 08:30 VANCOMYCIN TROUGH [CHEM] Timed 06/29/19 05:11 CBC WITH AUTO DIFF [HEME] AM COMPREHENSIVE METABOLIC PN,CMP [CHEM] AM INR,PT,PROTHROMBIN TIME [COAG] AM MAGNESIUM [CHEM] AM - Plan Plan:: Assessment * bilateral lower extremity symptomatic edema secondary to right heart failure, acute on chronic * Improved lower extremity edema, redness, pain, and tenderness * BNP increased to 3,200 * No weight loss since hospitalization despite negative fluid balance of 3,000 ml and Lasix drip. * 7 lbs wt gain over the last 3 weeks since moving to [facility]. * ECG ventricular pacing. * Spoke with Dr. Santos (his customer account representative) again today who recommends continued aggressive diuresis * Not on LOWELL/ARB secondary to CRI * bilateral lower extremity cellulitis * worsening lower extremity edema, redness, pain, warmth, and tenderness * Initial WBC 9.24 --> 10.38 -->11.3 * Lactic acid initially 2.2--> repeat 1.7 * CRP<0.2 * Stage 3b CRI * eGFR 34; Cr Clr 30.6 * Hypokalemia - resolved * K+ 2.6 --> 3.2 --> 2.9 -->3.8-->4.1 * Chronic blood loss anemia * Transfused 2 units PRBC 2/2 blood loss and active heart disease * Follow H/H: slightly lower today Hb 9.5 * Previous capsule endoscopy found slow small intestinal bleed per daughter * On Warfarin for symptomatic LLE DVT * LLE DVT treated with Warfarin * Therapeutic today * Wet Cough and wheez * CXR - nothing acute * Abdominal distention without pain or tenderness * Limited US shows only small amount of ascites * Flat and Upright abdominal xray: stool in rectum Plan * ICU for close monitoring of cardiac status and I/Os * Lasix ggt - Aim for approximate 7 lbs weight loss - 100 ml/hr * Fluid restriction 1,500 ml/day * [place] for Strict I/Os * Vancomycin for MRSA coverage. Failed Rocephin tx. * Mucinex 600 mg BID * Nebs ever 4 hours * Fleets enema * Incentive spirometry/ acapella * Follow H/H * Pharmacy to dose Warfarin - Pt. has a long history of slow blood loss and is on Warfarin for symptomatic DVT. * Keep legs elevated. * Consider palliative care. * VTE prophylaxis with warfarin * DNR/DNI * Follow CBC, CMP, Mag daily
--- NOTE | 2019-06-27 13:41 | CR ---
Abdomen: Supine and upright views the abdomen were obtained. Comparison: Previous abdominal x-ray of 02/12/18. Findings: Surgical clips are seen within the pelvis. Vascular calcification is noted. Mild increased stool is noted within the colon. Bowel gas pattern is otherwise unremarkable. Degenerative change is scattered throughout the spine. No free air is seen. Surgical clips are noted from prior cholecystectomy. Impression: 1. Mild increased stool within the colon. 2. Other incidental findings. Diagnostic code #2
[2019-06-27] MEDS ORDERED: predniSONE 20 MG Tab PO ONE ×2 (15:05→16:00)
[2019-06-27] MEDS: Warfarin 5 MG Tab PO SCH (17:48)
[2019-06-27] MEDS ORDERED: Sodium Chloride 0.9% 100 ML ONE (19:42)
[2019-06-27] MEDS: Polyethylene Glycol 3350 Powder 17 GM Packet PO SCH (20:57)
[2019-06-28] MEDS: Albuterol/Ipratropium 3.0-0.5 MG/3 ML Neb Soln NEB SCH ×5 (01:48→17:07)
[2019-06-28] MEDS: Levothyroxine 50 MCG Tab PO SCH (06:14)
[2019-06-28] MEDS: predniSONE 20 MG Tab PO SCH (08:09)
[2019-06-28] MEDS: FERROUS SULFATE PO SCH ×3 (08:09→17:50)
[2019-06-28] MEDS: Furosemide 100 MG in Sodium Chloride 0.9% 90 ML IV SCH ×2 (08:09→19:35)
[2019-06-28] MEDS ORDERED: Docusate Sodium 100 MG Cap PO PRN (09:00)
[2019-06-28] MEDS ORDERED: Potassium Chloride 20 MEQ Tab.ER PO ONE (09:00)
[2019-06-28] MEDS: Allopurinol 100 MG Tab PO SCH ×2 (10:14→20:17)
[2019-06-28] MEDS: Propranolol 20 MG Tab PO SCH (10:14)
[2019-06-28] MEDS: Pantoprazole 40 MG Tab.CR PO SCH ×2 (10:14→20:17)
[2019-06-28] MEDS: Simvastatin 20 MG Tab PO SCH (10:14)
[2019-06-28] MEDS: guaiFENesin 600 MG Tab.ER PO SCH ×2 (10:14→20:17)
[2019-06-28] MEDS: Vancomycin 1 GM, Vancomycin 250 MG in Sodium Chloride 0.9% 250 ML IV SCH ×2 (11:19→12:33)
[2019-06-28] MEDS ORDERED: guaiFENesin 600 MG Tab.ER PO SCH (15:15)
--- NOTE | 2019-06-28 15:48 | CR ---
Chest: Portable view of the chest was obtained. Comparison: Prior chest x-ray of 06/26/19. Heart size is within normal limits for portable technique. Unichamber pacemaker is noted. Tortuous thoracic aorta is seen. Sternotomy wires are seen. Lungs are clear with no acute parenchymal change. Bony structures are grossly intact. Impression: 1. Findings as noted above. 2. Nothing acute is seen. Diagnostic code #2
--- NOTE | 2019-06-28 17:34 | PCM.PN ---
- General Info Date of Service: 06/28/19 Admission Dx/Problem (Free Text): Admission Diagnosis/Problem Admission Diagnosis/Problem Cellulitis Subjective Update: Stefan continues to have increased wheeze and dyspnea. Oxygenation is still in the mid to upper 90s. Legs are continuing to improve. Decreased redness and swelling. Functional Status: Reports: Pain Controlled - Review of Systems General: Reports: Fatigue HEENT: Reports: No Symptoms Pulmonary: Reports: Shortness of Breath, Wheezing Cardiovascular: Reports: No Symptoms Gastrointestinal: Reports: Other (bloating) Musculoskeletal: Reports: No Symptoms - Patient Data Vitals - Most Recent: Last Vital Signs Temp 99.9 F 06/28/19 16:00 Pulse 74 06/28/19 16:00 Resp 18 06/28/19 16:00 BP 121/71 06/28/19 16:00 Pulse Ox 98 06/28/19 17:11 Weight - Most Recent: 223 lb I&O - Last 24 Hours: Intake & Output 06/28/19 06/28/19 06/28/19 06:59 14:59 22:59 Intake Total 424 665 Output Total 990 690 300 Balance -566 -25 -300 Lab Results Last 24 Hours: Laboratory Results - last 24 hr 06/28/19 06/28/19 06/28/19 Range/Units 04:20 04:20 04:20 WBC 8.34 (4.23-9.07) K/mm3 RBC 3.30 L (4.63-6.08) M/mm3 Hgb 9.5 L (13.7-17.5) gm/dl Hct 31.4 L (40.1-51.0) % MCV 95.2 H (79.0-92.2) fl MCH 28.8 (25.7-32.2) pg MCHC 30.3 L (32.2-35.5) g/dl RDW Std Deviation 59.4 H (35.1-43.9) fL Plt Count 195 (163-337) K/mm3 MPV 10.1 (9.4-12.3) fl Neut % (Auto) 92.1 H (34.0-67.9) % Lymph % (Auto) 3.4 L (21.8-53.1) % [place] % (Auto) 3.8 L (5.3-12.2) % Eos % (Auto) 0.1 L (0.8-7.0) Baso % (Auto) 0.1 (0.1-1.2) % Neut # (Auto) 7.68 H (1.78-5.38) K/mm3 Lymph # (Auto) 0.28 L (1.32-3.57) K/mm3 [place] # (Auto) 0.32 (0.30-0.82) K/mm3 Eos # (Auto) 0.01 L (0.04-0.54) K/mm3 Baso # (Auto) 0.01 (0.01-0.08) K/mm3 Manual Slide Review Abnormal smear PT 19.8 H (9.7-12.0) SECONDS INR 1.88 Sodium 143 (136-145) mEq/L Potassium 3.7 (3.5-5.1) mEq/L Chloride 103 (98-107) mEq/L Carbon Dioxide 29 (21-32) mEq/L Anion Gap 14.7 (5-15) BUN 63 H (7-18) mg/dL Creatinine 1.6 H (0.7-1.3) mg/dL Est Cr Clr Drug Dosing 36.43 mL/min Estimated GFR (MDRD) 41 (>60) mL/min BUN/Creatinine Ratio 39.4 H (14-18) Glucose 157 H (83-115) mg/dL Calcium 8.6 (8.5-10.1) mg/dL Magnesium 2.3 (1.8-2.4) mg/dl Total Bilirubin 0.6 (0.2-1.0) mg/dL AST 28 (15-37) U/L ALT 28 (16-63) U/L Alkaline Phosphatase 122 H (46-116) U/L NT-Pro-B Natriuret Pep (0-450) pg/mL Total Protein 6.9 (6.4-8.2) g/dl Albumin 3.1 L (3.4-5.0) g/dl Globulin 3.8 gm/dL Albumin/Globulin Ratio 0.8 L (1-2) Vancomycin Trough (10.0-20.0) 06/28/19 06/28/19 Range/Units 04:20 09:19 WBC (4.23-9.07) K/mm3 RBC (4.63-6.08) M/mm3 Hgb (13.7-17.5) gm/dl Hct (40.1-51.0) % MCV (79.0-92.2) fl MCH (25.7-32.2) pg MCHC (32.2-35.5) g/dl RDW Std Deviation (35.1-43.9) fL Plt Count (163-337) K/mm3 MPV (9.4-12.3) fl Neut % (Auto) (34.0-67.9) % Lymph % (Auto) (21.8-53.1) % [place] % (Auto) (5.3-12.2) % Eos % (Auto) (0.8-7.0) Baso % (Auto) (0.1-1.2) % Neut # (Auto) (1.78-5.38) K/mm3 Lymph # (Auto) (1.32-3.57) K/mm3 [place] # (Auto) (0.30-0.82) K/mm3 Eos # (Auto) (0.04-0.54) K/mm3 Baso # (Auto) (0.01-0.08) K/mm3 Manual Slide Review PT (9.7-12.0) SECONDS INR Sodium (136-145) mEq/L Potassium (3.5-5.1) mEq/L Chloride (98-107) mEq/L Carbon Dioxide (21-32) mEq/L Anion Gap (5-15) BUN (7-18) mg/dL Creatinine (0.7-1.3) mg/dL Est Cr Clr Drug Dosing mL/min Estimated GFR (MDRD) (>60) mL/min BUN/Creatinine Ratio (14-18) Glucose (83-115) mg/dL Calcium (8.5-10.1) mg/dL Magnesium (1.8-2.4) mg/dl Total Bilirubin (0.2-1.0) mg/dL AST (15-37) U/L ALT (16-63) U/L Alkaline Phosphatase (46-116) U/L NT-Pro-B Natriuret Pep 4601 H (0-450) pg/mL Total Protein (6.4-8.2) g/dl Albumin (3.4-5.0) g/dl Globulin gm/dL Albumin/Globulin Ratio (1-2) Vancomycin Trough 10.0 (10.0-20.0) Edil[place] Results Last 24 Hours: Microbiology 06/24/19 09:20 Aerobic Blood Culture - Preliminary Blood NO GROWTH AFTER 4 DAYS Anaerobic Blood Culture - Preliminary NO GROWTH AFTER 4 DAYS Med Orders - Current: Current Medications Acetaminophen (Tylenol) 650 mg PO Q4H PRN PRN Reason: Pain (Mild 1-3)/fever Last Admin: 06/26/19 19:38 Dose: 650 mg Albuterol (Proventil) 2.5 mg NEB Q4HRRT PRN PRN Reason: Wheezing Albuterol/Ipratropium (Duoneb 3.0-0.5 Mg/3 Ml) 3 ml NEB Q4HRRT [facility] Last Admin: 06/28/19 17:07 Dose: 3 ml Allopurinol (Zyloprim) 100 mg PO BID [facility] Last Admin: 06/28/19 10:14 Dose: 100 mg Bisacodyl (Dulcolax) 5 mg PO DAILY PRN PRN Reason: CONSTIPATION Docusate Sodium (Colace) 100 mg PO BID PRN PRN Reason: Constipation Guaifenesin (Mucinex) 600 mg PO BID [facility] Last Admin: 06/28/19 10:14 Dose: 600 mg Furosemide 100 mg/ Sodium (Chloride) 100 mls @ 10 mls/hr IV TITRATE [facility]; Protocol Last Admin: 06/28/19 08:09 Dose: 10 mg/hr, 10 mls/hr Vancomycin HCl 1 gm/Vancomycin HCl 250 mg/ Sodium Chloride 250 mls @ 166.667 mls/hr IV Q24H [facility] Last Admin: 06/28/19 11:19 Dose: 166.667 mls/hr Levothyroxine Sodium (Synthroid) 50 mcg PO ACBREAKFAST [facility] Last Admin: 06/28/19 06:14 Dose: 50 mcg Ondansetron HCl (Zofran) 4 mg IV Q4H PRN PRN Reason: Nausea/Vomiting Pantoprazole Sodium (Protonix) 40 mg PO BID [facility] Last Admin: 06/28/19 10:14 Dose: 40 mg Ferrous Sulfate Elixir *Pt Own Supply* 0 each PO TIDMEALS [facility] Last Admin: 06/28/19 12:30 Dose: 1 each Polyethylene Glycol (Miralax) 17 gm PO BEDTIME [facility] Last Admin: 06/27/19 20:57 Dose: Not Given Prednisone (Prednisone) 40 mg PO WITHBREAKFAST [facility] Last Admin: 06/28/19 08:09 Dose: 40 mg Propranolol HCl (Inderal) 20 mg PO DAILY [facility] Last Admin: 06/28/19 10:14 Dose: 20 mg Simvastatin (Zocor) 20 mg PO DAILY [facility] Last Admin: 06/28/19 10:14 Dose: 20 mg Sodium Chloride (Saline Flush) 10 ml FLUSH ASDIRECTED PRN PRN Reason: Keep Vein Open Last Admin: 06/24/19 10:52 Dose: 10 ml Vancomycin HCl (Pharmacy To Dose - Vancomycin) 1 dose .XX ASDIRECTED [facility] Warfarin Sodium (Pharmacy To Dose - Warfarin) 1 dose .XX ASDIRECTED [facility] Warfarin Sodium (Coumadin) 5 mg PO QPM DACRY Stop: 06/28/19 18:01 Discontinued Medications Albuterol/Ipratropium (Duoneb 3.0-0.5 Mg/3 Ml) 3 ml NEB Q4HRRT PRN PRN Reason: Wheezing Last Admin: 06/26/19 16:32 Dose: 3 ml Albuterol/Ipratropium (Duoneb 3.0-0.5 Mg/3 Ml) Confirm Administered Dose 3 ml .ROUTE .STK-MED ONE Stop: 06/24/19 18:34 Last Admin: 06/24/19 18:40 Dose: Not Given Ferrous Sulfate (Ferrous Sulfate) 220 mg PO TIDMEALS [facility] Last Admin: 06/26/19 10:07 Dose: Not Given Furosemide (Lasix) 80 mg IVPUSH NOW ONE Stop: 06/24/19 15:06 Last Admin: 06/24/19 16:10 Dose: 80 mg Guaifenesin (Mucinex) 600 mg PO BID [facility] Ceftriaxone Sodium 2 gm/ (Sodium Chloride) 100 mls @ 200 mls/hr IV Q24H [facility] Last Admin: 06/25/19 11:29 Dose: 200 mls/hr Vancomycin HCl 1.75 gm/ Sodium (Chloride) 500 mls @ 250 mls/hr IV ONETIME ONE Stop: 06/24/19 14:29 Last Admin: 06/24/19 16:47 Dose: Not Given Vancomycin HCl 1.25 gm/ Sodium (Chloride) 250 mls @ 166.667 mls/hr IV Q24H [facility] Sodium Chloride (Normal Saline) Confirm Administered Dose 250 mls @ as directed .ROUTE .STK-MED ONE Stop: 06/24/19 16:22 Last Admin: 06/24/19 16:49 Dose: Not Given Sodium Chloride (Normal Saline) 250 mls @ 50 mls/hr IV ONETIME ONE Stop: 06/24/19 20:59 Last Admin: 06/24/19 16:57 Dose: 50 mls/hr Vancomycin HCl 1 gm/Vancomycin HCl 250 mg/ Sodium Chloride 250 mls @ 250 mls/ hr IV Q24H DARCY Last Admin: 06/28/19 12:33 Dose: Not Given Sodium Chloride (Normal Saline) Confirm Administered Dose 100 mls @ as directed .ROUTE .STK-MED ONE Stop: 06/27/19 19:43 Last Admin: 06/27/19 21:11 Dose: Not Given Non-Formulary Medication (Acetaminophen) 1,000 mg PO Q6H PRN PRN Reason: Pain Ferrous Sulfate Elixir *Pt Own Supply* 0 mg PO TID [facility] Last Admin: 06/26/19 21:01 Dose: Not Given Ferrous Sulfate Elixir *Pt Own Supply* 0 each PO TID [facility] Potassium Chloride (Klor-Con M20) 40 meq PO ONETIME ONE Stop: 06/24/19 10:59 Last Admin: 06/24/19 11:11 Dose: 40 meq Potassium Chloride (Klor-Con M20) 40 meq PO BEDTIME [facility] Stop: 06/24/19 21:01 Last Admin: 06/24/19 20:01 Dose: 40 meq Potassium Chloride (Klor-Con M20) 40 meq PO ONETIME ONE Stop: 06/25/19 09:31 Last Admin: 06/25/19 11:29 Dose: 40 meq Potassium Chloride (Klor-Con M20) 40 meq PO BEDTIME DARCY Stop: 06/26/19 21:01 Last Admin: 06/26/19 21:00 Dose: Not Given Potassium Chloride (Klor-Con M20) 20 meq PO ONETIME ONE Stop: 06/25/19 16:20 Last Admin: 06/25/19 17:15 Dose: 20 meq Potassium Chloride (Klor-Con M20) 20 meq PO ONETIME ONE Stop: 06/28/19 09:01 Last Admin: 06/28/19 10:14 Dose: 20 meq Prednisone (Prednisone) 40 mg PO ONETIME ONE Stop: 06/27/19 16:01 Last Admin: 06/27/19 18:00 Dose: 40 mg Vancomycin HCl (Pharmacy To Dose - Vancomycin) 1 dose .XX ASDIRECTED PRN PRN Reason: RX TO DOSE VANCO Warfarin Sodium (Coumadin) 5 mg PO [email or web address] [facility] Last Admin: 06/27/19 17:48 Dose: 5 mg Warfarin Sodium (Coumadin) 2.5 mg PO [email or web address] [facility] Last Admin: 06/26/19 17:11 Dose: 2.5 mg - Exam Quality Assessment: No: Supplemental Oxygen General: Alert HEENT: Pupils Equal Neck: Supple Lungs: Wheezing. No: Normal Respiratory Effort (increased rate and effort. ) Cardiovascular: Regular Rate, Regular Rhythm GI/Abdominal Exam: Normal Bowel Sounds, Distended, Tender (Mild epigastric and RUQ tenderness.) Extremities: Normal Inspection, Pedal Edema, Increased Warmth, Redness, Other ( Improved) Skin: Warm Psy/Mental Status: Alert, Normal Affect, Normal Mood - Problem List Review Problem List Initiated/Reviewed/Updated: Yes - My Orders Last 24 Hours: My Active Orders 06/27/19 21:00 Polyethylene Glycol 3350 [MiraLAX] 17 gm PO BEDTIME 06/28/19 07:00 predniSONE 40 mg PO WITHBREAKFAST 06/28/19 09:00 Docusate Sodium [Colace] 100 mg PO BID PRN 06/28/19 11:00 Vancomycin 1 gm Vancomycin 250 mg Sodium Chloride 0.9% [Normal Saline] 250 ml IV Q24H 06/28/19 18:00 Warfarin [Coumadin] 5 mg PO QPM 06/28/19 Dinner Fluid Restriction [DIET] 06/29/19 05:11 CBC WITH AUTO DIFF [HEME] AM COMPREHENSIVE METABOLIC PN,CMP [CHEM] AM INR,PT,PROTHROMBIN TIME [COAG] AM MAGNESIUM [CHEM] AM - Plan Plan:: Assessment * bilateral lower extremity symptomatic edema secondary to right heart failure, acute on chronic * Improved lower extremity edema, redness, pain, and tenderness * BNP increased to 4,600 from 2,300 despite negative fluid balance and weight loss. * 5-7 lb weight loss since hospitalization. negative fluid balance of 4,500 ml and Lasix drip. * 7 lbs wt gain over the last 3 weeks since moving to [facility] independent living. * ECG ventricular pacing. * Spoke with Dr. 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 The left ventricular internal cavity size is normal. 2. Normal left ventricular systolic function. 3. Left ventricular ejection fraction, by visual estimation, is 55-60%. 4. No regional wall motion abnormalities. 5. Mild concentric left ventricular hypertrophy. 6. Right ventricular size is moderately enlarged. 7. Mildly reduced right ventricular systolic function. 8. Severely dilated left atrium 9. Mildly dilated right atrium. 10. Mild dilation of the ascending aorta. 11. 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 12. The AOV prosthesis vinyl cutter reported size is 25 mm 13. Abnormal stenosis of the aortic prosthesis. 14. The mean gradient across the bioprosthetic valve in the aortic position is 21 mmHg compared to 24 mmHg on January 27, 2018. That is a minimal improvement but still above the norm of 10.8 mmHg +/-2.8. 15. Mild mitral stenosis. 16. Mild to moderate mitral valve regurgitation. 17. The MR jet is eccentric posteriorly directed and wall impinging. 18. Moderate tricuspid valve regurgitation. 19. Mild pulmonic valve regurgitation. 20. A pacer wire is visualized in the right atrium. 21. A pacer wire is visualized in the right ventricle. 22. The inferior vena cava is abnormal. 23. The inferior vena cava is dilated with respiratory size variation less than 50%, consistent with elevated right atrial pressure. 24. Right ventricular systolic pressure is severely elevated at 74.3 mmHg. 25. Compared to January 27, 2018 the LV systolic function has improved but the bioprosthetic gradient and the severe right-sided pressures are similar. * Pulmonary hypertension?right ventricular systolic pressure is severely elevated at 74.3 mmHg. * bilateral lower extremity cellulitis * worsening lower extremity edema, redness, pain, warmth, and tenderness * Initial WBC 9.24 --> 10.38 -->11.3 * Lactic acid initially 2.2--> repeat 1.7 * CRP<0.2 * Stage 3b CRI * eGFR 34; Cr Clr 30.6 * Hypokalemia - resolved * K+ 2.6 --> 3.2 --> 2.9 -->3.8-->4.1 * Chronic blood loss anemia * Transfused 2 units PRBC 2/2 blood loss and active heart disease * Follow H/H: slightly lower today Hb 9.5 * Previous capsule endoscopy found slow small intestinal bleed per daughter * On Warfarin for symptomatic LLE DVT * LLE DVT treated with Warfarin * Therapeutic today * Wet Cough and wheez * Repeat CXR - nothing acute * Improving this evening. * Abdominal distention without pain, Mild epigastric RUQ tenderness tenderness * Limited US shows only small amount of ascites * Flat and Upright abdominal xray: stool in rectum Plan * ICU for close monitoring of cardiac status and I/Os * Lasix ggt - Aim for approximate 7 lbs weight loss - 100 ml/hr * Fluid restriction 1,500 ml/day * Guerrero for Strict I/Os * Vancomycin for MRSA coverage. Failed Rocephin tx. * Mucinex 600 mg BID * Albuterol/Atrovent nebs every 4 hours when necessary wheeze * Fleets enema * Incentive spirometry/ acapella * Follow H/H * Pharmacy to dose Warfarin - Pt. has a long history of slow blood loss and is on Warfarin for symptomatic DVT. * Keep legs elevated. * Consider palliative care. * VTE prophylaxis with warfarin * DNR/DNI * Follow CBC, CMP, Mag, pro-BNP in the am
[2019-06-28] MEDS ORDERED: Warfarin 5 MG Tab PO SCH (18:00)
[2019-06-28] MEDS ORDERED: Furosemide 100 MG/10 ML SDV ONE (19:15)
[2019-06-28] MEDS ORDERED: Albuterol/Ipratropium 3.0-0.5 MG/3 ML Neb Soln NEB PRN (20:02)
[2019-06-28] MEDS: Polyethylene Glycol 3350 Powder 17 GM Packet PO SCH (22:37)
[2019-06-29] MEDS: predniSONE 20 MG Tab PO SCH (06:35)
[2019-06-29] MEDS: Levothyroxine 50 MCG Tab PO SCH (06:35)
[2019-06-29] MEDS: Furosemide 100 MG in Sodium Chloride 0.9% 90 ML IV SCH (07:05)
--- NOTE | 2019-06-29 07:44 | PCM.PN ---
- General Info Date of Service: 06/29/19 Subjective Update: Still having shortness of breath Tolerating diet pain controlled afebrile - Patient Data Vitals - Most Recent: Last Vital Signs Temp 36.8 C 06/29/19 07:40 Pulse 94 06/29/19 07:40 Resp 18 06/29/19 07:40 BP 139/72 06/29/19 07:40 Pulse Ox 95 06/29/19 07:40 Weight - Most Recent: 101.321 kg I&O - Last 24 Hours: Intake & Output 06/28/19 06/29/19 06/29/19 22:59 06:59 14:59 Intake Total 952 172 Output Total 1000 900 Balance -48 -728 Lab Results Last 24 Hours: Laboratory Results - last 24 hr 06/28/19 06/28/19 06/29/19 Range/Units 04:20 09:19 04:00 WBC 11.30 H (4.23-9.07) K/mm3 RBC 3.38 L (4.63-6.08) M/mm3 Hgb 9.7 L (13.7-17.5) gm/dl Hct 32.6 L (40.1-51.0) % MCV 96.4 H (79.0-92.2) fl MCH 28.7 (25.7-32.2) pg MCHC 29.8 L (32.2-35.5) g/dl RDW Std Deviation 60.9 H (35.1-43.9) fL Plt Count 203 (163-337) K/mm3 MPV 9.6 (9.4-12.3) fl Neut % (Auto) 86.6 H (34.0-67.9) % Lymph % (Auto) 3.0 L (21.8-53.1) % [place] % (Auto) 9.5 (5.3-12.2) % Eos % (Auto) 0.3 L (0.8-7.0) Baso % (Auto) 0.1 (0.1-1.2) % Neut # (Auto) 9.79 H (1.78-5.38) K/mm3 Lymph # (Auto) 0.34 L (1.32-3.57) K/mm3 [place] # (Auto) 1.07 H (0.30-0.82) K/mm3 Eos # (Auto) 0.03 L (0.04-0.54) K/mm3 Baso # (Auto) 0.01 (0.01-0.08) K/mm3 Manual Slide Review Abnormal smear PT (9.7-12.0) SECONDS INR Sodium (136-145) mEq/L Potassium (3.5-5.1) mEq/L Chloride (98-107) mEq/L Carbon Dioxide (21-32) mEq/L Anion Gap (5-15) BUN (7-18) mg/dL Creatinine (0.7-1.3) mg/dL Est Cr Clr Drug Dosing mL/min Estimated GFR (MDRD) (>60) mL/min BUN/Creatinine Ratio (14-18) Glucose (83-115) mg/dL Calcium (8.5-10.1) mg/dL Magnesium (1.8-2.4) mg/dl Total Bilirubin (0.2-1.0) mg/dL AST (15-37) U/L ALT (16-63) U/L Alkaline Phosphatase (46-116) U/L NT-Pro-B Natriuret Pep 4601 H (0-450) pg/mL Total Protein (6.4-8.2) g/dl Albumin (3.4-5.0) g/dl Globulin gm/dL Albumin/Globulin Ratio (1-2) Vancomycin Trough 10.0 (10.0-20.0) 06/29/19 06/29/19 06/29/19 Range/Units 04:00 04:00 04:00 WBC (4.23-9.07) K/mm3 RBC (4.63-6.08) M/mm3 Hgb (13.7-17.5) gm/dl Hct (40.1-51.0) % MCV (79.0-92.2) fl MCH (25.7-32.2) pg MCHC (32.2-35.5) g/dl RDW Std Deviation (35.1-43.9) fL Plt Count (163-337) K/mm3 MPV (9.4-12.3) fl Neut % (Auto) (34.0-67.9) % Lymph % (Auto) (21.8-53.1) % [place] % (Auto) (5.3-12.2) % Eos % (Auto) (0.8-7.0) Baso % (Auto) (0.1-1.2) % Neut # (Auto) (1.78-5.38) K/mm3 Lymph # (Auto) (1.32-3.57) K/mm3 [place] # (Auto) (0.30-0.82) K/mm3 Eos # (Auto) (0.04-0.54) K/mm3 Baso # (Auto) (0.01-0.08) K/mm3 Manual Slide Review PT 23.2 H (9.7-12.0) SECONDS INR 2.23 Sodium 148 H (136-145) mEq/L Potassium 4.1 (3.5-5.1) mEq/L Chloride 108 H (98-107) mEq/L Carbon Dioxide 30 (21-32) mEq/L Anion Gap 14.1 (5-15) BUN 66 H (7-18) mg/dL Creatinine 1.5 H (0.7-1.3) mg/dL Est Cr Clr Drug Dosing 38.85 mL/min Estimated GFR (MDRD) 44 (>60) mL/min BUN/Creatinine Ratio 44.0 H (14-18) Glucose 139 H (83-115) mg/dL Calcium 9.1 (8.5-10.1) mg/dL Magnesium 2.4 (1.8-2.4) mg/dl Total Bilirubin 0.6 (0.2-1.0) mg/dL AST 33 (15-37) U/L ALT 34 (16-63) U/L Alkaline Phosphatase 127 H (46-116) U/L NT-Pro-B Natriuret Pep 5576 H (0-450) pg/mL Total Protein 6.9 (6.4-8.2) g/dl Albumin 3.2 L (3.4-5.0) g/dl Globulin 3.7 gm/dL Albumin/Globulin Ratio 0.9 L (1-2) Vancomycin Trough (10.0-20.0) Edilson Results Last 24 Hours: Microbiology 06/24/19 09:20 Aerobic Blood Culture - Preliminary Blood NO GROWTH AFTER 4 DAYS Anaerobic Blood Culture - Preliminary NO GROWTH AFTER 4 DAYS - Exam General: Alert, Cooperative, No Acute Distress HEENT: Pupils Equal, Pupils Reactive Neck: Supple, Trachea Midline, JVD Lungs: Decreased Breath Sounds, Crackles. No: Wheezing Cardiovascular: Tachycardia. No: Murmurs, Gallops GI/Abdominal Exam: Normal Bowel Sounds, Soft, Non-Tender, Distended Extremities: Pedal Edema, Leg Pain, Redness. No: Non-Tender Skin: Rash Neurological: No New Focal Deficit Psy/Mental Status: Alert - Problem List & Annotations (1) Acute diastolic heart failure SNOMED Code(s): 281853801 Code(s): I50.31 - ACUTE DIASTOLIC (CONGESTIVE) HEART FAILURE Status: Acute Current Visit: Yes (2) Chronic diastolic (congestive) heart failure SNOMED Code(s): 625859363, 491747598 Code(s): I50.32 - CHRONIC DIASTOLIC (CONGESTIVE) HEART FAILURE Status: Acute Current Visit: Yes (3) Chronic kidney disease (CKD) stage G3b/A1, moderately decreased glomerular filtration rate (GFR) between 30-44 mL/min/1.73 square meter and albuminuria creatinine ratio less than 30 mg/g SNOMED Code(s): 349057475, 786241087 Code(s): N18.3 - CHRONIC KIDNEY DISEASE, STAGE 3 (MODERATE) Status: Acute Current Visit: Yes (4) Hypothyroidism SNOMED Code(s): 69170171 Code(s): E03.9 - HYPOTHYROIDISM, UNSPECIFIED Status: Acute Current Visit : Yes (5) Iron deficiency anemia SNOMED Code(s): 91207131 Code(s): D50.9 - IRON DEFICIENCY ANEMIA, UNSPECIFIED Status: Acute Current Visit: Yes (6) Gout SNOMED Code(s): 77446158 Code(s): M10.9 - GOUT, UNSPECIFIED Status: Acute Current Visit: Yes (7) DVT of leg (deep venous thrombosis) SNOMED Code(s): 444171480 Code(s): I82.409 - ACUTE EMBOLISM AND THOMBOS UNSP DEEP VN UNSP LOWER EXTREMITY Status: Acute Current Visit: Yes (8) Subtherapeutic international normalized ratio (INR) SNOMED Code(s): 509872143, 196169646 Code(s): R79.1 - ABNORMAL COAGULATION PROFILE Status: Acute Current Visit : Yes (9) Cellulitis SNOMED Code(s): 333444466 Code(s): L03.90 - CELLULITIS, UNSPECIFIED Status: Chronic Priority: High Current Visit: No (10) Pulmonary hypertension, moderate to severe SNOMED Code(s): 42355781 Code(s): I27.20 - PULMONARY HYPERTENSION, UNSPECIFIED Status: Acute Current Visit: Yes (11) Hypoalbuminemia SNOMED Code(s): 169702465 Code(s): E88.09 - OTH DISORDERS OF PLASMA-PROTEIN METABOLISM, NEC Status: Acute Current Visit: Yes - Problem List Review Problem List Initiated/Reviewed/Updated: Yes - Plan Plan:: Acute on chronic hypoxemic hypercarbic respiratory failure Multifactorial PLAN - Continue O2 supplementation Acute on chronic diastolic heart failure with severe pulmonary hypertension ( RVSP- 73) Volume overloaded on admission Started on lasix with minimal improvement so transitioned to Furosemide drip also with minimal improvement Home Torsemide 80mg BID Likely lasix resistant PLAN - Start Bumex 3mg BID - Start Metolazone 5mg QD - Discontinue lasix drip - Fluid restriction up to 1.5L - Telemetry - Strict intake and output - Daily weights - Check records for dry weight Chronic kidney disease (CKD) stage G3b/A1, stable Labs stable PLAN - Continue to monitor urine output - Maintain as neutral as possible - Renally dosed medications - Repeat labs in AM and adjust medications as well as replacements as needed Hypothyroidism Home levothyroxine continued PLAN - TSH and free t4 and t3 levels Iron deficiency anemia, stable Iron supplementation at home No signs of active bleeding PLAN - Continue home iron Gout No acute issues PLAN - Continue home allopurinol DVT of leg w/Subtherapeutic international normalized ratio (INR) On warfarin Goal inr 2-3 PLAN - Pharmacy to dose warfarin Cellulitis Improving PLAN - Transition to PO antibiotics - Procalcitonin level in AM Pulmonary hypertension, moderate to severe Echocardiogram with RVSP 73 Patient likely has untreated sleep apnea Hypoalbuminemia Likely 2/2 malnutrition PLAN - Prealbumin level - Dietary follow up PROPHYLAXIS DVT- Warfarin GI- home ppi CODE STATUS: DNR/DNI DISPOSITION: Patient is from [facility] assisted living, both him and daughter have denied placement to SNF on 06/28 and stated that if they are not accepted to return to [facility] they will reconsider this option. PT is recommending SNF
[2019-06-29] MEDS: Pantoprazole 40 MG Tab.CR PO SCH ×2 (08:21→21:15)
[2019-06-29] MEDS: Propranolol 20 MG Tab PO SCH (08:21)
[2019-06-29] MEDS: Simvastatin 20 MG Tab PO SCH (08:21)
[2019-06-29] MEDS: guaiFENesin 600 MG Tab.ER PO SCH ×2 (08:21→21:16)
[2019-06-29] MEDS: Allopurinol 100 MG Tab PO SCH ×2 (08:21→21:16)
[2019-06-29] MEDS: FERROUS SULFATE PO SCH ×3 (08:29→16:29)
[2019-06-29] MEDS ORDERED: Metolazone 5 MG Tab PO SCH (11:30)
[2019-06-29] MEDS: Vancomycin 1 GM, Vancomycin 250 MG in Sodium Chloride 0.9% 250 ML IV SCH (12:19)
[2019-06-29] MEDS: Bumetanide 1 MG Tab PO SCH ×2 (12:20→21:16)
[2019-06-29] MEDS: Metolazone 5 MG Tab PO SCH (12:31)
[2019-06-29] MEDS: Bisacodyl 5 MG Tab PO PRN (16:27)
[2019-06-29] MEDS ORDERED: Warfarin 5 MG Tab PO SCH (18:00)
[2019-06-29] MEDS: Polyethylene Glycol 3350 Powder 17 GM Packet PO SCH (21:56)
[2019-06-30 04:05] VITALS: PULSE 75
[2019-06-30] MEDS: Levothyroxine 50 MCG Tab PO SCH (06:17)
[2019-06-30 07:49] VITALS: BP 136/84
[2019-06-30] MEDS: Bumetanide 1 MG Tab PO SCH (08:08)
[2019-06-30] MEDS: Allopurinol 100 MG Tab PO SCH (08:09)
[2019-06-30] MEDS: Propranolol 20 MG Tab PO SCH (08:09)
[2019-06-30] MEDS: Pantoprazole 40 MG Tab.CR PO SCH (08:09)
[2019-06-30] MEDS: guaiFENesin 600 MG Tab.ER PO SCH (08:09)
[2019-06-30] MEDS: predniSONE 20 MG Tab PO SCH (08:11)
[2019-06-30] MEDS: Metolazone 5 MG Tab PO SCH (08:11)
[2019-06-30] MEDS: Simvastatin 20 MG Tab PO SCH (08:11)
[2019-06-30] MEDS: FERROUS SULFATE PO SCH ×2 (08:13→13:05)
[2019-06-30] MEDS ORDERED: Clindamycin HCl 150 MG Cap PO SCH (11:00)
--- NOTE | 2019-06-30 13:00 | PCM.DCSUM1 ---
Discharge Summary - Hospital Course HPI Initial Comments: Brought in by family to the emergency room secondary to left lower calf pain Lower extremities appear to have a little greater erythema and warmth today but seem to be baseline in tenderness. He had a 7 lbs wt gain over the last 3 weeks since moving to [facility] living. Denies any fever, chills, shortness of dennis ath, dyspnea on exertion, orthopnea, or PND Chronic intermittent GI bleed by history after being started on Eliquis, now discontinued and patient on warfarin for LE DVT unprovoked. Recurrent transfusions are required. Found to have cellulitis, anemia, hypokalemia, (1.76) sub-therapeutic INR and signs of volume overload. Admitted on Lasix, given Kcl replacement, given 2u PRBC and ATB (rocephin). Worsening LE edema the next day with elevation in BNP, discussed case with patients clinical laboratory aide who recommended Lasix. - Discharge Data Discharge Date: 06/30/19 Discharge Disposition: DC/Tfer to SNF 03 Condition: Good - Referral to Home Health Primary Care Physician: Anne Magana NP - Discharge Diagnosis/Problem(s) (1) Acute diastolic heart failure SNOMED Code(s): 997427777 ICD Code: I50.31 - ACUTE DIASTOLIC (CONGESTIVE) HEART FAILURE Status: Acute Current Visit: Yes (2) Chronic diastolic (congestive) heart failure SNOMED Code(s): 455417722, 169423124 ICD Code: I50.32 - CHRONIC DIASTOLIC (CONGESTIVE) HEART FAILURE Status: Acute Current Visit: Yes (3) Chronic kidney disease (CKD) stage G3b/A1, moderately decreased glomerular filtration rate (GFR) between 30-44 mL/min/1.73 square meter and albuminuria creatinine ratio less than 30 mg/g SNOMED Code(s): 666156481, 992093474 ICD Code: N18.3 - CHRONIC KIDNEY DISEASE, STAGE 3 (MODERATE) Status: Acute Current Visit: Yes (4) Hypothyroidism SNOMED Code(s): 05395059 ICD Code: E03.9 - HYPOTHYROIDISM, UNSPECIFIED Status: Acute Current Visit : Yes (5) Iron deficiency anemia SNOMED Code(s): 59692241 ICD Code: D50.9 - IRON DEFICIENCY ANEMIA, UNSPECIFIED Status: Acute Current Visit: Yes (6) Gout SNOMED Code(s): 29468555 ICD Code: M10.9 - GOUT, UNSPECIFIED Status: Acute Current Visit: Yes (7) DVT of leg (deep venous thrombosis) SNOMED Code(s): 616256957 ICD Code: I82.409 - ACUTE EMBOLISM AND THOMBOS UNSP DEEP VN UNSP LOWER EXTREMITY Status: Acute Current Visit: Yes (8) Subtherapeutic international normalized ratio (INR) SNOMED Code(s): 430078293, 719779377 ICD Code: R79.1 - ABNORMAL COAGULATION PROFILE Status: Acute Current Visit: Yes (9) Cellulitis SNOMED Code(s): 311460806 ICD Code: L03.90 - CELLULITIS, UNSPECIFIED Status: Chronic Priority: High Current Visit: No (10) Pulmonary hypertension, moderate to severe SNOMED Code(s): 25293486 ICD Code: I27.20 - PULMONARY HYPERTENSION, UNSPECIFIED Status: Acute Current Visit: Yes (11) Hypoalbuminemia SNOMED Code(s): 893688878 ICD Code: E88.09 - OTH DISORDERS OF PLASMA-PROTEIN METABOLISM, NEC Status: Acute Current Visit: Yes - Patient Summary/Data Operative Procedure(s) Performed: ECHOCARDIOGRAM. The left ventricular internal cavity size is normal. 2. Normal left ventricular systolic function. 3. Left ventricular ejection fraction, by visual estimation, is 55-60%. 4. No regional wall motion abnormalities. 5. Mild concentric left ventricular hypertrophy. 6. Right ventricular size is moderately enlarged. 7. Mildly reduced right ventricular systolic function. 8. Severely dilated left atrium. 9. Mildly dilated right atrium. 10. Mild dilation of the ascending aorta. 11. 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 12. The AOV prosthesis patrol deputy sheriff reported size is 25 mm. 13. Abnormal stenosis of the aortic prosthesis. 14. The mean gradient across the bioprosthetic valve in the aortic position is 21 mmHg compared to 24 mmHg on January 27, 2018. That is a minimal improvement but still above the norm of 10.8 mmHg +/-2.8. 15. Mild mitral stenosis. 16. Mild to moderate mitral valve regurgitation. 17. The MR jet is eccentric posteriorly directed and wall impinging. 18. Moderate tricuspid valve regurgitation. 19. Mild pulmonic valve regurgitation. 20. A pacer wire is visualized in the right atrium. 21. A pacer wire is visualized in the right ventricle. 22. The inferior vena cava is abnormal. 23. The inferior vena cava is dilated with respiratory size variation less than 50%, consistent with elevated right atrial pressure. 24. Right ventricular systolic pressure is severely elevated at 74.3 mmHg. 25. Compared to January 27, 2018 the LV systolic function has improved but the bioprosthetic gradient and the severe right-sided pressures are similar Consults: Consultations 06/24/19 15:04 OT Evaluation and Treatment [CONS] Routine PT Evaluation and Treatment [CONS] Routine Hospital Course: WBC trended upward until day 3, changed to vancomycin. Ordered echocardiogram. Severe right sided heart failure with severe pulmonary hypertension 73.5 RVSP. Clinical improvement. Completed 5 days of atb therapy, no more fever. Changed Lasix to bumex and metolazone, diuresis greatly improved, shortness of breath resolved. Discharged to SNF - Patient Instructions Diet: Usual Diet as Tolerated Activity: As Tolerated - Discharge Plan Prescriptions/Med Rec: Albuterol/Ipratropium [DuoNeb 3.0-0.5 MG/3 ML] 3 ml NEB Q4HRRT PRN #20 neb PRN Reason: Shortness Of Breath Bumetanide [Bumex] 2 mg PO BID 30 Days #60 tablet Docusate Sodium [Colace] 100 mg PO BID 30 Days #60 cap metOLazone [Metolazone] 5 mg PO DAILY PRN 30 Days #30 tablet PRN Reason: Other metOLazone [Zaroxolyn] 5 mg PO DAILY 3 Days #3 tablet Potassium Chloride [Klor-Con M20] 20 meq PO DAILY 30 Days #30 tab.er Warfarin [Coumadin] 1 mg PO DAILY 31 Days #46 tab Home Medications: Home Meds Acetaminophen [Acetaminophen Extra Strength] 1,000 mg PO Q6H PRN 04/04/19 [ History] Allopurinol [Zyloprim] 100 mg PO DAILY 04/04/19 [History] Cholecalciferol (Vitamin D3) [Vitamin D3] 5,000 unit PO MOWEFR 04/04/19 [History ] Ferrous Sulfate 5 ml PO TID 04/04/19 [History] Levothyroxine [Synthroid] 50 mcg PO ACBREAKFAST 04/04/19 [History] Lutein/Minerals/Vit A,C & E [Ocuvite] 1 tab PO DAILY 04/04/19 [History] Pantoprazole Sodium [Protonix] 40 mg PO BID 04/04/19 [History] Propranolol [Inderal] 20 mg PO DAILY 04/04/19 [History] Bisacodyl [Laxative] 5 mg PO ASDIRECTED PRN 06/24/19 [History] Albuterol/Ipratropium [DuoNeb 3.0-0.5 MG/3 ML] 3 ml NEB Q4HRRT PRN #20 neb 06/30 [Rx] Bumetanide [Bumex] 2 mg PO BID 30 Days #60 tablet 06/30/19 [Rx] Docusate Sodium [Colace] 100 mg PO BID 30 Days #60 cap 06/30/19 [Rx] Potassium Chloride [Klor-Con M20] 20 meq PO DAILY 30 Days #30 tab.er 06/30/19 [ Rx] Warfarin [Coumadin] 1 mg PO DAILY 31 Days #46 tab 06/30/19 [Rx] metOLazone [Metolazone] 5 mg PO DAILY PRN 30 Days #30 tablet 06/30/19 [Rx] metOLazone [Zaroxolyn] 5 mg PO DAILY 3 Days #3 tablet 06/30/19 [Rx] Patient Handouts: Cellulitis, Adult, Sepsis, Adult, Heart Failure Forms: ED Department Discharge Referrals: Anne Magana NP [Primary Care Provider] - - Discharge Summary/Plan Comment DC Time >30 min.: Yes - General Info Subjective Update: Feeling good Shortness of breath is back at baseline No pain Good urine output - Patient Data Vitals - Most Recent: Last Vital Signs Temp 36.3 C 06/30/19 07:47 Pulse 75 06/30/19 07:47 Resp 16 06/30/19 07:47 BP 136/84 06/30/19 07:47 Pulse Ox 95 06/30/19 07:47 Weight - Most Recent: 229 kg I&O - Last 24 hours: Intake & Output 06/29/19 06/30/19 06/30/19 22:59 06:59 14:59 Intake Total 810 300 300 Output Total 1950 1575 520 Balance -1140 -7185 -220 Lab Results - Last 24 hrs: Laboratory Results - last 24 hr 06/30/19 06/30/19 06/30/19 Range/Units 03:55 03:55 03:55 WBC 12.53 H (4.23-9.07) K/mm3 RBC 3.33 L (4.63-6.08) M/mm3 Hgb 9.7 L (13.7-17.5) gm/dl Hct 32.4 L (40.1-51.0) % MCV 97.3 H (79.0-92.2) fl MCH 29.1 (25.7-32.2) pg MCHC 29.9 L (32.2-35.5) g/dl RDW Std Deviation 61.6 H (35.1-43.9) fL Plt Count 199 (163-337) K/mm3 MPV 9.6 (9.4-12.3) fl Neut % (Auto) 86.0 H (34.0-67.9) % Lymph % (Auto) 2.6 L (21.8-53.1) % Mcdowell % (Auto) 9.9 (5.3-12.2) % Eos % (Auto) 0.8 (0.8-7.0) Baso % (Auto) 0.1 (0.1-1.2) % Neut # (Auto) 10.78 H (1.78-5.38) K/mm3 Lymph # (Auto) 0.32 L (1.32-3.57) K/mm3 Mcdowell # (Auto) 1.24 H (0.30-0.82) K/mm3 Eos # (Auto) 0.10 (0.04-0.54) K/mm3 Baso # (Auto) 0.01 (0.01-0.08) K/mm3 Manual Slide Review Abnormal smear PT 34.5 H D (9.7-12.0) SECONDS INR 3.39 Sodium 146 H (136-145) mEq/L Potassium 3.3 L (3.5-5.1) mEq/L Chloride 105 (98-107) mEq/L Carbon Dioxide 33 H (21-32) mEq/L Anion Gap 11.3 (5-15) BUN 72 H (7-18) mg/dL Creatinine 1.6 H (0.7-1.3) mg/dL Est Cr Clr Drug Dosing 36.43 mL/min Estimated GFR (MDRD) 41 (>60) mL/min BUN/Creatinine Ratio 45.0 H (14-18) Glucose 126 H (83-115) mg/dL Calcium 9.0 (8.5-10.1) mg/dL Phosphorus 3.4 (2.6-4.7) mg/dL Magnesium 2.2 (1.8-2.4) mg/dl Free T4 (0.76-1.46) ng/dL TSH 3rd Generation (0.358-3.74) uIU/mL 06/30/19 Range/Units 03:55 WBC (4.23-9.07) K/mm3 RBC (4.63-6.08) M/mm3 Hgb (13.7-17.5) gm/dl Hct (40.1-51.0) % MCV (79.0-92.2) fl MCH (25.7-32.2) pg MCHC (32.2-35.5) g/dl RDW Std Deviation (35.1-43.9) fL Plt Count (163-337) K/mm3 MPV (9.4-12.3) fl Neut % (Auto) (34.0-67.9) % Lymph % (Auto) (21.8-53.1) % Mcdowell % (Auto) (5.3-12.2) % Eos % (Auto) (0.8-7.0) Baso % (Auto) (0.1-1.2) % Neut # (Auto) (1.78-5.38) K/mm3 Lymph # (Auto) (1.32-3.57) K/mm3 Mcdowell # (Auto) (0.30-0.82) K/mm3 Eos # (Auto) (0.04-0.54) K/mm3 Baso # (Auto) (0.01-0.08) K/mm3 Manual Slide Review PT (9.7-12.0) SECONDS INR Sodium (136-145) mEq/L Potassium (3.5-5.1) mEq/L Chloride (98-107) mEq/L Carbon Dioxide (21-32) mEq/L Anion Gap (5-15) BUN (7-18) mg/dL Creatinine (0.7-1.3) mg/dL Est Cr Clr Drug Dosing mL/min Estimated GFR (MDRD) (>60) mL/min BUN/Creatinine Ratio (14-18) Glucose (83-115) mg/dL Calcium (8.5-10.1) mg/dL Phosphorus (2.6-4.7) mg/dL Magnesium (1.8-2.4) mg/dl Free T4 1.05 (0.76-1.46) ng/dL TSH 3rd Generation 1.699 (0.358-3.74) uIU/mL [facility] Results - Last 24 hrs: Microbiology 06/24/19 09:20 Aerobic Blood Culture - Preliminary Blood NO GROWTH AFTER 6 DAYS Anaerobic Blood Culture - Preliminary NO GROWTH AFTER 6 DAYS Med Orders - Current: Current Medications Acetaminophen (Tylenol) 650 mg PO Q4H PRN PRN Reason: Pain (Mild 1-3)/fever Last Admin: 06/26/19 19:38 Dose: 650 mg Albuterol (Proventil) 2.5 mg NEB Q4HRRT PRN PRN Reason: Wheezing Albuterol/Ipratropium (Duoneb 3.0-0.5 Mg/3 Ml) 3 ml NEB Q4HRRT PRN PRN Reason: Wheezing Last Admin: 06/29/19 15:26 Dose: 3 ml Allopurinol (Zyloprim) 100 mg PO BID [facility] Last Admin: 06/30/19 08:09 Dose: 100 mg Bisacodyl (Dulcolax) 5 mg PO DAILY PRN PRN Reason: CONSTIPATION Last Admin: 06/29/19 16:27 Dose: 5 mg Bumetanide (Bumex) 3 mg PO BID [facility] Last Admin: 06/30/19 08:08 Dose: 3 mg Clindamycin HCl (Cleocin) 450 mg PO 0500,1100,1700,2200 [facility] Docusate Sodium (Colace) 100 mg PO BID PRN PRN Reason: Constipation Last Admin: 06/30/19 08:09 Dose: 100 mg Guaifenesin (Mucinex) 600 mg PO BID [facility] Last Admin: 06/30/19 08:09 Dose: 600 mg Levothyroxine Sodium (Synthroid) 50 mcg PO ACBREAKFAST [facility] Last Admin: 06/30/19 06:17 Dose: 50 mcg Metolazone (Zaroxolyn) 5 mg PO DAILY [facility] Last Admin: 06/30/19 08:11 Dose: 5 mg Ondansetron HCl (Zofran) 4 mg IV Q4H PRN PRN Reason: Nausea/Vomiting Pantoprazole Sodium (Protonix) 40 mg PO BID [facility] Last Admin: 06/30/19 08:09 Dose: 40 mg Ferrous Sulfate Elixir *Pt Own Supply* 0 each PO TIDMEALS [facility] Last Admin: 06/30/19 08:13 Dose: 1 each Polyethylene Glycol (Miralax) 17 gm PO BEDTIME [facility] Last Admin: 06/29/19 21:56 Dose: Not Given Prednisone (Prednisone) 40 mg PO WITHBREAKFAST [facility] Last Admin: 06/30/19 08:11 Dose: 40 mg Propranolol HCl (Inderal) 20 mg PO DAILY [facility] Last Admin: 06/30/19 08:09 Dose: 20 mg Simvastatin (Zocor) 20 mg PO DAILY [facility] Last Admin: 06/30/19 08:11 Dose: 20 mg Sodium Chloride (Saline Flush) 10 ml FLUSH ASDIRECTED PRN PRN Reason: Keep Vein Open Last Admin: 06/24/19 10:52 Dose: 10 ml Warfarin Sodium (Pharmacy To Dose - Warfarin) 1 dose .XX ASDIRECTED [facility] Warfarin Sodium (Coumadin Sliding Scale) 0 each PO QPM [facility] Stop: 06/30/19 18:01 Discontinued Medications Albuterol/Ipratropium (Duoneb 3.0-0.5 Mg/3 Ml) 3 ml NEB Q4HRRT PRN PRN Reason: Wheezing Last Admin: 06/26/19 16:32 Dose: 3 ml Albuterol/Ipratropium (Duoneb 3.0-0.5 Mg/3 Ml) Confirm Administered Dose 3 ml .ROUTE .STK-MED ONE Stop: 06/24/19 18:34 Last Admin: 06/24/19 18:40 Dose: Not Given Albuterol/Ipratropium (Duoneb 3.0-0.5 Mg/3 Ml) 3 ml NEB Q4HRRT [facility] Last Admin: 06/28/19 17:07 Dose: 3 ml Ferrous Sulfate (Ferrous Sulfate) 220 mg PO TIDMEALS [facility] Last Admin: 06/26/19 10:07 Dose: Not Given Furosemide (Lasix) 80 mg IVPUSH NOW ONE Stop: 06/24/19 15:06 Last Admin: 06/24/19 16:10 Dose: 80 mg Furosemide (Lasix) Confirm Administered Dose 100 mg .ROUTE .STK-MED ONE Stop: 06/28/19 19:16 Last Admin: 06/28/19 19:37 Dose: Not Given Guaifenesin (Mucinex) 600 mg PO BID [facility] Last Admin: 06/28/19 18:58 Dose: Not Given Ceftriaxone Sodium 2 gm/ (Sodium Chloride) 100 mls @ 200 mls/hr IV Q24H [facility] Last Admin: 06/25/19 11:29 Dose: 200 mls/hr Vancomycin HCl 1.75 gm/ Sodium (Chloride) 500 mls @ 250 mls/hr IV ONETIME ONE Stop: 06/24/19 14:29 Last Admin: 06/24/19 16:47 Dose: Not Given Vancomycin HCl 1.25 gm/ Sodium (Chloride) 250 mls @ 166.667 mls/hr IV Q24H [facility] Furosemide 100 mg/ Sodium (Chloride) 100 mls @ 10 mls/hr IV TITRATE [facility]; Protocol Last Admin: 06/29/19 07:05 Dose: 10 mg/hr, 10 mls/hr Sodium Chloride (Normal Saline) Confirm Administered Dose 250 mls @ as directed .ROUTE .STK-MED ONE Stop: 06/24/19 16:22 Last Admin: 06/24/19 16:49 Dose: Not Given Sodium Chloride (Normal Saline) 250 mls @ 50 mls/hr IV ONETIME ONE Stop: 06/24/19 20:59 Last Admin: 06/24/19 16:57 Dose: 50 mls/hr Vancomycin HCl 1 gm/Vancomycin HCl 250 mg/ Sodium Chloride 250 mls @ 250 mls/ hr IV Q24H [facility] Last Admin: 06/28/19 12:33 Dose: Not Given Sodium Chloride (Normal Saline) Confirm Administered Dose 100 mls @ as directed .ROUTE .STK-MED ONE Stop: 06/27/19 19:43 Last Admin: 06/27/19 21:11 Dose: Not Given Vancomycin HCl 1 gm/Vancomycin HCl 250 mg/ Sodium Chloride 250 mls @ 166.667 mls/hr IV Q24H [facility] Stop: 06/29/19 14:00 Last Admin: 06/29/19 12:19 Dose: 166.667 mls/hr Non-Formulary Medication (Acetaminophen) 1,000 mg PO Q6H PRN PRN Reason: Pain Ferrous Sulfate Elixir *Pt Own Supply* 0 mg PO TID [facility] Last Admin: 06/26/19 21:01 Dose: Not Given Ferrous Sulfate Elixir *Pt Own Supply* 0 each PO TID [facility] Potassium Chloride (Klor-Con M20) 40 meq PO ONETIME ONE Stop: 06/24/19 10:59 Last Admin: 06/24/19 11:11 Dose: 40 meq Potassium Chloride (Klor-Con M20) 40 meq PO BEDTIME [facility] Stop: 06/24/19 21:01 Last Admin: 06/24/19 20:01 Dose: 40 meq Potassium Chloride (Klor-Con M20) 40 meq PO ONETIME ONE Stop: 06/25/19 09:31 Last Admin: 06/25/19 11:29 Dose: 40 meq Potassium Chloride (Klor-Con M20) 40 meq PO BEDTIME [facility] Stop: 06/26/19 21:01 Last Admin: 06/26/19 21:00 Dose: Not Given Potassium Chloride (Klor-Con M20) 20 meq PO ONETIME ONE Stop: 06/25/19 16:20 Last Admin: 06/25/19 17:15 Dose: 20 meq Potassium Chloride (Klor-Con M20) 20 meq PO ONETIME ONE Stop: 06/28/19 09:01 Last Admin: 06/28/19 10:14 Dose: 20 meq Prednisone (Prednisone) 40 mg PO ONETIME ONE Stop: 06/27/19 16:01 Last Admin: 06/27/19 18:00 Dose: 40 mg Vancomycin HCl (Pharmacy To Dose - Vancomycin) 1 dose .XX ASDIRECTED PRN PRN Reason: RX TO DOSE VANCO Vancomycin HCl (Pharmacy To Dose - Vancomycin) 1 dose .XX ASDIRECTED [facility] Warfarin Sodium (Coumadin) 5 mg PO [email or web address] [facility] Last Admin: 06/27/19 17:48 Dose: 5 mg Warfarin Sodium (Coumadin) 2.5 mg PO [email or web address] [facility] Last Admin: 06/26/19 17:11 Dose: 2.5 mg Warfarin Sodium (Coumadin) 5 mg PO QPM [facility] Stop: 06/28/19 18:01 Last Admin: 06/28/19 17:50 Dose: 5 mg Warfarin Sodium (Coumadin) 5 mg PO QPM [facility] Stop: 06/29/19 18:01 Last Admin: 06/29/19 17:58 Dose: 5 mg - Exam Quality Assessment: Reports: Supplemental Oxygen General: Reports: Alert, Oriented HEENT: Reports: Pupils Equal, Pupils Reactive Neck: Reports: Supple, Trachea Midline Lungs: Reports: Clear to Auscultation, Decreased Breath Sounds, Crackles. Denies: Rales, Rhonchi, Wheezing Cardiovascular: Reports: Regular Rate, Regular Rhythm GI/Abdominal Exam: Normal Bowel Sounds, Soft, Non-Tender Back Exam: Reports: Normal Inspection Extremities: Normal Inspection, Pedal Edema, Redness Skin: Reports: Warm, Dry Neurological: Reports: No New Focal Deficit Psy/Mental Status: Reports: Alert
[2019-06-30] MEDS: Bisacodyl 5 MG Tab PO PRN (13:12)
[2019-06-30] MEDS ORDERED: Warfarin Sliding Scale PO SCH (18:00)
== END 2019-06-30 13:30 | DRG 291 ==
LOC: JD.ED 08:23 → JD.MS 11:03 → JD.ICU 15:09
PROVIDERS: ADMIT Family Medicine; ATTEND Family Medicine
PROC: 30233N1 Transfusion of Nonautologous Red Blood Cells into Peripheral Vein, Percutaneous Approach (ICD-10-PCS; principal; 2019-06-25)
DX: I13.0 Hypertensive heart and chronic kidney disease with heart failure and stage 1 through stage 4 chronic kidney disease, or unspecified chronic kidney disease (principal); I50.31 Acute diastolic (congestive) heart failure; I50.33 Acute on chronic diastolic (congestive) heart failure; J96.21 Acute and chronic respiratory failure with hypoxia; J96.22 Acute and chronic respiratory failure with hypercapnia; L03.116 Cellulitis of left lower limb; I82.402 Acute embolism and thrombosis of unspecified deep veins of left lower extremity; E78.00 Pure hypercholesterolemia, unspecified; L03.115 Cellulitis of right lower limb; Z66 Do not resuscitate; N18.3 Chronic kidney disease, stage 3 (moderate); E03.9 Hypothyroidism, unspecified; D50.9 Iron deficiency anemia, unspecified; M10.9 Gout, unspecified; R79.1 Abnormal coagulation profile; I27.20 Pulmonary hypertension, unspecified; E88.09 Other disorders of plasma-protein metabolism, not elsewhere classified; I25.10 Atherosclerotic heart disease of native coronary artery without angina pectoris; K59.09 Other constipation; K21.9 Gastro-esophageal reflux disease without esophagitis; M19.90 Unspecified osteoarthritis, unspecified site; I49.9 Cardiac arrhythmia, unspecified; G62.9 Polyneuropathy, unspecified; E87.6 Hypokalemia; Z79.01 Long term (current) use of anticoagulants; Z79.899 Other long term (current) drug therapy; Z98.49 Cataract extraction status, unspecified eye; Z95.1 Presence of aortocoronary bypass graft; Z95.0 Presence of cardiac pacemaker; Z95.2 Presence of prosthetic heart valve; Z90.49 Acquired absence of other specified parts of digestive tract
CPT/HCPCS: 36415; 36430; 51701; 51702; 71045; 71045-26; 74019; 74019-26; 76705; 76705-26; 80048; 80053; 80202; 82533; 82607; 83605; 83735; 83880; 84100; 84134; 84145; 84439; 84443; 84481; 84482; 84484; 85007; 85014; 85018; 85025; 85027; 85610; 86140; 86850; 86900; 86901; 86922; 87040; 93005; 93010; 93306; 94640; 94667; 94668; 97110-GO; 97110-GP; 97116-GP; 97162-GP; 97166-GO; 97530-GO; 97530-GP; 99284; 99285-25; A9270-GY; J0696; J1940; J3370; J7030; J7050; J7620-GY; P9016

== ENCOUNTER 2019-08-05 19:48 | Emergency (ER) | payer MEDICARE, BC ==
[2019-08-05 20:08] VITALS: BP 135/75; PULSE 75
[2019-08-05] MEDS ORDERED: Sodium Chloride 0.9% 10 ML Syringe FLUSH PRN (20:14)
--- NOTE | 2019-08-05 20:20 | EDM.PDOC ---
ED HPI GENERAL MEDICAL PROBLEM - General Chief Complaint: Respiratory Problem Stated Complaint: SOB Time Seen by Provider: 08/05/19 20:00 Source of Information: Reports: Patient, Family (daughter), Long-Term Records , RN Notes Reviewed History Limitations: Reports: No Limitations - History of Present Illness INITIAL COMMENTS - FREE TEXT/NARRATIVE: Patient is in 89-year-old male who is brought to the ED by family for the evaluation of shortness of breath. The family notes that they visited him yesterday, and he appeared to be find and when they went to see him today, he appeared to be more short of breath or had some labored breathing. Patient has chronic anemia, etiology is undetermined at this time. The daughter notes that the patient does have standing orders to have transfusions when his hemoglobin drops to the mid eights. She notes that his most recent hemoglobin done at [facility] was done this last Thursday, and was 9.3. The patient has not had a fever documented at the assisted, he has not had a cough, he is not complaining of any chest pain. He is complaining of generalized weakness, increased fatigue, and shortness of breath. He does have a history of CHF, valve replacement, bypass, and a pacemaker. He does reside at [facility]. - Related Data Allergies Allergy/AdvReac Type Severity Reaction Status Date / Time No Known Allergies Allergy Verified 08/05/19 20:08 Home Meds: Home Meds Acetaminophen [Acetaminophen Extra Strength] 1,000 mg PO Q6H PRN 04/04/19 [ History] Allopurinol [Zyloprim] 100 mg PO DAILY 04/04/19 [History] Cholecalciferol (Vitamin D3) [Vitamin D3] 5,000 unit PO MOWEFR 04/04/19 [History ] Ferrous Sulfate 5 ml PO TID 04/04/19 [History] Levothyroxine [Synthroid] 50 mcg PO ACBREAKFAST 04/04/19 [History] Lutein/Minerals/Vit A,C & E [Ocuvite] 1 tab PO DAILY 04/04/19 [History] Pantoprazole Sodium [Protonix] 40 mg PO BID 04/04/19 [History] Propranolol [Inderal] 20 mg PO DAILY 04/04/19 [History] Bisacodyl [Laxative] 5 mg PO ASDIRECTED PRN 06/24/19 [History] Albuterol/Ipratropium [DuoNeb 3.0-0.5 MG/3 ML] 3 ml NEB Q4HRRT PRN #20 neb 06/30 [Rx] Bumetanide [Bumex] 2 mg PO BID 30 Days #60 tablet 06/30/19 [Rx] Docusate Sodium [Colace] 100 mg PO BID 30 Days #60 cap 06/30/19 [Rx] Potassium Chloride [Klor-Con M20] 20 meq PO DAILY 30 Days #30 tab.er 06/30/19 [ Rx] Warfarin [Coumadin] 1 mg PO DAILY 31 Days #46 tab 06/30/19 [Rx] metOLazone [Metolazone] 5 mg PO DAILY PRN 30 Days #30 tablet 06/30/19 [Rx] metOLazone [Zaroxolyn] 5 mg PO DAILY 3 Days #3 tablet 06/30/19 [Rx] Past Medical History HEENT History: Reports: Cataract Cardiovascular History: Reports: Arrhythmia, Blood Clots/VTE/DVT, Bypass, CAD, Heart Failure, Heart Valve Replacement, High Cholesterol, Hypertension, Pacemaker Gastrointestinal History: Reports: Chronic Constipation, GERD Genitourinary History: Reports: BPH, Chronic Renal Insuffiency Musculoskeletal History: Reports: Gout, Osteoarthritis Neurological History: Reports: Neuropathy, Peripheral Psychiatric History: Reports: None Endocrine/Metabolic History: Reports: Hypothyroidism Hematologic History: Reports: Anemia, Blood Transfusion(s) Oncologic (Cancer) History: Reports: Basal Cell Carcinoma, Prostate Dermatologic History: Reports: Cellulitis - Past Surgical History HEENT Surgical History: Reports: Cataract Surgery Cardiovascular Surgical History: Reports: Coronary Artery Bypass, Pacer, Valve Replacement GI Surgical History: Reports: Cholecystectomy, Hernia, Inguinal Male Surgical History: Reports: None Endocrine Surgical History: Reports: None Musculoskeletal Surgical History: Reports: Arthroscopic Knee Dermatological Surgical History: Reports: Skin Biopsy Social & Family History - Family History Family Medical History: Noncontributory - Tobacco Use Smoking Status *Q: Never Smoker Second Hand Smoke Exposure: No - Caffeine Use Caffeine Use: Reports: None - Living Situation & Occupation Living situation: Reports: , Alone Occupation: Retired ED ROS GENERAL - Review of Systems Review Of Systems: See Below Constitutional: Reports: Malaise (generalized), Weakness (generalized). Denies : Fever, Chills Respiratory: Reports: Shortness of Breath. Denies: Wheezing, Cough, Sputum Cardiovascular: Denies: Chest Pain GI/Abdominal: Denies: Abdominal Pain, Constipation, Diarrhea, Nausea, Vomiting : Denies: Dysuria, Frequency, Urgency Musculoskeletal: Reports: No Symptoms Skin: Reports: Pallor (generalized) ED EXAM, GENERAL - Physical Exam Exam: See Below Exam Limited By: No Limitations General Appearance: Alert, WD/WN, No Apparent Distress, Lethargic (pt answers questions when prompted, but falls back asleep quickly) Eye Exam: Bilateral Eye: EOMI, Normal Inspection, PERRL Throat/Mouth: Normal Inspection, Normal Lips, Normal Teeth, Normal Gums, Normal Oropharynx, Normal Voice, No Airway Compromise Head: Atraumatic Neck: Normal Inspection Respiratory/Chest: No Respiratory Distress, Lungs Clear, Normal Breath Sounds, No Accessory Muscle Use, Chest Non-Tender Cardiovascular: Normal Peripheral Pulses, Regular Rate, Rhythm, No Murmur Peripheral Pulses: 3+: Radial (L), Radial (R) GI/Abdominal: Normal Bowel Sounds, Soft, Non-Tender, No Distention, No Mass Extremities: Normal Inspection, Normal Capillary Refill Neurological: Alert, Oriented, CN II-XII Intact (grossly), Normal Cognition Psychiatric: Normal Affect, Normal Mood Skin Exam: Warm, Dry, Intact, No Rash, Pallor (generalized) EKG INTERPRETATION EKG Date: 08/05/19 Time: 20:18 Rhythm: NSR Rate (Beats/Min): 74 [place]: Normal P-Wave: Present QRS: Normal ST-T: Normal QT: Normal EKG Interpretation Comments: ventricular paced rhythm, hard to determine ischemia at this time. Course - Vital Signs Last Recorded V/S: Last Vital Signs Temp 98.1 F 08/05/19 20:04 Pulse 75 08/05/19 20:04 Resp 27 H 08/05/19 20:04 BP 135/75 08/05/19 20:04 Pulse Ox 95 08/05/19 20:04 - Orders/Labs/Meds Orders: Active Orders 24 hr Category Date Time Status EKG Documentation Completion [RC] STAT Care 08/05/19 20:12 Active Peripheral IV Care [RC] . DIRECTED Care 08/05/19 20:14 Active Chest 1V Frontal [CR] Stat Exams 08/05/19 20:12 Taken Sodium Chloride 0.9% [Saline Flush] Med 08/05/19 20:14 Active 10 ml FLUSH ASDIRECTED PRN Peripheral IV Insertion Adult [OM.PC] Stat Oth 08/05/19 20:14 Ordered Medication Orders Sodium Chloride (Saline Flush) 10 ml FLUSH ASDIRECTED PRN PRN Reason: Keep Vein Open Last Admin: 08/05/19 20:28 Dose: 10 ml Labs: Laboratory Tests 08/05/19 08/05/19 08/05/19 Range/Units 20:24 20:24 20:24 WBC 11.60 H (4.23-9.07) K/mm3 RBC 3.26 L (4.63-6.08) M/mm3 Hgb 9.6 L (13.7-17.5) gm/dl Hct 30.8 L (40.1-51.0) % MCV 94.5 H (79.0-92.2) fl MCH 29.4 (25.7-32.2) pg MCHC 31.2 L (32.2-35.5) g/dl RDW Std Deviation 60.5 H (35.1-43.9) fL Plt Count 260 (163-337) K/mm3 MPV 9.0 L (9.4-12.3) fl Neutrophils % (Manual) 93 H (40-60) % Band Neutrophils % 0 (0-10) % Lymphocytes % (Manual) 3 L (20-40) % Atypical Lymphs % 0 % Monocytes % (Manual) 4 (2-10) % Eosinophils % (Manual) 0 L (0.8-7.0) % Basophils % (Manual) 0 L (0.2-1.2) Platelet Estimate Adequate Anisocytosis 2+ moderate Macrocytosis 1+ slight Ovalocytes Few RBC Morph Comment Not Reportable PT 24.4 H (9.7-12.0) SECONDS INR 2.35 APTT 35 H (22-31) SECONDS Sodium 134 L D (136-145) mEq/L Potassium 4.0 (3.5-5.1) mEq/L Chloride 97 L (98-107) mEq/L Carbon Dioxide 29 (21-32) mEq/L Anion Gap 12.0 (5-15) BUN 65 H (7-18) mg/dL Creatinine 1.7 H (0.7-1.3) mg/dL Est Cr Clr Drug Dosing TNP Estimated GFR (MDRD) 38 (>60) mL/min BUN/Creatinine Ratio 38.2 H (14-18) Glucose 181 H (83-115) mg/dL Calcium 8.7 (8.5-10.1) mg/dL Total Bilirubin 0.5 (0.2-1.0) mg/dL AST 30 (15-37) U/L ALT 31 (16-63) U/L Alkaline Phosphatase 142 H (46-116) U/L Troponin I 0.064 H* (0.00-0.056) ng/mL NT-Pro-B Natriuret Pep (0-450) pg/mL Total Protein 7.1 (6.4-8.2) g/dl Albumin 3.3 L (3.4-5.0) g/dl Globulin 3.8 gm/dL Albumin/Globulin Ratio 0.9 L (1-2) Blood Type Gel Antibody Screen 08/05/19 08/05/19 08/05/19 Range/Units 20:24 20:24 22:14 WBC (4.23-9.07) K/mm3 RBC (4.63-6.08) M/mm3 Hgb (13.7-17.5) gm/dl Hct (40.1-51.0) % MCV (79.0-92.2) fl MCH (25.7-32.2) pg MCHC (32.2-35.5) g/dl RDW Std Deviation (35.1-43.9) fL Plt Count (163-337) K/mm3 MPV (9.4-12.3) fl Neutrophils % (Manual) (40-60) % Band Neutrophils % (0-10) % Lymphocytes % (Manual) (20-40) % Atypical Lymphs % % Monocytes % (Manual) (2-10) % Eosinophils % (Manual) (0.8-7.0) % Basophils % (Manual) (0.2-1.2) Platelet Estimate Anisocytosis Macrocytosis Ovalocytes RBC Morph Comment PT (9.7-12.0) SECONDS INR APTT (22-31) SECONDS Sodium (136-145) mEq/L Potassium (3.5-5.1) mEq/L Chloride (98-107) mEq/L Carbon Dioxide (21-32) mEq/L Anion Gap (5-15) BUN (7-18) mg/dL Creatinine (0.7-1.3) mg/dL Est Cr Clr Drug Dosing Estimated GFR (MDRD) (>60) mL/min BUN/Creatinine Ratio (14-18) Glucose (83-115) mg/dL Calcium (8.5-10.1) mg/dL Total Bilirubin (0.2-1.0) mg/dL AST (15-37) U/L ALT (16-63) U/L Alkaline Phosphatase (46-116) U/L Troponin I 0.066 H* (0.00-0.056) ng/mL NT-Pro-B Natriuret Pep 2310 H (0-450) pg/mL Total Protein (6.4-8.2) g/dl Albumin (3.4-5.0) g/dl Globulin gm/dL Albumin/Globulin Ratio (1-2) Blood Type A POSITIVE Gel Antibody Screen Negative Meds: Medications Generic Name Dose Route Start Last Admin Trade Name Freq PRN Reason Stop Dose Admin Sodium Chloride 10 ml 08/05/19 20:14 08/05/19 20:28 Saline Flush FLUSH 10 ml ASDIRECTED PRN Administration Keep Vein Open Discontinued Medications Generic Name Dose Route Start Last Admin Trade Name Freq PRN Reason Stop Dose Admin Acetaminophen 650 mg 08/05/19 21:06 08/05/19 21:32 Tylenol PO 08/05/19 21:07 650 mg NOW ONE Administration Acetaminophen 325 mg 08/05/19 21:40 08/05/19 21:44 Tylenol PO 08/05/19 21:41 325 mg NOW ONE Administration Metolazone 5 mg 08/05/19 23:08 08/05/19 23:17 Zaroxolyn PO 08/05/19 23:09 5 mg ONETIME ONE Administration - Re-Assessments/Exams Free Text/Narrative Re-Assessment/Exam: 08/05/19 20:23 Patient presents to the ED for evaluation of increasing shortness of breath and generalized weakness. Will check type and screen, BNP, CBC, CMP, troponin, coags, EKG and a chest x-ray for initial evaluation. 08/05/19 22:49 Labs are back, patient's CBC is essentially within normal limits, hemoglobin is mildly low at 9.6, but not low enough to need a transfusion at this time. BNP was elevated at 2310, and he did have a bump in his troponin 0.064. Patient's kidney status as follows creatinine 1.7, GFR 38. Likely that the troponin bump can be explained by the kidney status and heart failure. EKG shows a ventricular paced rhythm, no obvious sign of acute ischemic change. I did discuss the patient's case with Dr. Carney when he was still here, he suggested doing a repeat troponin at 2 hours, and having the patient take his extra [facility], and tomorrow night, and checking in with his regular provider tomorrow. 08/05/19 23:03 Repeat trop is 0.066. So it is mildly elevated from initial, I will consult cardiology at [facility] regarding this. I believe this to be more of a strain on the heart than an acute [place] situation. Pt is a DNR. Dr. Bingham, the senior resident care director production broacher was consulted on the case, and he agrees that this is more of a heart failure strain elevation of the troponin, and he says there is no further need for evaluation or transfer to their facility for a non- STEMI. At this time I did order 5 mg by mouth metolazone to be given at this ER , and the patient will be discharged home to [facility], with recommendations on administration of metolazone, tomorrow night as well. Patient and family present are okay with this plan. Departure - Departure Time of Disposition: 23:21 Disposition: Home, Self-Care 01 Condition: Fair Clinical Impression: Congestive heart failure Qualifiers: Heart failure type: diastolic Heart failure chronicity: chronic Qualified Code( s): I50.32 - Chronic diastolic (congestive) heart failure - Discharge Information *PRESCRIPTION DRUG MONITORING PROGRAM REVIEWED*: No *COPY OF PRESCRIPTION DRUG MONITORING REPORT IN PATIENT NIRU: No Instructions: Heart Failure Exacerbation Referrals: Jean-Claude Barber MD [Primary Care Provider] - Forms: ED Department Discharge Additional Instructions: You were evaluated in the ER today regarding your increasing shortness of breath. Your hemoglobin was low, but not low enough to need a transfusion at this time. It was at 9.6. Your marker for heart failure, BNP, was elevated at 2310, you were given a dose of metolazone 5 mg in the ER today, and recommend that you take an extra dose tomorrow night, and the night after to help get rid of some of the fluid you are retaining. At this time there was no acute bacterial processes noted by lab or on the chest x-ray. Please return to the ED if your symptoms change or worsen. - My Orders Last 24 Hours: My Active Orders 08/05/19 20:12 EKG Documentation Completion [RC] STAT Chest 1V Frontal [CR] Stat 08/05/19 20:14 Peripheral IV Care [RC] . DIRECTED Sodium Chloride 0.9% [Saline Flush] 10 ml FLUSH ASDIRECTED PRN Peripheral IV Insertion Adult [OM.PC] Stat - Assessment/Plan Last 24 Hours: My Active Orders 08/05/19 20:12 EKG Documentation Completion [RC] STAT Chest 1V Frontal [CR] Stat 08/05/19 20:14 Peripheral IV Care [RC] . DIRECTED Sodium Chloride 0.9% [Saline Flush] 10 ml FLUSH ASDIRECTED PRN Peripheral IV Insertion Adult [OM.PC] Stat
[2019-08-05] MEDS ORDERED: Acetaminophen 325 MG Tab PO ONE ×2 (21:06→21:40)
[2019-08-05] MEDS ORDERED: Metolazone 5 MG Tab PO ONE (23:08)
--- NOTE | 2019-08-10 09:21 | CR ---
Chest: Portable view of the chest was obtained. Comparison: Prior chest x-ray of 06/28/19. Heart size slightly prominent but accentuated portable technique. Tortuous thoracic aorta is noted. Pulmonary vessels may be slightly congested although most of this appears to be chronic. Prior sternotomy is noted. Pacemaker is noted. Bony structures are grossly intact. Impression: 1. Pulmonary vessels appear somewhat congested although most of this appears to be chronic. 2. Other findings as noted above which are stable. Diagnostic code #3 This report was dictated in [place] Standard Time
== END 2019-08-05 23:48 | disposition home or self-care (01) ==
LOC: JD.ED 19:48
DX: I13.0 Hypertensive heart and chronic kidney disease with heart failure and stage 1 through stage 4 chronic kidney disease, or unspecified chronic kidney disease (principal); I50.32 Chronic diastolic (congestive) heart failure; N18.9 Chronic kidney disease, unspecified; Z79.899 Other long term (current) drug therapy; Z90.49 Acquired absence of other specified parts of digestive tract
CPT/HCPCS: 36415; 71045; 80053; 83880; 84484; 85007; 85027; 85610; 85730; 86850; 86900; 86901; 93005; 99285; A9270; 93010; 99283

== ENCOUNTER 2019-12-21 12:24 | Inpatient (IN) | payer MEDICARE, BC ==
--- NOTE | 2019-12-21 13:07 | EDM.PDOC ---
ED HPI GENERAL MEDICAL PROBLEM - General Chief Complaint: Cardiovascular Problem Stated Complaint: RETAINING FLUID Time Seen by Provider: 12/21/19 12:30 Source of Information: Reports: Patient, Long-Term Records History Limitations: Reports: No Limitations - History of Present Illness INITIAL COMMENTS - FREE TEXT/NARRATIVE: Patient is an 89-year-old male sent to the ER by the custodial facility with complaints of weight gain. Patient has a history of CHF as well as stage III chronic kidney disease and is on oral diuretics including Bumex and metolazone. [facility] reports that he had a 3 pound weight gain today and a total of 10 pounds over the last week. Patient denies any shortness of breath or chest pain. Patient's primary care provider is Dr. Barber. - Related Data Allergies Allergy/AdvReac Type Severity Reaction Status Date / Time No Known Allergies Allergy Verified 12/21/19 12:43 Home Meds: Home Meds Acetaminophen [Acetaminophen Extra Strength] 1,000 mg PO BID 04/04/19 [History] Cholecalciferol (Vitamin D3) [Vitamin D3] 5,000 unit PO MOWEFR 04/04/19 [History ] Ferrous Sulfate 5 ml PO TID 04/04/19 [History] Levothyroxine [Synthroid] 50 mcg PO ACBREAKFAST 04/04/19 [History] Lutein/Minerals/Vit A,C & E [Ocuvite] 1 tab PO DAILY 04/04/19 [History] Pantoprazole Sodium [Protonix] 40 mg PO BID 04/04/19 [History] allopurinoL [Zyloprim] 100 mg PO DAILY 04/04/19 [History] bisacodyL [Laxative] 5 mg PO ASDIRECTED PRN 06/24/19 [History] Albuterol/Ipratropium [DuoNeb 3.0-0.5 MG/3 ML] 3 ml NEB Q4HRRT PRN #20 neb 06/30 [Rx] Ascorbate Calcium [Vitamin C] 500 mg PO TID 12/21/19 [History] Bumetanide [Bumex] 3 mg PO BID 12/21/19 [History] Docusate Sodium/Sennosides [Senna Plus] 2 each PO BID 12/21/19 [History] Potassium Chloride [Klor-Con M20] 40 meq PO TID 12/21/19 [History] Warfarin [Coumadin] 3 mg PO DAILY 12/21/19 [History] metOLazone [Zaroxolyn] 2.5 mg PO ASDIRECTED 12/21/19 [History] polyethylene glycoL 3350 [MiraLAX] 17 gm PO DAILY 12/21/19 [History] Past Medical History HEENT History: Reports: Cataract Cardiovascular History: Reports: Arrhythmia, Blood Clots/VTE/DVT, Bypass, CAD, Heart Failure, Heart Valve Replacement, High Cholesterol, Hypertension, Pacemaker Gastrointestinal History: Reports: Chronic Constipation, GERD Genitourinary History: Reports: BPH, Chronic Renal Insuffiency Musculoskeletal History: Reports: Gout, Osteoarthritis Neurological History: Reports: Neuropathy, Peripheral Psychiatric History: Reports: None Endocrine/Metabolic History: Reports: Hypothyroidism Hematologic History: Reports: Anemia, Blood Transfusion(s) Oncologic (Cancer) History: Reports: Basal Cell Carcinoma, Prostate Dermatologic History: Reports: Cellulitis - Past Surgical History HEENT Surgical History: Reports: Cataract Surgery Cardiovascular Surgical History: Reports: Coronary Artery Bypass, Pacer, Valve Replacement GI Surgical History: Reports: Cholecystectomy, Hernia, Inguinal Male Surgical History: Reports: None Endocrine Surgical History: Reports: None Musculoskeletal Surgical History: Reports: Arthroscopic Knee Dermatological Surgical History: Reports: Skin Biopsy Social & Family History - Family History Family Medical History: Noncontributory - Tobacco Use Smoking Status *Q: Never Smoker Second Hand Smoke Exposure: No - Caffeine Use Caffeine Use: Reports: None - Recreational Drug Use Recreational Drug Use: No - Living Situation & Occupation Living situation: Reports: , Alone Occupation: Retired ED ROS GENERAL - Review of Systems Review Of Systems: See Below Constitutional: Reports: No Symptoms. Denies: Fever, Chills HEENT: Reports: No Symptoms Respiratory: Reports: No Symptoms. Denies: Shortness of Breath, Wheezing, Cough Cardiovascular: Reports: No Symptoms. Denies: Chest Pain Endocrine: Reports: No Symptoms GI/Abdominal: Reports: No Symptoms. Denies: Abdominal Pain : Reports: No Symptoms Musculoskeletal: Reports: No Symptoms Skin: Reports: No Symptoms Neurological: Reports: No Symptoms Psychiatric: Reports: Hallucinations Hematologic/Lymphatic: Reports: No Symptoms Immunologic: Reports: No Symptoms ED EXAM, GENERAL - Physical Exam Exam: See Below Exam Limited By: No Limitations General Appearance: Alert, WD/WN, No Apparent Distress Respiratory/Chest: No Respiratory Distress, Lungs Clear, Normal Breath Sounds, No Accessory Muscle Use, Chest Non-Tender Cardiovascular: Normal Peripheral Pulses, Regular Rate, Rhythm, No Gallop, No JVD, No Murmur, No Rub, Other (3+ pitting pedal edema bilaterally. No pretibial edema.) GI/Abdominal: Normal Bowel Sounds, Soft, Non-Tender, No Organomegaly, No Distention, No Abnormal Bruit, No Mass Extremities: Non-Tender, Normal Capillary Refill, Pedal Edema (3+ pitting pedal edema bilaterally. No pretibial edema.) Neurological: Alert, Oriented, No Motor/Sensory Deficits Psychiatric: Normal Affect, Normal Mood Skin Exam: Warm, Dry, Intact, Normal Color, No Rash Course - Vital Signs Last Recorded V/S: Last Vital Signs Temp 98.2 F 12/21/19 12:24 Pulse 74 12/21/19 12:24 Resp 20 12/21/19 12:24 BP 111/59 L 12/21/19 12:24 Pulse Ox 96 12/21/19 12:24 - Orders/Labs/Meds Orders: Active Orders 24 hr Category Date Time Status EKG Documentation Completion [RC] STAT Care 12/21/19 12:44 Active Insert Guerrero Catheter [Insert Urinary Catheter] [OM.PC] Care 12/21/19 14:45 Ordered Q24H Urinary Catheter Assessment [RC] ASDIRECTED Care 12/21/19 14:44 Active Labs: Laboratory Tests 12/21/19 12/21/19 12/21/19 Range/Units 13:00 13:00 13:00 WBC 9.81 H (4.23-9.07) K/mm3 RBC 3.12 L (4.63-6.08) M/mm3 Hgb 8.9 L (13.7-17.5) gm/dl Hct 29.5 L (40.1-51.0) % MCV 94.6 H (79.0-92.2) fl MCH 28.5 (25.7-32.2) pg MCHC 30.2 L (32.2-35.5) g/dl RDW Std Deviation 63.0 H (35.1-43.9) fL Plt Count 306 (163-337) K/mm3 MPV 9.1 L (9.4-12.3) fl Neut % (Auto) 78.6 H (34.0-67.9) % Lymph % (Auto) 4.6 L (21.8-53.1) % Major % (Auto) 14.6 H (5.3-12.2) % Eos % (Auto) 0.8 (0.8-7.0) Baso % (Auto) 0.2 (0.1-1.2) % Neut # (Auto) 7.71 H (1.78-5.38) K/mm3 Lymph # (Auto) 0.45 L (1.32-3.57) K/mm3 [place] # (Auto) 1.43 H (0.30-0.82) K/mm3 Eos # (Auto) 0.08 (0.04-0.54) K/mm3 Baso # (Auto) 0.02 (0.01-0.08) K/mm3 Manual Slide Review Abnormal smear Sodium 133 L (136-145) mEq/L Potassium 4.3 (3.5-5.1) mEq/L Chloride 96 L (98-107) mEq/L Carbon Dioxide 26 (21-32) mEq/L Anion Gap 15.3 H (5-15) BUN 78 H (7-18) mg/dL Creatinine 1.8 H (0.7-1.3) mg/dL Est Cr Clr Drug Dosing 30.79 mL/min Estimated GFR (MDRD) 36 (>60) mL/min BUN/Creatinine Ratio 43.3 H (14-18) Glucose 100 (83-115) mg/dL Calcium 9.1 (8.5-10.1) mg/dL Total Bilirubin 0.6 (0.2-1.0) mg/dL AST 23 (15-37) U/L ALT 38 (16-63) U/L Alkaline Phosphatase 145 H (46-116) U/L NT-Pro-B Natriuret Pep 2299 H (0-450) pg/mL Total Protein 7.1 (6.4-8.2) g/dl Albumin 3.6 (3.4-5.0) g/dl Globulin 3.5 gm/dL Albumin/Globulin Ratio 1.0 (1-2) Meds: Medications Discontinued Medications Generic Name Dose Route Start Last Admin Trade Name Freq PRN Reason Stop Dose Admin Acetaminophen 975 mg 12/21/19 13:44 12/21/19 13:51 Tylenol PO 12/21/19 13:45 975 mg NOW ONE Administration Bumetanide 5 mg 12/21/19 13:58 Bumex IVPUSH 12/21/19 13:59 ONETIME ONE Bumetanide 5 mg 12/21/19 14:12 Bumex PO 12/21/19 14:13 ONETIME ONE Furosemide 80 mg 12/21/19 14:43 12/21/19 15:15 Lasix IVPUSH 12/21/19 14:44 80 mg NOW ONE Administration - Re-Assessments/Exams Free Text/Narrative Re-Assessment/Exam: On exam, lung sounds are clear. Patient does have 3+ pitting pedal edema, however has no pretibial edema. SPO2 ranges 96 to 100% on room air. I have ordered a CBC, CMP, BNP, EKG, and chest x-ray. 12/21/19 13:36 Called and spoke to Dr. Barber, patient's primary care provider. Dr. Barber stated that he had spoke with the senior care last week regarding patient's weight gain, however he was under the impression that he was doing better. He did not speak with the custodial facility today. He stated that he thinks he has been on Lasix in the past but that did not work. I discussed with him that my plan is to give him a dose of IV Bumex in the ER and then increase his metolazone dose on discharge with the recommendation that he follow-up with his primary care provider. Dr. Barber was in agreement with this plan. He recommended that we increase his metolazone 2.5 mg to daily instead of Thursday, Thursday, and Thursday. Lab results are pending available, I will plan to order a dose of Bumex. 12/21/19 14:07 Chest x-ray was negative for pulmonary vascular congestion. Hemoglobin is low at 8.9, however does not require transfusion. Potassium is at the high end of normal at 4.3. BUN 78, creatinine 8.1, BNP 2299. Patient is due for his 2:00 dose of Bumex 3 mg. I will give him Bumex 5 mg PO at this time. We will discharge back to custodial facility with orders to increase his Zaroxolyn to 2.5 mg daily and continue Bumex 3 mg twice daily. Recommend that he follow-up with his primary care provider early next week to have his labs rechecked and continue to monitor daily weights. D 12/21/19 14:45 Spoke with patient's daughter who advised that it was actually patient's plastering supervisor that requested he be sent to the ER. I called and spoke with Dr. Santos, plastering supervisor at [facility] in [place]. He verbalized that patient has a tendency to become resistant to his diuretics and requires IV diuresis. His recommendation would be to admit to the hospital for a few days for IV diuresis with Lasix and monitor labs. Called and spoke with hospitalist, Dr. Barrett. Patient will be admitted for CHF exacerbation. I have ordered a Guerrero catheter for accurate output, as well as Lasix 80 mg IV to be given now. Departure - Departure Time of Disposition: 14:46 Disposition: Admitted As Inpatient 68 Condition: Fair Clinical Impression: CHF, Congestive heart failure Instructions: Heart Failure Action Plan Referrals: Jean-Claude Barber MD [Primary Care Provider] - Forms: ED Department Discharge Sepsis Event Note - Evaluation Sepsis Screening Result: No Definite Risk - Focused Exam Vital Signs: Vital Signs Temp Pulse Resp BP Pulse Ox 12/21/19 12:24 98.2 F 74 20 111/59 L 96 Date Exam was Performed: 12/21/19 Time Exam was Performed: 15:22 - My Orders Last 24 Hours: My Active Orders 12/21/19 12:44 EKG Documentation Completion [RC] STAT 12/21/19 14:44 Urinary Catheter Assessment [RC] ASDIRECTED 12/21/19 14:45 Insert Guerrero Catheter [Insert Urinary Catheter] [OM.PC] Q24H - Assessment/Plan Last 24 Hours: My Active Orders 12/21/19 12:44 EKG Documentation Completion [RC] STAT 12/21/19 14:44 Urinary Catheter Assessment [RC] ASDIRECTED 12/21/19 14:45 Insert Guerrero Catheter [Insert Urinary Catheter] [OM.PC] Q24H
--- NOTE | 2019-12-21 13:24 | CR ---
Chest: Portable view of the chest was obtained. Comparison: Prior chest x-ray of 08/05/19. Heart size is accentuated portable technique. Tortuous thoracic aorta is noted. Lungs show no acute parenchymal change. Pulmonary vessels may be minimally increased which appears stable. Bony structures are grossly intact. Pacemaker is noted. Sternotomy wires are present. Impression: 1. Findings as noted above which appear stable from prior chest x-ray. 2. Nothing acute is seen. Diagnostic code #2 This report was dictated in MDT
[2019-12-21] MEDS ORDERED: Acetaminophen 325 MG Tab PO ONE (13:44)
[2019-12-21] MEDS ORDERED: Bumetanide 1 MG/4 ML MDV IVPUSH ONE (13:58)
[2019-12-21] MEDS ORDERED: Bumetanide 1 MG Tab PO ONE (14:12)
[2019-12-21] MEDS ORDERED: Furosemide 40 MG/4 ML VIAL IVPUSH ONE (14:43)
--- NOTE | 2019-12-21 18:00 | PCM.HP.2 ---
H&P History of Present Illness - General Date of Service: 12/21/19 Admit Problem/Dx: Admission Diagnosis/Problem Admission Diagnosis/Problem CHF, Congestive heart failure - History of Present Illness Initial Comments - Free Text/Narative: 89-year-old male, known to the hospitalist service, with history of right heart failure with preserved left ventricular ejection fraction of 55 to 60%, aortic porcine bioprosthesis with abnormal stenosis and increased gradient of 21 mmHg on May 2019 echo, lower extremity edema and stasis dermatitis, and stage III chronic kidney disease brought to the emergency department with reported 10 pound weight gain over the last week and 3 of those pounds today. Patient is hard of hearing and a poor historian, but denies any shortness of breath. He has chronic lower extremity pain from his edema. Patient appears to be asymptomatic from this 10 pound weight gain. Emergency department provider stated that he was sent by his general production worker, Dr. Santos, because he becomes resistant to oral diuretics and requires IV diuretics. He recommended furosemide for diuresis to start with 80 mg IV push. In the emergency department patient was found to have a pulse ox in the upper 90s on room air, blood pressure 111/59, respiratory rate of 20, pulse of 74, temperature of 98.2. Chest x-ray showed chronic appearance of pulmonary vessels minimally increased. Pacemaker noted. Pertinent positive labs: WBC 9.8 , hemoglobin 8.9 platelet count 306, sodium 133, BUN 78, creatinine 1.8, proBNP 2299. - Related Data Allergies/Adverse Reactions: Allergies Allergy/AdvReac Type Severity Reaction Status Date / Time No Known Allergies Allergy Verified 12/21/19 12:43 Home Medications: Home Meds Acetaminophen [Acetaminophen Extra Strength] 1,000 mg PO BID 04/04/19 [History] Cholecalciferol (Vitamin D3) [Vitamin D3] 5,000 unit PO MOWEFR 04/04/19 [History ] Ferrous Sulfate 5 ml PO TID 04/04/19 [History] Levothyroxine [Synthroid] 50 mcg PO ACBREAKFAST 04/04/19 [History] Lutein/Minerals/Vit A,C & E [Ocuvite] 1 tab PO DAILY 04/04/19 [History] Pantoprazole Sodium [Protonix] 40 mg PO BID 04/04/19 [History] allopurinoL [Zyloprim] 100 mg PO DAILY 04/04/19 [History] bisacodyL [Laxative] 5 mg PO ASDIRECTED PRN 06/24/19 [History] Albuterol/Ipratropium [DuoNeb 3.0-0.5 MG/3 ML] 3 ml NEB Q4HRRT PRN #20 neb 06/30 [Rx] Ascorbate Calcium [Vitamin C] 500 mg PO TID 12/21/19 [History] Bumetanide [Bumex] 3 mg PO BID 12/21/19 [History] Docusate Sodium/Sennosides [Senna Plus] 2 each PO BID 12/21/19 [History] Potassium Chloride [Klor-Con M20] 40 meq PO TID 12/21/19 [History] Warfarin [Coumadin] 3 mg PO DAILY 12/21/19 [History] metOLazone [Zaroxolyn] 2.5 mg PO ASDIRECTED 12/21/19 [History] polyethylene glycoL 3350 [MiraLAX] 17 gm PO DAILY 12/21/19 [History] Past Medical History HEENT History: Reports: Cataract Cardiovascular History: Reports: Arrhythmia, Blood Clots/VTE/DVT, Bypass, CAD, Heart Failure, Heart Valve Replacement, High Cholesterol, Hypertension, Pacemaker Gastrointestinal History: Reports: Chronic Constipation, GERD Genitourinary History: Reports: BPH, Chronic Renal Insuffiency Musculoskeletal History: Reports: Gout, Osteoarthritis Neurological History: Reports: Neuropathy, Peripheral Psychiatric History: Reports: None Endocrine/Metabolic History: Reports: Hypothyroidism Hematologic History: Reports: Anemia, Blood Transfusion(s) Oncologic (Cancer) History: Reports: Basal Cell Carcinoma, Prostate Dermatologic History: Reports: Cellulitis - Past Surgical History HEENT Surgical History: Reports: Cataract Surgery Cardiovascular Surgical History: Reports: Coronary Artery Bypass, Pacer, Valve Replacement GI Surgical History: Reports: Cholecystectomy, Hernia, Inguinal Male Surgical History: Reports: None Endocrine Surgical History: Reports: None Musculoskeletal Surgical History: Reports: Arthroscopic Knee Dermatological Surgical History: Reports: Skin Biopsy Social & Family History - Family History Family Medical History: Noncontributory - Tobacco Use Smoking Status *Q: Never Smoker Second Hand Smoke Exposure: No - Caffeine Use Caffeine Use: Reports: None - Recreational Drug Use Recreational Drug Use: No - Living Situation & Occupation Living situation: Reports: , Alone Occupation: Retired H&P Review of Systems - Review of Systems: Review Of Systems: Comprehensive ROS is negative, except as noted in HPI. Exam - Exam Exam: See Below - Vital Signs Vital Signs: Last Vital Signs Temp 98.2 F 12/21/19 12:24 Pulse 74 12/21/19 12:24 Resp 20 12/21/19 12:24 BP 111/59 L 12/21/19 12:24 Pulse Ox 96 12/21/19 12:24 Weight: 234 lb - Exam Quality Assessment: No: Supplemental Oxygen General: Other (sleepy) HEENT: Conjunctiva Clear, Posterior Pharynx Clear Neck: Supple, Trachea Midline, 2 Lungs: Clear to Auscultation (Mildly increased respiratory rate of 20), Normal Respiratory Effort Cardiovascular: Regular Rate, Regular Rhythm, Systolic Murmur (Best heard at the left fifth intercostal space), Gallop/S3, Gallop/S4 GI/Abdominal Exam: Normal Bowel Sounds, Soft, Non-Tender, No Organomegaly, No Distention Extremities: Redness (Stasis dermatitis with erythema tracking up the anterior dsouza. Mild tenderness. 3+ pitting edema up to upper calf. Difficult to palpate pulses secondary to edema, but 1+ pulses in bilateral dorsalis pedis.) Peripheral Pulses: 1+: Dorsalis Pedis (L), Dorsalis Pedis (R) Skin: Warm, Dry. No: Intact (Excoriation on left anterior dsouza) Neurological: Cranial Nerves Intact Neuro Extensive - Mental Status: Disorientation to Place, Disorientation to Time Psychiatric: No: Alert (Confused) - Patient Data Lab Results Last 24 hrs: Laboratory Results - last 24 hr 12/21/19 12/21/19 12/21/19 Range/Units 13:00 13:00 13:00 WBC 9.81 H (4.23-9.07) K/mm3 RBC 3.12 L (4.63-6.08) M/mm3 Hgb 8.9 L (13.7-17.5) gm/dl Hct 29.5 L (40.1-51.0) % MCV 94.6 H (79.0-92.2) fl MCH 28.5 (25.7-32.2) pg MCHC 30.2 L (32.2-35.5) g/dl RDW Std Deviation 63.0 H (35.1-43.9) fL Plt Count 306 (163-337) K/mm3 MPV 9.1 L (9.4-12.3) fl Neut % (Auto) 78.6 H (34.0-67.9) % Lymph % (Auto) 4.6 L (21.8-53.1) % [place] % (Auto) 14.6 H (5.3-12.2) % Eos % (Auto) 0.8 (0.8-7.0) Baso % (Auto) 0.2 (0.1-1.2) % Neut # (Auto) 7.71 H (1.78-5.38) K/mm3 Lymph # (Auto) 0.45 L (1.32-3.57) K/mm3 [place] # (Auto) 1.43 H (0.30-0.82) K/mm3 Eos # (Auto) 0.08 (0.04-0.54) K/mm3 Baso # (Auto) 0.02 (0.01-0.08) K/mm3 Manual Slide Review Abnormal smear Sodium 133 L (136-145) mEq/L Potassium 4.3 (3.5-5.1) mEq/L Chloride 96 L (98-107) mEq/L Carbon Dioxide 26 (21-32) mEq/L Anion Gap 15.3 H (5-15) BUN 78 H (7-18) mg/dL Creatinine 1.8 H (0.7-1.3) mg/dL Est Cr Clr Drug Dosing 30.79 mL/min Estimated GFR (MDRD) 36 (>60) mL/min BUN/Creatinine Ratio 43.3 H (14-18) Glucose 100 (83-115) mg/dL Calcium 9.1 (8.5-10.1) mg/dL Total Bilirubin 0.6 (0.2-1.0) mg/dL AST 23 (15-37) U/L ALT 38 (16-63) U/L Alkaline Phosphatase 145 H (46-116) U/L NT-Pro-B Natriuret Pep 2299 H (0-450) pg/mL Total Protein 7.1 (6.4-8.2) g/dl Albumin 3.6 (3.4-5.0) g/dl Globulin 3.5 gm/dL Albumin/Globulin Ratio 1.0 (1-2) Result Diagrams: 12/21/19 13:00 12/21/19 13:00 Imaging Impressions Last 24 hrs: Chest x-ray: Lungs show no acute parenchymal change. Pulmonary vessels may be minimally increased which appears stable. Pacemaker is noted. Sternotomy wires are present. Nothing acute. EKG INTERPRETATION EKG Date: 12/21/19 Rhythm: NSR (Ventricularly paced) Rate (Beats/Min): 75 Sepsis Event Note - Evaluation Sepsis Screening Result: No Definite Risk - Focused Exam Vital Signs: Vital Signs Temp Pulse Resp BP Pulse Ox 12/21/19 12:24 98.2 F 74 20 111/59 L 96 Date Exam was Performed: 12/21/19 Time Exam was Performed: 18:36 Problem List Initiated/Reviewed/Updated: Yes Orders Last 24hrs: Active Orders 24 hr Category Date Time Status Admission Status [Patient Status] [ADT] Routine ADT 12/21/19 15:46 Active EKG Documentation Completion [RC] STAT Care 12/21/19 12:44 Active Insert Guerrero Catheter [Insert Urinary Catheter] [OM.PC] Care 12/21/19 14:45 Ordered Q24H Urinary Catheter Assessment [RC] Q4HR Care 12/21/19 14:44 Active Assessment/Plan Comment:: Assessment 89-year-old male with history of HFpEF and right heart failure admitted to the ICU with reported 10 pound weight gain over the last week. * No apparent symptomatic change from baseline * Aortic bioprosthesis with abnormal stenosis and increased gradient of 21 mmHg on echocardiogram on May 2019 * Given 80 mg of Lasix IV in the emergency department * Admitted to ICU in anticipation of Lasix drip * Weight and ICU is stable since discharge on 06/30/2019 * BNP 2299 * ECG ventricularly paced at 75 bpm * Not on LOWELL/ARB due to renal disease * Shipping Clerk/Admin Dr. Santos, primary care Dr. Barber Chronic bilateral lower extremity edema with stasis dermatitis * No reported change from baseline in size, warmth, or redness * Significantly tender lower extremity * WBC 9.8 Stage IIIb chronic renal insufficiency * Estimated GFR is stable from previous hospitalization at 36 * BUN 78, creatinine 1.8, creatinine clearance drug dosing 30.8 Iron deficiency anemia/chronic blood loss anemia * Previous hospitalization patient has received transfusion * On warfarin for history of DVT * Previous capsule endoscopy found slow small intestinal bleed per daughter Chronic: Heart failure with preserved ejection fraction, pulmonary hypertension , dementia, generalized weakness, abnormalities of gait and mobility, cognitive communication deficit, iron deficiency anemia, stasis dermatitis with chronic lower extremity cellulitis, hypothyroidism, BPH, hyperlipidemia, chronic A. fib , obstructive sleep apnea, chronic back pain, idiopathic peripheral autonomic neuropathy. Plan * Admit to ICU for close monitoring. Initially felt he would be placed on a Lasix drip, but will hold off until morning. * Guerrero for strict I's and O's * Follow hemoglobin * Pharmacy to dose warfarin * Get INR daily * 1500 mL fluid restriction * Heart healthy diet * Review and reconcile home medications * CBC, CMP, mag daily * CODE STATUS: DNR/DNI * VTE prophylaxis with warfarin - Mortality Measure Prognosis:: Poor
[2019-12-21] MEDS ORDERED: Albuterol/Ipratropium 3.0-0.5 MG/3 ML Neb Soln NEB PRN (20:01)
[2019-12-21] MEDS ORDERED: Non-Formulary Medication 1 Each (Warfarin 3 MG) PO SCH (20:15)
[2019-12-21] MEDS ORDERED: Warfarin 3 MG Tab PO ONE (20:30)
[2019-12-21] MEDS ORDERED: Carboxymethylcellulose Sodium 1% Ophth Gel 15 ML Bottle EYEBOTH PRN (21:00)
[2019-12-21] MEDS ORDERED: Warfarin 3 MG Tab PO SCH (21:30)
[2019-12-22] MEDS: Levothyroxine 50 MCG Tab PO SCH (06:10)
[2019-12-22] MEDS: FERROUS SULFATE 220 MG/5 ML PO SCH ×5 (07:41→20:44)
[2019-12-22] MEDS: Polyethylene Glycol 3350 Powder 17 GM Packet PO SCH (08:48)
[2019-12-22] MEDS: Allopurinol 100 MG Tab PO SCH (08:48)
[2019-12-22] MEDS ORDERED: Potassium Chloride 20 MEQ Tab.ER PO ONE (13:09)
[2019-12-22] MEDS ORDERED: Furosemide 40 MG/4 ML VIAL IVPUSH ONE (13:13)
[2019-12-22] MEDS ORDERED: Potassium Chloride 10 MEQ in Premix Bag 1 BAG IV ONE (13:33)
[2019-12-22] MEDS ORDERED: Piperacillin/Tazobactam 4.5 GM in Sodium Chloride 0.9% 100 ML IV ONE (14:30)
[2019-12-22] MEDS: Doxycycline 100 MG in Sodium Chloride 0.9% 100 ML IV SCH (15:07)
[2019-12-22] MEDS: Furosemide 100 MG in Sodium Chloride 0.9% 90 ML IV SCH (15:08)
[2019-12-22] MEDS ORDERED: Furosemide 20 MG/2 ML VIAL ONE (15:26)
--- NOTE | 2019-12-22 15:45 | PCM.PN ---
- General Info Date of Service: 12/22/19 - Review of Systems Systems Review Comment:: The patient was seen and examined by me. Case was discussed with Dr. Block. Time of my exam, patient resting on the chair. Nursing staff noted the patient eats about 50% of his meals. Reported swelling inpatient for extremities which appears warm to touch and patient has some noticeable discomfort with touching lower extremities. No obvious fevers or chills., Nursing staff also reported the patient's oxygen saturation dropped was requiring 1 L to keep saturations above 90. The patient had some response after patient was given Lasix 80 mg in the ED. otherwise no other acute concerns noted. Ports no chest pain or palpitations. - Patient Data Vitals - Most Recent: Last Vital Signs Temp 97.3 F 12/22/19 12:00 Pulse 79 12/22/19 08:00 Resp 15 12/22/19 12:00 BP 126/71 12/22/19 12:00 Pulse Ox 100 12/22/19 12:00 Weight - Most Recent: 228 lb 6.4 oz I&O - Last 24 Hours: Intake & Output 12/22/19 12/22/19 12/22/19 06:59 14:59 22:59 Intake Total 300 210 Output Total 775 895 Balance -475 -685 Lab Results Last 24 Hours: Laboratory Results - last 24 hr 12/21/19 12/21/19 12/21/19 Range/Units 18:54 18:55 18:55 WBC (4.23-9.07) K/mm3 RBC (4.63-6.08) M/mm3 Hgb (13.7-17.5) gm/dl Hct (40.1-51.0) % MCV (79.0-92.2) fl MCH (25.7-32.2) pg MCHC (32.2-35.5) g/dl RDW Std Deviation (35.1-43.9) fL Plt Count (163-337) K/mm3 MPV (9.4-12.3) fl Neut % (Auto) (34.0-67.9) % Lymph % (Auto) (21.8-53.1) % [place] % (Auto) (5.3-12.2) % Eos % (Auto) (0.8-7.0) Baso % (Auto) (0.1-1.2) % Neut # (Auto) (1.78-5.38) K/mm3 Lymph # (Auto) (1.32-3.57) K/mm3 [place] # (Auto) (0.30-0.82) K/mm3 Eos # (Auto) (0.04-0.54) K/mm3 Baso # (Auto) (0.01-0.08) K/mm3 Manual Slide Review PT 20.2 H (9.7-12.0) SECONDS INR 1.92 Sodium (136-145) mEq/L Potassium (3.5-5.1) mEq/L Chloride (98-107) mEq/L Carbon Dioxide (21-32) mEq/L Anion Gap (5-15) BUN (7-18) mg/dL Creatinine (0.7-1.3) mg/dL Est Cr Clr Drug Dosing mL/min Estimated GFR (MDRD) (>60) mL/min BUN/Creatinine Ratio (14-18) Glucose (83-115) mg/dL Calcium (8.5-10.1) mg/dL Magnesium (1.8-2.4) mg/dl Total Bilirubin (0.2-1.0) mg/dL AST (15-37) U/L ALT (16-63) U/L Alkaline Phosphatase (46-116) U/L Troponin I 0.074 H* (0.00-0.056) ng/mL Total Protein (6.4-8.2) g/dl Albumin (3.4-5.0) g/dl Globulin gm/dL Albumin/Globulin Ratio (1-2) MRSA (PCR) Positive H 12/21/19 12/22/19 12/22/19 Range/Units 22:25 05:30 05:30 WBC 8.82 (4.23-9.07) K/mm3 RBC 2.97 L (4.63-6.08) M/mm3 Hgb 8.4 L (13.7-17.5) gm/dl Hct 28.1 L (40.1-51.0) % MCV 94.6 H (79.0-92.2) fl MCH 28.3 (25.7-32.2) pg MCHC 29.9 L (32.2-35.5) g/dl RDW Std Deviation 61.9 H (35.1-43.9) fL Plt Count 280 (163-337) K/mm3 MPV 9.5 (9.4-12.3) fl Neut % (Auto) 82.4 H (34.0-67.9) % Lymph % (Auto) 2.8 L (21.8-53.1) % [place] % (Auto) 12.4 H (5.3-12.2) % Eos % (Auto) 1.1 (0.8-7.0) Baso % (Auto) 0.2 (0.1-1.2) % Neut # (Auto) 7.26 H (1.78-5.38) K/mm3 Lymph # (Auto) 0.25 L (1.32-3.57) K/mm3 [place] # (Auto) 1.09 H (0.30-0.82) K/mm3 Eos # (Auto) 0.10 (0.04-0.54) K/mm3 Baso # (Auto) 0.02 (0.01-0.08) K/mm3 Manual Slide Review Abnormal smear PT (9.7-12.0) SECONDS INR Sodium 137 (136-145) mEq/L Potassium 3.0 L (3.5-5.1) mEq/L Chloride 98 (98-107) mEq/L Carbon Dioxide 30 (21-32) mEq/L Anion Gap 12.0 (5-15) BUN 79 H (7-18) mg/dL Creatinine 1.6 H (0.7-1.3) mg/dL Est Cr Clr Drug Dosing 34.50 mL/min Estimated GFR (MDRD) 41 (>60) mL/min BUN/Creatinine Ratio 49.4 H (14-18) Glucose 122 H (83-115) mg/dL Calcium 9.0 (8.5-10.1) mg/dL Magnesium 2.2 (1.8-2.4) mg/dl Total Bilirubin 0.7 (0.2-1.0) mg/dL AST 22 (15-37) U/L ALT 31 (16-63) U/L Alkaline Phosphatase 131 H (46-116) U/L Troponin I 0.083 H* (0.00-0.056) ng/mL Total Protein 6.7 (6.4-8.2) g/dl Albumin 3.4 (3.4-5.0) g/dl Globulin 3.3 gm/dL Albumin/Globulin Ratio 1.0 (1-2) MRSA (PCR) 12/22/19 Range/Units 05:30 WBC (4.23-9.07) K/mm3 RBC (4.63-6.08) M/mm3 Hgb (13.7-17.5) gm/dl Hct (40.1-51.0) % MCV (79.0-92.2) fl MCH (25.7-32.2) pg MCHC (32.2-35.5) g/dl RDW Std Deviation (35.1-43.9) fL Plt Count (163-337) K/mm3 MPV (9.4-12.3) fl Neut % (Auto) (34.0-67.9) % Lymph % (Auto) (21.8-53.1) % [place] % (Auto) (5.3-12.2) % Eos % (Auto) (0.8-7.0) Baso % (Auto) (0.1-1.2) % Neut # (Auto) (1.78-5.38) K/mm3 Lymph # (Auto) (1.32-3.57) K/mm3 [place] # (Auto) (0.30-0.82) K/mm3 Eos # (Auto) (0.04-0.54) K/mm3 Baso # (Auto) (0.01-0.08) K/mm3 Manual Slide Review PT 18.8 H (9.7-12.0) SECONDS INR 1.78 Sodium (136-145) mEq/L Potassium (3.5-5.1) mEq/L Chloride (98-107) mEq/L Carbon Dioxide (21-32) mEq/L Anion Gap (5-15) BUN (7-18) mg/dL Creatinine (0.7-1.3) mg/dL Est Cr Clr Drug Dosing mL/min Estimated GFR (MDRD) (>60) mL/min BUN/Creatinine Ratio (14-18) Glucose (83-115) mg/dL Calcium (8.5-10.1) mg/dL Magnesium (1.8-2.4) mg/dl Total Bilirubin (0.2-1.0) mg/dL AST (15-37) U/L ALT (16-63) U/L Alkaline Phosphatase (46-116) U/L Troponin I (0.00-0.056) ng/mL Total Protein (6.4-8.2) g/dl Albumin (3.4-5.0) g/dl Globulin gm/dL Albumin/Globulin Ratio (1-2) MRSA (PCR) Med Orders - Current: Current Medications Acetaminophen (Tylenol) 650 mg PO Q4H PRN PRN Reason: Pain (Mild 1-3)/fever Albuterol/Ipratropium (Duoneb 3.0-0.5 Mg/3 Ml) 3 ml NEB Q4HRRT PRN PRN Reason: Shortness of Breath Allopurinol (Zyloprim) 100 mg PO DAILY [facility] Last Admin: 12/22/19 08:48 Dose: 100 mg Artificial Tears (Refresh Liquigel 1%) 0 ml EYEBOTH BID PRN PRN Reason: Dry Eyes Doxycycline Hyclate 100 mg/ (Sodium Chloride) 100 mls @ 100 mls/hr IV Q12H [facility] Last Admin: 12/22/19 15:07 Dose: 100 mls/hr Piperacillin Sod/Tazobactam (Sod 4.5 gm/ Sodium Chloride) 100 mls @ 25 mls/hr IV Q8H [facility] Furosemide 100 mg/ Sodium (Chloride) 100 mls @ 3 mls/hr IV ASDIRECTED [facility]; Protocol Last Admin: 12/22/19 15:08 Dose: 3 mg/hr, 3 mls/hr Levothyroxine Sodium (Synthroid) 50 mcg PO ACBREAKFAST [facility] Last Admin: 12/22/19 06:10 Dose: 50 mcg Ferrous Sulfate 220 (Mg/5 Ml Ptom) 0 each PO TID [facility] Last Admin: 12/22/19 15:30 Dose: 5 each Polyethylene Glycol (Miralax) 17 gm PO DAILY [facility] Last Admin: 12/22/19 08:48 Dose: 17 gm Senna/Docusate Sodium (Senna Plus) 2 tab PO BID [facility] Last Admin: 12/22/19 08:48 Dose: 2 tab Warfarin Sodium (Pharmacy To Dose - Warfarin) 1 dose .XX ASDIRECTED PRN PRN Reason: RX TO DOSE WARFARIN Warfarin Sodium (Coumadin) 4 mg PO QPM DARCY Stop: 12/22/19 18:01 Discontinued Medications Acetaminophen (Tylenol) 975 mg PO NOW ONE Stop: 12/21/19 13:45 Last Admin: 12/21/19 13:51 Dose: 975 mg Bumetanide (Bumex) 5 mg IVPUSH ONETIME ONE Stop: 12/21/19 13:59 Last Admin: 12/21/19 18:59 Dose: Not Given Bumetanide (Bumex) 5 mg PO ONETIME ONE Stop: 12/21/19 14:13 Last Admin: 12/21/19 18:59 Dose: Not Given Furosemide (Lasix) 80 mg IVPUSH NOW ONE Stop: 12/21/19 14:44 Last Admin: 12/21/19 15:15 Dose: 80 mg Furosemide (Lasix) 60 mg IVPUSH NOW ONE Stop: 12/22/19 13:14 Last Admin: 12/22/19 15:32 Dose: 60 mg Furosemide (Lasix) Confirm Administered Dose 60 mg .ROUTE .STK-MED ONE Stop: 12/22/19 15:27 Last Admin: 12/22/19 15:34 Dose: 60 mg Piperacillin Sod/Tazobactam (Sod 4.5 gm/ Sodium Chloride) 100 mls @ 200 mls/hr IV ONETIME ONE Stop: 12/22/19 14:59 Last Admin: 12/22/19 15:07 Dose: 200 mls/hr Potassium Chloride 10 meq/ (Premix) 100 mls @ 100 mls/hr IV Q1H ONE Stop: 12/22/19 14:32 Last Admin: 12/22/19 15:06 Dose: 100 mls/hr Non-Formulary Medication (Warfarin) 3 mg PO DAILY [facility] Last Admin: 12/21/19 21:19 Dose: Not Given Potassium Chloride (Klor-Con M20) 40 meq PO ONETIME ONE Stop: 12/22/19 13:10 Last Admin: 12/22/19 15:06 Dose: 40 meq Warfarin Sodium (Coumadin) 3 mg PO ONETIME DARCY Warfarin Sodium (Coumadin) 3 mg PO ONETIME ONE Stop: 12/21/19 20:31 Last Admin: 12/21/19 20:33 Dose: 3 mg - Exam Physical Findings Comments:: General: Patient is awake, alert to person place not time. Looks weak but not in acute distress. HEENT: Atraumatic pupils equally round reactive to light mucosa moist. Neck: Increased JVD noted to be 4+ distention appears normal size consistency. chest/lung: Breath sounds noted bilaterally no obvious wheezes noted but Rales noted in both bases. Heart: Normal s1 s2 heart sounds with systolic murmur noted. Abdomen: Protuberant otherwise nontender. Patient's reaction, Bowel sounds present all 4 quadrants. Extremities: Both lower extremities noted to be red, warm to touch, calf is slightly tender but I believe this is secondary to cellulitis/PVD. Sepsis Event Note - Evaluation Sepsis Screening Result: No Definite Risk - Focused Exam Vital Signs: Vital Signs Temp Pulse Resp BP Pulse Ox Pulse Ox 12/22/19 12:00 97.3 F 15 126/71 100 12/22/19 08:00 97.1 F 79 20 116/64 98 12/22/19 06:28 100 12/22/19 04:00 98.2 F 24 H 124/62 98 Date Exam was Performed: 12/22/19 Time Exam was Performed: 16:21 - Problem List Review Problem List Initiated/Reviewed/Updated: Yes - My Orders Last 24 Hours: My Active Orders 12/22/19 13:15 Furosemide [Lasix] 100 mg Sodium Chloride 0.9% [Normal Saline] 90 ml IV ASDIRECTED 12/22/19 14:00 Doxycycline [Vibramycin] 100 mg Sodium Chloride 0.9% [Normal Saline] 100 ml IV Q12H 12/22/19 15:36 Consult to Physical Therapy [PT Evaluation and Treatment] [CONS] Routine 12/22/19 23:00 Piperacillin/Tazobactam [Piperacil-Tazobact] 4.5 gm Sodium Chloride 0.9% [ Normal Saline] 100 ml IV Q8H 12/23/19 05:11 CBC WITH AUTO DIFF [HEME] AM CMP [COMPREHENSIVE METABOLIC PN,CMP] [CHEM] AM INR,PT,PROTHROMBIN TIME [COAG] AM 12/24/19 05:11 CMP [COMPREHENSIVE METABOLIC PN,CMP] [CHEM] AM 12/25/19 05:11 CMP [COMPREHENSIVE METABOLIC PN,CMP] [CHEM] AM - Assessment Assessment:: Acute respiratory failure:, The patient was noted with drop in oxygen saturation , was placed on 1 L of oxygen saturations above 90. Will continue supplemental oxygen, continue breathing treatments. CHF exacerbation: On physical exam, patient noted with distended JVD was reported with low oxygen saturation and on auscultation noted with diminished breath sounds bilaterally. On physical exam, both lower extremities swollen, I believe this is due to excess fluid. For now, the patient on, 12 FiO2 50%, 4 hours on 4 hours of continuous at night. Patient will be given Lasix 60 mg IV push x1 dose, continue Lasix drip milligrams per hour, hold the leg blood pressure less than 100. Echocardiogram was done to the patient on 06/18/2019 report could not be uploaded. We will plan to follow-up on this report. Cardiovascular risk/NSTEMI: Has history of chronic elevated troponins, presented with initial troponin of 0.074 morning troponin 0 0.083. No reports of chest pain noted, continue close telemetry monitoring. INR is 1.7. We will continue to monitor. For now, due to risk of bleeding no aspirin will be given to patient. Patient will be on metoprolol 12.5 mg p.o. twice daily hold for systolic blood pressure less than 90 heart rate less than 60. Continue to monitor patient on telemetry, replace electrolytes. Hypokalemia: The patient's potassium 3.0, patient will be given potassium chloride 40 mEq p.o. x1 dose and 40 mEq IV. Bilateral Lower extremity cellulitis: Physical exam, patient noted with redness and swelling involving both lower extremities, tender to touch appears warm. Will be to start the patient on broad-spectrum antibiotics with Zosyn and doxycycline, follow-up on blood cultures. History of CKD: Patient has baseline creatinine 1.8, today patient's creatinine is 1.6. We will continue to monitor the patient's BUN/creatinine given the patient is also on diuretics Hypothyroidism: Continue on home dose of Synthroid 50 MCG p.o. daily. Gout: Continue home dose of allopurinol 100 mg p.o. daily. Debility/deconditioning: Patient appears weak, physical therapy will be consulted for strengthening. Patient prophylaxis: Continue, patient will also be on PRN MiraLAX. Nausea: Zofran 4 mg as needed nausea. G.I Prophylaxis: Will be on 20 mg p.o. daily for 2 g p.o. nightly. DVT prophylaxis: He is on Coumadin INR 1.7 we will continue to monitor INR daily. In case of shortness of breath: DuoNeb every 4 hours as needed shortness of breath. - Plan Plan:: Assessment 89-year-old male with history of HFpEF and right heart failure admitted to the ICU with reported 10 pound weight gain over the last week. * No apparent symptomatic change from baseline * Aortic bioprosthesis with abnormal stenosis and increased gradient of 21 mmHg on echocardiogram on May 2019 * Given 80 mg of Lasix IV in the emergency department * Admitted to ICU in anticipation of Lasix drip * Weight and ICU is stable since discharge on 06/30/2019 * BNP 2299 * ECG ventricularly paced at 75 bpm * Not on LOWELL/ARB due to renal disease * Geologic Technician Dr. Santos, primary care Dr. Barber Chronic bilateral lower extremity edema with stasis dermatitis * No reported change from baseline in size, warmth, or redness * Significantly tender lower extremity * WBC 9.8 Stage IIIb chronic renal insufficiency * Estimated GFR is stable from previous hospitalization at 36 * BUN 78, creatinine 1.8, creatinine clearance drug dosing 30.8 Iron deficiency anemia/chronic blood loss anemia * Previous hospitalization patient has received transfusion * On warfarin for history of DVT * Previous capsule endoscopy found slow small intestinal bleed per daughter Chronic: Heart failure with preserved ejection fraction, pulmonary hypertension , dementia, generalized weakness, abnormalities of gait and mobility, cognitive communication deficit, iron deficiency anemia, stasis dermatitis with chronic lower extremity cellulitis, hypothyroidism, BPH, hyperlipidemia, chronic A. fib , obstructive sleep apnea, chronic back pain, idiopathic peripheral autonomic neuropathy. Plan * Admit to ICU for close monitoring. Initially felt he would be placed on a Lasix drip, but will hold off until morning. * Guerrero for strict I's and O's * Follow hemoglobin * Pharmacy to dose warfarin * Get INR daily * 1500 mL fluid restriction * Heart healthy diet * Review and reconcile home medications * CBC, CMP, mag daily * CODE STATUS: DNR/DNI * VTE prophylaxis with warfarin
[2019-12-22] MEDS ORDERED: Warfarin 4 MG Tab PO SCH (18:00)
[2019-12-22] MEDS: Metoprolol Succinate 25 MG Tab.ER PO SCH (20:43)
[2019-12-22] MEDS ORDERED: Sucralfate Suspension 1 GM/10 ML Cup PO SCH (21:00)
[2019-12-22] MEDS: Piperacillin/Tazobactam 4.5 GM in Sodium Chloride 0.9% 100 ML IV SCH (22:56)
[2019-12-23] MEDS: Acetaminophen 325 MG Tab PO PRN ×2 (01:14→22:41)
[2019-12-23] MEDS: Doxycycline 100 MG in Sodium Chloride 0.9% 100 ML IV SCH ×2 (01:21→14:13)
[2019-12-23] MEDS: Levothyroxine 50 MCG Tab PO SCH (06:08)
[2019-12-23] MEDS: Piperacillin/Tazobactam 4.5 GM in Sodium Chloride 0.9% 100 ML IV SCH ×3 (06:11→22:19)
[2019-12-23] MEDS ORDERED: Potassium Chloride 10 MEQ in Premix Bag 1 BAG IV ONE ×2 (07:43→07:46)
[2019-12-23] MEDS ORDERED: Potassium Chloride 20 MEQ Tab.ER PO ONE (07:44)
[2019-12-23] MEDS: Potassium Chloride 10 MEQ in Premix Bag 1 BAG IV SCH ×3 (07:59→10:37)
[2019-12-23] MEDS: Metoprolol Succinate 25 MG Tab.ER PO SCH ×2 (08:00→20:38)
[2019-12-23] MEDS: Allopurinol 100 MG Tab PO SCH (08:00)
[2019-12-23] MEDS: Famotidine 20 MG Tab PO SCH (08:01)
[2019-12-23] MEDS: Polyethylene Glycol 3350 Powder 17 GM Packet PO SCH (08:01)
[2019-12-23] MEDS: FERROUS SULFATE 220 MG/5 ML PO SCH ×3 (08:03→20:40)
--- NOTE | 2019-12-23 09:23 | PN ---
DATE OF SERVICE: 12/22/2019 ADDENDUM: The patient was seen, examined, and discussed by me with Triston Nelson PA-C. Mr. Verma is an 89-year-old white male with past medical history significant for CHF with preserved left ventricular ejection fraction (55% to 60%), status post porcine aortic valve replacement with moderate aortic stenosis (echo from 05/2019); hypothyroidism; GERD; atrial fibrillation, on anticoagulation with Coumadin; history of chronic indolent small bowel bleeding. Was admitted to the hospital on 12/21/2019, from emergency room with worsening of swelling and shortness of breath. On admission, the patient was found with +2 anasarca. Further also found that the patient has bilateral lower extremity cellulitis that probably resulted from severe chronic bilateral leg swelling. On admission, cardiac enzymes were negative. The patient has chronic renal insufficiency that is no worse than usual. One dose of Lasix 80 mg IV push was given to the patient in the emergency room, and the patient responded with 60 ml in negative fluid balance initially, but overnight, the patient regained all his weight back. At the time of our exam today, the patient appears deconditioned with +2 anasarca and ongoing signs of severe acute on top of chronic CHF with preserved left ventricular ejection fraction. Given the patient's chronic renal failure, the patient's deconditioning and, I believe, poor lung expansion (alveolar hypoventilation syndrome) and trying to not to drop the patient's blood pressure that is normal, but on the lower side, around 110 to 115 systolic, decision is to start the patient on continuous noninvasive ventilation with settings of 14/8 cm as oxygen is 40%. We will give the patient Lasix 60 mg IV push, and we will start Lasix drip at 5 mg/hour. Expected negative fluid bolus to achieve euvolemic status; in this patient, I think, 15 to 20 pounds. Prognosis is guarded. The patient's bilateral cellulitis will be treated with zosyn and vancomycin, and we will try to obtain slough cultures trying to verify responsible microorganism to tune up antibiotics later. For details of the patient's review of systems, interval test results, physical exam, medications, and further plan of management, please see note prepared by Triston Nelson PA-C. [email or web address] /[id number]
--- NOTE | 2019-12-23 10:47 | PCM.PN ---
- General Info Date of Service: 12/23/19 - Review of Systems Systems Review Comment:: The patient was seen and examined by me, and discussed with Dr. Block. At the time of my exam, the patient was resting on the chair. Last night, nursing staff reported patient did not really comply with noninvasive ventilator, patient refused to keep his legs elevated, but nursing staff has been encouraging patient to do so. Patient had about 2.3 L of negative fluid balance , renal function as well as creatinine remained stable for the patient despite being on diuretics. No reports of nausea vomiting. Patient's granddaughter had a concern about what patient was seen stating he wants to .I discussed with family that for now, given current pandemic unfortunately no visitors are allowed in the hospital bed we will watch patient closely at the same time resources was given to family to discuss with administration to see how we could better help. Vital signs remained relatively stable, pulse 75 T-max 111/ 60 respiration 15 no other acute complaints reported. - Patient Data Vitals - Most Recent: Last Vital Signs Temp 96.9 F 12/23/19 07:54 Pulse 72 12/23/19 08:00 Resp 19 12/23/19 07:54 BP 124/74 12/23/19 08:00 Pulse Ox 100 12/23/19 08:30 Weight - Most Recent: 224 lb I&O - Last 24 Hours: Intake & Output 12/22/19 12/23/19 12/23/19 22:59 06:59 14:59 Intake Total 300 783 330 Output Total 1656 417 700 Balance -5545 -345 -989 Lab Results Last 24 Hours: Laboratory Results - last 24 hr 12/22/19 12/23/19 12/23/19 Range/Units 16:04 05:24 05:24 WBC 10.71 H (4.23-9.07) K/mm3 RBC 3.02 L (4.63-6.08) M/mm3 Hgb 8.5 L (13.7-17.5) gm/dl Hct 28.4 L (40.1-51.0) % MCV 94.0 H (79.0-92.2) fl MCH 28.1 (25.7-32.2) pg MCHC 29.9 L (32.2-35.5) g/dl RDW Std Deviation 60.8 H (35.1-43.9) fL Plt Count 288 (163-337) K/mm3 MPV 9.6 (9.4-12.3) fl Neut % (Auto) 84.6 H (34.0-67.9) % Lymph % (Auto) 2.5 L (21.8-53.1) % [place] % (Auto) 10.8 (5.3-12.2) % Eos % (Auto) 1.1 (0.8-7.0) Baso % (Auto) 0.3 (0.1-1.2) % Neut # (Auto) 9.05 H (1.78-5.38) K/mm3 Lymph # (Auto) 0.27 L (1.32-3.57) K/mm3 [place] # (Auto) 1.16 H (0.30-0.82) K/mm3 Eos # (Auto) 0.12 (0.04-0.54) K/mm3 Baso # (Auto) 0.03 (0.01-0.08) K/mm3 Manual Slide Review Abnormal smear PT 19.4 H (9.7-12.0) SECONDS INR 1.84 Sodium (136-145) mEq/L Potassium (3.5-5.1) mEq/L Chloride (98-107) mEq/L Carbon Dioxide (21-32) mEq/L Anion Gap (5-15) BUN (7-18) mg/dL Creatinine (0.7-1.3) mg/dL Est Cr Clr Drug Dosing mL/min Estimated GFR (MDRD) (>60) mL/min BUN/Creatinine Ratio (14-18) Glucose (83-115) mg/dL Calcium (8.5-10.1) mg/dL Total Bilirubin (0.2-1.0) mg/dL AST (15-37) U/L ALT (16-63) U/L Alkaline Phosphatase (46-116) U/L Total Protein (6.4-8.2) g/dl Albumin (3.4-5.0) g/dl Globulin gm/dL Albumin/Globulin Ratio (1-2) SARS-CoV-2 RNA (RT-PCR) Negative (NEGATIVE) 12/23/19 Range/Units 05:24 WBC (4.23-9.07) K/mm3 RBC (4.63-6.08) M/mm3 Hgb (13.7-17.5) gm/dl Hct (40.1-51.0) % MCV (79.0-92.2) fl MCH (25.7-32.2) pg MCHC (32.2-35.5) g/dl RDW Std Deviation (35.1-43.9) fL Plt Count (163-337) K/mm3 MPV (9.4-12.3) fl Neut % (Auto) (34.0-67.9) % Lymph % (Auto) (21.8-53.1) % [place] % (Auto) (5.3-12.2) % Eos % (Auto) (0.8-7.0) Baso % (Auto) (0.1-1.2) % Neut # (Auto) (1.78-5.38) K/mm3 Lymph # (Auto) (1.32-3.57) K/mm3 [place] # (Auto) (0.30-0.82) K/mm3 Eos # (Auto) (0.04-0.54) K/mm3 Baso # (Auto) (0.01-0.08) K/mm3 Manual Slide Review PT (9.7-12.0) SECONDS INR Sodium 138 (136-145) mEq/L Potassium 2.6 L (3.5-5.1) mEq/L Chloride 96 L (98-107) mEq/L Carbon Dioxide 30 (21-32) mEq/L Anion Gap 14.6 (5-15) BUN 77 H (7-18) mg/dL Creatinine 1.6 H (0.7-1.3) mg/dL Est Cr Clr Drug Dosing 34.50 mL/min Estimated GFR (MDRD) 41 (>60) mL/min BUN/Creatinine Ratio 48.1 H (14-18) Glucose 118 H (83-115) mg/dL Calcium 8.7 (8.5-10.1) mg/dL Total Bilirubin 0.7 (0.2-1.0) mg/dL AST 25 (15-37) U/L ALT 29 (16-63) U/L Alkaline Phosphatase 136 H (46-116) U/L Total Protein 7.0 (6.4-8.2) g/dl Albumin 3.3 L (3.4-5.0) g/dl Globulin 3.7 gm/dL Albumin/Globulin Ratio 0.9 L (1-2) SARS-CoV-2 RNA (RT-PCR) (NEGATIVE) Med Orders - Current: Current Medications Acetaminophen (Tylenol) 650 mg PO Q4H PRN PRN Reason: Pain (Mild 1-3)/fever Last Admin: 12/23/19 01:14 Dose: 650 mg Albuterol/Ipratropium (Duoneb 3.0-0.5 Mg/3 Ml) 3 ml NEB Q4HRRT PRN PRN Reason: Shortness of Breath Allopurinol (Zyloprim) 100 mg PO DAILY [facility] Last Admin: 12/23/19 08:00 Dose: 100 mg Artificial Tears (Refresh Liquigel 1%) 0 ml EYEBOTH BID PRN PRN Reason: Dry Eyes Famotidine (Pepcid) 20 mg PO DAILY [facility] Last Admin: 12/23/19 08:01 Dose: 20 mg Doxycycline Hyclate 100 mg/ (Sodium Chloride) 100 mls @ 100 mls/hr IV Q12H [facility] Last Admin: 12/23/19 01:21 Dose: 100 mls/hr Piperacillin Sod/Tazobactam (Sod 4.5 gm/ Sodium Chloride) 100 mls @ 25 mls/hr IV Q8H [facility] Last Admin: 12/23/19 06:11 Dose: 25 mls/hr Furosemide 100 mg/ Sodium (Chloride) 100 mls @ 3 mls/hr IV ASDIRECTED [facility]; Protocol Last Admin: 12/22/19 15:08 Dose: 3 mg/hr, 3 mls/hr Levothyroxine Sodium (Synthroid) 50 mcg PO ACBREAKFAST [facility] Last Admin: 12/23/19 06:08 Dose: 50 mcg Metoprolol Succinate (Toprol Xl) 12.5 mg PO BID [facility] Last Admin: 12/23/19 08:00 Dose: 12.5 mg Ferrous Sulfate 220 (Mg/5 Ml Ptom) 0 each PO TID [facility] Last Admin: 12/23/19 08:03 Dose: 5 each Polyethylene Glycol (Miralax) 17 gm PO DAILY [facility] Last Admin: 12/23/19 08:01 Dose: 17 gm Senna/Docusate Sodium (Senna Plus) 2 tab PO BID [facility] Last Admin: 12/23/19 08:00 Dose: 2 tab Sucralfate (Carafate) 2 gm PO BEDTIME [facility] Warfarin Sodium (Pharmacy To Dose - Warfarin) 1 dose .XX ASDIRECTED PRN PRN Reason: RX TO DOSE WARFARIN Warfarin Sodium (Coumadin) 4 mg PO QPM [facility] Stop: 12/23/19 18:01 Discontinued Medications Acetaminophen (Tylenol) 975 mg PO NOW ONE Stop: 12/21/19 13:45 Last Admin: 12/21/19 13:51 Dose: 975 mg Bumetanide (Bumex) 5 mg IVPUSH ONETIME ONE Stop: 12/21/19 13:59 Last Admin: 12/21/19 18:59 Dose: Not Given Bumetanide (Bumex) 5 mg PO ONETIME ONE Stop: 12/21/19 14:13 Last Admin: 12/21/19 18:59 Dose: Not Given Furosemide (Lasix) 80 mg IVPUSH NOW ONE Stop: 12/21/19 14:44 Last Admin: 12/21/19 15:15 Dose: 80 mg Furosemide (Lasix) 60 mg IVPUSH NOW ONE Stop: 12/22/19 13:14 Last Admin: 12/22/19 15:32 Dose: 60 mg Furosemide (Lasix) Confirm Administered Dose 60 mg .ROUTE .STK-MED ONE Stop: 12/22/19 15:27 Last Admin: 12/22/19 15:34 Dose: 60 mg Piperacillin Sod/Tazobactam (Sod 4.5 gm/ Sodium Chloride) 100 mls @ 200 mls/hr IV ONETIME ONE Stop: 12/22/19 14:59 Last Admin: 12/22/19 15:07 Dose: 200 mls/hr Potassium Chloride 10 meq/ (Premix) 100 mls @ 100 mls/hr IV Q1H ONE Stop: 12/22/19 14:32 Last Admin: 12/22/19 15:06 Dose: 100 mls/hr Potassium Chloride 10 meq/ (Premix) 100 mls @ 100 mls/hr IV Q1H [facility] Stop: 12/23/19 10:39 Last Admin: 12/23/19 10:37 Dose: 100 mls/hr Magnesium Sulfate/Dextrose 1 (gm/ Premix) 100 mls @ 100 mls/hr IV ONETIME ONE Stop: 12/23/19 08:40 Last Admin: 12/23/19 07:58 Dose: 100 mls/hr Potassium Chloride 10 meq/ (Premix) 100 mls @ 100 mls/hr IV Q1H ONE Stop: 12/23/19 08:42 Last Admin: 12/23/19 09:29 Dose: Not Given Potassium Chloride 10 meq/ (Premix) 100 mls @ 100 mls/hr IV Q1H ONE Stop: 12/23/19 08:45 Last Admin: 12/23/19 09:29 Dose: Not Given Non-Formulary Medication (Warfarin) 3 mg PO DAILY [facility] Last Admin: 12/21/19 21:19 Dose: Not Given Potassium Chloride (Klor-Con M20) 40 meq PO ONETIME ONE Stop: 12/22/19 13:10 Last Admin: 12/22/19 15:06 Dose: 40 meq Potassium Chloride (Klor-Con M20) 40 meq PO ONETIME ONE Stop: 12/23/19 07:45 Last Admin: 12/23/19 08:00 Dose: 40 meq Sucralfate (Carafate) 2 gm PO BEDTIME [facility] Last Admin: 12/22/19 20:42 Dose: 2 gm Warfarin Sodium (Coumadin) 3 mg PO ONETIME [facility] Warfarin Sodium (Coumadin) 3 mg PO ONETIME ONE Stop: 12/21/19 20:31 Last Admin: 12/21/19 20:33 Dose: 3 mg Warfarin Sodium (Coumadin) 4 mg PO QPM [facility] Stop: 12/22/19 18:01 Last Admin: 12/22/19 18:05 Dose: 4 mg - Exam Physical Findings Comments:: General: Patient is awake, alert to person place not time. Looks weak but not in acute distress. HEENT: Atraumatic pupils equally round reactive to light mucosa moist. Neck: Increased JVD noted to be 4+ distention appears normal size consistency. chest/lung: Breath sounds noted to be diminished bilaterally no obvious wheezes noted but Rales noted in both bases. Heart: Normal s1 s2 heart sounds with systolic murmur noted. Abdomen: Protuberant otherwise nontender. Patient's reaction, Bowel sounds present all 4 quadrants. Extremities: Both lower extremities noted to be red, warm to touch, slight improvement today compared to yesterday. Calf is slightly tender but I believe this is secondary to cellulitis/PVD. Sepsis Event Note - Evaluation Sepsis Screening Result: No Definite Risk - Focused Exam Vital Signs: Vital Signs Temp Pulse Resp BP BP Pulse Ox Pulse Ox 12/23/19 08:30 12/23/19 08:00 72 124/74 12/23/19 07:54 96.9 F 19 124/67 93 L 12/23/19 07:00 75 15 111/60 100 12/23/19 06:00 80 23 H 116/66 96 12/23/19 05:00 78 17 116/65 100 12/23/19 04:01 80 19 100 12/23/19 04:00 97.6 F 17 108/61 99 12/23/19 03:01 77 18 115/67 100 12/23/19 02:01 75 20 114/62 12/23/19 01:00 105 H 25 H 107/50 L 96 12/23/19 00:08 97 12/23/19 00:00 97.6 F 19 100/52 L 97 12/22/19 23:00 75 14 130/73 100 Pulse Ox 12/23/19 08:30 100 12/23/19 08:00 12/23/19 07:54 12/23/19 07:00 12/23/19 06:00 12/23/19 05:00 12/23/19 04:01 12/23/19 04:00 12/23/19 03:01 12/23/19 02:01 12/23/19 01:00 12/23/19 00:08 12/23/19 00:00 12/22/19 23:00 Date Exam was Performed: 12/23/19 Time Exam was Performed: 10:40 - Problem List Review Problem List Initiated/Reviewed/Updated: Yes - My Orders Last 24 Hours: My Active Orders 12/22/19 13:15 Furosemide [Lasix] 100 mg Sodium Chloride 0.9% [Normal Saline] 90 ml IV ASDIRECTED 12/22/19 14:00 Doxycycline [Vibramycin] 100 mg Sodium Chloride 0.9% [Normal Saline] 100 ml IV Q12H 12/22/19 15:36 Consult to Physical Therapy [PT Evaluation and Treatment] [CONS] Routine 12/22/19 21:00 Metoprolol Succinate [Toprol XL] 12.5 mg PO BID 12/22/19 23:00 Piperacillin/Tazobactam [Piperacil-Tazobact] 4.5 gm Sodium Chloride 0.9% [ Normal Saline] 100 ml IV Q8H 12/23/19 09:00 Famotidine [Pepcid] 20 mg PO DAILY 12/23/19 21:00 Sucralfate [Carafate] 2 gm PO BEDTIME 12/24/19 05:11 CMP [COMPREHENSIVE METABOLIC PN,CMP] [CHEM] AM CMP [COMPREHENSIVE METABOLIC PN,CMP] [CHEM] AM INR,PT,PROTHROMBIN TIME [COAG] AM MAGNESIUM (PHARM SOLN) [CHEM] DAILY 12/25/19 05:11 CMP [COMPREHENSIVE METABOLIC PN,CMP] [CHEM] AM CMP [COMPREHENSIVE METABOLIC PN,CMP] [CHEM] AM 12/26/19 05:11 CMP [COMPREHENSIVE METABOLIC PN,CMP] [CHEM] AM - Assessment Assessment:: Assessment and Plan: Acute respiratory failure: Overnight, nursing staff did not report any more desaturations. Will continue to encourage use of noninvasive ventilator continue supplemental oxygen. Hypokalemia: Patient's potassium 2.6, the patient will be given potassium chloride 80 mEq in divided doses. CHF exacerbation: The patient was started on, but unfortunately, the patient refused. He was given 60 mg of Lasix IV push, started on Lasix drip at 3 mg/h. Patient has had about 2.3 L of negative fluid balance, still has moderate swelling and redness in both lower extremities. Blood pressure fortunately remained stable as well as renal function for now we will continue the patient on Lasix drip of 3 mg/h. Continue to monitor patient's renal function and blood pressure closely. Hold Lasix drip if systolic blood pressure less than 100. Cardiovascular risk/NSTEMI: Has history of chronic elevated troponins, presented with initial troponin of 0.074 morning troponin 0 0.083. Plan to repeat the patient's troponin tomorrow morning in the meantime, INR this morning 1.8, continue metoprolol metoprolol 12.5 mg p.o. twice daily hold for systolic blood pressure less than 90 heart rate less than 60. Continue to monitor patient on telemetry, replace electrolytes. Bilateral Lower extremity cellulitis: Still has moderate redness swelling and warmth, but no significant discomfort today when I touch lower extremities compared to yesterday. Noted patient on Zosyn and doxycycline. History of CKD: Patient baseline creatinine 1.8, today BUN/creatinine 77/1.6 as compared to 29/1.6 yesterday. Continue diuretics continue to monitor. Hypothyroidism: Continue on home dose of Synthroid 50 MCG p.o. daily. Gout: Continue home dose of allopurinol 100 mg p.o. daily. Debility/deconditioning: Patient appears weak, physical therapy will be consulted for strengthening. Patient prophylaxis: Continue, patient will also be on PRN MiraLAX. Nausea: Zofran 4 mg as needed nausea. G.I Prophylaxis: Will be on 20 mg p.o. daily for 2 g p.o. nightly. DVT prophylaxis: He is on Coumadin INR 1.8 we will continue to monitor INR daily. In case of shortness of breath: DuoNeb every 4 hours as needed shortness of breath. Patient. will remain in-house, will continue to encourage use of BiPAP. Continue diuretics continue antibiotics for cellulitis.
--- NOTE | 2019-12-23 14:09 | PN ---
DATE OF SERVICE: 12/23/2019 ADDENDUM: The patient was seen, examined, and discussed by me with Triston Nelson PA-C. Mr. Verma is on a Lasix drip mg/hour. He lost 2.3 L and negative fluid balance. Unfortunately, the patient is not really well compliant with recommended continuous BiPAP and was using it only part of the night. We will keep encouraging for BiPAP. Creatinine remains stable, so we will continue current Lasix, and because for the last few hours the patient's urine output slowed down, we will give additional dose of Zaroxolyn 5 mg p.o. x1. We will replace electrolytes. We will keep watching the patient clinically, we will ask for physical therapy, and the patient will stay in ICU under close monitoring. For details of the patient's review of systems, interval test results, physical exam, medications, and further plan of management, please see note prepared by Triston Nelson PA-C. MMODAL /[id number]
[2019-12-23] MEDS: Furosemide 100 MG in Sodium Chloride 0.9% 90 ML IV SCH (17:57)
[2019-12-23] MEDS ORDERED: Warfarin 4 MG Tab PO SCH (18:00)
[2019-12-23] MEDS: Sucralfate 1 GM Tab PO SCH (20:39)
[2019-12-24] MEDS: Doxycycline 100 MG in Sodium Chloride 0.9% 100 ML IV SCH ×2 (02:32→14:13)
[2019-12-24] MEDS: Acetaminophen 325 MG Tab PO PRN ×2 (05:31→20:31)
[2019-12-24] MEDS: Levothyroxine 50 MCG Tab PO SCH (05:33)
[2019-12-24] MEDS: Piperacillin/Tazobactam 4.5 GM in Sodium Chloride 0.9% 100 ML IV SCH ×5 (05:34→22:14)
[2019-12-24] MEDS ORDERED: Potassium Chloride 10 MEQ in Premix Bag 1 BAG IV ONE (07:23)
[2019-12-24] MEDS ORDERED: Potassium Chloride 20 MEQ Tab.ER PO ONE ×2 (07:24→21:00)
[2019-12-24] MEDS: Metoprolol Succinate 25 MG Tab.ER PO SCH ×2 (09:09→20:31)
[2019-12-24] MEDS: Allopurinol 100 MG Tab PO SCH (09:09)
[2019-12-24] MEDS: Polyethylene Glycol 3350 Powder 17 GM Packet PO SCH (09:10)
[2019-12-24] MEDS: Famotidine 20 MG Tab PO SCH (09:15)
--- NOTE | 2019-12-24 09:49 | PN ---
DATE OF SERVICE: 12/24/2019 The patient was seen, examined, and discussed by me with Triston Nelson PA-C. The patient unfortunately keeps refusing BiPAP that he was recommended continuously, did not use it at all for the last 24 hours. He is on Lasix drip at 3 mg/hour. He keeps having good diuresis and lost more than 2 L and negative fluid balance for last 24 hours. Today, at time of assessment, the patient still appears moderately fluid overloaded with +2 pedal edema on auscultation was improving and rales and crackles much less prominent. The patient also seems to be more interactive and not somnolent. For the last 48 hours, the patient lost approximately 9 pounds and negative fluid balance. To achieve euvolemic status, I think that he needs to lose a little bit more, probably additional 10 pounds, but he cannot for the reasons because the patient's creatinine already came up to 1.79. So, in these settings, we will stop the patient's Lasix drip. We will give the patient 1 dose of Lasix 40 mg IV push, and we will try to give the patient time for recuperation before continued Lasix drip or resuming diuresis, we want to make sure that his creatinine is getting better. The patient will stay under close monitoring in ICU. We will continue attempts for physical therapy. For details of the patient's review of systems, interval test results, physical exam, medications, and further plan of management, please see note prepared by Triston Nelson PA-C. CHUCKIE /[id number]
[2019-12-24] MEDS: FERROUS SULFATE 220 MG/5 ML PO SCH ×3 (10:17→21:40)
--- NOTE | 2019-12-24 11:41 | PCM.PN ---
- General Info Date of Service: 12/24/19 - Review of Systems Systems Review Comment:: The patient was seen and examined by me, and discussed with Dr. Grace. This morning, patient resting on the chair. Does not appear to be in acute distress. Patient still refused noninvasive ventilator. Otherwise, since the day, patient has had about 2700 mL of negative fluid balance. No obvious fevers no chills noted. Patient has not had a good bowel movement. Patient's blood pressure remained stable 133/72 temperature 97.0. No other acute concerns noted by nursing staff. - Patient Data Vitals - Most Recent: Last Vital Signs Temp 97.8 F 12/24/19 08:00 Pulse 75 12/24/19 09:09 Resp 20 12/24/19 03:46 BP 108/75 12/24/19 09:09 Pulse Ox 99 12/24/19 08:00 Weight - Most Recent: 223 lb 6.4 oz I&O - Last 24 Hours: Intake & Output 12/23/19 12/24/19 12/24/19 22:59 06:59 14:59 Intake Total 932 518 Output Total 630 470 350 Balance 302 48 -350 Lab Results Last 24 Hours: Laboratory Results - last 24 hr 12/24/19 12/24/19 12/24/19 Range/Units 04:30 04:30 04:30 PT 21.3 H (9.7-12.0) SECONDS INR 2.03 Sodium 139 (136-145) mEq/L Potassium 3.0 L (3.5-5.1) mEq/L Chloride 97 L (98-107) mEq/L Carbon Dioxide 29 (21-32) mEq/L Anion Gap 16.0 H (5-15) BUN 77 H (7-18) mg/dL Creatinine 1.9 H (0.7-1.3) mg/dL Est Cr Clr Drug Dosing 28.28 mL/min Estimated GFR (MDRD) 34 (>60) mL/min BUN/Creatinine Ratio 40.5 H (14-18) Glucose 126 H (83-115) mg/dL Calcium 8.7 (8.5-10.1) mg/dL Magnesium 2.2 (1.8-2.4) mg/dl Total Bilirubin 0.6 (0.2-1.0) mg/dL AST 27 (15-37) U/L ALT 29 (16-63) U/L Alkaline Phosphatase 131 H (46-116) U/L Troponin I 0.093 H* (0.00-0.056) ng/mL Total Protein 6.9 (6.4-8.2) g/dl Albumin 3.3 L (3.4-5.0) g/dl Globulin 3.6 gm/dL Albumin/Globulin Ratio 0.9 L (1-2) Med Orders - Current: Current Medications Acetaminophen (Tylenol) 650 mg PO Q4H PRN PRN Reason: Pain (Mild 1-3)/fever Last Admin: 12/24/19 05:31 Dose: 650 mg Albuterol/Ipratropium (Duoneb 3.0-0.5 Mg/3 Ml) 3 ml NEB Q4HRRT PRN PRN Reason: Shortness of Breath Allopurinol (Zyloprim) 100 mg PO DAILY [facility] Last Admin: 12/24/19 09:09 Dose: 100 mg Artificial Tears (Refresh Liquigel 1%) 0 ml EYEBOTH BID PRN PRN Reason: Dry Eyes Famotidine (Pepcid) 20 mg PO DAILY [facility] Last Admin: 12/24/19 09:15 Dose: 20 mg Furosemide (Lasix) 40 mg IVPUSH DAILY [facility] Doxycycline Hyclate 100 mg/ (Sodium Chloride) 100 mls @ 100 mls/hr IV Q12H [facility] Last Admin: 12/24/19 02:32 Dose: 100 mls/hr Piperacillin Sod/Tazobactam (Sod 4.5 gm/ Sodium Chloride) 100 mls @ 25 mls/hr IV Q8H [facility] Last Admin: 12/24/19 06:09 Dose: Not Given Levothyroxine Sodium (Synthroid) 50 mcg PO ACBREAKFAST [facility] Last Admin: 12/24/19 05:33 Dose: 50 mcg Metoprolol Succinate (Toprol Xl) 12.5 mg PO BID [facility] Last Admin: 12/24/19 09:09 Dose: 12.5 mg Ferrous Sulfate 220 (Mg/5 Ml Ptom) 0 each PO TID [facility] Last Admin: 12/24/19 10:17 Dose: 5 each Polyethylene Glycol (Miralax) 17 gm PO DAILY [facility] Last Admin: 12/24/19 09:10 Dose: 17 gm Senna/Docusate Sodium (Senna Plus) 2 tab PO BID [facility] Last Admin: 12/24/19 09:09 Dose: 2 tab Sucralfate (Carafate) 2 gm PO BEDTIME [facility] Last Admin: 12/23/19 20:39 Dose: 2 gm Warfarin Sodium (Pharmacy To Dose - Warfarin) 1 dose .XX ASDIRECTED PRN PRN Reason: RX TO DOSE WARFARIN Warfarin Sodium (Coumadin) 4 mg PO QPM [facility] Stop: 12/24/19 18:01 Discontinued Medications Acetaminophen (Tylenol) 975 mg PO NOW ONE Stop: 12/21/19 13:45 Last Admin: 12/21/19 13:51 Dose: 975 mg Bumetanide (Bumex) 5 mg IVPUSH ONETIME ONE Stop: 12/21/19 13:59 Last Admin: 12/21/19 18:59 Dose: Not Given Bumetanide (Bumex) 5 mg PO ONETIME ONE Stop: 12/21/19 14:13 Last Admin: 12/21/19 18:59 Dose: Not Given Furosemide (Lasix) 80 mg IVPUSH NOW ONE Stop: 12/21/19 14:44 Last Admin: 12/21/19 15:15 Dose: 80 mg Furosemide (Lasix) 60 mg IVPUSH NOW ONE Stop: 12/22/19 13:14 Last Admin: 12/22/19 15:32 Dose: 60 mg Furosemide (Lasix) Confirm Administered Dose 60 mg .ROUTE .STK-MED ONE Stop: 12/22/19 15:27 Last Admin: 12/22/19 15:34 Dose: 60 mg Piperacillin Sod/Tazobactam (Sod 4.5 gm/ Sodium Chloride) 100 mls @ 200 mls/hr IV ONETIME ONE Stop: 12/22/19 14:59 Last Admin: 12/22/19 15:07 Dose: 200 mls/hr Furosemide 100 mg/ Sodium (Chloride) 100 mls @ 3 mls/hr IV ASDIRECTED [facility]; Protocol Last Infusion: 12/24/19 04:03 Dose: 3 mg/hr, 3 mls/hr Potassium Chloride 10 meq/ (Premix) 100 mls @ 100 mls/hr IV Q1H ONE Stop: 12/22/19 14:32 Last Admin: 12/22/19 15:06 Dose: 100 mls/hr Potassium Chloride 10 meq/ (Premix) 100 mls @ 100 mls/hr IV Q1H [facility] Stop: 12/23/19 10:39 Last Admin: 12/23/19 10:37 Dose: 100 mls/hr Magnesium Sulfate/Dextrose 1 (gm/ Premix) 100 mls @ 100 mls/hr IV ONETIME ONE Stop: 12/23/19 08:40 Last Admin: 12/23/19 07:58 Dose: 100 mls/hr Potassium Chloride 10 meq/ (Premix) 100 mls @ 100 mls/hr IV Q1H ONE Stop: 12/23/19 08:42 Last Admin: 12/23/19 09:29 Dose: Not Given Potassium Chloride 10 meq/ (Premix) 100 mls @ 100 mls/hr IV Q1H ONE Stop: 12/23/19 08:45 Last Admin: 12/23/19 09:29 Dose: Not Given Magnesium Sulfate/Dextrose 1 (gm/ Premix) 100 mls @ 100 mls/hr IV ONETIME ONE Stop: 12/24/19 08:22 Last Admin: 12/24/19 10:25 Dose: Not Given Potassium Chloride 10 meq/ (Premix) 100 mls @ 100 mls/hr IV Q1H ONE Stop: 12/24/19 08:22 Last Admin: 12/24/19 09:11 Dose: 100 mls/hr Non-Formulary Medication (Warfarin) 3 mg PO DAILY [facility] Last Admin: 12/21/19 21:19 Dose: Not Given Potassium Chloride (Klor-Con M20) 40 meq PO ONETIME ONE Stop: 12/22/19 13:10 Last Admin: 12/22/19 15:06 Dose: 40 meq Potassium Chloride (Klor-Con M20) 40 meq PO ONETIME ONE Stop: 12/23/19 07:45 Last Admin: 12/23/19 08:00 Dose: 40 meq Potassium Chloride (Klor-Con M20) 40 meq PO ONETIME ONE Stop: 12/24/19 07:25 Last Admin: 12/24/19 09:09 Dose: 40 meq Sucralfate (Carafate) 2 gm PO BEDTIME [facility] Last Admin: 12/22/19 20:42 Dose: 2 gm Warfarin Sodium (Coumadin) 3 mg PO ONETIME [facility] Warfarin Sodium (Coumadin) 3 mg PO ONETIME ONE Stop: 12/21/19 20:31 Last Admin: 12/21/19 20:33 Dose: 3 mg Warfarin Sodium (Coumadin) 4 mg PO QPM [facility] Stop: 12/22/19 18:01 Last Admin: 12/22/19 18:05 Dose: 4 mg Warfarin Sodium (Coumadin) 4 mg PO QPM [facility] Stop: 12/23/19 18:01 Last Admin: 12/23/19 17:54 Dose: 4 mg - Exam Physical Findings Comments:: General: Patient is awake, alert to person place not time. Looks weak but not in acute distress. HEENT: Atraumatic pupils equally round reactive to light mucosa moist. Neck: Increased JVD noted to be 3+ distention appears normal size consistency. chest/lung: Breath sounds noted to be diminished bilaterally no obvious wheezes noted but Rales noted in both bases. Heart: Normal s1 s2 heart sounds with systolic murmur noted. Abdomen: Protuberant otherwise nontender. Patient's reaction, Bowel sounds present all 4 quadrants. Extremities: Both lower extremities noted to be red, warm to touch, IMPROVED today compared to yesterday. Sepsis Event Note - Evaluation Sepsis Screening Result: No Definite Risk - Focused Exam Vital Signs: Vital Signs Temp Pulse Resp BP BP BP Pulse Ox 12/24/19 09:09 75 108/75 12/24/19 08:00 97.8 F 75 108/75 99 12/24/19 06:35 78 133/72 12/24/19 04:03 115/62 12/24/19 03:46 97.0 F 75 20 110/80 100 12/24/19 02:44 75 111/69 12/24/19 02:21 98/58 L 12/24/19 02:02 74 17 92 L 12/24/19 02:01 79 17 81/47 L 96 12/24/19 02:00 79 15 88/44 L 93 L 12/24/19 01:59 78 18 92 L 12/24/19 01:30 76 19 98 12/24/19 01:01 75 16 87/57 L 98 12/24/19 01:00 75 16 87/57 L 97 12/24/19 00:59 74 19 97 12/24/19 00:30 74 15 93 L 12/24/19 00:01 86 24 H 99 12/24/19 00:00 97.0 F 80 15 105/57 L 105/57 L 100 12/23/19 23:59 76 17 100 Date Exam was Performed: 12/24/19 Time Exam was Performed: 11:36 - Problem List Review Problem List Initiated/Reviewed/Updated: Yes - My Orders Last 24 Hours: My Active Orders 12/23/19 21:00 Sucralfate [Carafate] 2 gm PO BEDTIME 12/24/19 17:00 Furosemide [Lasix] 40 mg IVPUSH DAILY 12/25/19 05:11 CBC WITH AUTO DIFF [HEME] AM CMP [COMPREHENSIVE METABOLIC PN,CMP] [CHEM] AM CMP [COMPREHENSIVE METABOLIC PN,CMP] [CHEM] AM CMP [COMPREHENSIVE METABOLIC PN,CMP] [CHEM] AM INR,PT,PROTHROMBIN TIME [COAG] AM MAGNESIUM (PHARM SOLN) [CHEM] Routine 12/26/19 05:11 CMP [COMPREHENSIVE METABOLIC PN,CMP] [CHEM] AM CMP [COMPREHENSIVE METABOLIC PN,CMP] [CHEM] AM 12/27/19 05:11 CMP [COMPREHENSIVE METABOLIC PN,CMP] [CHEM] AM - Assessment Assessment:: Assessment and Plan: Acute respiratory failure: Overnight, nursing staff did not report any desaturation. Will continue supplemental oxygen as needed.?, Will check the patient's nocturnal oximetry if patient will need oxygen on discharge. Hypokalemia: Patient's potassium 3.0 as compared to 2.6 yesterday, the patient will be given additional potassium chloride, 80mEq in divided doses. CHF exacerbation: And has been refusing BiPAP. Since yesterday, the patient has had a total of about 2700 mL of negative fluid balance. Given the patient' s blood pressure slightly on the lower side as well as worsening of patient's creatinine, will discontinue Lasix drip, patient will be given Lasix 40 mg IV push first dose at 1700 today plan to give patient time to recuperate meanwhile monitor replace electrolytes. Monitor renal function. Cardiovascular risk/NSTEMI: Part of chest pain or palpitations. Today, the patient's troponin 0 0.093. Patient's INR 2.3 we will continue to monitor, continue metoprolol 12.5 mg p.o. twice daily hold for systolic blood pressure less than 90 heart rate less than 60. Continue to monitor patient on telemetry , replace electrolytes. Bilateral Lower extremity cellulitis: Still has moderate redness swelling and warmth, but no significant discomfort today when I touch lower extremities compared to yesterday. Appears to be improving compared to time of admission, continue patient on Zosyn and doxycycline. History of CKD: Patient baseline creatinine 1.8, today BUN/creatinine 7/1.9 as compared to 77/1.6 yesterday. Will hold patient's Lasix drip as above. Hypothyroidism: Continue on home dose of Synthroid 50 MCG p.o. daily. Gout: Continue home dose of allopurinol 100 mg p.o. daily. Debility/deconditioning: Patient appears weak, physical therapy will be consulted for strengthening. Patient prophylaxis: Continue, patient will also be on PRN MiraLAX. Nausea: Zofran 4 mg as needed nausea. G.I Prophylaxis: Will be on 20 mg p.o. daily for 2 g p.o. nightly. DVT prophylaxis: He is on Coumadin INR 2.3, patient's Coumadin today. Tomorrow and start if needed. In case of shortness of breath: DuoNeb every 4 hours as needed shortness of breath. Disposition: Remain in-house discontinue Lasix drip monitor and replace electrolytes hold Coumadin plan to check the patient's nocturnal oximetry tomorrow, IV antibiotics. - Plan Plan:: Assessment 89-year-old male with history of HFpEF and right heart failure admitted to the ICU with reported 10 pound weight gain over the last week. * No apparent symptomatic change from baseline * Aortic bioprosthesis with abnormal stenosis and increased gradient of 21 mmHg on echocardiogram on May 2019 * Given 80 mg of Lasix IV in the emergency department * Admitted to ICU in anticipation of Lasix drip * Weight and ICU is stable since discharge on 06/30/2019 * BNP 2299 * ECG ventricularly paced at 75 bpm * Not on LOWELL/ARB due to renal disease * Cma Dr. Santos, primary care Dr. Barber Chronic bilateral lower extremity edema with stasis dermatitis * No reported change from baseline in size, warmth, or redness * Significantly tender lower extremity * WBC 9.8 Stage IIIb chronic renal insufficiency * Estimated GFR is stable from previous hospitalization at 36 * BUN 78, creatinine 1.8, creatinine clearance drug dosing 30.8 Iron deficiency anemia/chronic blood loss anemia * Previous hospitalization patient has received transfusion * On warfarin for history of DVT * Previous capsule endoscopy found slow small intestinal bleed per daughter Chronic: Heart failure with preserved ejection fraction, pulmonary hypertension , dementia, generalized weakness, abnormalities of gait and mobility, cognitive communication deficit, iron deficiency anemia, stasis dermatitis with chronic lower extremity cellulitis, hypothyroidism, BPH, hyperlipidemia, chronic A. fib , obstructive sleep apnea, chronic back pain, idiopathic peripheral autonomic neuropathy. Plan * Admit to ICU for close monitoring. Initially felt he would be placed on a Lasix drip, but will hold off until morning. * Guerrero for strict I's and O's * Follow hemoglobin * Pharmacy to dose warfarin * Get INR daily * 1500 mL fluid restriction * Heart healthy diet * Review and reconcile home medications * CBC, CMP, mag daily * CODE STATUS: DNR/DNI * VTE prophylaxis with warfarin
[2019-12-24] MEDS ORDERED: Lactulose Soln 10 GM/15 ML 30 ML UD Cup PO ONE (17:00)
[2019-12-24] MEDS: Furosemide 40 MG/4 ML VIAL IVPUSH SCH (17:22)
[2019-12-24] MEDS ORDERED: Warfarin 4 MG Tab PO SCH (18:00)
[2019-12-24] MEDS: Sucralfate 1 GM Tab PO SCH (20:30)
[2019-12-25] MEDS: Doxycycline 100 MG in Sodium Chloride 0.9% 100 ML IV SCH (01:37)
[2019-12-25] MEDS: Levothyroxine 50 MCG Tab PO SCH (06:13)
[2019-12-25] MEDS: Piperacillin/Tazobactam 4.5 GM in Sodium Chloride 0.9% 100 ML IV SCH (06:13)
[2019-12-25] MEDS: Acetaminophen 325 MG Tab PO PRN (06:23)
[2019-12-25] MEDS ORDERED: Potassium Chloride 20 MEQ Tab.ER PO ONE (07:32)
[2019-12-25] MEDS: Famotidine 20 MG Tab PO SCH (09:35)
[2019-12-25] MEDS: Allopurinol 100 MG Tab PO SCH (09:35)
[2019-12-25] MEDS: Metoprolol Succinate 25 MG Tab.ER PO SCH ×3 (09:35→20:01)
[2019-12-25] MEDS: Polyethylene Glycol 3350 Powder 17 GM Packet PO SCH (09:37)
[2019-12-25] MEDS: FERROUS SULFATE 220 MG/5 ML PO SCH ×4 (09:37→20:01)
--- NOTE | 2019-12-25 10:31 | PN ---
DATE OF SERVICE: 12/25/2019 The patient was seen, examined, and discussed by me with Triston Nelson PA-C. The patient overall is doing well. After discontinuation of Lasix drip, patient had negative fluid balance around 500 mL today at the time of physical exam. The patient is more interactive. He is stronger than previously. Does not localize any complaints. Neurosurgery did not report any acute problems with patient overnight. H and H are stable. Hemoglobin 8.7. The patient's creatinine remains elevated at 2.1. So, even though patient does have some ongoing moderate fluid retention, decision is not to continue with active diuresis, but patient will be started on Lasix 20 mg p.o. daily. We will replace electrolytes. If no acute problems, I believe the patient can be discharged home tomorrow. For details of the patient's review of systems, interval test results, physical exam, medications and further plan of management, please see note prepared by Triston Nelson PA-C. CHUCKIE /[id number]
[2019-12-25] MEDS: Furosemide 40 MG/4 ML VIAL IVPUSH SCH (13:08)
--- NOTE | 2019-12-25 13:30 | PCM.PN ---
- General Info Date of Service: 12/25/19 - Review of Systems Systems Review Comment:: The patient was seen and examined by me, discussed with Dr. Block. At time of my exam patient resting in the chair. Patient this morning noted a slightly lower blood pressure. Otherwise patient eating and drinking no further chest pain plan to discontinue the patient's Guerrero catheter today check patient's postvoid residual. Change antibiotics to p.o. If patient keeps enough improvement discussed with nursing staff plan is for discharge in the morning. - Patient Data Vitals - Most Recent: Last Vital Signs Temp 97.6 F 12/25/19 12:00 Pulse 75 12/25/19 12:00 Resp 20 12/25/19 12:00 BP 129/72 12/25/19 12:00 Pulse Ox 96 12/25/19 12:00 Weight - Most Recent: 224 lb 1.6 oz I&O - Last 24 Hours: Intake & Output 12/24/19 12/25/19 12/25/19 22:59 06:59 14:59 Intake Total 1320 500 240 Output Total 570 620 375 Balance 750 -120 -135 Lab Results Last 24 Hours: Laboratory Results - last 24 hr 12/25/19 12/25/19 12/25/19 Range/Units 04:55 04:55 04:55 WBC 9.40 H (4.23-9.07) K/mm3 RBC 3.11 L (4.63-6.08) M/mm3 Hgb 8.7 L (13.7-17.5) gm/dl Hct 29.5 L (40.1-51.0) % MCV 94.9 H (79.0-92.2) fl MCH 28.0 (25.7-32.2) pg MCHC 29.5 L (32.2-35.5) g/dl RDW Std Deviation 60.8 H (35.1-43.9) fL Plt Count 276 (163-337) K/mm3 MPV 10.1 (9.4-12.3) fl Neut % (Auto) 80.7 H (34.0-67.9) % Lymph % (Auto) 3.5 L (21.8-53.1) % Ross % (Auto) 13.4 H (5.3-12.2) % Eos % (Auto) 1.4 (0.8-7.0) Baso % (Auto) 0.3 (0.1-1.2) % Neut # (Auto) 7.58 H (1.78-5.38) K/mm3 Lymph # (Auto) 0.33 L (1.32-3.57) K/mm3 Ross # (Auto) 1.26 H (0.30-0.82) K/mm3 Eos # (Auto) 0.13 (0.04-0.54) K/mm3 Baso # (Auto) 0.03 (0.01-0.08) K/mm3 Manual Slide Review Abnormal smear PT 23.0 H (9.7-12.0) SECONDS INR 2.21 Sodium 142 (136-145) mEq/L Potassium 3.5 (3.5-5.1) mEq/L Chloride 101 (98-107) mEq/L Carbon Dioxide 29 (21-32) mEq/L Anion Gap 15.5 H (5-15) BUN 82 H (7-18) mg/dL Creatinine 2.1 H (0.7-1.3) mg/dL Est Cr Clr Drug Dosing 25.59 mL/min Estimated GFR (MDRD) 30 (>60) mL/min BUN/Creatinine Ratio 39.0 H (14-18) Glucose 122 H (83-115) mg/dL Calcium 9.2 (8.5-10.1) mg/dL Total Bilirubin 0.5 (0.2-1.0) mg/dL AST 28 (15-37) U/L ALT 31 (16-63) U/L Alkaline Phosphatase 135 H (46-116) U/L Total Protein 6.8 (6.4-8.2) g/dl Albumin 3.3 L (3.4-5.0) g/dl Globulin 3.5 gm/dL Albumin/Globulin Ratio 0.9 L (1-2) Med Orders - Current: Current Medications Acetaminophen (Tylenol) 650 mg PO Q4H PRN PRN Reason: Pain (Mild 1-3)/fever Last Admin: 12/25/19 06:23 Dose: 650 mg Albuterol/Ipratropium (Duoneb 3.0-0.5 Mg/3 Ml) 3 ml NEB Q4HRRT PRN PRN Reason: Shortness of Breath Allopurinol (Zyloprim) 100 mg PO DAILY [facility] Last Admin: 12/25/19 09:35 Dose: 100 mg Artificial Tears (Refresh Liquigel 1%) 0 ml EYEBOTH BID PRN PRN Reason: Dry Eyes Doxycycline Hyclate (Vibramycin) 100 mg PO BID [facility] Famotidine (Pepcid) 20 mg PO DAILY [facility] Last Admin: 12/25/19 09:35 Dose: 20 mg Furosemide (Lasix) 20 mg PO DAILY [facility] Levothyroxine Sodium (Synthroid) 50 mcg PO ACBREAKFAST [facility] Last Admin: 12/25/19 06:13 Dose: 50 mcg Metoprolol Succinate (Toprol Xl) 12.5 mg PO BID [facility] Last Admin: 12/25/19 09:35 Dose: 12.5 mg Ferrous Sulfate 220 (Mg/5 Ml Ptom) 0 each PO TID [facility] Last Admin: 12/25/19 09:37 Dose: 5 each Polyethylene Glycol (Miralax) 17 gm PO DAILY [facility] Last Admin: 12/25/19 09:37 Dose: 17 gm Senna/Docusate Sodium (Senna Plus) 2 tab PO BID [facility] Last Admin: 12/25/19 09:35 Dose: 2 tab Sucralfate (Carafate) 2 gm PO BEDTIME [facility] Last Admin: 12/24/19 20:30 Dose: 2 gm Discontinued Medications Acetaminophen (Tylenol) 975 mg PO NOW ONE Stop: 12/21/19 13:45 Last Admin: 12/21/19 13:51 Dose: 975 mg Bumetanide (Bumex) 5 mg IVPUSH ONETIME ONE Stop: 12/21/19 13:59 Last Admin: 12/21/19 18:59 Dose: Not Given Bumetanide (Bumex) 5 mg PO ONETIME ONE Stop: 12/21/19 14:13 Last Admin: 12/21/19 18:59 Dose: Not Given Furosemide (Lasix) 80 mg IVPUSH NOW ONE Stop: 12/21/19 14:44 Last Admin: 12/21/19 15:15 Dose: 80 mg Furosemide (Lasix) 60 mg IVPUSH NOW ONE Stop: 12/22/19 13:14 Last Admin: 12/22/19 15:32 Dose: 60 mg Furosemide (Lasix) Confirm Administered Dose 60 mg .ROUTE .[facility] ONE Stop: 12/22/19 15:27 Last Admin: 12/22/19 15:34 Dose: 60 mg Furosemide (Lasix) 40 mg IVPUSH DAILY [facility] Last Admin: 12/25/19 13:08 Dose: Not Given Doxycycline Hyclate 100 mg/ (Sodium Chloride) 100 mls @ 100 mls/hr IV Q12H [facility] Last Admin: 12/25/19 01:37 Dose: 100 mls/hr Piperacillin Sod/Tazobactam (Sod 4.5 gm/ Sodium Chloride) 100 mls @ 200 mls/hr IV ONETIME ONE Stop: 12/22/19 14:59 Last Admin: 12/22/19 15:07 Dose: 200 mls/hr Piperacillin Sod/Tazobactam (Sod 4.5 gm/ Sodium Chloride) 100 mls @ 25 mls/hr IV Q8H [facility] Last Admin: 12/25/19 06:13 Dose: 25 mls/hr Furosemide 100 mg/ Sodium (Chloride) 100 mls @ 3 mls/hr IV ASDIRECTED [facility]; Protocol Last Infusion: 12/24/19 04:03 Dose: 3 mg/hr, 3 mls/hr Potassium Chloride 10 meq/ (Premix) 100 mls @ 100 mls/hr IV Q1H ONE Stop: 12/22/19 14:32 Last Admin: 12/22/19 15:06 Dose: 100 mls/hr Potassium Chloride 10 meq/ (Premix) 100 mls @ 100 mls/hr IV Q1H [facility] Stop: 12/23/19 10:39 Last Admin: 12/23/19 10:37 Dose: 100 mls/hr Magnesium Sulfate/Dextrose 1 (gm/ Premix) 100 mls @ 100 mls/hr IV ONETIME ONE Stop: 12/23/19 08:40 Last Admin: 12/23/19 07:58 Dose: 100 mls/hr Potassium Chloride 10 meq/ (Premix) 100 mls @ 100 mls/hr IV Q1H ONE Stop: 12/23/19 08:42 Last Admin: 12/23/19 09:29 Dose: Not Given Potassium Chloride 10 meq/ (Premix) 100 mls @ 100 mls/hr IV Q1H ONE Stop: 12/23/19 08:45 Last Admin: 04/24/20 09:29 Dose: Not Given Magnesium Sulfate/Dextrose 1 (gm/ Premix) 100 mls @ 100 mls/hr IV ONETIME ONE Stop: 12/24/19 08:22 Last Admin: 12/24/19 10:25 Dose: Not Given Potassium Chloride 10 meq/ (Premix) 100 mls @ 100 mls/hr IV Q1H ONE Stop: 12/24/19 08:22 Last Admin: 12/24/19 09:11 Dose: 100 mls/hr Lactulose (Cephulac) 40 gm PO ONETIME ONE Stop: 12/24/19 17:01 Last Admin: 12/24/19 17:22 Dose: 40 gm Non-Formulary Medication (Warfarin) 3 mg PO DAILY [facility] Last Admin: 12/21/19 21:19 Dose: Not Given Potassium Chloride (Klor-Con M20) 40 meq PO ONETIME ONE Stop: 12/22/19 13:10 Last Admin: 12/22/19 15:06 Dose: 40 meq Potassium Chloride (Klor-Con M20) 40 meq PO ONETIME ONE Stop: 12/23/19 07:45 Last Admin: 12/23/19 08:00 Dose: 40 meq Potassium Chloride (Klor-Con M20) 40 meq PO ONETIME ONE Stop: 12/24/19 07:25 Last Admin: 12/24/19 09:09 Dose: 40 meq Potassium Chloride (Klor-Con M20) 40 meq PO ONETIME ONE Stop: 12/24/19 21:01 Last Admin: 12/24/19 20:31 Dose: 40 meq Potassium Chloride (Klor-Con M20) 20 meq PO ONETIME ONE Stop: 12/25/19 07:33 Last Admin: 12/25/19 09:35 Dose: 20 meq Sucralfate (Carafate) 2 gm PO BEDTIME [facility] Last Admin: 12/22/19 20:42 Dose: 2 gm Warfarin Sodium (Pharmacy To Dose - Warfarin) 1 dose .XX ASDIRECTED PRN PRN Reason: RX TO DOSE WARFARIN Warfarin Sodium (Coumadin) 3 mg PO ONETIME [facility] Warfarin Sodium (Coumadin) 3 mg PO ONETIME ONE Stop: 12/21/19 20:31 Last Admin: 12/21/19 20:33 Dose: 3 mg Warfarin Sodium (Coumadin) 4 mg PO QPM [facility] Stop: 12/22/19 18:01 Last Admin: 12/22/19 18:05 Dose: 4 mg Warfarin Sodium (Coumadin) 4 mg PO QPM [facility] Stop: 12/23/19 18:01 Last Admin: 12/23/19 17:54 Dose: 4 mg Warfarin Sodium (Coumadin) 4 mg PO QPM [facility] Stop: 12/24/19 18:01 - Exam General: Alert, Oriented, No Acute Distress HEENT: Pupils Equal, Pupils Reactive Neck: Supple, Other (mild distended JVD) Cardiovascular: Regular Rate, Irregular Rhythm GI/Abdominal Exam: Normal Bowel Sounds, Soft, Non-Tender, No Organomegaly, No Distention Extremities: Other (mild redness noted in both lower extremities improving. ) Skin: Warm, Dry, Intact Wound/Incisions: Healing Well Neurological: No New Focal Deficit Psy/Mental Status: Alert, Normal Affect, Normal Mood Sepsis Event Note - Evaluation Sepsis Screening Result: No Definite Risk - Focused Exam Vital Signs: Vital Signs Temp Pulse Resp BP BP Pulse Ox 12/25/19 12:00 97.6 F 75 20 129/72 96 12/25/19 09:35 80 99/60 12/25/19 07:48 97.1 F 90 26 H 101/70 94 L 12/25/19 04:00 97.0 F 80 17 103/72 95 Date Exam was Performed: 12/25/19 Time Exam was Performed: 13:23 - Problem List Review Problem List Initiated/Reviewed/Updated: Yes - My Orders Last 24 Hours: My Active Orders 12/25/19 07:31 Remove Urinary Catheter [Urinary Catheter Removal] [RC] Per Unit Routine 12/25/19 21:00 Doxycycline [Vibramycin] 100 mg PO BID 12/26/19 05:11 CBC WITH AUTO DIFF [HEME] AM CMP [COMPREHENSIVE METABOLIC PN,CMP] [CHEM] AM CMP [COMPREHENSIVE METABOLIC PN,CMP] [CHEM] AM CMP [COMPREHENSIVE METABOLIC PN,CMP] [CHEM] Routine MAGNESIUM (PHARM SOLN) [CHEM] DAILY PHOSPHORUS [CHEM] AM 12/26/19 09:00 Furosemide [Lasix] 20 mg PO DAILY 12/27/19 05:11 CMP [COMPREHENSIVE METABOLIC PN,CMP] [CHEM] AM - Assessment Assessment:: Assessment and Plan: Acute respiratory failure: Overnight, nursing staff did not report any desaturation. Will continue supplemental oxygen as needed., Will check the patient's nocturnal oximetry if patient will need oxygen on discharge. Hypokalemia: resolved. today 3.5. continue to monitor and replace. CHF exacerbation: lower extremity swelling appears to be improving, along with redness. but given worsening of renal function, will discontinue IV Lasix, start lasix 20mg p.o daily. replace electrolytes. Cardiovascular risk/NSTEMI: Part of chest pain or palpitations. no reports of chest pain. Patient's INR 2.2 we will continue to monitor, continue metoprolol 12.5 mg p.o. twice daily hold for systolic blood pressure less than 90 heart rate less than 60. Continue to monitor patient on telemetry, replace electrolytes. Bilateral Lower extremity cellulitis: appears to be improving. Will stop IV antibiotics,start doxycycline 100mg p.o bid. History of CKD: Patient baseline creatinine 1.8, today BUN/creatinine 72/2.1. Patient is euvolemic. dc IV diuretics start p.o. Hypothyroidism: Continue on home dose of Synthroid 50 MCG p.o. daily. Gout: Continue home dose of allopurinol 100 mg p.o. daily. Debility/deconditioning: Patient appears weak, physical therapy will be consulted for strengthening. Patient prophylaxis: Continue, patient will also be on PRN [id number]. Nausea: Zofran 4 mg as needed nausea. G.I Prophylaxis: Will be on 20 mg p.o. daily for 2 g p.o. nightly. DVT prophylaxis: He is on Coumadin INR 2.3, patient's Coumadin today. Tomorrow and start if needed. In case of shortness of breath: DuoNeb every 4 hours as needed shortness of breath. Disposition: Patient will stay more than 96 hrs tpo make sure renal function remain stable and to check over night oximetry to make sure that the patient dose not need oxygen on discharge. Plan to discharge the patient in the am if ok.
[2019-12-25] MEDS: Doxycycline 100 MG Cap PO SCH ×2 (19:35→20:01)
[2019-12-25] MEDS: Sucralfate 1 GM Tab PO SCH ×2 (19:35→20:01)
[2019-12-26] MEDS: Levothyroxine 50 MCG Tab PO SCH (05:24)
[2019-12-26] MEDS ORDERED: Furosemide 20 MG Tab PO SCH (09:00)
[2019-12-26] MEDS ORDERED: Potassium Chloride 20 MEQ Tab.ER PO ONE (09:01)
[2019-12-26] MEDS: Allopurinol 100 MG Tab PO SCH (09:07)
[2019-12-26] MEDS: Polyethylene Glycol 3350 Powder 17 GM Packet PO SCH (09:07)
[2019-12-26] MEDS: Metoprolol Succinate 25 MG Tab.ER PO SCH (09:08)
[2019-12-26] MEDS: Famotidine 20 MG Tab PO SCH (09:08)
[2019-12-26] MEDS: Doxycycline 100 MG Cap PO SCH (09:08)
[2019-12-26] MEDS: FERROUS SULFATE 220 MG/5 ML PO SCH (09:09)
[2019-12-26 12:04] VITALS: BP 130/60; PULSE 97
--- NOTE | 2019-12-26 13:32 | PCM.DCSUM1 ---
Discharge Summary - Hospital Course Free Text/Narrative:: Discharge Diagnosis: 1. Acute on Chronic CHF exacerbation this was improved (echocardiogram on indicated EF 55 to 60%) 2. Paroxysmal atrial fibrillation post pacemaker placement anticoagulated with Coumadin. 3. Acute on Chronic stasis dermatitis status was improved 4. Electrolyte imbalance status post replaced 5. Dyslipidemia 6. Hypertension 7. Chronic kidney disease stage III 8. Nocturnal hypoxemia recommended for 2 L of oxygen at night Mr. Verma old male, who was admitted to the hospital with chief complaint of 10 pound weight gain over the last 2 weeks. He was reported at time of admission given the patient is a poor historian that the patient has noticed with increased lower extremity swelling as well as reports of pain in both lower extremities. care home staff consulted with the patient's material planning analyst where the patient was recommended to come to the ED for evaluation. On presentation in the ED, the patient's weight was checked which was quite similar to his prior discharge from the hospital. Work-up that was done to the patient indicated WBC 9.8 H&H 8.9 with platelets of 306 BUN/ creatinine 78/1.8 with baseline creatinine around 1.8 with BNP of 2299. Given this presentation patient was admitted to the hospital for further work-up and management. Patient was started on Lasix, initially did not have significant negative fluid balance. But after the patient was placed on noninvasive ventilator, the patient had about 5 L of negative fluid balance but later refused to be compliant with an invasive ventilator. Given the patient's renal function was worsening along with his blood pressure dropping given he was not compliant with noninvasive ventilator. Decision was made to discontinue IV diuretics. Charge, patient is recommended to continue back on his p.o. Bumex and as needed metolazone, check weight daily and follow-up with primary care/ material planning analyst within 1 week of discharge to better adjust diuretics. Meanwhile patient is recommended to continue on previously established dose of Coumadin, doxycycline for additional 4 days given to patient for bilateral lower extremity cellulitis. Fortunately ultrasound was done was negative for DVT in both lower extremities but reported some peripheral thrombus. Prior to discharge, nocturnal oximetry was checked, patient is recommended for 2 L of oxygen at night. Patient will be discharged back to care home under care of primary care provider. HPI Initial Comments: 89-year-old male, known to the hospitalist service, with history of right heart failure with preserved left ventricular ejection fraction of 55 to 60%, aortic porcine bioprosthesis with abnormal stenosis and increased gradient of 21 mmHg on May 2019 echo, lower extremity edema and stasis dermatitis, and stage III chronic kidney disease brought to the emergency department with reported 10 pound weight gain over the last week and 3 of those pounds today. Patient is hard of hearing and a poor historian, but denies any shortness of breath. He has chronic lower extremity pain from his edema. Patient appears to be asymptomatic from this 10 pound weight gain. Emergency department provider stated that he was sent by his material planning analyst, Dr. Santos, because he becomes resistant to oral diuretics and requires IV diuretics. He recommended furosemide for diuresis to start with 80 mg IV push. In the emergency department patient was found to have a pulse ox in the upper 90s on room air, blood pressure 111/59, respiratory rate of 20, pulse of 74, temperature of 98.2. Chest x-ray showed chronic appearance of pulmonary vessels minimally increased. Pacemaker noted. Pertinent positive labs: WBC 9.8 , hemoglobin 8.9 platelet count 306, sodium 133, BUN 78, creatinine 1.8, proBNP 2299 Diagnosis: Stroke: No - Discharge Data Discharge Date: 12/26/19 Discharge Disposition: DC/Tfer to [facility] Condition: Good - Referral to Home Health Primary Care Physician: Jean-Claude Barber MD - Discharge Diagnosis/Problem(s) (1) CHF, Congestive heart failure SNOMED Code(s): 98627778 ICD Code: I50.9 - HEART FAILURE, UNSPECIFIED Status: Acute Current Visit : Yes - Patient Summary/Data Consults: Consultations 12/22/19 15:36 Consult to Physical Therapy [PT Evaluation and Treatment] [CONS] Routine - Patient Instructions Diet: Mechanical Soft Fluid Restriction: 1500 mL Activity: As Tolerated - Discharge Plan *PRESCRIPTION DRUG MONITORING PROGRAM REVIEWED*: No *COPY OF PRESCRIPTION DRUG MONITORING REPORT IN PATIENT NIRU: No Prescriptions/Med Rec: Doxycycline [Vibramycin] 100 mg PO BID 5 Days #10 cap Metoprolol Succinate [Toprol XL] 12.5 mg PO BID 30 Days #15 tab.er Sucralfate [Carafate] 2 gm PO BEDTIME #30 tablet Home Medications: Home Meds Acetaminophen [Acetaminophen Extra Strength] 1,000 mg PO BID 04/04/19 [History] Cholecalciferol (Vitamin D3) [Vitamin D3] 5,000 unit PO MOWEFR 04/04/19 [History ] Ferrous Sulfate 5 ml PO TID 04/04/19 [History] Lutein/Minerals/Vit A,C & E [Ocuvite] 1 tab PO DAILY 04/04/19 [History] Pantoprazole Sodium [Protonix] 40 mg PO BIDMEALS 04/04/19 [History] allopurinoL [Zyloprim] 100 mg PO DAILY 04/04/19 [History] bisacodyL [Laxative] 5 mg PO DAILY PRN 06/24/19 [History] Albuterol/Ipratropium [DuoNeb 3.0-0.5 MG/3 ML] 3 ml NEB Q4HRRT PRN #20 neb 06/30 [Rx] Ascorbate Calcium [Vitamin C] 500 mg PO TID 12/21/19 [History] Bumetanide [Bumex] 3 mg PO BID 12/21/19 [History] Carboxymethylcellulos/Glycerin [Refresh Optive] 1 drop EYEBOTH BID PRN 12/21/19 [History] Docusate Sodium/Sennosides [Senna Plus] 2 each PO BID 12/21/19 [History] Potassium Chloride [Klor-Con M20] 40 meq PO TID 12/21/19 [History] Saliva Stimulant Comb. No.2 [Biotene Oralbalance] 1 dose PO TID 12/21/19 [ History] Triamcinolone Acetonide [Triamcinolone Acetonide 0.1% Crm] 1 applic TOP BID [History] Warfarin [Coumadin] 3 mg PO DAILY 12/21/19 [History] metOLazone [Zaroxolyn] 2.5 mg PO MOWEFR 12/21/19 [History] polyethylene glycoL 3350 [MiraLAX] 17 gm PO DAILY 12/21/19 [History] Doxycycline [Vibramycin] 100 mg PO BID 5 Days #10 cap 12/26/19 [Rx] Levothyroxine [Synthroid] 50 mcg PO ACBREAKFAST tablet 12/26/19 [Rx] Metoprolol Succinate [Toprol XL] 12.5 mg PO BID 30 Days #15 tab.er 12/26/19 [Rx] Sucralfate [Carafate] 2 gm PO BEDTIME #30 tablet 12/26/19 [Rx] Oxygen Therapy Mode: Nasal Cannula (Patient should be on 2 L of O2 over night.) Oxygen Flow Rate (L/min): 2 Maintain SPO2% less than: 92 Patient Handouts: Heart Failure Action Plan, Heart Failure, [id number] Referrals: Jean-Claude Barber MD [Primary Care Provider] - 01/02/20 1:00 pm (Please check in by 12:45 pm.) - Discharge Summary/Plan Comment DC Time >30 min.: Yes - Patient Data Vitals - Most Recent: Last Vital Signs Temp 97.9 F 12/26/19 11:48 Pulse 97 12/26/19 11:48 Resp 20 12/26/19 11:48 BP 130/60 12/26/19 11:48 Pulse Ox 99 12/26/19 11:48 Weight - Most Recent: 225 lb 4.8 oz I&O - Last 24 hours: Intake & Output 12/25/19 12/26/19 12/26/19 22:59 06:59 14:59 Intake Total 640 350 300 Output Total 250 400 Balance 390 -50 300 Lab Results - Last 24 hrs: Laboratory Results - last 24 hr 12/26/19 12/26/19 12/26/19 Range/Units 05:52 05:52 05:52 WBC 11.15 H (4.23-9.07) K/mm3 RBC 3.28 L (4.63-6.08) M/mm3 Hgb 9.3 L (13.7-17.5) gm/dl Hct 31.0 L (40.1-51.0) % MCV 94.5 H (79.0-92.2) fl MCH 28.4 (25.7-32.2) pg MCHC 30.0 L (32.2-35.5) g/dl RDW Std Deviation 60.6 H (35.1-43.9) fL Plt Count 278 (163-337) K/mm3 MPV 10.1 (9.4-12.3) fl Neut % (Auto) 79.6 H (34.0-67.9) % Lymph % (Auto) 4.3 L (21.8-53.1) % [place] % (Auto) 10.9 (5.3-12.2) % Eos % (Auto) 3.9 (0.8-7.0) Baso % (Auto) 0.4 (0.1-1.2) % Neut # (Auto) 8.89 H (1.78-5.38) K/mm3 Lymph # (Auto) 0.48 L (1.32-3.57) K/mm3 [place] # (Auto) 1.21 H (0.30-0.82) K/mm3 Eos # (Auto) 0.43 (0.04-0.54) K/mm3 Baso # (Auto) 0.04 (0.01-0.08) K/mm3 Manual Slide Review Abnormal smear PT 18.4 H (9.7-12.0) SECONDS INR 1.74 Sodium 139 (136-145) mEq/L Potassium 3.2 L (3.5-5.1) mEq/L Chloride 99 (98-107) mEq/L Carbon Dioxide 26 (21-32) mEq/L Anion Gap 17.2 H (5-15) BUN 81 H (7-18) mg/dL Creatinine 1.8 H (0.7-1.3) mg/dL Est Cr Clr Drug Dosing 29.85 mL/min Estimated GFR (MDRD) 36 (>60) mL/min BUN/Creatinine Ratio 45.0 H (14-18) Glucose 119 H (83-115) mg/dL Calcium 9.0 (8.5-10.1) mg/dL Phosphorus 3.9 (2.6-4.7) mg/dL Total Bilirubin 0.5 (0.2-1.0) mg/dL AST 37 (15-37) U/L ALT 34 (16-63) U/L Alkaline Phosphatase 141 H (46-116) U/L Total Protein 7.2 (6.4-8.2) g/dl Albumin 3.4 (3.4-5.0) g/dl Globulin 3.8 gm/dL Albumin/Globulin Ratio 0.9 L (1-2) Med Orders - Current: Current Medications Acetaminophen (Tylenol) 650 mg PO Q4H PRN PRN Reason: Pain (Mild 1-3)/fever Last Admin: 12/25/19 06:23 Dose: 650 mg Albuterol/Ipratropium (Duoneb 3.0-0.5 Mg/3 Ml) 3 ml NEB Q4HRRT PRN PRN Reason: Shortness of Breath Allopurinol (Zyloprim) 100 mg PO DAILY [facility] Last Admin: 12/26/19 09:07 Dose: 100 mg Artificial Tears (Refresh Liquigel 1%) 0 ml EYEBOTH BID PRN PRN Reason: Dry Eyes Doxycycline Hyclate (Vibramycin) 100 mg PO BID [facility] Last Admin: 12/26/19 09:08 Dose: 100 mg Famotidine (Pepcid) 20 mg PO DAILY [facility] Last Admin: 12/26/19 09:08 Dose: 20 mg Furosemide (Lasix) 20 mg PO DAILY [facility] Last Admin: 12/26/19 09:09 Dose: 20 mg Levothyroxine Sodium (Synthroid) 50 mcg PO ACBREAKFAST [facility] Last Admin: 12/26/19 05:24 Dose: 50 mcg Metoprolol Succinate (Toprol Xl) 12.5 mg PO BID [facility] Last Admin: 12/26/19 09:08 Dose: 12.5 mg Ferrous Sulfate 220 (Mg/5 Ml Ptom) 0 each PO TID [facility] Last Admin: 12/26/19 09:09 Dose: 5 each Polyethylene Glycol (Miralax) 17 gm PO DAILY [facility] Last Admin: 12/26/19 09:07 Dose: Not Given Senna/Docusate Sodium (Senna Plus) 2 tab PO BID [facility] Last Admin: 12/26/19 09:07 Dose: 2 tab Sucralfate (Carafate) 2 gm PO BEDTIME [facility] Last Admin: 12/25/19 20:01 Dose: Not Given Warfarin Sodium (Coumadin) 4 mg PO DAILY@1800 [facility] Discontinued Medications Acetaminophen (Tylenol) 975 mg PO NOW ONE Stop: 12/21/19 13:45 Last Admin: 12/21/19 13:51 Dose: 975 mg Bumetanide (Bumex) 5 mg IVPUSH ONETIME ONE Stop: 12/21/19 13:59 Last Admin: 12/21/19 18:59 Dose: Not Given Bumetanide (Bumex) 5 mg PO ONETIME ONE Stop: 12/21/19 14:13 Last Admin: 12/21/19 18:59 Dose: Not Given Furosemide (Lasix) 80 mg IVPUSH NOW ONE Stop: 12/21/19 14:44 Last Admin: 12/21/19 15:15 Dose: 80 mg Furosemide (Lasix) 60 mg IVPUSH NOW ONE Stop: 12/22/19 13:14 Last Admin: 12/22/19 15:32 Dose: 60 mg Furosemide (Lasix) Confirm Administered Dose 60 mg .ROUTE .STK-MED ONE Stop: 12/22/19 15:27 Last Admin: 12/22/19 15:34 Dose: 60 mg Furosemide (Lasix) 40 mg IVPUSH DAILY [facility] Last Admin: 12/25/19 13:08 Dose: Not Given Doxycycline Hyclate 100 mg/ (Sodium Chloride) 100 mls @ 100 mls/hr IV Q12H [facility] Last Admin: 12/25/19 01:37 Dose: 100 mls/hr Piperacillin Sod/Tazobactam (Sod 4.5 gm/ Sodium Chloride) 100 mls @ 200 mls/hr IV ONETIME ONE Stop: 12/22/19 14:59 Last Admin: 12/22/19 15:07 Dose: 200 mls/hr Piperacillin Sod/Tazobactam (Sod 4.5 gm/ Sodium Chloride) 100 mls @ 25 mls/hr IV Q8H [facility] Last Admin: 12/25/19 06:13 Dose: 25 mls/hr Furosemide 100 mg/ Sodium (Chloride) 100 mls @ 3 mls/hr IV ASDIRECTED [facility]; Protocol Last Infusion: 12/24/19 04:03 Dose: 3 mg/hr, 3 mls/hr Potassium Chloride 10 meq/ (Premix) 100 mls @ 100 mls/hr IV Q1H ONE Stop: 12/22/19 14:32 Last Admin: 12/22/19 15:06 Dose: 100 mls/hr Potassium Chloride 10 meq/ (Premix) 100 mls @ 100 mls/hr IV Q1H [facility] Stop: 12/23/19 10:39 Last Admin: 12/23/19 10:37 Dose: 100 mls/hr Magnesium Sulfate/Dextrose 1 (gm/ Premix) 100 mls @ 100 mls/hr IV ONETIME ONE Stop: 12/23/19 08:40 Last Admin: 12/23/19 07:58 Dose: 100 mls/hr Potassium Chloride 10 meq/ (Premix) 100 mls @ 100 mls/hr IV Q1H ONE Stop: 12/23/19 08:42 Last Admin: 12/23/19 09:29 Dose: Not Given Potassium Chloride 10 meq/ (Premix) 100 mls @ 100 mls/hr IV Q1H ONE Stop: 12/23/19 08:45 Last Admin: 12/23/19 09:29 Dose: Not Given Magnesium Sulfate/Dextrose 1 (gm/ Premix) 100 mls @ 100 mls/hr IV ONETIME ONE Stop: 12/24/19 08:22 Last Admin: 12/24/19 10:25 Dose: Not Given Potassium Chloride 10 meq/ (Premix) 100 mls @ 100 mls/hr IV Q1H ONE Stop: 12/24/19 08:22 Last Admin: 12/24/19 09:11 Dose: 100 mls/hr Lactulose (Cephulac) 40 gm PO ONETIME ONE Stop: 12/24/19 17:01 Last Admin: 12/24/19 17:22 Dose: 40 gm Non-Formulary Medication (Warfarin) 3 mg PO DAILY [facility] Last Admin: 12/21/19 21:19 Dose: Not Given Potassium Chloride (Klor-Con M20) 40 meq PO ONETIME ONE Stop: 12/22/19 13:10 Last Admin: 12/22/19 15:06 Dose: 40 meq Potassium Chloride (Klor-Con M20) 40 meq PO ONETIME ONE Stop: 12/23/19 07:45 Last Admin: 12/23/19 08:00 Dose: 40 meq Potassium Chloride (Klor-Con M20) 40 meq PO ONETIME ONE Stop: 12/24/19 07:25 Last Admin: 12/24/19 09:09 Dose: 40 meq Potassium Chloride (Klor-Con M20) 40 meq PO ONETIME ONE Stop: 12/24/19 21:01 Last Admin: 12/24/19 20:31 Dose: 40 meq Potassium Chloride (Klor-Con M20) 20 meq PO ONETIME ONE Stop: 12/25/19 07:33 Last Admin: 12/25/19 09:35 Dose: 20 meq Potassium Chloride (Klor-Con M20) 40 meq PO ONETIME ONE Stop: 12/26/19 09:02 Last Admin: 12/26/19 09:15 Dose: 40 meq Sucralfate (Carafate) 2 gm PO BEDTIME [facility] Last Admin: 12/22/19 20:42 Dose: 2 gm Warfarin Sodium (Pharmacy To Dose - Warfarin) 1 dose .XX ASDIRECTED PRN PRN Reason: RX TO DOSE WARFARIN Warfarin Sodium (Coumadin) 3 mg PO ONETIME [facility] Warfarin Sodium (Coumadin) 3 mg PO ONETIME ONE Stop: 12/21/19 20:31 Last Admin: 12/21/19 20:33 Dose: 3 mg Warfarin Sodium (Coumadin) 4 mg PO QPM [facility] Stop: 12/22/19 18:01 Last Admin: 12/22/19 18:05 Dose: 4 mg Warfarin Sodium (Coumadin) 4 mg PO QPM [facility] Stop: 12/23/19 18:01 Last Admin: 12/23/19 17:54 Dose: 4 mg Warfarin Sodium (Coumadin) 4 mg PO QPM [facility] Stop: 12/24/19 18:01 - Exam General: Reports: Alert, Oriented, Cooperative, No Acute Distress HEENT: Reports: Pupils Equal, Pupils Reactive, EOMI, Mucous Membr. Moist/[place] Neck: Reports: Supple, Trachea Midline, No JVD Lungs: Reports: Clear to Auscultation, Normal Respiratory Effort, Rales ( Occasional) Cardiovascular: Reports: Regular Rate, Irregular Rhythm GI/Abdominal Exam: Normal Bowel Sounds, Soft, Non-Tender, No Distention, No Abnormal Bruit Back Exam: Reports: Normal Inspection, Full Range of Motion Extremities: Pedal Edema (trace leg swellings noted.) Skin: Reports: Warm, Other (modest redness noted. inboth extremities but improving.) Wound/Incisions: Reports: Healing Well, Dressing Dry and Intact Psy/Mental Status: Reports: Normal Affect, Normal Mood
[2019-12-26] MEDS ORDERED: Warfarin 4 MG Tab PO SCH (18:00)
--- NOTE | 2019-12-27 07:44 | DISCH ---
ADMISSION DATE: 12/21/2019 DISCHARGE DATE: 12/26/2019 ADDENDUM: FINAL DIAGNOSIS: 1. Acute on top of chronic congestive heart failure with preserved left ventricular ejection fraction of 55% to 60% (echo from May 2019). 2. Bilateral MRSA leg cellulitis (improving). 3. Newly diagnosed hypoxemic respiratory failure, requiring nasal cannula oxygen supplementation 2 L/minute overnight. 4. Hypothyroidism. 5. Gastroesophageal reflux disease. 6. Atrial fibrillation, anticoagulation with Coumadin (target INR established 1.8 to 2.2 secondary to chronic indolent gastrointestinal blood loss, not amenable for treatment). 7. History of atrial fibrillation. The patient was seen, examined, and discussed by me with Triston Nelson PA-C. The patient is an 89-year-old white male who was admitted to the hospital on 12/21/2019 from emergency room where the patient presented with shortness of breath and worsening of swelling. The patient was found with +2 anasarca. He was admitted to ICU, was cautiously diuresed, even though diuresing was extremely difficult because of the patient's noncompliance with recommendations. Specifically, the patient was very noncompliant with recommended continuous noninvasive ventilation. Anyway while on Lasix drip, the patient was able to lose approximately 9 pounds and negative fluid balance. His swelling and shortness of breath improved. Fluid status otherwise equilibrated. Bilateral leg cellulitis that the patient was found with was treated with doxycycline, and the patient kept nice trends for improvement. On day of discharge, the patient's condition is closely back to baseline. He lost only 9 pounds out of projected 15 to 20 pounds of weight loss to achieve euvolemic status, but any further push to diurese without noninvasive ventilation unfortunately led to worsening of renal function, and we decided to hold with active diuresis at this moment. Upon discharge though, the patient will be discharged on standing doses of p.o. Lasix and p.r.n. doses of Zaroxolyn as needed for weight gain more than 3 pounds. The patient is recommended for physical therapy, and he was also found in need for nasal cannula oxygen 2 L/minute at night because of nocturnal hypoxia that the patient was found with at time of nocturnal oximetry prior to discharge. Overall condition at time of discharge is satisfactory. For details of the patient's history, clinical presentation, test results, physical exam on discharge, course of hospital stay, discharge medications, and recommendations, please see discharge summary and discharge instructions prepared by Triston Nelson PA-C. CHUCKIE /[id number]
== END 2019-12-26 13:35 | DRG 291 ==
LOC: JD.ED 12:24 → JD.ICU 15:46 → JD.MS 12-25 21:00
PROVIDERS: ADMIT Family Medicine; ATTEND Family Medicine
DX: I50.9 Heart failure, unspecified (principal); I13.0 Hypertensive heart and chronic kidney disease with heart failure and stage 1 through stage 4 chronic kidney disease, or unspecified chronic kidney disease; I50.33 Acute on chronic diastolic (congestive) heart failure; J96.01 Acute respiratory failure with hypoxia; R53.1 Weakness; I87.2 Venous insufficiency (chronic) (peripheral); G90.09 Other idiopathic peripheral autonomic neuropathy; L03.116 Cellulitis of left lower limb; G47.33 Obstructive sleep apnea (adult) (pediatric); E78.5 Hyperlipidemia, unspecified; L03.115 Cellulitis of right lower limb; I25.10 Atherosclerotic heart disease of native coronary artery without angina pectoris; F03.90 Unspecified dementia, unspecified severity, without behavioral disturbance, psychotic disturbance, mood disturbance, and anxiety; B95.62 Methicillin resistant Staphylococcus aureus infection as the cause of diseases classified elsewhere; D50.9 Iron deficiency anemia, unspecified; E03.9 Hypothyroidism, unspecified; K21.9 Gastro-esophageal reflux disease without esophagitis; I48.91 Unspecified atrial fibrillation; Z95.2 Presence of prosthetic heart valve; Z95.1 Presence of aortocoronary bypass graft; Z86.718 Personal history of other venous thrombosis and embolism; E78.00 Pure hypercholesterolemia, unspecified; N18.3 Chronic kidney disease, stage 3 (moderate); N40.0 Benign prostatic hyperplasia without lower urinary tract symptoms; G62.9 Polyneuropathy, unspecified; D50.0 Iron deficiency anemia secondary to blood loss (chronic); E87.6 Hypokalemia; M10.9 Gout, unspecified; Z95.0 Presence of cardiac pacemaker; Z79.01 Long term (current) use of anticoagulants; Z79.890 Hormone replacement therapy; Z79.899 Other long term (current) drug therapy
CPT/HCPCS: 36415; 51702; 71045; 80053; 83880; 85025; 93005; 96374; 99284; A9270; J1940; 83735; 84100; 84484; 85610; 87641; 94660; 94762; 97110-GP; 97162-GP; J2543; J3475; J3480; J3490; J7050; U0002

== ENCOUNTER 2020-02-02 09:40 | Inpatient (IN) | payer MEDICARE, BC ==
[2020-02-02] MEDS ORDERED: Sodium Chloride 0.9% 10 ML Syringe FLUSH PRN (10:18)
--- NOTE | 2020-02-02 11:29 | US ---
Right lower extremity deep venous ultrasound: Duplex and color Doppler evaluation was obtained of the right common femoral, proximal greater saphenous, superficial femoral, popliteal, posterior tibial and peroneal veins. Left common femoral vein was also evaluated. Findings: Normal compression and phasic flow is seen. Patient could not tolerate adequate augmentation. Edema is noted within the calf. Impression: 1. No findings of deep venous thrombosis within right lower extremity or within the left common femoral vein. Diagnostic code #2 This report was dictated in MDT
[2020-02-02] MEDS ORDERED: Vancomycin 2 GM in Sodium Chloride 0.9% 500 ML IV ONE (11:30)
--- NOTE | 2020-02-02 11:44 | EDM.PDOC ---
ED HPI GENERAL MEDICAL PROBLEM - General Chief Complaint: Lower Extremity Injury/Pain Stated Complaint: POSS INFECTION IN RIGHT LEG Time Seen by Provider: 02/02/20 10:03 Source of Information: Reports: Family, Intermediate Records History Limitations: Reports: No Limitations - History of Present Illness INITIAL COMMENTS - FREE TEXT/NARRATIVE: The patient presents with right leg infected right leg. He comes from [facility]. He has a history of edema and cellulitis of his legs. His right leg is more swollen and has more redness. He has no fever, chills, cough, congestion, chest pain, shortness of breath, abdominal pain nausea or vomiting. His daughter answered most of the questions. He was on an antibiotic for 3 days and his leg looks worse. Onset: Gradual Duration: Day(s): Location: Reports: Lower Extremity, Right Quality: Reports: Sharp Severity: Moderate Improves with: Reports: None Worsens with: Reports: None Associated Symptoms: Reports: No Other Symptoms Bilateral Leg Pain Score (Numeric/FACES): 5 - Related Data Allergies Allergy/AdvReac Type Severity Reaction Status Date / Time No Known Allergies Allergy Verified 02/02/20 10:10 Home Meds: Home Meds Cholecalciferol (Vitamin D3) [Vitamin D3] 5,000 unit PO MOWEFR 04/04/19 [History ] Ferrous Sulfate 5 ml PO TID 04/04/19 [History] Lutein/Minerals/Vit A,C & E [Ocuvite] 1 tab PO DAILY 04/04/19 [History] Pantoprazole Sodium [Protonix] 40 mg PO BIDMEALS 04/04/19 [History] allopurinoL [Zyloprim] 100 mg PO DAILY 04/04/19 [History] bisacodyL [Laxative] 5 mg PO DAILY PRN 06/24/19 [History] Albuterol/Ipratropium [DuoNeb 3.0-0.5 MG/3 ML] 3 ml NEB Q4HRRT PRN #20 neb 06/30 [Rx] Ascorbate Calcium [Vitamin C] 500 mg PO TID 12/21/19 [History] Bumetanide [Bumex] 3 mg PO BID 12/21/19 [History] Carboxymethylcellulos/Glycerin [Refresh Optive] 1 drop EYEBOTH BID PRN 12/21/19 [History] Docusate Sodium/Sennosides [Senna Plus] 2 each PO BID 12/21/19 [History] Potassium Chloride [Klor-Con M20] 40 meq PO TID 12/21/19 [History] Saliva Stimulant Comb. No.2 [Biotene Oralbalance] 1 dose PO TID 12/21/19 [ History] Warfarin [Coumadin] 2.5 mg PO DAILY 12/21/19 [History] metOLazone [Zaroxolyn] 2.5 mg PO MOWEFR 12/21/19 [History] polyethylene glycoL 3350 [MiraLAX] 17 gm PO DAILY 12/21/19 [History] Levothyroxine [Synthroid] 50 mcg PO ACBREAKFAST tablet 12/26/19 [Rx] Acetaminophen [Tylenol] 650 mg PO BID PRN 02/02/20 [History] Acetaminophen [Tylenol] 650 mg PO QID 02/02/20 [History] Cannabidiol (Cbd) Extract [CBD Oil] 1 applic TOP DAILY PRN 02/02/20 [History] DULoxetine [Cymbalta] 30 mg PO DAILY 02/02/20 [History] Emollient Combination No.40 [Cetaphil] 1 applic TOP BID 02/02/20 [History] Metoprolol Succinate [Toprol XL] 25 mg PO BID 02/02/20 [History] Potassium Chloride 20 meq PO WE 02/02/20 [History] Solifenacin [Vesicare] 5 mg PO DAILY 02/02/20 [History] Sulfamethoxazole/Trimethoprim [Bactrim Ds Tablet] 1 tab PO BID 02/02/20 [History ] bisacodyL [Dulcolax] 10 mg RECTAL DAILY PRN 02/02/20 [History] Past Medical History HEENT History: Reports: Cataract Cardiovascular History: Reports: Arrhythmia, Blood Clots/VTE/DVT, Bypass, CAD, Heart Failure, Heart Valve Replacement, High Cholesterol, Hypertension, Pacemaker Gastrointestinal History: Reports: Chronic Constipation, GERD Genitourinary History: Reports: BPH, Chronic Renal Insuffiency Musculoskeletal History: Reports: Gout, Osteoarthritis Neurological History: Reports: Neuropathy, Peripheral Psychiatric History: Reports: None Endocrine/Metabolic History: Reports: Hypothyroidism Hematologic History: Reports: Anemia, Blood Transfusion(s) Oncologic (Cancer) History: Reports: Basal Cell Carcinoma, Prostate Dermatologic History: Reports: Cellulitis - Past Surgical History HEENT Surgical History: Reports: Cataract Surgery Cardiovascular Surgical History: Reports: Coronary Artery Bypass, Pacer, Valve Replacement GI Surgical History: Reports: Cholecystectomy, Hernia, Inguinal Male Surgical History: Reports: None Endocrine Surgical History: Reports: None Musculoskeletal Surgical History: Reports: Arthroscopic Knee Dermatological Surgical History: Reports: Skin Biopsy Social & Family History - Family History Family Medical History: Noncontributory - Tobacco Use Smoking Status *Q: Never Smoker - Caffeine Use Caffeine Use: Reports: None - Living Situation & Occupation Living situation: Reports: , Alone Occupation: Retired Review of Systems - Review of Systems Review Of Systems: See Below Constitutional: Reports: No Symptoms Eyes: Reports: No Symptoms Ears: Reports: No Symptoms Nose: Reports: No Symptoms Mouth/Throat: Reports: No Symptoms Respiratory: Reports: No Symptoms Cardiovascular: Reports: No Symptoms GI/Abdominal: Reports: No Symptoms Genitourinary: Reports: No Symptoms Musculoskeletal: Reports: Other (Right leg pain and swelling) ED EXAM, GENERAL - Physical Exam Exam: See Below Exam Limited By: No Limitations General Appearance: Alert, No Apparent Distress Ears: Normal External Exam Nose: Normal Inspection Head: Atraumatic, Normocephalic Neck: Normal Inspection Respiratory/Chest: No Respiratory Distress, Lungs Clear, Normal Breath Sounds Cardiovascular: Regular Rate, Rhythm, No Edema, No Murmur GI/Abdominal: Soft, Non-Tender, No Organomegaly, No Mass Extremities: Other (Edema, erythema and pain upon palpation to the right lower leg. ) Neurological: Alert Course - Vital Signs Last Recorded V/S: Last Vital Signs Temp 97.8 F 02/02/20 10:05 Pulse 78 02/02/20 10:05 Resp 16 02/02/20 10:05 BP 139/83 02/02/20 10:05 Pulse Ox 93 L 02/02/20 10:05 - Orders/Labs/Meds Orders: Active Orders 24 hr Category Date Time Status Cardiac Monitoring [RC] . DIRECTED Care 02/02/20 10:18 Active Peripheral IV Care [RC] . DIRECTED Care 02/02/20 10:19 Active CORONAVIRUS COVID-19 PCR PHL Stat Lab 02/02/20 10:21 Ordered CULTURE BLOOD [BC] Stat Lab 02/02/20 10:47 Received CULTURE BLOOD [BC] Stat Lab 02/02/20 10:55 Received PRO B-TYPE NATRIUR PEPT,BNPPRO [CHEM] Stat Lab 02/02/20 10:19 Received Sodium Chloride 0.9% [Saline Flush] Med 02/02/20 10:18 Active 10 ml FLUSH ASDIRECTED PRN Vancomycin 2 gm Med 02/02/20 11:30 Active Sodium Chloride 0.9% [Normal Saline] 500 ml IV ONETIME Blood Culture x2 Reflex Set [OM.PC] Stat Oth 02/02/20 10:19 Ordered Peripheral IV Insertion Adult [OM.PC] Stat Oth 02/02/20 10:18 Ordered Medication Orders Vancomycin HCl 2 gm/ Sodium (Chloride) 500 mls @ 250 mls/hr IV ONETIME ONE Stop: 02/02/20 13:29 Sodium Chloride (Saline Flush) 10 ml FLUSH ASDIRECTED PRN PRN Reason: Keep Vein Open Last Admin: 02/02/20 11:13 Dose: 10 ml Labs: Laboratory Tests 02/02/20 02/02/20 02/02/20 Range/Units 10:19 10:19 10:47 WBC 14.02 H (4.23-9.07) K/mm3 RBC 3.11 L (4.63-6.08) M/mm3 Hgb 8.8 L (13.7-17.5) gm/dl Hct 29.2 L (40.1-51.0) % MCV 93.9 H (79.0-92.2) fl MCH 28.3 (25.7-32.2) pg MCHC 30.1 L (32.2-35.5) g/dl RDW Std Deviation 60.3 H (35.1-43.9) fL Plt Count 226 (163-337) K/mm3 MPV 9.9 (9.4-12.3) fl Neut % (Auto) 90.9 H (34.0-67.9) % Lymph % (Auto) 2.0 L (21.8-53.1) % [place] % (Auto) 6.3 (5.3-12.2) % Eos % (Auto) 0.1 L (0.8-7.0) Baso % (Auto) 0.1 (0.1-1.2) % Neut # (Auto) 12.75 H (1.78-5.38) K/mm3 Lymph # (Auto) 0.28 L (1.32-3.57) K/mm3 [place] # (Auto) 0.88 H (0.30-0.82) K/mm3 Eos # (Auto) 0.02 L (0.04-0.54) K/mm3 Baso # (Auto) 0.01 (0.01-0.08) K/mm3 Manual Slide Review Abnormal smear Sodium 135 L (136-145) mEq/L Potassium 3.9 (3.5-5.1) mEq/L Chloride 98 (98-107) mEq/L Carbon Dioxide 24 (21-32) mEq/L Anion Gap 16.9 H (5-15) BUN 83 H (7-18) mg/dL Creatinine 2.7 H (0.7-1.3) mg/dL Est Cr Clr Drug Dosing 19.28 mL/min Estimated GFR (MDRD) 22 (>60) mL/min BUN/Creatinine Ratio 30.7 H (14-18) Glucose 154 H (83-115) mg/dL Lactic Acid 1.8 (0.4-2.0) mmol/L Calcium 9.0 (8.5-10.1) mg/dL Total Bilirubin 0.6 (0.2-1.0) mg/dL AST 102 H (15-37) U/L ALT 83 H (16-63) U/L Alkaline Phosphatase 281 H (46-116) U/L C-Reactive Protein 18.2 H* (<1.0) mg/dL Total Protein 7.1 (6.4-8.2) g/dl Albumin 3.3 L (3.4-5.0) g/dl Globulin 3.8 gm/dL Albumin/Globulin Ratio 0.9 L (1-2) Meds: Medications Generic Name Dose Route Start Last Admin Trade Name Freq PRN Reason Stop Dose Admin Vancomycin HCl 2 gm/ Sodium 500 mls @ 250 mls/hr 02/02/20 11:30 Chloride IV 02/02/20 13:29 ONETIME ONE Sodium Chloride 10 ml 02/02/20 10:18 02/02/20 11:13 Saline Flush FLUSH 10 ml ASDIRECTED PRN Administration Keep Vein Open Discontinued Medications Generic Name Dose Route Start Last Admin Trade Name Freq PRN Reason Stop Dose Admin Vancomycin HCl 2 gm/ Sodium 250 mls @ 250 mls/hr 02/02/20 10:19 Chloride IV 02/02/20 11:18 ONETIME ONE - Re-Assessments/Exams Free Text/Narrative Re-Assessment/Exam: 02/02/20 11:39 I ordered an IV saline lock, US of his leg, labs and blood cultures. His WBC was elevated at 14.02. His Hgb is low at 8.8. His Na is 135. His anion gap is elevated at 16.9. His creatinine is elevated at 2.7. His lactic acid is normal at 1.8. His AST is elevated at 102. His ALT is elevated at 83. His CRP is elevated at 18.2. His US shows no findings of DVT within right lower extremity or within the left common femoral vein. I have ordered 2 grams of Vancomycin. I feel he needs to be admitted. I called Dr Fisher and he agreed to the admission. Departure - Departure Time of Disposition: 11:45 Disposition: Admitted As Inpatient 68 Condition: Fair Clinical Impression: Renal insufficiency, Cellulitis of right leg Anemia Qualifiers: Anemia type: other cause Other causes of anemia: other cause, not classified Qualified Code(s): D64.89 - Other specified anemias - Discharge Information Referrals: Jean-Claude Barber MD [Primary Care Provider] - Sepsis Event Note - Evaluation Sepsis Screening Result: No Definite Risk - Focused Exam Vital Signs: Vital Signs Temp Pulse Resp BP Pulse Ox 02/02/20 10:05 97.8 F 78 16 139/83 93 L Date Exam was Performed: 02/02/20 Time Exam was Performed: 11:35 - My Orders Last 24 Hours: My Active Orders 02/02/20 10:18 Cardiac Monitoring [RC] . DIRECTED Sodium Chloride 0.9% [Saline Flush] 10 ml FLUSH ASDIRECTED PRN Peripheral IV Insertion Adult [OM.PC] Stat 02/02/20 10:19 Peripheral IV Care [RC] . DIRECTED PRO B-TYPE NATRIUR PEPT,BNPPRO [CHEM] Stat Blood Culture x2 Reflex Set [OM.PC] Stat 02/02/20 10:21 CORONAVIRUS COVID-19 PCR PHL Stat 02/02/20 10:47 CULTURE BLOOD [BC] Stat 02/02/20 10:55 CULTURE BLOOD [BC] Stat 02/02/20 11:30 Vancomycin 2 gm Sodium Chloride 0.9% [Normal Saline] 500 ml IV ONETIME - Assessment/Plan Last 24 Hours: My Active Orders 02/02/20 10:18 Cardiac Monitoring [RC] . DIRECTED Sodium Chloride 0.9% [Saline Flush] 10 ml FLUSH ASDIRECTED PRN Peripheral IV Insertion Adult [OM.PC] Stat 02/02/20 10:19 Peripheral IV Care [RC] . DIRECTED PRO B-TYPE NATRIUR PEPT,BNPPRO [CHEM] Stat Blood Culture x2 Reflex Set [OM.PC] Stat 02/02/20 10:21 CORONAVIRUS COVID-19 PCR PHL Stat 02/02/20 10:47 CULTURE BLOOD [BC] Stat 02/02/20 10:55 CULTURE BLOOD [BC] Stat 02/02/20 11:30 Vancomycin 2 gm Sodium Chloride 0.9% [Normal Saline] 500 ml IV ONETIME
[2020-02-02] MEDS ORDERED: Ondansetron 4 MG/2 ML SDV IV PRN (13:54)
[2020-02-02] MEDS ORDERED: Furosemide 40 MG/4 ML VIAL IVPUSH ONE (14:01)
--- NOTE | 2020-02-02 14:14 | PCM.HP.2 ---
H&P History of Present Illness - General Date of Service: 02/02/20 Admit Problem/Dx: Admission Diagnosis/Problem Admission Diagnosis/Problem Cellulitis - History of Present Illness Initial Comments - Free Text/Narative: 89-year-old male with long history of lower extremity edema, stasis dermatitis, recurrent lower extremity cellulitis, heart failure with preserved ejection fraction, last echocardiogram on June 18, 2019 with ejection fraction of 55 to 60%, aortic porcine bioprosthesis with abnormal stenosis and increased gradient of 21 mmHg, atrial fibrillation post pacemaker placement on anticoagulation with Coumadin, history of chronic slow GI bleed, chronic kidney disease stage III, hypertension, nocturnal hypoxemia, likely obstructive sleep apnea. Patient presents to the emergency department with worsening lower extremity erythema. Patient was lethargic when I visited with him and the daughter was not available so history was obtained through the emergency department notes and custodial notes. There is no history of fever, chills, cough, congestion, chest pain, shortness of breath, abdominal pain, nausea or vomiting. He was placed on antibiotic for 3 days without improvement. Review of his last hospitalization from the end of November 2019 shows he has gained 12 pounds since last admission. In the emergency department patient was found to be afebrile with increased erythema of the bilateral shins. Right was worse than left. Oxygen saturation was 93% on room air. Initial laboratory test showed a white count of 14.02, hemoglobin of 8.8, sodium 135, potassium 3.9, anion gap 16.9, BUN 83, creatinine 2.7 (at time of discharge in November 1.8), BNP 3489, lactic acid 1.8, AST 102, ALT 83, alkaline phosphatase 281 Lower extremity ultrasounds were negative for DVT. Patient was started on vancomycin in the emergency department Bilateral Leg Pain Score (Numeric/FACES): 5 - Related Data Allergies/Adverse Reactions: Allergies Allergy/AdvReac Type Severity Reaction Status Date / Time No Known Allergies Allergy Verified 02/02/20 13:19 Home Medications: Home Meds Cholecalciferol (Vitamin D3) [Vitamin D3] 5,000 unit PO MOWEFR 04/04/19 [History ] Ferrous Sulfate 5 ml PO TID 04/04/19 [History] Lutein/Minerals/Vit A,C & E [Ocuvite] 1 tab PO DAILY 04/04/19 [History] Pantoprazole Sodium [Protonix] 40 mg PO BIDMEALS 04/04/19 [History] allopurinoL [Zyloprim] 100 mg PO DAILY 04/04/19 [History] bisacodyL [Laxative] 5 mg PO DAILY PRN 06/24/19 [History] Albuterol/Ipratropium [DuoNeb 3.0-0.5 MG/3 ML] 3 ml NEB Q4HRRT PRN #20 neb 06/30 [Rx] Ascorbate Calcium [Vitamin C] 500 mg PO TID 12/21/19 [History] Bumetanide [Bumex] 3 mg PO BID 12/21/19 [History] Carboxymethylcellulos/Glycerin [Refresh Optive] 1 drop EYEBOTH BID PRN 12/21/19 [History] Docusate Sodium/Sennosides [Senna Plus] 2 each PO BID 12/21/19 [History] Potassium Chloride [Klor-Con M20] 40 meq PO TID 12/21/19 [History] Saliva Stimulant Comb. No.2 [Biotene Oralbalance] 1 dose PO TID 12/21/19 [ History] Warfarin [Coumadin] 2.5 mg PO DAILY 12/21/19 [History] metOLazone [Zaroxolyn] 2.5 mg PO WE 12/21/19 [History] polyethylene glycoL 3350 [MiraLAX] 17 gm PO DAILY 12/21/19 [History] Levothyroxine [Synthroid] 50 mcg PO ACBREAKFAST tablet 12/26/19 [Rx] Acetaminophen [Tylenol] 650 mg PO BID PRN 02/02/20 [History] Acetaminophen [Tylenol] 650 mg PO QID 02/02/20 [History] Benzocaine/Benzethon Cl [Dermoplast [facility] [place]] 1 spray TOP BEDTIME [History] Benzocaine/Benzethon Cl [Dermoplast [facility] [place]] 1 spray TOP DAILY PRN 02/01 [History] Cannabidiol (Cbd) Extract [CBD Oil] 1 applic TOP DAILY PRN 02/02/20 [History] DULoxetine [Cymbalta] 30 mg PO DAILY 02/02/20 [History] Emollient Combination No.40 [Cetaphil] 1 applic TOP BID 02/02/20 [History] Metoprolol Succinate [Toprol XL] 25 mg PO DAILY 02/02/20 [History] Potassium Chloride 20 meq PO WE 02/02/20 [History] Solifenacin [Vesicare] 5 mg PO DAILY 02/02/20 [History] Sulfamethoxazole/Trimethoprim [Bactrim Ds Tablet] 1 tab PO BID 02/02/20 [History ] bisacodyL [Dulcolax] 10 mg RECTAL DAILY PRN 02/02/20 [History] Past Medical History HEENT History: Reports: Cataract, Hard of Hearing, Impaired Vision Cardiovascular History: Reports: Arrhythmia, Blood Clots/VTE/DVT, Bypass, CAD, Heart Failure, Heart Valve Replacement, High Cholesterol, Hypertension, Pacemaker Gastrointestinal History: Reports: Chronic Constipation, GERD Genitourinary History: Reports: BPH, Chronic Renal Insuffiency, Urinary Incontinence Musculoskeletal History: Reports: Gout, Osteoarthritis Neurological History: Reports: Neuropathy, Peripheral Psychiatric History: Reports: Depression Endocrine/Metabolic History: Reports: Hypothyroidism, Obesity/BMI 30+ Hematologic History: Reports: Anemia, Blood Transfusion(s) Oncologic (Cancer) History: Reports: Basal Cell Carcinoma, Prostate Dermatologic History: Reports: Cellulitis - Infectious Disease History Infectious Disease History: Reports: MRSA - Past Surgical History HEENT Surgical History: Reports: Cataract Surgery Cardiovascular Surgical History: Reports: Coronary Artery Bypass, Pacer, Valve Replacement GI Surgical History: Reports: Cholecystectomy, Hernia, Inguinal Male Surgical History: Reports: None Endocrine Surgical History: Reports: None Musculoskeletal Surgical History: Reports: Arthroscopic Knee Dermatological Surgical History: Reports: Skin Biopsy Social & Family History - Family History Family Medical History: Noncontributory - Tobacco Use Smoking Status *Q: Never Smoker Second Hand Smoke Exposure: No - Caffeine Use Caffeine Use: Reports: None - Recreational Drug Use Recreational Drug Use: No - Living Situation & Occupation Living situation: Reports: , Alone Occupation: Retired H&P Review of Systems - Review of Systems: Review Of Systems: Unable To Obtain Reason Not Obtained: Patient lethargic Exam - Exam Exam: See Below - Vital Signs Vital Signs: Last Vital Signs Temp 97.8 F 02/02/20 10:05 Pulse 78 02/02/20 10:05 Resp 16 02/02/20 10:05 BP 139/83 02/02/20 10:05 Pulse Ox 93 L 06/04/20 10:05 Weight: 237 lb 1.6 oz - Exam Quality Assessment: No: Supplemental Oxygen General: Lethargic HEENT: Conjunctiva Clear, Mucosa Moist & Martin'[place]s Neck: Supple, Trachea Midline, 2 Lungs: Normal Respiratory Effort, Decreased Breath Sounds Cardiovascular: Irregular Rhythm, Other (Distant heart sounds). No: Regular Rate GI/Abdominal Exam: Normal Bowel Sounds, Soft, Non-Tender, No Distention ( Morbidly obese) Extremities: Normal Capillary Refill, Pedal Edema (4+ bilateral pitting edema above the knee), Redness (Erythema along both dsouza with the right with open wounds and necrotic center) Peripheral Pulses: 0: Posterior Tibial (L) (Unable to obtain secondary to edema) , Posterior Tibial (R), Dorsalis Pedis (L), Dorsalis Pedis (R) Skin: Warm, Wound (Right lower extremity). No: Intact Neurological: Other (Altered mental status) Neuro Extensive - Mental Status: Opens Eyes to Commands, Slow Response to Commands. No: Normal Cognition Psychiatric: No: Alert - Patient Data Lab Results Last 24 hrs: Laboratory Results - last 24 hr 02/02/20 02/02/20 02/02/20 Range/Units 10:19 10:19 10:19 WBC 14.02 H (4.23-9.07) K/mm3 RBC 3.11 L (4.63-6.08) M/mm3 Hgb 8.8 L (13.7-17.5) gm/dl Hct 29.2 L (40.1-51.0) % MCV 93.9 H (79.0-92.2) fl MCH 28.3 (25.7-32.2) pg MCHC 30.1 L (32.2-35.5) g/dl RDW Std Deviation 60.3 H (35.1-43.9) fL Plt Count 226 (163-337) K/mm3 MPV 9.9 (9.4-12.3) fl Neut % (Auto) 90.9 H (34.0-67.9) % Lymph % (Auto) 2.0 L (21.8-53.1) % Coles % (Auto) 6.3 (5.3-12.2) % Eos % (Auto) 0.1 L (0.8-7.0) Baso % (Auto) 0.1 (0.1-1.2) % Neut # (Auto) 12.75 H (1.78-5.38) K/mm3 Lymph # (Auto) 0.28 L (1.32-3.57) K/mm3 Coles # (Auto) 0.88 H (0.30-0.82) K/mm3 Eos # (Auto) 0.02 L (0.04-0.54) K/mm3 Baso # (Auto) 0.01 (0.01-0.08) K/mm3 Manual Slide Review Abnormal smear PT (9.7-12.0) SECONDS INR Sodium 135 L (136-145) mEq/L Potassium 3.9 (3.5-5.1) mEq/L Chloride 98 (98-107) mEq/L Carbon Dioxide 24 (21-32) mEq/L Anion Gap 16.9 H (5-15) BUN 83 H (7-18) mg/dL Creatinine 2.7 H (0.7-1.3) mg/dL Est Cr Clr Drug Dosing 19.28 mL/min Estimated GFR (MDRD) 22 (>60) mL/min BUN/Creatinine Ratio 30.7 H (14-18) Glucose 154 H (83-115) mg/dL Lactic Acid (0.4-2.0) mmol/L Calcium 9.0 (8.5-10.1) mg/dL Total Bilirubin 0.6 (0.2-1.0) mg/dL AST 102 H (15-37) U/L ALT 83 H (16-63) U/L Alkaline Phosphatase 281 H (46-116) U/L C-Reactive Protein 18.2 H* (<1.0) mg/dL NT-Pro-B Natriuret Pep 3489 H (0-450) pg/mL Total Protein 7.1 (6.4-8.2) g/dl Albumin 3.3 L (3.4-5.0) g/dl Globulin 3.8 gm/dL Albumin/Globulin Ratio 0.9 L (1-2) 02/02/20 02/02/20 Range/Units 10:19 10:47 WBC (4.23-9.07) K/mm3 RBC (4.63-6.08) M/mm3 Hgb (13.7-17.5) gm/dl Hct (40.1-51.0) % MCV (79.0-92.2) fl MCH (25.7-32.2) pg MCHC (32.2-35.5) g/dl RDW Std Deviation (35.1-43.9) fL Plt Count (163-337) K/mm3 MPV (9.4-12.3) fl Neut % (Auto) (34.0-67.9) % Lymph % (Auto) (21.8-53.1) % Coles % (Auto) (5.3-12.2) % Eos % (Auto) (0.8-7.0) Baso % (Auto) (0.1-1.2) % Neut # (Auto) (1.78-5.38) K/mm3 Lymph # (Auto) (1.32-3.57) K/mm3 Coles # (Auto) (0.30-0.82) K/mm3 Eos # (Auto) (0.04-0.54) K/mm3 Baso # (Auto) (0.01-0.08) K/mm3 Manual Slide Review PT 30.8 H D (9.7-12.0) SECONDS INR 3.01 Sodium (136-145) mEq/L Potassium (3.5-5.1) mEq/L Chloride (98-107) mEq/L Carbon Dioxide (21-32) mEq/L Anion Gap (5-15) BUN (7-18) mg/dL Creatinine (0.7-1.3) mg/dL Est Cr Clr Drug Dosing mL/min Estimated GFR (MDRD) (>60) mL/min BUN/Creatinine Ratio (14-18) Glucose (83-115) mg/dL Lactic Acid 1.8 (0.4-2.0) mmol/L Calcium (8.5-10.1) mg/dL Total Bilirubin (0.2-1.0) mg/dL AST (15-37) U/L ALT (16-63) U/L Alkaline Phosphatase (46-116) U/L C-Reactive Protein (<1.0) mg/dL NT-Pro-B Natriuret Pep (0-450) pg/mL Total Protein (6.4-8.2) g/dl Albumin (3.4-5.0) g/dl Globulin gm/dL Albumin/Globulin Ratio (1-2) Result Diagrams: 02/02/20 10:19 02/02/20 10:19 Imaging Impressions Last 24 hrs: Chest x-ray showed minimal pulmonary vascular congestion. Prosthetic heart valve. Sepsis Event Note - Evaluation Sepsis Screening Result: No Definite Risk - Focused Exam Vital Signs: Vital Signs Temp Pulse Resp BP Pulse Ox 02/02/20 10:05 97.8 F 78 16 139/83 93 L Date Exam was Performed: 02/02/20 Time Exam was Performed: 15:53 Problem List Initiated/Reviewed/Updated: Yes Orders Last 24hrs: Active Orders 24 hr Category Date Time Status Admission Status [Patient Status] [ADT] Routine ADT 02/02/20 12:05 Active Oxygen Therapy [RC] PRN Care 02/02/20 13:54 Ordered Up With Assistance [RC] ASDIRECTED Care 02/02/20 13:54 Ordered VTE/DVT Education [RC] PER UNIT ROUTINE Care 02/02/20 13:54 Ordered Vital Signs [RC] Q4H Care 02/02/20 13:54 Ordered PT Evaluation and Treatment [CONS] Routine Cons 02/02/20 13:54 Ordered Heart Healthy Diet [DIET] Diet 02/02/20 Dinner Active CXR [Chest 1V Frontal] [CR] Routine Exams 02/02/20 13:57 Ordered Echo Comp wo Cont [US] Routine Exams 02/02/20 Ordered CBC WITH AUTO DIFF [HEME] AM Lab 02/03/20 05:11 Ordered CBC WITH AUTO DIFF [HEME] AM Lab 02/04/20 05:11 Ordered CBC WITH AUTO DIFF [HEME] AM Lab 02/05/20 05:11 Ordered CBC WITH AUTO DIFF [HEME] AM Lab 02/06/20 05:11 Ordered CBC WITH AUTO DIFF [HEME] AM Lab 02/07/20 05:11 Ordered COMPREHENSIVE METABOLIC PN,CMP [CHEM] AM Lab 02/03/20 05:11 Ordered COMPREHENSIVE METABOLIC PN,CMP [CHEM] AM Lab 02/04/20 05:11 Ordered COMPREHENSIVE METABOLIC PN,CMP [CHEM] AM Lab 02/05/20 05:11 Ordered COMPREHENSIVE METABOLIC PN,CMP [CHEM] AM Lab 02/06/20 05:11 Ordered COMPREHENSIVE METABOLIC PN,CMP [CHEM] AM Lab 02/07/20 05:11 Ordered CORONAVIRUS COVID-19 PCR PHL Stat Lab 02/02/20 11:45 Received CULTURE BLOOD [BC] Stat Lab 02/02/20 10:47 Received CULTURE BLOOD [BC] Stat Lab 02/02/20 10:55 Received INR,PT,PROTHROMBIN TIME [COAG] AM Lab 02/03/20 05:11 Ordered INR,PT,PROTHROMBIN TIME [COAG] AM Lab 02/04/20 05:11 Ordered INR,PT,PROTHROMBIN TIME [COAG] AM Lab 02/05/20 05:11 Ordered INR,PT,PROTHROMBIN TIME [COAG] AM Lab 02/06/20 05:11 Ordered INR,PT,PROTHROMBIN TIME [COAG] AM Lab 02/07/20 05:11 Ordered MAGNESIUM [CHEM] AM Lab 02/03/20 05:11 Ordered MAGNESIUM [CHEM] AM Lab 02/04/20 05:11 Ordered MAGNESIUM [CHEM] AM Lab 02/05/20 05:11 Ordered MAGNESIUM [CHEM] AM Lab 02/06/20 05:11 Ordered MAGNESIUM [CHEM] AM Lab 02/07/20 05:11 Ordered PHOSPHORUS [CHEM] AM Lab 02/03/20 05:11 Ordered VANCOMYCIN TROUGH [CHEM] Timed Lab 02/04/20 11:00 Ordered Acetaminophen [Tylenol] Med 02/02/20 13:54 Ordered 650 mg PO Q4H PRN Furosemide [Lasix] Med 02/02/20 14:01 Once 80 mg IVPUSH NOW ONE Ondansetron [Zofran] Med 02/02/20 13:54 Ordered 4 mg IV Q4H PRN Pharmacy to Dose - Vancomycin Med 02/02/20 12:30 Active 1 dose .XX ASDIRECTED PRN Pharmacy to Dose - Warfarin Med 02/02/20 12:30 Active 1 dose .XX ASDIRECTED PRN Sodium Chloride 0.9% [Saline Flush] Med 02/02/20 10:18 Active 10 ml FLUSH ASDIRECTED PRN Vancomycin 1 gm Med 02/03/20 12:00 Active Vancomycin 250 mg Sodium Chloride 0.9% [Normal Saline] 250 ml IV Q24H Warfarin [Coumadin] Med 02/02/20 18:00 Active 2.5 mg PO QPM BiPAP [RESPCARE] Routine Oth 02/02/20 13:51 Ordered Blood Culture x2 Reflex Set [OM.PC] Stat Oth 02/02/20 10:19 Ordered Peripheral IV Insertion Adult [OM.PC] Stat Oth 02/02/20 10:18 Ordered Resuscitation Status Routine Resus Stat 02/02/20 13:54 Ordered Medication Orders Acetaminophen (Tylenol) 650 mg PO Q4H PRN PRN Reason: Pain (Mild 1-3)/fever Furosemide (Lasix) 80 mg IVPUSH NOW ONE Stop: 02/02/20 14:02 Vancomycin HCl 1 gm/Vancomycin HCl 250 mg/ Sodium Chloride 250 mls @ 166.667 mls/hr IV Q24H DARCY Ondansetron HCl (Zofran) 4 mg IV Q4H PRN PRN Reason: Nausea/Vomiting Sodium Chloride (Saline Flush) 10 ml FLUSH ASDIRECTED PRN PRN Reason: Keep Vein Open Last Admin: 02/02/20 11:13 Dose: 10 ml Vancomycin HCl (Pharmacy To Dose - Vancomycin) 1 dose .XX ASDIRECTED PRN PRN Reason: RX TO DOSE VANCO Warfarin Sodium (Pharmacy To Dose - Warfarin) 1 dose .XX ASDIRECTED PRN PRN Reason: RX TO DOSE WARFARIN Warfarin Sodium (Coumadin) 2.5 mg PO QPM [facility] Stop: 02/02/20 18:01 Assessment/Plan Comment:: Bilateral lower extremity cellulitis with open wounds 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 Was on antibiotics for 3 days prior to admission. * No history of fever or chills. * WBC 14 on admission * Patient is on Bumex 3 mg twice daily at home Plan * Continue vancomycin, pharmacy to dose * Consult physical therapy for wound care * Lasix 80 mg IV now Heart failure with preserved ejection fraction with acute exacerbation * 12 pound weight gain since last admission December 26, 2019 * BNP 3489 * Chest x-ray with minimal pulmonary vascular congestion * Echocardiogram from May 2019 shows ejection fraction 55 to 60% with aortic porcine bioprosthesis with abnormal stenosis and increased gradient of 21 mmHg * Oxygen saturations slightly lower than previously at 93% Plan * Lasix 80 mg IV x1 * Cautious diuresis secondary to renal insufficiency acute on chronic * BiPAP / continuously when not eating * Echocardiogram * Recheck CMP in the morning * Strict I's and O's and daily weights Elevated liver enzymes * AST 102, ALT 83, alkaline phosphatase 281 * Possibly due to hepatic congestion from heart failure Plan * Recheck LFTs in the morning Atrial fibrillation anticoagulated with warfarin History of chronic blood loss anemia * INR 3.0 * Hemoglobin 8.8 Plan * Follow INR and hemoglobin daily * Pharmacy to dose warfarin Stage IIIb chronic renal insufficiency with acute renal injury * Estimated GFR 22 * Creatinine 2.7, BUN 83 * GFR and creatinine are significantly worse than at discharge in November * This will make diuresis more difficult. Plan * Avoid nephrotoxic medications and renally dose medications. * Follow renal function closely * Cautious diuresis Multiple chronic medical conditions including pulmonary hypertension, dementia, generalized weakness, abnormalities of gait and mobility, cognitive communication deficit, hypothyroidism, BPH, hyperlipidemia obstructive sleep apnea, chronic back pain, idiopathic peripheral autonomic neuropathy VTE prophylaxis with warfarin CODE STATUS: DNR/DNI Disposition: Admit to medical floor for IV antibiotics and diuresis - Mortality Measure Prognosis:: Poor
--- NOTE | 2020-02-02 14:37 | CR ---
Chest: Portable view of the chest was obtained. Comparison: Prior chest x-ray of 12/21/19. Findings: Heart size at the upper limits of normal. Tortuous thoracic aorta is seen. Pacemaker is noted. Sternotomy wires are seen. Prosthetic heart valve is seen. Pulmonary vessels may be minimally congested. Bony structures are grossly intact. Impression: 1. Findings as noted above. 2. Possible minimal pulmonary vascular congestion. Diagnostic code #2 This report was dictated in MDT
[2020-02-02] MEDS ORDERED: Albuterol/Ipratropium 3.0-0.5 MG/3 ML Neb Soln NEB PRN (17:15)
[2020-02-02] MEDS: Acetaminophen 325 MG Tab PO PRN (17:40)
[2020-02-02] MEDS ORDERED: Warfarin 2.5 MG Tab PO SCH (18:00)
[2020-02-02] MEDS: CETAPHIL TOP SCH (21:08)
[2020-02-02] MEDS: Acetaminophen/HYDROcodone 325-5 MG Tab PO PRN (21:34)
[2020-02-02] MEDS: Potassium Chloride 20 MEQ Tab.ER PO SCH (21:35)
[2020-02-03] MEDS: Pantoprazole 40 MG Tab.CR PO SCH ×2 (06:35→17:57)
[2020-02-03] MEDS: Levothyroxine 50 MCG Tab PO SCH (06:35)
[2020-02-03] MEDS ORDERED: Furosemide 40 MG/4 ML VIAL IVPUSH ONE (08:08)
[2020-02-03] MEDS: DULoxetine 30 MG Cap PO SCH (08:41)
[2020-02-03] MEDS: Potassium Chloride 20 MEQ Tab.ER PO SCH ×3 (08:41→20:34)
[2020-02-03] MEDS: CETAPHIL TOP SCH ×2 (08:41→21:59)
[2020-02-03] MEDS: Allopurinol 100 MG Tab PO SCH (08:41)
[2020-02-03] MEDS: Polyethylene Glycol 3350 Powder 17 GM Packet PO SCH (08:41)
[2020-02-03] MEDS: Metoprolol Succinate 25 MG Tab.ER PO SCH (08:50)
--- NOTE | 2020-02-03 11:36 | PCM.PN ---
- General Info Date of Service: 02/03/20 Admission Dx/Problem (Free Text): Admission Diagnosis/Problem Admission Diagnosis/Problem Cellulitis Functional Status: Reports: Pain Controlled - Review of Systems General: Reports: Fatigue HEENT: Reports: No Symptoms Pulmonary: Reports: No Symptoms Cardiovascular: Reports: Edema Musculoskeletal: Reports: Leg Pain Psychiatric: Reports: No Symptoms - Patient Data Vitals - Most Recent: Last Vital Signs Temp 97.5 F 02/03/20 07:54 Pulse 74 02/03/20 08:50 Resp 20 02/03/20 07:54 BP 103/90 02/03/20 08:50 Pulse Ox 92 L 02/03/20 10:34 Weight - Most Recent: 233 lb 3.2 oz I&O - Last 24 Hours: Intake & Output 02/02/20 02/03/20 02/03/20 22:59 06:59 14:59 Intake Total 1200 1270 240 Output Total 790 688 Balance 410 582 240 Imaging Impressions - Last 24 Hours: Echocardiogram on February 02, 2020 Summary: 1. The left ventricular internal cavity size is normal. 2. Mildly decreased left ventricular systolic function. 3. Left ventricular ejection fraction, by visual estimation, is 45 to 50%. 4. Mild septal left ventricular hypertrophy. 5. Severely dilated left atrium. 6. Moderately dilated right atrium. 7. There is moderate aortic valve sclerosis without stenosis. 8. Mild to moderate mitral valve regurgitation. 9. The MR jet is eccentric posteriorly directed. 10. Mild to moderate tricuspid valve regurgitation. 11. Mild pulmonic valve regurgitation. 12. Mild to moderate dilatation of the ascending aorta. 13. The inferior vena cava is not well visualized. 14. The right ventricular systolic pressure is unable to be determined. Lab Results Last 24 Hours: Laboratory Results - last 24 hr 02/02/20 02/02/20 02/03/20 Range/Units 10:19 10:19 05:22 WBC (4.23-9.07) K/mm3 RBC (4.63-6.08) M/mm3 Hgb (13.7-17.5) gm/dl Hct (40.1-51.0) % MCV (79.0-92.2) fl MCH (25.7-32.2) pg MCHC (32.2-35.5) g/dl RDW Std Deviation (35.1-43.9) fL Plt Count (163-337) K/mm3 MPV (9.4-12.3) fl Neut % (Auto) (34.0-67.9) % Lymph % (Auto) (21.8-53.1) % Luna % (Auto) (5.3-12.2) % Eos % (Auto) (0.8-7.0) Baso % (Auto) (0.1-1.2) % Neut # (Auto) (1.78-5.38) K/mm3 Lymph # (Auto) (1.32-3.57) K/mm3 Luna # (Auto) (0.30-0.82) K/mm3 Eos # (Auto) (0.04-0.54) K/mm3 Baso # (Auto) (0.01-0.08) K/mm3 Manual Slide Review PT 30.8 H D 32.0 H (9.7-12.0) SECONDS INR 3.01 3.13 Sodium (136-145) mEq/L Potassium (3.5-5.1) mEq/L Chloride (98-107) mEq/L Carbon Dioxide (21-32) mEq/L Anion Gap (5-15) BUN (7-18) mg/dL Creatinine (0.7-1.3) mg/dL Est Cr Clr Drug Dosing mL/min Estimated GFR (MDRD) (>60) mL/min BUN/Creatinine Ratio (14-18) Glucose (83-115) mg/dL Calcium (8.5-10.1) mg/dL Phosphorus (2.6-4.7) mg/dL Magnesium (1.8-2.4) mg/dl Total Bilirubin (0.2-1.0) mg/dL AST (15-37) U/L ALT (16-63) U/L Alkaline Phosphatase (46-116) U/L NT-Pro-B Natriuret Pep 3489 H (0-450) pg/mL Total Protein (6.4-8.2) g/dl Albumin (3.4-5.0) g/dl Globulin gm/dL Albumin/Globulin Ratio (1-2) 02/03/20 02/03/20 Range/Units 05:22 05:22 WBC 10.27 H (4.23-9.07) K/mm3 RBC 3.03 L (4.63-6.08) M/mm3 Hgb 8.5 L (13.7-17.5) gm/dl Hct 28.7 L (40.1-51.0) % MCV 94.7 H (79.0-92.2) fl MCH 28.1 (25.7-32.2) pg MCHC 29.6 L (32.2-35.5) g/dl RDW Std Deviation 60.1 H (35.1-43.9) fL Plt Count 220 (163-337) K/mm3 MPV 10.4 (9.4-12.3) fl Neut % (Auto) 83.1 H (34.0-67.9) % Lymph % (Auto) 3.0 L (21.8-53.1) % Luna % (Auto) 12.0 (5.3-12.2) % Eos % (Auto) 1.1 (0.8-7.0) Baso % (Auto) 0.2 (0.1-1.2) % Neut # (Auto) 8.54 H (1.78-5.38) K/mm3 Lymph # (Auto) 0.31 L (1.32-3.57) K/mm3 Luna # (Auto) 1.23 H (0.30-0.82) K/mm3 Eos # (Auto) 0.11 (0.04-0.54) K/mm3 Baso # (Auto) 0.02 (0.01-0.08) K/mm3 Manual Slide Review Abnormal smear PT (9.7-12.0) SECONDS INR Sodium 135 L (136-145) mEq/L Potassium 4.4 (3.5-5.1) mEq/L Chloride 97 L (98-107) mEq/L Carbon Dioxide 26 (21-32) mEq/L Anion Gap 16.4 H (5-15) BUN 85 H (7-18) mg/dL Creatinine 2.7 H (0.7-1.3) mg/dL Est Cr Clr Drug Dosing 21.16 mL/min Estimated GFR (MDRD) 22 (>60) mL/min BUN/Creatinine Ratio 31.5 H (14-18) Glucose 105 (83-115) mg/dL Calcium 8.7 (8.5-10.1) mg/dL Phosphorus 5.8 H (2.6-4.7) mg/dL Magnesium 2.6 H (1.8-2.4) mg/dl Total Bilirubin 0.6 (0.2-1.0) mg/dL AST 73 H (15-37) U/L ALT 78 H (16-63) U/L Alkaline Phosphatase 287 H (46-116) U/L NT-Pro-B Natriuret Pep (0-450) pg/mL Total Protein 6.8 (6.4-8.2) g/dl Albumin 3.1 L (3.4-5.0) g/dl Globulin 3.7 gm/dL Albumin/Globulin Ratio 0.8 L (1-2) [place] Results Last 24 Hours: Microbiology 02/02/20 10:55 Aerobic Blood Culture - Preliminary Blood - Venous - Lab Draw NO GROWTH AFTER 1 DAY Anaerobic Blood Culture - Preliminary NO GROWTH AFTER 1 DAY 02/02/20 10:47 Aerobic Blood Culture - Preliminary Blood - Venous NO GROWTH AFTER 1 DAY Anaerobic Blood Culture - Preliminary NO GROWTH AFTER 1 DAY Med Orders - Current: Current Medications Acetaminophen (Tylenol) 650 mg PO Q4H PRN PRN Reason: Pain (Mild 1-3)/fever Last Admin: 02/02/20 17:40 Dose: 650 mg Hydrocodone Bitart/Acetaminophen ([place] 325-5 Mg) 1 tab PO Q4H PRN PRN Reason: Pain (moderate 4-6) Last Admin: 02/02/20 21:34 Dose: 1 tab Albuterol/Ipratropium (Duoneb 3.0-0.5 Mg/3 Ml) 3 ml NEB Q4HRRT PRN PRN Reason: Shortness of Breath Allopurinol (Zyloprim) 100 mg PO DAILY [facility] Last Admin: 02/03/20 08:41 Dose: 100 mg Duloxetine HCl (Cymbalta) 30 mg PO DAILY [facility] Last Admin: 02/03/20 08:41 Dose: 30 mg Vancomycin HCl 1 gm/Vancomycin HCl 250 mg/ Sodium Chloride 250 mls @ 166.667 mls/hr IV Q24H [facility] Levothyroxine Sodium (Synthroid) 50 mcg PO ACBREAKFAST [facility] Last Admin: 02/03/20 06:35 Dose: 50 mcg Metoprolol Succinate (Toprol Xl) 25 mg PO DAILY [facility] Last Admin: 02/03/20 08:50 Dose: Not Given Cetaphil - Pt's Own (Medication) 1 applic TOP BID [facility] Last Admin: 02/03/20 08:41 Dose: Not Given Non-Formulary Medication (Ferrous Sulfate) 5 ml PO TID [facility] Ondansetron HCl (Zofran) 4 mg IV Q4H PRN PRN Reason: Nausea/Vomiting Pantoprazole Sodium (Protonix) 40 mg PO BIDMEALS [facility] Last Admin: 02/03/20 06:35 Dose: 40 mg Polyethylene Glycol (Miralax) 17 gm PO DAILY [facility] Last Admin: 02/03/20 08:41 Dose: 17 gm Potassium Chloride (Klor-Con M20) 40 meq PO TID [facility] Last Admin: 02/03/20 08:41 Dose: 40 meq Senna/Docusate Sodium (Senna Plus) 2 tab PO BID [facility] Last Admin: 02/03/20 08:41 Dose: 2 tab Sodium Chloride (Saline Flush) 10 ml FLUSH ASDIRECTED PRN PRN Reason: Keep Vein Open Last Admin: 02/02/20 11:13 Dose: 10 ml Vancomycin HCl (Pharmacy To Dose - Vancomycin) 1 dose .XX ASDIRECTED PRN PRN Reason: RX TO DOSE VANCO Warfarin Sodium (Pharmacy To Dose - Warfarin) 1 dose .XX ASDIRECTED PRN PRN Reason: RX TO DOSE WARFARIN Warfarin Sodium (Coumadin) 1.5 mg PO QPM [facility] Stop: 02/03/20 18:01 Discontinued Medications Furosemide (Lasix) 80 mg IVPUSH NOW ONE Stop: 02/02/20 14:02 Last Admin: 02/02/20 14:30 Dose: 80 mg Furosemide (Lasix) 60 mg IVPUSH NOW ONE Stop: 02/03/20 08:09 Last Admin: 02/03/20 08:37 Dose: 60 mg Vancomycin HCl 2 gm/ Sodium (Chloride) 250 mls @ 250 mls/hr IV ONETIME ONE Stop: 02/02/20 11:18 Last Admin: 02/02/20 12:34 Dose: Not Given Vancomycin HCl 2 gm/ Sodium (Chloride) 500 mls @ 250 mls/hr IV ONETIME ONE Stop: 02/02/20 13:29 Last Admin: 02/02/20 11:44 Dose: 250 mls/hr Warfarin Sodium (Coumadin) 2.5 mg PO QPM [facility] Stop: 02/02/20 18:01 Last Admin: 02/02/20 17:40 Dose: 2.5 mg - Exam General: Lethargic (but improved from yesterday) HEENT: Pupils Equal, Pupils Reactive, EOMI, Mucous Membr. Moist/[place] Neck: Supple Lungs: Normal Respiratory Effort, Decreased Breath Sounds Cardiovascular: Regular Rate, Regular Rhythm GI/Abdominal Exam: Normal Bowel Sounds, Soft, Non-Tender, No Organomegaly, No Distention, No Abnormal Bruit Extremities: Pedal Edema, Redness, Other (Lower extremities are wrapped with light compression Abhijeet wraps) Skin: Other (Erythema of the lower extremities) Wound/Incisions: Erythema Neurological: No New Focal Deficit Sepsis Event Note - Evaluation Sepsis Screening Result: No Definite Risk - Focused Exam Vital Signs: Vital Signs Temp Pulse Resp BP Pulse Ox Pulse Ox 02/03/20 10:34 92 L 02/03/20 08:50 74 103/90 02/03/20 07:54 97.5 F 75 20 123/72 96 02/03/20 02:56 97.9 F 72 20 123/81 100 Date Exam was Performed: 02/03/20 Time Exam was Performed: 12:48 - Problem List Review Problem List Initiated/Reviewed/Updated: Yes - My Orders Last 24 Hours: My Active Orders 02/02/20 12:30 Pharmacy to Dose - Vancomycin 1 dose .XX ASDIRECTED PRN Pharmacy to Dose - Warfarin 1 dose .XX ASDIRECTED PRN 02/02/20 13:54 Oxygen Therapy [RC] PRN Up With Assistance [RC] ASDIRECTED VTE/DVT Education [RC] DAILY Vital Signs [RC] Q4HR PT Evaluation and Treatment [CONS] Routine Acetaminophen [Tylenol] 650 mg PO Q4H PRN Ondansetron [Zofran] 4 mg IV Q4H PRN Resuscitation Status Routine 02/02/20 17:15 Albuterol/Ipratropium [DuoNeb 3.0-0.5 MG/3 ML] 3 ml NEB Q4HRRT PRN 02/02/20 19:59 Acetaminophen/HYDROcodone [Holbrook 325-5 MG] 1 tab PO Q4H PRN 02/02/20 21:00 Docusate Sodium/Sennosides [Senna Plus] 2 tab PO BID Emollient Combination No.40 [Cetaphil] 1 applic TOP BID Ferrous Sulfate 5 ml PO TID Potassium Chloride [Klor-Con M20] 40 meq PO TID 02/02/20 Dinner Heart Healthy Diet [DIET] 02/03/20 06:00 Levothyroxine [Synthroid] 50 mcg PO ACBREAKFAST 02/03/20 07:00 Pantoprazole [ProTONIX] 40 mg PO BIDMEALS 02/03/20 09:00 DULoxetine [Cymbalta] 30 mg PO DAILY Metoprolol Succinate [Toprol XL] 25 mg PO DAILY allopurinoL [Zyloprim] 100 mg PO DAILY polyethylene glycoL 3350 [MiraLAX] 17 gm PO DAILY 02/03/20 12:00 Vancomycin 1 gm Vancomycin 250 mg Sodium Chloride 0.9% [Normal Saline] 250 ml IV Q24H 02/03/20 18:00 Warfarin [Coumadin] 1.5 mg PO QPM 02/03/20 Breakfast Fluid Restriction [DIET] 02/04/20 05:11 CBC WITH AUTO DIFF [HEME] AM COMPREHENSIVE METABOLIC PN,CMP [CHEM] AM INR,PT,PROTHROMBIN TIME [COAG] AM MAGNESIUM [CHEM] AM 02/04/20 11:00 VANCOMYCIN TROUGH [CHEM] Timed 02/05/20 05:11 CBC WITH AUTO DIFF [HEME] AM COMPREHENSIVE METABOLIC PN,CMP [CHEM] AM INR,PT,PROTHROMBIN TIME [COAG] AM MAGNESIUM [CHEM] AM 02/06/20 05:11 CBC WITH AUTO DIFF [HEME] AM COMPREHENSIVE METABOLIC PN,CMP [CHEM] AM INR,PT,PROTHROMBIN TIME [COAG] AM MAGNESIUM [CHEM] AM 02/07/20 05:11 CBC WITH AUTO DIFF [HEME] AM COMPREHENSIVE METABOLIC PN,CMP [CHEM] AM INR,PT,PROTHROMBIN TIME [COAG] AM MAGNESIUM [CHEM] AM - Plan Plan:: Bilateral lower extremity cellulitis with open wounds 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 Was on antibiotics for 3 days prior to admission. * No history of fever or chills. 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 The left ventricular internal cavity size is normal. 2. Mildly decreased left ventricular systolic function. 3. Left ventricular ejection fraction, by visual estimation, is 45 to 50%. 4. Mild septal left ventricular hypertrophy. 5. Severely dilated left atrium. 6. Moderately dilated right atrium. 7. There is moderate aortic valve sclerosis without stenosis. 8. Mild to moderate mitral valve regurgitation. 9. The MR jet is eccentric posteriorly directed. 10. Mild to moderate tricuspid valve regurgitation. 11. Mild pulmonic valve regurgitation. 12. Mild to moderate dilatation of the ascending aorta. 13. The inferior vena cava is not well visualized. 14. The right ventricular systolic pressure is unable to be determined. 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 Plan * Avoid nephrotoxic medications and renally dose medications. * Follow renal function closely * Cautious diuresis Multiple chronic medical conditions including pulmonary hypertension, dementia, generalized weakness, abnormalities of gait and mobility, cognitive communication deficit, hypothyroidism, BPH, hyperlipidemia obstructive sleep apnea, chronic back pain, idiopathic peripheral autonomic neuropathy VTE prophylaxis with warfarin CODE STATUS: DNR/DNI Disposition: Admit to medical floor for IV antibiotics and diuresis Prognosis: Poor I have spoken with both daughters and explained the poor prognosis of their father. He has multisystem failure and is 89 years old placing his mortality at a relatively high percent. They understand that each time he is hospitalized he has an increasing risk of mortality because of worsening disease.
[2020-02-03] MEDS: Vancomycin 1 GM, Vancomycin 250 MG in Sodium Chloride 0.9% 250 ML IV SCH (12:26)
[2020-02-03] MEDS ORDERED: FERROUS SULFATE PO SCH (15:00)
[2020-02-03] MEDS: Furosemide 40 MG/4 ML VIAL IVPUSH SCH ×2 (15:51→20:32)
[2020-02-03] MEDS: Acetaminophen 325 MG Tab PO PRN (15:51)
[2020-02-03] MEDS: Acetaminophen/HYDROcodone 325-5 MG Tab PO PRN (20:35)
[2020-02-03] MEDS: FERROUS SULFATE PO SCH (20:36)
[2020-02-04] MEDS: Pantoprazole 40 MG Tab.CR PO SCH ×2 (06:05→18:58)
[2020-02-04] MEDS: Levothyroxine 50 MCG Tab PO SCH (06:05)
[2020-02-04] MEDS: Polyethylene Glycol 3350 Powder 17 GM Packet PO SCH (10:12)
[2020-02-04] MEDS: Allopurinol 100 MG Tab PO SCH (10:13)
[2020-02-04] MEDS: Furosemide 40 MG/4 ML VIAL IVPUSH SCH ×2 (10:13→14:20)
[2020-02-04] MEDS: Potassium Chloride 20 MEQ Tab.ER PO SCH ×3 (10:13→21:13)
[2020-02-04] MEDS: DULoxetine 30 MG Cap PO SCH (10:13)
[2020-02-04] MEDS: Metoprolol Succinate 25 MG Tab.ER PO SCH (10:13)
[2020-02-04] MEDS: CETAPHIL TOP SCH ×2 (10:14→23:40)
[2020-02-04] MEDS: FERROUS SULFATE PO SCH ×3 (10:16→21:20)
[2020-02-04] MEDS ORDERED: Furosemide 100 MG in Sodium Chloride 0.9% 90 ML IV SCH ×5 (11:30→17:15)
--- NOTE | 2020-02-04 11:33 | PCM.PN ---
- General Info Date of Service: 02/04/20 Admission Dx/Problem (Free Text): Admission Diagnosis/Problem Admission Diagnosis/Problem Cellulitis Subjective Update: This morning patient seemed more lethargic, but in the afternoon is up and talking to family. He ate most of breakfast and dinner but skips lunch. Functional Status: Reports: Pain Controlled - Review of Systems General: Reports: Weakness, Fatigue HEENT: Reports: No Symptoms Pulmonary: Reports: Wheezing Cardiovascular: Reports: No Symptoms Gastrointestinal: Reports: No Symptoms - Patient Data Vitals - Most Recent: Last Vital Signs Temp 97.5 F 02/04/20 10:10 Pulse 79 02/04/20 10:13 Resp 16 02/04/20 10:10 BP 124/72 02/04/20 10:13 Pulse Ox 95 02/04/20 11:30 Weight - Most Recent: 235 lb 14.4 oz I&O - Last 24 Hours: Intake & Output 02/03/20 02/04/20 02/04/20 22:59 06:59 14:59 Intake Total 890 400 Output Total 1188 1224 Balance -298 -824 Imaging Impressions - Last 24 Hours: Chest x-ray: Chest appears improved from prior exam. Nothing acute seen. Lab Results Last 24 Hours: Laboratory Results - last 24 hr 02/04/20 02/04/20 02/04/20 Range/Units 05:52 05:52 05:52 WBC 9.75 H (4.23-9.07) K/mm3 RBC 3.30 L (4.63-6.08) M/mm3 Hgb 9.1 L (13.7-17.5) gm/dl Hct 31.0 L (40.1-51.0) % MCV 93.9 H (79.0-92.2) fl MCH 27.6 (25.7-32.2) pg MCHC 29.4 L (32.2-35.5) g/dl RDW Std Deviation 60.4 H (35.1-43.9) fL Plt Count 258 (163-337) K/mm3 MPV 9.8 (9.4-12.3) fl Neut % (Auto) 84.2 H (34.0-67.9) % Lymph % (Auto) 2.4 L (21.8-53.1) % [place] % (Auto) 11.1 (5.3-12.2) % Eos % (Auto) 1.5 (0.8-7.0) Baso % (Auto) 0.2 (0.1-1.2) % Neut # (Auto) 8.21 H (1.78-5.38) K/mm3 Lymph # (Auto) 0.23 L (1.32-3.57) K/mm3 [place] # (Auto) 1.08 H (0.30-0.82) K/mm3 Eos # (Auto) 0.15 (0.04-0.54) K/mm3 Baso # (Auto) 0.02 (0.01-0.08) K/mm3 Manual Slide Review Abnormal smear PT 39.5 H (9.7-12.0) SECONDS INR 3.91 Sodium 136 (136-145) mEq/L Potassium 4.4 (3.5-5.1) mEq/L Chloride 98 (98-107) mEq/L Carbon Dioxide 28 (21-32) mEq/L Anion Gap 14.4 (5-15) BUN 82 H (7-18) mg/dL Creatinine 2.5 H (0.7-1.3) mg/dL Est Cr Clr Drug Dosing 22.85 mL/min Estimated GFR (MDRD) 25 (>60) mL/min BUN/Creatinine Ratio 32.8 H (14-18) Glucose 108 (83-115) mg/dL Calcium 9.1 (8.5-10.1) mg/dL Magnesium 2.7 H (1.8-2.4) mg/dl Total Bilirubin 0.6 (0.2-1.0) mg/dL AST 74 H (15-37) U/L ALT 87 H (16-63) U/L Alkaline Phosphatase 379 H (46-116) U/L Total Protein 7.0 (6.4-8.2) g/dl Albumin 3.2 L (3.4-5.0) g/dl Globulin 3.8 gm/dL Albumin/Globulin Ratio 0.8 L (1-2) [place] Results Last 24 Hours: Microbiology 02/02/20 10:55 Aerobic Blood Culture - Preliminary Blood - Venous - Lab Draw NO GROWTH AFTER 2 DAYS Anaerobic Blood Culture - Preliminary NO GROWTH AFTER 2 DAYS 02/02/20 10:47 Aerobic Blood Culture - Preliminary Blood - Venous NO GROWTH AFTER 2 DAYS Anaerobic Blood Culture - Preliminary NO GROWTH AFTER 2 DAYS Med Orders - Current: Current Medications Acetaminophen (Tylenol) 650 mg PO Q4H PRN PRN Reason: Pain (Mild 1-3)/fever Last Admin: 02/03/20 15:51 Dose: 650 mg Hydrocodone Bitart/Acetaminophen (Lanse 325-5 Mg) 1 tab PO Q4H PRN PRN Reason: Pain (moderate 4-6) Last Admin: 02/03/20 20:35 Dose: 1 tab Albuterol/Ipratropium (Duoneb 3.0-0.5 Mg/3 Ml) 3 ml NEB Q4HRRT PRN PRN Reason: Shortness of Breath Last Admin: 02/04/20 11:22 Dose: 3 ml Allopurinol (Zyloprim) 100 mg PO DAILY [facility] Last Admin: 02/04/20 10:13 Dose: 100 mg Duloxetine HCl (Cymbalta) 30 mg PO DAILY [facility] Last Admin: 02/04/20 10:13 Dose: 30 mg Furosemide (Lasix) 60 mg IVPUSH TID [facility] Last Admin: 02/04/20 10:13 Dose: 60 mg Vancomycin HCl 1 gm/Vancomycin HCl 250 mg/ Sodium Chloride 250 mls @ 166.667 mls/hr IV Q24H [facility] Last Admin: 02/03/20 12:26 Dose: 166.667 mls/hr Furosemide 100 mg/ Sodium (Chloride) 100 mls @ 8 mls/hr IV TITRATE [facility]; Protocol Levothyroxine Sodium (Synthroid) 50 mcg PO ACBREAKFAST [facility] Last Admin: 02/04/20 06:05 Dose: 50 mcg Metoprolol Succinate (Toprol Xl) 25 mg PO DAILY [facility] Last Admin: 02/04/20 10:13 Dose: 25 mg Cetaphil - Pt's Own (Medication) 1 applic TOP BID [facility] Last Admin: 02/04/20 10:14 Dose: Not Given Ondansetron HCl (Zofran) 4 mg IV Q4H PRN PRN Reason: Nausea/Vomiting Pantoprazole Sodium (Protonix) 40 mg PO BIDMEALS [facility] Last Admin: 02/04/20 06:05 Dose: 40 mg Ferrous Sulfate (Elixir 5 Ml Ptom) 0 each PO TID [facility] Last Admin: 02/04/20 10:16 Dose: 1 each Polyethylene Glycol (Miralax) 17 gm PO DAILY [facility] Last Admin: 02/04/20 10:12 Dose: 17 gm Potassium Chloride (Klor-Con M20) 40 meq PO TID [facility] Last Admin: 02/04/20 10:13 Dose: 40 meq Senna/Docusate Sodium (Senna Plus) 2 tab PO BID [facility] Last Admin: 02/04/20 10:13 Dose: 2 tab Sodium Chloride (Saline Flush) 10 ml FLUSH ASDIRECTED PRN PRN Reason: Keep Vein Open Last Admin: 02/02/20 11:13 Dose: 10 ml Vancomycin HCl (Pharmacy To Dose - Vancomycin) 1 dose .XX ASDIRECTED PRN PRN Reason: RX TO DOSE VANCO Warfarin Sodium (Pharmacy To Dose - Warfarin) 1 dose .XX ASDIRECTED PRN PRN Reason: RX TO DOSE WARFARIN Warfarin Sodium (Coumadin Sliding Scale) 0 each PO QPM [facility] Stop: 02/04/20 21:00 Discontinued Medications Furosemide (Lasix) 80 mg IVPUSH NOW ONE Stop: 02/02/20 14:02 Last Admin: 02/02/20 14:30 Dose: 80 mg Furosemide (Lasix) 60 mg IVPUSH NOW ONE Stop: 02/03/20 08:09 Last Admin: 02/03/20 08:37 Dose: 60 mg Vancomycin HCl 2 gm/ Sodium (Chloride) 250 mls @ 250 mls/hr IV ONETIME ONE Stop: 02/02/20 11:18 Last Admin: 02/02/20 12:34 Dose: Not Given Vancomycin HCl 2 gm/ Sodium (Chloride) 500 mls @ 250 mls/hr IV ONETIME ONE Stop: 02/02/20 13:29 Last Admin: 02/02/20 11:44 Dose: 250 mls/hr Ferrous Sulfate 5 Ml (Ptom) 5 ml PO TID [facility] Last Admin: 02/03/20 18:02 Dose: Not Given Warfarin Sodium (Coumadin) 2.5 mg PO QPM [facility] Stop: 02/02/20 18:01 Last Admin: 02/02/20 17:40 Dose: 2.5 mg Warfarin Sodium (Coumadin) 1.5 mg PO QPM [facility] Stop: 02/03/20 18:01 Last Admin: 02/03/20 17:57 Dose: 1.5 mg - Exam Quality Assessment: Supplemental Oxygen General: Alert, Oriented HEENT: Pupils Equal, Mucous Membr. Moist/[place] Neck: Supple Lungs: Wheezing. No: Normal Respiratory Effort (Increased respiratory rate and mild increase in effort) Cardiovascular: Regular Rate, Regular Rhythm, Murmurs GI/Abdominal Exam: Normal Bowel Sounds, Soft, Non-Tender, No Organomegaly, No Distention, No Abnormal Bruit, No Mass, Pelvis Stable Skin: Warm, Dry, Intact Wound/Incisions: Healing Well, Other (Decreased erythema of the bilateral lower extremity cellulitis.) Sepsis Event Note - Evaluation Sepsis Screening Result: No Definite Risk - Focused Exam Vital Signs: Vital Signs Temp Pulse Resp BP Pulse Ox Pulse Ox Pulse Ox 02/04/20 11:30 95 02/04/20 11:24 02/04/20 10:13 79 124/72 02/04/20 10:10 97.5 F 79 16 124/72 92 L 02/04/20 08:55 96 02/04/20 05:10 97.9 F 74 20 146/77 H 93 L Pulse Ox 02/04/20 11:30 02/04/20 11:24 90 L 02/04/20 10:13 02/04/20 10:10 02/04/20 08:55 02/04/20 05:10 Date Exam was Performed: 02/04/20 Time Exam was Performed: 14:48 - Problem List Review Problem List Initiated/Reviewed/Updated: Yes - My Orders Last 24 Hours: My Active Orders 02/03/20 12:00 Vancomycin 1 gm Vancomycin 250 mg Sodium Chloride 0.9% [Normal Saline] 250 ml IV Q24H 02/03/20 15:00 Furosemide [Lasix] 60 mg IVPUSH TID 02/03/20 15:32 Patient's Own Medication [Ptom] 0 each PO TID 02/03/20 20:25 Communication Order [RC] DAILY 02/04/20 10:33 Abdomen Comp [US] Routine 02/04/20 11:02 VANCOMYCIN TROUGH [CHEM] Timed 02/04/20 11:19 CXR [Chest 1V Frontal] [CR] Routine 02/04/20 11:28 Urinary Catheter Assessment [RC] ASDIRECTED 02/04/20 11:30 Insert Guerrero Catheter [Insert Urinary Catheter] [OM.PC] Q24H Furosemide [Lasix] 100 mg Sodium Chloride 0.9% [Normal Saline] 90 ml IV TITRATE 02/04/20 18:00 Warfarin Sliding Scale [Coumadin Sliding Scale] 0 each PO QPM 02/05/20 05:11 CBC WITH AUTO DIFF [HEME] AM COMPREHENSIVE METABOLIC PN,CMP [CHEM] AM INR,PT,PROTHROMBIN TIME [COAG] AM MAGNESIUM [CHEM] AM 02/05/20 Breakfast NPO After Midnight [Nothing per Oral After Midnight Diet] [DIET] 02/06/20 05:11 CBC WITH AUTO DIFF [HEME] AM COMPREHENSIVE METABOLIC PN,CMP [CHEM] AM INR,PT,PROTHROMBIN TIME [COAG] AM MAGNESIUM [CHEM] AM 02/07/20 05:11 CBC WITH AUTO DIFF [HEME] AM COMPREHENSIVE METABOLIC PN,CMP [CHEM] AM INR,PT,PROTHROMBIN TIME [COAG] AM MAGNESIUM [CHEM] AM - Plan Plan:: Bilateral lower extremity cellulitis with open wounds 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 Was on antibiotics for 3 days prior to admission. * Improvement in swelling and erythema this morning * No history of fever or chills. 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 Start at 8 mg/h * Cautious diuresis secondary to renal insufficiency acute on chronic * BiPAP /6 continuously when not eating * Recheck CMP in the morning * Strict I's and O's and daily weights * Place Guerrero catheter Echocardiogram on February 02, 2020 Summary: 1. The left ventricular internal cavity size is normal. 2. Mildly decreased left ventricular systolic function. 3. Left ventricular ejection fraction, by visual estimation, is 45 to 50%. 4. Mild septal left ventricular hypertrophy. 5. Severely dilated left atrium. 6. Moderately dilated right atrium. 7. There is moderate aortic valve sclerosis without stenosis. 8. Mild to moderate mitral valve regurgitation. 9. The MR jet is eccentric posteriorly directed. 10. Mild to moderate tricuspid valve regurgitation. 11. Mild pulmonic valve regurgitation. 12. Mild to moderate dilatation of the ascending aorta. 13. The inferior vena cava is not well visualized. 14. The right ventricular systolic pressure is unable to be determined. 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 Plan * Avoid nephrotoxic medications and renally dose medications. * Follow renal function closely * Cautious diuresis Multiple chronic medical conditions including pulmonary hypertension, dementia, generalized weakness, abnormalities of gait and mobility, cognitive communication deficit, hypothyroidism, BPH, hyperlipidemia obstructive sleep apnea, chronic back pain, idiopathic peripheral autonomic neuropathy VTE prophylaxis with warfarin CODE STATUS: DNR/DNI Disposition: Admit to medical floor for IV antibiotics and diuresis Prognosis: Poor I have spoken with both daughters and explained the poor prognosis of their father. He has multisystem failure and is 89 years old placing his mortality at a relatively high percent. They understand that each time he is hospitalized he has an increasing risk of mortality because of worsening disease.
--- NOTE | 2020-02-04 11:42 | CR ---
Chest: Portable view of the chest was obtained. Comparison: Previous chest x-ray of 02/02/20. Pulmonary vessels appear less congested than seen previously. Heart size and mediastinum are normal. Pacemaker is noted. 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 Impression: 1. Chest appears improved from prior exam. 2. Nothing acute is seen. Diagnostic code #2 This report was dictated in MDT
[2020-02-04] MEDS: Vancomycin 1 GM, Vancomycin 250 MG in Sodium Chloride 0.9% 250 ML IV SCH (12:34)
[2020-02-04] MEDS ORDERED: Sodium Chloride 0.9% 100 ML ONE (12:44)
[2020-02-04] MEDS ORDERED: Warfarin Sliding Scale PO SCH (18:00)
[2020-02-04] MEDS: Furosemide 100 MG in Sodium Chloride 0.9% 90 ML IV SCH ×3 (19:56→23:51)
[2020-02-05] MEDS: Furosemide 100 MG in Sodium Chloride 0.9% 90 ML IV SCH ×5 (01:11→14:20)
--- NOTE | 2020-02-05 07:47 | PCM.PN ---
- General Info Date of Service: 02/05/20 Admission Dx/Problem (Free Text): Admission Diagnosis/Problem Admission Diagnosis/Problem Cellulitis Subjective Update: Stefan is more alert and talkative this morning. He has not had a bowel movement. He did not tolerate his BiPAP last night and kept removing it. He was placed on a Lasix drip with good results, although patient only had 1 pound weight loss. - Review of Systems General: Reports: Fatigue HEENT: Reports: No Symptoms Pulmonary: Reports: No Symptoms Cardiovascular: Reports: No Symptoms Gastrointestinal: Reports: No Symptoms Musculoskeletal: Reports: No Symptoms - Patient Data Vitals - Most Recent: Last Vital Signs Temp 98.1 F 02/05/20 04:20 Pulse 69 02/05/20 04:20 Resp 16 02/05/20 04:20 BP 132/99 H 02/05/20 04:20 Pulse Ox 94 L 02/05/20 04:20 Weight - Most Recent: 234 lb 4.8 oz I&O - Last 24 Hours: Intake & Output 02/04/20 02/05/20 02/05/20 22:59 06:59 14:59 Intake Total 556 35 Output Total 1175 785 Balance -619 -750 Imaging Impressions - Last 24 Hours: Abdominal ultrasound impression: 1. Slightly echogenic fluid within both renal pelvis raising the possibility a complicated fluid from urinary tract infection. If no symptoms of urinary tract infection are present, this is likely artifact. 2. Previous cholecystectomy with no biliary duct dilatation. 3. Suboptimally seen pancreas and aorta. 4. No additional abnormality is definitely appreciated. Lab Results Last 24 Hours: Laboratory Results - last 24 hr 02/04/20 02/05/20 02/05/20 Range/Units 11:02 05:27 05:27 WBC 9.17 H (4.23-9.07) K/mm3 RBC 3.22 L (4.63-6.08) M/mm3 Hgb 8.9 L (13.7-17.5) gm/dl Hct 30.3 L (40.1-51.0) % MCV 94.1 H (79.0-92.2) fl MCH 27.6 (25.7-32.2) pg MCHC 29.4 L (32.2-35.5) g/dl RDW Std Deviation 59.9 H (35.1-43.9) fL Plt Count 265 (163-337) K/mm3 MPV 10.0 (9.4-12.3) fl Neut % (Auto) 84.5 H (34.0-67.9) % Lymph % (Auto) 2.5 L (21.8-53.1) % Floyd % (Auto) 10.8 (5.3-12.2) % Eos % (Auto) 1.3 (0.8-7.0) Baso % (Auto) 0.2 (0.1-1.2) % Neut # (Auto) 7.75 H (1.78-5.38) K/mm3 Lymph # (Auto) 0.23 L (1.32-3.57) K/mm3 Floyd # (Auto) 0.99 H (0.30-0.82) K/mm3 Eos # (Auto) 0.12 (0.04-0.54) K/mm3 Baso # (Auto) 0.02 (0.01-0.08) K/mm3 PT 41.6 H (9.7-12.0) SECONDS INR 4.14 Sodium (136-145) mEq/L Potassium (3.5-5.1) mEq/L Chloride (98-107) mEq/L Carbon Dioxide (21-32) mEq/L Anion Gap (5-15) BUN (7-18) mg/dL Creatinine (0.7-1.3) mg/dL Est Cr Clr Drug Dosing mL/min Estimated GFR (MDRD) (>60) mL/min BUN/Creatinine Ratio (14-18) Glucose (83-115) mg/dL Calcium (8.5-10.1) mg/dL Magnesium (1.8-2.4) mg/dl Total Bilirubin (0.2-1.0) mg/dL AST (15-37) U/L ALT (16-63) U/L Alkaline Phosphatase (46-116) U/L Total Protein (6.4-8.2) g/dl Albumin (3.4-5.0) g/dl Globulin gm/dL Albumin/Globulin Ratio (1-2) Vancomycin Trough 17.3 (10.0-20.0) //20 Range/Units 05:27 WBC (4.23-9.07) K/mm3 RBC (4.63-6.08) M/mm3 Hgb (13.7-17.5) gm/dl Hct (40.1-51.0) % MCV (79.0-92.2) fl MCH (25.7-32.2) pg MCHC (32.2-35.5) g/dl RDW Std Deviation (35.1-43.9) fL Plt Count (163-337) K/mm3 MPV (9.4-12.3) fl Neut % (Auto) (34.0-67.9) % Lymph % (Auto) (21.8-53.1) % Floyd % (Auto) (5.3-12.2) % Eos % (Auto) (0.8-7.0) Baso % (Auto) (0.1-1.2) % Neut # (Auto) (1.78-5.38) K/mm3 Lymph # (Auto) (1.32-3.57) K/mm3 Floyd # (Auto) (0.30-0.82) K/mm3 Eos # (Auto) (0.04-0.54) K/mm3 Baso # (Auto) (0.01-0.08) K/mm3 PT (9.7-12.0) SECONDS INR Sodium 137 (136-145) mEq/L Potassium 4.2 (3.5-5.1) mEq/L Chloride 99 (98-107) mEq/L Carbon Dioxide 29 (21-32) mEq/L Anion Gap 13.2 (5-15) BUN 78 H (7-18) mg/dL Creatinine 2.3 H (0.7-1.3) mg/dL Est Cr Clr Drug Dosing 24.84 mL/min Estimated GFR (MDRD) 27 (>60) mL/min BUN/Creatinine Ratio 33.9 H (14-18) Glucose 116 H (83-115) mg/dL Calcium 8.7 (8.5-10.1) mg/dL Magnesium 2.5 H (1.8-2.4) mg/dl Total Bilirubin 0.6 (0.2-1.0) mg/dL AST 61 H (15-37) U/L ALT 79 H (16-63) U/L Alkaline Phosphatase 384 H (46-116) U/L Total Protein 6.8 (6.4-8.2) g/dl Albumin 3.0 L (3.4-5.0) g/dl Globulin 3.8 gm/dL Albumin/Globulin Ratio 0.8 L (1-2) Vancomycin Trough (10.0-20.0) Edilson Results Last 24 Hours: Microbiology 02/02/20 10:55 Aerobic Blood Culture - Preliminary Blood - Venous - Lab Draw NO GROWTH AFTER 2 DAYS Anaerobic Blood Culture - Preliminary NO GROWTH AFTER 2 DAYS 02/02/20 10:47 Aerobic Blood Culture - Preliminary Blood - Venous NO GROWTH AFTER 2 DAYS Anaerobic Blood Culture - Preliminary NO GROWTH AFTER 2 DAYS Med Orders - Current: Current Medications Acetaminophen (Tylenol) 650 mg PO Q4H PRN PRN Reason: Pain (Mild 1-3)/fever Last Admin: 02/03/20 15:51 Dose: 650 mg Hydrocodone Bitart/Acetaminophen (Golden 325-5 Mg) 1 tab PO Q4H PRN PRN Reason: Pain (moderate 4-6) Last Admin: 02/03/20 20:35 Dose: 1 tab Albuterol/Ipratropium (Duoneb 3.0-0.5 Mg/3 Ml) 3 ml NEB Q4HRRT PRN PRN Reason: Shortness of Breath Last Admin: 02/04/20 11:22 Dose: 3 ml Allopurinol (Zyloprim) 100 mg PO DAILY [facility] Last Admin: 02/04/20 10:13 Dose: 100 mg Duloxetine HCl (Cymbalta) 30 mg PO DAILY [facility] Last Admin: 02/04/20 10:13 Dose: 30 mg Vancomycin HCl 1 gm/Vancomycin HCl 250 mg/ Sodium Chloride 250 mls @ 166.667 mls/hr IV Q24H [facility] Last Admin: 02/04/20 12:34 Dose: 166.667 mls/hr Furosemide 100 mg/ Sodium (Chloride) 100 mls @ 4 mls/hr IV TITRATE [facility]; Protocol Last Admin: 02/05/20 06:24 Dose: 3 mls/hr Levothyroxine Sodium (Synthroid) 50 mcg PO ACBREAKFAST [facility] Last Admin: 02/04/20 06:05 Dose: 50 mcg Metoprolol Succinate (Toprol Xl) 25 mg PO DAILY [facility] Last Admin: 02/04/20 10:13 Dose: 25 mg Cetaphil - Pt's Own (Medication) 1 applic TOP BID [facility] Last Admin: 02/04/20 23:40 Dose: Not Given Ondansetron HCl (Zofran) 4 mg IV Q4H PRN PRN Reason: Nausea/Vomiting Pantoprazole Sodium (Protonix) 40 mg PO BIDMEALS [facility] Last Admin: 02/04/20 18:58 Dose: 40 mg Ferrous Sulfate (Elixir 5 Ml Ptom) 0 each PO TID [facility] Last Admin: 02/04/20 21:20 Dose: 1 each Polyethylene Glycol (Miralax) 17 gm PO DAILY [facility] Last Admin: 02/04/20 10:12 Dose: 17 gm Potassium Chloride (Klor-Con M20) 40 meq PO TID [facility] Last Admin: 02/04/20 21:13 Dose: 40 meq Senna/Docusate Sodium (Senna Plus) 2 tab PO BID [facility] Last Admin: 02/04/20 21:12 Dose: 2 tab Sodium Chloride (Saline Flush) 10 ml FLUSH ASDIRECTED PRN PRN Reason: Keep Vein Open Last Admin: 02/02/20 11:13 Dose: 10 ml Vancomycin HCl (Pharmacy To Dose - Vancomycin) 1 dose .XX ASDIRECTED PRN PRN Reason: RX TO DOSE VANCO Warfarin Sodium (Pharmacy To Dose - Warfarin) 1 dose .XX ASDIRECTED PRN PRN Reason: RX TO DOSE WARFARIN Discontinued Medications Furosemide (Lasix) 80 mg IVPUSH NOW ONE Stop: 02/02/20 14:02 Last Admin: 02/02/20 14:30 Dose: 80 mg Furosemide (Lasix) 60 mg IVPUSH NOW ONE Stop: 02/03/20 08:09 Last Admin: 02/03/20 08:37 Dose: 60 mg Furosemide (Lasix) 60 mg IVPUSH TID [facility] Last Admin: 02/04/20 14:20 Dose: 60 mg Vancomycin HCl 2 gm/ Sodium (Chloride) 250 mls @ 250 mls/hr IV ONETIME ONE Stop: 02/02/20 11:18 Last Admin: 02/02/20 12:34 Dose: Not Given Vancomycin HCl 2 gm/ Sodium (Chloride) 500 mls @ 250 mls/hr IV ONETIME ONE Stop: 02/02/20 13:29 Last Admin: 02/02/20 11:44 Dose: 250 mls/hr Furosemide 100 mg/ Sodium (Chloride) 100 mls @ 8 mls/hr IV TITRATE D[facility]; Protocol Last Admin: 02/04/20 14:19 Dose: 8 mls/hr Sodium Chloride (Normal Saline) Confirm Administered Dose 100 mls @ as directed .ROUTE .STK-MED ONE Stop: 02/04/20 12:45 Last Admin: 02/04/20 12:52 Dose: Not Given Furosemide 100 mg/ Sodium (Chloride) 100 mls @ 6 mls/hr IV TITRATE [facility]; Protocol Furosemide 100 mg/ Sodium (Chloride) 100 mls @ 6 mls/hr IV TITRATE [facility]; Protocol Ferrous Sulfate 5 Ml (Ptom) 5 ml PO TID [facility] Last Admin: 02/03/20 18:02 Dose: Not Given Warfarin Sodium (Coumadin) 2.5 mg PO QPM [facility] Stop: 02/02/20 18:01 Last Admin: 02/02/20 17:40 Dose: 2.5 mg Warfarin Sodium (Coumadin) 1.5 mg PO QPM [facility] Stop: 02/03/20 18:01 Last Admin: 02/03/20 17:57 Dose: 1.5 mg Warfarin Sodium (Coumadin Sliding Scale) 0 each PO QPM [facility] Stop: 02/04/20 21:00 Last Admin: 02/04/20 19:03 Dose: Not Given - Exam Quality Assessment: Supplemental Oxygen General: Alert HEENT: Pupils Equal, Mucous Membr. Moist/[place]ododendron Neck: Supple Lungs: Normal Respiratory Effort, Rales (Mild bibasilar rales) Cardiovascular: Regular Rate, Regular Rhythm, Murmurs GI/Abdominal Exam: Normal Bowel Sounds, Soft, Non-Tender, No Distention Skin: Warm, Dry, Intact Neurological: No New Focal Deficit Psy/Mental Status: Alert Sepsis Event Note - Evaluation Sepsis Screening Result: No Definite Risk - Focused Exam Vital Signs: Vital Signs Temp Pulse Resp BP Pulse Ox Pulse Ox 02/05/20 04:20 98.1 F 69 16 132/99 H 94 L 02/04/20 23:54 98.1 F 79 22 H 106/68 92 L 02/04/20 20:58 95 Date Exam was Performed: 02/05/20 Time Exam was Performed: 11:09 - Problem List Review Problem List Initiated/Reviewed/Updated: Yes - My Orders Last 24 Hours: My Active Orders 02/04/20 11:28 Urinary Catheter Assessment [RC] 10,22 02/04/20 11:30 Insert Guerrero Catheter [Insert Urinary Catheter] [OM.PC] Q24H 02/04/20 19:30 Furosemide [Lasix] 100 mg Sodium Chloride 0.9% [Normal Saline] 90 ml IV TITRATE 02/05/20 05:27 CBC WITH AUTO DIFF [HEME] AM 02/05/20 10:33 Abdomen Comp [US] Routine 02/05/20 Breakfast NPO After Midnight [Nothing per Oral After Midnight Diet] [DIET] 02/06/20 05:11 CBC WITH AUTO DIFF [HEME] AM COMPREHENSIVE METABOLIC PN,CMP [CHEM] AM INR,PT,PROTHROMBIN TIME [COAG] AM MAGNESIUM [CHEM] AM 02/07/20 05:11 CBC WITH AUTO DIFF [HEME] AM COMPREHENSIVE METABOLIC PN,CMP [CHEM] AM INR,PT,PROTHROMBIN TIME [COAG] AM MAGNESIUM [CHEM] AM - Plan Plan:: Bilateral lower extremity cellulitis with open wounds 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 Was on antibiotics for 3 days prior to admission. * Improvement in swelling and erythema this again morning * No history of fever or chills. 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 * BiPAP 12/6 continuously when not eating * Recheck CMP in the morning * Strict I's and O's and daily weights * Continue Guerrero catheter Echocardiogram on February 02, 2020 Summary: 1. The left ventricular internal cavity size is normal. 2. Mildly decreased left ventricular systolic function. 3. Left ventricular ejection fraction, by visual estimation, is 45 to 50%. 4. Mild septal left ventricular hypertrophy. 5. Severely dilated left atrium. 6. Moderately dilated right atrium. 7. There is moderate aortic valve sclerosis without stenosis. 8. Mild to moderate mitral valve regurgitation. 9. The MR jet is eccentric posteriorly directed. 10. Mild to moderate tricuspid valve regurgitation. 11. Mild pulmonic valve regurgitation. 12. Mild to moderate dilatation of the ascending aorta. 13. The inferior vena cava is not well visualized. 14. The right ventricular systolic pressure is unable to be determined. Elevated liver enzymes * AST 102-->73-->74-->61, ALT 83-->78-->87-->79, alkaline phosphatase 281-->287- ->379-->384 * Possibly due to hepatic congestion from heart failure Plan * Follow LFTs * Nothing significant on ultrasound to explain elevated LFTs Abdominal ultrasound impression: 1. Slightly echogenic fluid within both renal pelvis raising the possibility a complicated fluid from urinary tract infection. If no symptoms of urinary tract infection are present, this is likely artifact. 2. Previous cholecystectomy with no biliary duct dilatation. 3. Suboptimally seen pancreas and aorta. 4. No additional abnormality is definitely appreciated. 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 Plan * Avoid nephrotoxic medications and renally dose medications. * Follow renal function closely * Cautious diuresis Multiple chronic medical conditions including pulmonary hypertension, dementia, generalized weakness, abnormalities of gait and mobility, cognitive communication deficit, hypothyroidism, BPH, hyperlipidemia obstructive sleep apnea, chronic back pain, idiopathic peripheral autonomic neuropathy VTE prophylaxis with warfarin CODE STATUS: DNR/DNI Disposition: Admit to medical floor for IV antibiotics and diuresis Prognosis: Poor I have spoken with both daughters and explained the poor prognosis of their father. He has multisystem failure and is 89 years old placing his mortality at a relatively high percent. They understand that each time he is hospitalized he has an increasing risk of mortality because of worsening disease.
--- NOTE | 2020-02-05 08:59 | US ---
Abdominal ultrasound: Multiple real-time images of the abdomen were obtained. Comparison: Previous right upper quadrant abdominal ultrasound of 06/27/19. Technologist's note: Suboptimal exam due to bowel gas, patient unresponsive to breathing instructions, labored breathing Findings: Liver shows no discrete abnormality. Gallbladder not visualized compatible with previous cholecystectomy. No biliary duct dilatation is seen. Spleen size is within normal limits. Renal pelvis within the kidneys appear somewhat echogenic. This may represent complicated fluid in difficult to exclude change from urinary tract infection. Please correlate. Kidneys show no hydronephrosis or mass. Right kidney length is 12.0 cm and left kidney length is 10.7 cm. Aorta not optimally seen. Pancreas also not optimally seen. Inferior vena cava is patent. Hepatopedal flow noted within the portal vein. Impression: 1. Slightly echogenic fluid within both renal pelvis raising the possibility a complicated fluid from urinary tract infection. Please correlate. If no symptoms of urinary tract infection are present, this is likely artifact. 2. Previous cholecystectomy with no biliary duct dilatation. 3. Suboptimally seen pancreas and aorta. 4. No additional abnormality is definitely appreciated. Diagnostic code #3 This report was dictated in MDT
[2020-02-05] MEDS: Polyethylene Glycol 3350 Powder 17 GM Packet PO SCH (09:45)
[2020-02-05] MEDS: Metoprolol Succinate 25 MG Tab.ER PO SCH (09:46)
[2020-02-05] MEDS: Levothyroxine 50 MCG Tab PO SCH (09:47)
[2020-02-05] MEDS: Allopurinol 100 MG Tab PO SCH (09:47)
[2020-02-05] MEDS: DULoxetine 30 MG Cap PO SCH (09:47)
[2020-02-05] MEDS: Pantoprazole 40 MG Tab.CR PO SCH ×2 (09:47→18:25)
[2020-02-05] MEDS: Potassium Chloride 20 MEQ Tab.ER PO SCH ×3 (09:47→20:11)
[2020-02-05] MEDS: CETAPHIL TOP SCH ×2 (09:48→20:12)
[2020-02-05] MEDS: FERROUS SULFATE PO SCH ×3 (09:48→20:12)
[2020-02-05] MEDS ORDERED: Bisacodyl 10 MG Supp RECTAL ONE (11:06)
[2020-02-05] MEDS: Vancomycin 1 GM, Vancomycin 250 MG in Sodium Chloride 0.9% 250 ML IV SCH (12:18)
[2020-02-05] MEDS ORDERED: Warfarin Sliding Scale PO SCH (18:00)
[2020-02-06] MEDS: Acetaminophen 325 MG Tab PO PRN ×3 (04:29→20:48)
[2020-02-06] MEDS: Pantoprazole 40 MG Tab.CR PO SCH ×3 (05:56→16:07)
[2020-02-06] MEDS: Levothyroxine 50 MCG Tab PO SCH (05:56)
[2020-02-06] MEDS: Bumetanide 1 MG Tab PO SCH ×3 (08:45→20:47)
[2020-02-06] MEDS: DULoxetine 30 MG Cap PO SCH (08:46)
[2020-02-06] MEDS: Potassium Chloride 20 MEQ Tab.ER PO SCH ×3 (08:48→20:47)
[2020-02-06] MEDS: Allopurinol 100 MG Tab PO SCH (08:48)
[2020-02-06] MEDS: Polyethylene Glycol 3350 Powder 17 GM Packet PO SCH (08:49)
[2020-02-06] MEDS: Metoprolol Succinate 25 MG Tab.ER PO SCH (08:49)
[2020-02-06] MEDS: FERROUS SULFATE PO SCH ×3 (10:59→20:48)
[2020-02-06] MEDS: CETAPHIL TOP SCH ×2 (11:32→21:00)
[2020-02-06] MEDS: Amoxicillin/Clavulanate K 875-125 MG Tab PO SCH ×2 (13:05→20:47)
[2020-02-06] MEDS: Doxycycline 100 MG Cap PO SCH ×2 (13:06→20:47)
--- NOTE | 2020-02-06 13:30 | PCM.PN ---
- General Info Date of Service: 02/06/20 Admission Dx/Problem (Free Text): Admission Diagnosis/Problem Admission Diagnosis/Problem Cellulitis Subjective Update: Patient continues to be lethargic. His daughter feels maybe it is from the [facility] since he was just started on that at the first of this month. - Review of Systems General: Reports: Fatigue HEENT: Reports: No Symptoms Pulmonary: Reports: No Symptoms Cardiovascular: Reports: No Symptoms Gastrointestinal: Reports: No Symptoms Musculoskeletal: Reports: No Symptoms - Patient Data Vitals - Most Recent: Last Vital Signs Temp 97.5 F 02/06/20 10:52 Pulse 78 02/06/20 10:52 Resp 20 02/06/20 10:52 BP 121/74 02/06/20 10:52 Pulse Ox 92 L 02/06/20 12:42 Weight - Most Recent: 234 lb 4.8 oz I&O - Last 24 Hours: Intake & Output 02/05/20 02/06/20 02/06/20 22:59 06:59 14:59 Intake Total 383 686 400 Output Total 1250 825 975 Balance -867 139 -575 Lab Results Last 24 Hours: Laboratory Results - last 24 hr 02/05/20 02/06/20 02/06/20 Range/Units 14:06 05:45 05:45 WBC 10.33 H (4.23-9.07) K/mm3 RBC 3.13 L (4.63-6.08) M/mm3 Hgb 8.6 L (13.7-17.5) gm/dl Hct 29.7 L (40.1-51.0) % MCV 94.9 H (79.0-92.2) fl MCH 27.5 (25.7-32.2) pg MCHC 29.0 L (32.2-35.5) g/dl RDW Std Deviation 59.0 H (35.1-43.9) fL Plt Count 255 (163-337) K/mm3 MPV 9.6 (9.4-12.3) fl Neut % (Auto) 83.6 H (34.0-67.9) % Lymph % (Auto) 3.3 L (21.8-53.1) % [place] % (Auto) 10.4 (5.3-12.2) % Eos % (Auto) 1.6 (0.8-7.0) Baso % (Auto) 0.2 (0.1-1.2) % Neut # (Auto) 8.64 H (1.78-5.38) K/mm3 Lymph # (Auto) 0.34 L (1.32-3.57) K/mm3 Kent # (Auto) 1.07 H (0.30-0.82) K/mm3 Eos # (Auto) 0.17 (0.04-0.54) K/mm3 Baso # (Auto) 0.02 (0.01-0.08) K/mm3 Manual Slide Review Abnormal smear PT 36.9 H (9.7-12.0) SECONDS INR 3.64 Sodium (136-145) mEq/L Potassium (3.5-5.1) mEq/L Chloride (98-107) mEq/L Carbon Dioxide (21-32) mEq/L Anion Gap (5-15) BUN (7-18) mg/dL Creatinine (0.7-1.3) mg/dL Est Cr Clr Drug Dosing mL/min Estimated GFR (MDRD) (>60) mL/min BUN/Creatinine Ratio (14-18) Glucose (83-115) mg/dL Calcium (8.5-10.1) mg/dL Magnesium (1.8-2.4) mg/dl Total Bilirubin (0.2-1.0) mg/dL AST (15-37) U/L ALT (16-63) U/L Alkaline Phosphatase (46-116) U/L Total Protein (6.4-8.2) g/dl Albumin (3.4-5.0) g/dl Globulin gm/dL Albumin/Globulin Ratio (1-2) Urine Color Yellow (Yellow) Urine Appearance Clear (Clear) Urine pH 6.5 (5.0-8.0) Ur Specific [place] 1.015 (1.005-1.030) Urine Protein Negative (Negative) Urine Glucose (UA) Negative (Negative) Urine Ketones Negative (Negative) Urine Occult Blood Negative (Negative) Urine Nitrite Negative (Negative) Urine Bilirubin Negative (Negative) Urine Urobilinogen 0.2 (0.2-1.0) Ur Leukocyte Esterase Trace H (Negative) Urine RBC Not seen (0-5) /hpf Urine WBC 0-5 (0-5) /hpf Ur Epithelial Cells Not seen (0-5) /hpf Ur Squamous Epith Cells 0-5 (0-5) /hpf Urine Bacteria Rare (FEW) /hpf Urine Mucus Not seen (FEW) /hpf 02/06/20 Range/Units 05:45 WBC (4.23-9.07) K/mm3 RBC (4.63-6.08) M/mm3 Hgb (13.7-17.5) gm/dl Hct (40.1-51.0) % MCV (79.0-92.2) fl MCH (25.7-32.2) pg MCHC (32.2-35.5) g/dl RDW Std Deviation (35.1-43.9) fL Plt Count (163-337) K/mm3 MPV (9.4-12.3) fl Neut % (Auto) (34.0-67.9) % Lymph % (Auto) (21.8-53.1) % Kent % (Auto) (5.3-12.2) % Eos % (Auto) (0.8-7.0) Baso % (Auto) (0.1-1.2) % Neut # (Auto) (1.78-5.38) K/mm3 Lymph # (Auto) (1.32-3.57) K/mm3 Kent # (Auto) (0.30-0.82) K/mm3 Eos # (Auto) (0.04-0.54) K/mm3 Baso # (Auto) (0.01-0.08) K/mm3 Manual Slide Review PT (9.7-12.0) SECONDS INR Sodium 139 (136-145) mEq/L Potassium 3.9 (3.5-5.1) mEq/L Chloride 100 (98-107) mEq/L Carbon Dioxide 30 (21-32) mEq/L Anion Gap 12.9 (5-15) BUN 76 H (7-18) mg/dL Creatinine 1.9 H (0.7-1.3) mg/dL Est Cr Clr Drug Dosing 30.06 mL/min Estimated GFR (MDRD) 34 (>60) mL/min BUN/Creatinine Ratio 40.0 H (14-18) Glucose 117 H (83-115) mg/dL Calcium 8.7 (8.5-10.1) mg/dL Magnesium 2.3 (1.8-2.4) mg/dl Total Bilirubin 0.7 (0.2-1.0) mg/dL AST 49 H (15-37) U/L ALT 63 (16-63) U/L Alkaline Phosphatase 365 H (46-116) U/L Total Protein 6.5 (6.4-8.2) g/dl Albumin 3.0 L (3.4-5.0) g/dl Globulin 3.5 gm/dL Albumin/Globulin Ratio 0.9 L (1-2) Urine Color (Yellow) Urine Appearance (Clear) Urine pH (5.0-8.0) Ur Specific [place] (1.005-1.030) Urine Protein (Negative) Urine Glucose (UA) (Negative) Urine Ketones (Negative) Urine Occult Blood (Negative) Urine Nitrite (Negative) Urine Bilirubin (Negative) Urine Urobilinogen (0.2-1.0) Ur Leukocyte Esterase (Negative) Urine RBC (0-5) /hpf Urine WBC (0-5) /hpf Ur Epithelial Cells (0-5) /hpf Ur Squamous Epith Cells (0-5) /hpf Urine Bacteria (FEW) /hpf Urine Mucus (FEW) /hpf [place] Results Last 24 Hours: Microbiology 02/02/20 10:55 Aerobic Blood Culture - Preliminary Blood - Venous - Lab Draw NO GROWTH AFTER 4 DAYS Anaerobic Blood Culture - Preliminary NO GROWTH AFTER 4 DAYS 02/02/20 10:47 Aerobic Blood Culture - Preliminary Blood - Venous NO GROWTH AFTER 4 DAYS Anaerobic Blood Culture - Preliminary NO GROWTH AFTER 4 DAYS Med Orders - Current: Current Medications Acetaminophen (Tylenol) 650 mg PO Q4H PRN PRN Reason: Pain (Mild 1-3)/fever Last Admin: 02/06/20 13:05 Dose: 650 mg Hydrocodone Bitart/Acetaminophen (Sherman 325-5 Mg) 1 tab PO Q4H PRN PRN Reason: Pain (moderate 4-6) Last Admin: 02/03/20 20:35 Dose: 1 tab Albuterol/Ipratropium (Duoneb 3.0-0.5 Mg/3 Ml) 3 ml NEB Q4HRRT PRN PRN Reason: Shortness of Breath Last Admin: 02/04/20 11:22 Dose: 3 ml Allopurinol (Zyloprim) 100 mg PO DAILY [facility] Last Admin: 02/06/20 08:48 Dose: 100 mg Amoxicillin/Clavulanate Potassium (Augmentin 875 Mg/125 Mg) 1 tab PO BID [facility] Last Admin: 02/06/20 13:05 Dose: 1 tab Bumetanide (Bumex) 3 mg PO TID [facility] Last Admin: 02/06/20 08:45 Dose: 3 mg Doxycycline Hyclate (Vibramycin) 100 mg PO BID [facility] Last Admin: 02/06/20 13:06 Dose: 100 mg Levothyroxine Sodium (Synthroid) 50 mcg PO ACBREAKFAST [facility] Last Admin: 02/06/20 05:56 Dose: 50 mcg Metoprolol Succinate (Toprol Xl) 25 mg PO DAILY [facility] Last Admin: 02/06/20 08:49 Dose: 25 mg Cetaphil - Pt's Own (Medication) 1 applic TOP BID [facility] Last Admin: 02/06/20 11:32 Dose: 1 applic Ondansetron HCl (Zofran) 4 mg IV Q4H PRN PRN Reason: Nausea/Vomiting Pantoprazole Sodium (Protonix) 40 mg PO BIDMEALS [facility] Last Admin: 02/06/20 06:54 Dose: Not Given Ferrous Sulfate (Elixir 5 Ml Ptom) 0 each PO TID [facility] Last Admin: 02/06/20 10:59 Dose: 1 each Polyethylene Glycol (Miralax) 17 gm PO DAILY [facility] Last Admin: 02/06/20 08:49 Dose: 17 gm Potassium Chloride (Klor-Con M20) 40 meq PO TID [facility] Last Admin: 02/06/20 08:48 Dose: 40 meq Senna/Docusate Sodium (Senna Plus) 2 tab PO BID [facility] Last Admin: 02/06/20 08:47 Dose: 2 tab Sodium Chloride (Saline Flush) 10 ml FLUSH ASDIRECTED PRN PRN Reason: Keep Vein Open Last Admin: 02/02/20 11:13 Dose: 10 ml Warfarin Sodium (Pharmacy To Dose - Warfarin) 1 dose .XX ASDIRECTED PRN PRN Reason: RX TO DOSE WARFARIN Warfarin Sodium (Coumadin Sliding Scale) 0 each PO QPM [facility] Stop: 02/06/20 18:01 Discontinued Medications Bisacodyl (Dulcolax) 10 mg RECTAL ONETIME ONE Stop: 02/05/20 11:07 Last Admin: 02/05/20 12:39 Dose: 10 mg Duloxetine HCl (Cymbalta) 30 mg PO DAILY [facility] Last Admin: 02/06/20 08:46 Dose: 30 mg Furosemide (Lasix) 80 mg IVPUSH NOW ONE Stop: 02/02/20 14:02 Last Admin: 02/02/20 14:30 Dose: 80 mg Furosemide (Lasix) 60 mg IVPUSH NOW ONE Stop: 02/03/20 08:09 Last Admin: 02/03/20 08:37 Dose: 60 mg Furosemide (Lasix) 60 mg IVPUSH TID [facility] Last Admin: 02/04/20 14:20 Dose: 60 mg Vancomycin HCl 2 gm/ Sodium (Chloride) 250 mls @ 250 mls/hr IV ONETIME ONE Stop: 02/02/20 11:18 Last Admin: 02/02/20 12:34 Dose: Not Given Vancomycin HCl 2 gm/ Sodium (Chloride) 500 mls @ 250 mls/hr IV ONETIME ONE Stop: 02/02/20 13:29 Last Admin: 02/02/20 11:44 Dose: 250 mls/hr Vancomycin HCl 1 gm/Vancomycin HCl 250 mg/ Sodium Chloride 250 mls @ 166.667 mls/hr IV Q24H [facility] Last Admin: 02/05/20 12:18 Dose: 166.667 mls/hr Furosemide 100 mg/ Sodium (Chloride) 100 mls @ 8 mls/hr IV TITRATE [facility]; Protocol Last Admin: 02/04/20 14:19 Dose: 8 mls/hr Sodium Chloride (Normal Saline) Confirm Administered Dose 100 mls @ as directed .ROUTE .STK-MED ONE Stop: 02/04/20 12:45 Last Admin: 02/04/20 12:52 Dose: Not Given Furosemide 100 mg/ Sodium (Chloride) 100 mls @ 6 mls/hr IV TITRATE [facility]; Protocol Furosemide 100 mg/ Sodium (Chloride) 100 mls @ 6 mls/hr IV TITRATE [facility]; Protocol Furosemide 100 mg/ Sodium (Chloride) 100 mls @ 4 mls/hr IV TITRATE [facility]; Protocol Last Infusion: 02/06/20 05:21 Dose: 7 mls/hr Ferrous Sulfate 5 Ml (Ptom) 5 ml PO TID [facility] Last Admin: 02/03/20 18:02 Dose: Not Given Vancomycin HCl (Pharmacy To Dose - Vancomycin) 1 dose .XX ASDIRECTED PRN PRN Reason: RX TO DOSE VANCO Warfarin Sodium (Coumadin) 2.5 mg PO QPM [facility] Stop: 02/02/20 18:01 Last Admin: 02/02/20 17:40 Dose: 2.5 mg Warfarin Sodium (Coumadin) 1.5 mg PO QPM [facility] Stop: 02/03/20 18:01 Last Admin: 02/03/20 17:57 Dose: 1.5 mg Warfarin Sodium (Coumadin Sliding Scale) 0 each PO QPM [facility] Stop: 02/04/20 21:00 Last Admin: 02/04/20 19:03 Dose: Not Given Warfarin Sodium (Coumadin Sliding Scale) 0 each PO QPM [facility] Stop: 02/05/20 21:00 Last Admin: 02/05/20 18:35 Dose: Not Given - Exam Quality Assessment: Supplemental Oxygen General: Lethargic HEENT: Pupils Equal Neck: Supple Lungs: Clear to Auscultation, Normal Respiratory Effort Cardiovascular: Regular Rate, Regular Rhythm GI/Abdominal Exam: Normal Bowel Sounds, Soft, Non-Tender, No Distention Extremities: Pedal Edema (Scant pitting edema with compression wraps) Psy/Mental Status: Normal Affect Sepsis Event Note - Evaluation Sepsis Screening Result: No Definite Risk - Focused Exam Vital Signs: Vital Signs Temp Pulse Resp BP Pulse Ox Pulse Ox Pulse Ox 02/06/20 12:42 92 L 02/06/20 10:52 97.5 F 78 20 121/74 97 02/06/20 10:42 89 L 02/06/20 10:36 94 L 02/06/20 08:49 75 128/94 H 02/06/20 07:48 97.7 F 75 20 128/94 H 98 02/06/20 04:39 97.5 F 74 16 116/83 94 L Date Exam was Performed: 02/06/20 Time Exam was Performed: 16:30 - Problem List Review Problem List Initiated/Reviewed/Updated: Yes - My Orders Last 24 Hours: My Active Orders 02/05/20 19:36 Communication Order [RC] ASDIRECTED 02/06/20 09:00 Bumetanide [Bumex] 3 mg PO TID 02/06/20 12:00 Amoxicillin/Clavulanate K [Augmentin 875 MG/125 MG] 1 tab PO BID Doxycycline [Vibramycin] 100 mg PO BID 02/06/20 13:12 DC Guerrero Catheter [Urinary Catheter Removal] [RC] Per Unit Routine 02/06/20 18:00 Warfarin Sliding Scale [Coumadin Sliding Scale] 0 each PO QPM 02/06/20 Dinner Fluid Restriction [DIET] 02/07/20 05:11 CBC WITH AUTO DIFF [HEME] AM COMPREHENSIVE METABOLIC PN,CMP [CHEM] AM INR,PT,PROTHROMBIN TIME [COAG] AM MAGNESIUM [CHEM] AM - Plan Plan:: Bilateral lower extremity cellulitis with open wounds 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 Was on antibiotics for 3 days prior to admission. * Improvement in swelling and erythema this again morning * No history of fever or chills. * WBC 14 -->10.3-->9.75--> 9.17-->10.3 * Negative fluid balance * Negative blood cultures Plan * Stop vancomycin, pharmacy to dose * Switch antibiotics to Augmentin and doxycycline * Consult physical therapy for wound care * Bumex 3 mg 3 times daily. He is on 3 mg twice daily at home * Monitor weight and I's and O's Heart failure with reduced ejection fraction with acute exacerbation: Ejection fraction 45 to 50% * 12 pound weight gain since last admission December 26, 2019 * BNP 3489 on admission * Chest x-ray with minimal pulmonary vascular congestion on admission and repeat chest x-ray shows improvement in vascular congestion * Tolerating BiPAP * 1500 mL fluid restriction Plan * Bumex 3 mg 3 times daily * BiPAP / continuously when not eating * Recheck CMP in the morning * Strict I's and O's and daily weights * Continue Guerrero catheter Echocardiogram on February 02, 2020 Summary: 1. The left ventricular internal cavity size is normal. 2. Mildly decreased left ventricular systolic function. 3. Left ventricular ejection fraction, by visual estimation, is 45 to 50%. 4. Mild septal left ventricular hypertrophy. 5. Severely dilated left atrium. 6. Moderately dilated right atrium. 7. There is moderate aortic valve sclerosis without stenosis. 8. Mild to moderate mitral valve regurgitation. 9. The MR jet is eccentric posteriorly directed. 10. Mild to moderate tricuspid valve regurgitation. 11. Mild pulmonic valve regurgitation. 12. Mild to moderate dilatation of the ascending aorta. 13. The inferior vena cava is not well visualized. 14. The right ventricular systolic pressure is unable to be determined. Elevated liver enzymes * AST 102-->73-->74-->61, ALT 83-->78-->87-->79, alkaline phosphatase 281-->287- ->379-->384 * Possibly due to hepatic congestion from heart failure Plan * Nothing significant on ultrasound to explain elevated LFTs Abdominal ultrasound impression: 1. Slightly echogenic fluid within both renal pelvis raising the possibility a complicated fluid from urinary tract infection. If no symptoms of urinary tract infection are present, this is likely artifact. 2. Previous cholecystectomy with no biliary duct dilatation. 3. Suboptimally seen pancreas and aorta. 4. No additional abnormality is definitely appreciated. 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 * Follow renal function closely Multiple chronic medical conditions including pulmonary hypertension, dementia, generalized weakness, abnormalities of gait and mobility, cognitive communication deficit, hypothyroidism, BPH, hyperlipidemia obstructive sleep apnea, chronic back pain, idiopathic peripheral autonomic neuropathy VTE prophylaxis with warfarin CODE STATUS: DNR/DNI Disposition: Admit to medical floor for IV antibiotics and diuresis Prognosis: Poor I have spoken with both daughters and explained the poor prognosis of their father. He has multisystem failure and is 89 years old placing his mortality at a relatively high percent. They understand that each time he is hospitalized he has an increasing risk of mortality because of worsening disease. Length of stay greater than 96 hours secondary to slow resolution of cellulitis and heart failure.
[2020-02-06] MEDS ORDERED: Warfarin Sliding Scale PO SCH (18:00)
[2020-02-06] MEDS ORDERED: Carboxymethylcellulose Sodium 1% Ophth Gel 15 ML Bottle EYEBOTH PRN (19:01)
[2020-02-07] MEDS: Levothyroxine 50 MCG Tab PO SCH (06:18)
[2020-02-07] MEDS: Pantoprazole 40 MG Tab.CR PO SCH (06:18)
[2020-02-07] MEDS: Polyethylene Glycol 3350 Powder 17 GM Packet PO SCH (10:15)
[2020-02-07] MEDS: CETAPHIL TOP SCH (10:17)
[2020-02-07] MEDS: FERROUS SULFATE PO SCH (10:18)
[2020-02-07] MEDS: Amoxicillin/Clavulanate K 875-125 MG Tab PO SCH (10:18)
[2020-02-07] MEDS: Potassium Chloride 20 MEQ Tab.ER PO SCH (10:18)
[2020-02-07] MEDS: Bumetanide 1 MG Tab PO SCH (10:18)
[2020-02-07] MEDS: Metoprolol Succinate 25 MG Tab.ER PO SCH (10:19)
[2020-02-07] MEDS: Doxycycline 100 MG Cap PO SCH (10:21)
[2020-02-07] MEDS: Allopurinol 100 MG Tab PO SCH (10:21)
--- NOTE | 2020-02-07 12:52 | PCM.DCSUM1 ---
Discharge Summary - Hospital Course HPI Initial Comments: 89-year-old male with long history of lower extremity edema, stasis dermatitis, recurrent lower extremity cellulitis, heart failure with preserved ejection fraction, last echocardiogram on June 18, 2019 with ejection fraction of 55 to 60%, aortic porcine bioprosthesis with abnormal stenosis and increased gradient of 21 mmHg, atrial fibrillation post pacemaker placement on anticoagulation with Coumadin, history of chronic slow GI bleed, chronic kidney disease stage III, hypertension, nocturnal hypoxemia, likely obstructive sleep apnea. Patient presents to the emergency department with worsening lower extremity erythema. Patient was lethargic when I visited with him and the daughter was not available so history was obtained through the emergency department notes and long term notes. There is no history of fever, chills, cough, congestion, chest pain, shortness of breath, abdominal pain, nausea or vomiting. He was placed on antibiotic for 3 days without improvement. Review of his last hospitalization from the end of November 2019 shows he has gained 12 pounds since last admission. In the emergency department patient was found to be afebrile with increased erythema of the bilateral shins. Right was worse than left. Oxygen saturation was 93% on room air. Initial laboratory test showed a white count of 14.02, hemoglobin of 8.8, sodium 135, potassium 3.9, anion gap 16.9, BUN 83, creatinine 2.7 (at time of discharge in November 29.), BNP 3489, lactic acid 1.8, AST 102, ALT 83, alkaline phosphatase 281 Lower extremity ultrasounds were negative for DVT. Patient was started on vancomycin in the emergency department Brief History: Echocardiogram on February 02, 2020. Summary: 1. The left ventricular internal cavity size is normal. 2. Mildly decreased left ventricular systolic function. 3. Left ventricular ejection fraction, by visual estimation, is 45 to 50%. 4. Mild septal left ventricular hypertrophy. 5. Severely dilated left atrium. 6. Moderately dilated right atrium. 7. There is moderate aortic valve sclerosis without stenosis. 8. Mild to moderate mitral valve regurgitation. 9. The MR jet is eccentric posteriorly directed. 10. Mild to moderate tricuspid valve regurgitation. 11. Mild pulmonic valve regurgitation. 12. Mild to moderate dilatation of the ascending aorta. 13. The inferior vena cava is not well visualized. 14. The right ventricular systolic pressure is unable to be determined. Diagnosis: Stroke: No - Discharge Data Discharge Date: 02/07/20 Discharge Disposition: DC/Tfer to [facility] Condition: Fair - Referral to Home Health Primary Care Physician: Jean-Claude Barber MD - Patient Summary/Data Consults: Consultations 02/02/20 13:54 PT Evaluation and Treatment [CONS] Routine Hospital Course: Patient was admitted and started on vancomycin. Furosemide IV pushes were started and then switched to a Lasix drip. Patient had a significant negative fluid balance of over 4 L, but had little if any weight loss. Patient symptomatically improved and his legs became much less swollen with compression wraps, diuresis, and wound therapy. Blood cultures were negative. Echocardiogram was performed that did show a change from his last echo done in May with a mildly decreased left ventricular systolic function and ejection fraction of 45 to 50%. Renal function improved during hospitalization back to baseline with a creatinine of 1.9. Patient did have elevated liver enzymes on admission : AST 102, ALT 83, alkaline phosphatase of 281. He had general improvement in his liver enzymes at day of discharge with AST of 43, ALT normalizing to 59, but alkaline phosphatase still elevated at 345. Initially this was felt to be secondary to vascular congestion. Ultrasound of the legs was performed which showed slightly echogenic fluid within both renal pelvis raising the possibility of a complicated fluid from urinary tract infection. UA showed no infection so this was likely artifact. Previous cholecystectomy with no biliary duct dilatation. Liver showed no discrete abnormality. Chest x -ray done on admission and before discharge showed improvement in vascular congestion. Last day before discharge patient was placed back on Bumex 3 mg but that 3 times daily. He will go home on Bumex 3 mg twice daily. Patient never fully recovered from his fatigue when admitted. Patient was clearly more lethargic and was more ill during this hospitalization. I had a discussion with both daughters that I was concerned about his long-term mortality. They were in agreement. They will discuss comfort measures and hospice care when he returns to [facility]. Echocardiogram on February 02, 2020 Summary: 1. The left ventricular internal cavity size is normal. 2. Mildly decreased left ventricular systolic function. 3. Left ventricular ejection fraction, by visual estimation, is 45 to 50%. 4. Mild septal left ventricular hypertrophy. 5. Severely dilated left atrium. 6. Moderately dilated right atrium. 7. There is moderate aortic valve sclerosis without stenosis. 8. Mild to moderate mitral valve regurgitation. 9. The MR jet is eccentric posteriorly directed. 10. Mild to moderate tricuspid valve regurgitation. 11. Mild pulmonic valve regurgitation. 12. Mild to moderate dilatation of the ascending aorta. 13. The inferior vena cava is not well visualized. 14. The right ventricular systolic pressure is unable to be determined. - Patient Instructions Diet: Heart Healthy Diet Fluid Restriction: 1500 mL Activity: As Tolerated Driving: Do Not Drive Wound/Incision Care: Change Dressing Daily Notify Provider of: Fever, Swelling and Redness, Drainage Other/Special Instructions: Please hold warfarin tonight and recheck INR on February 08. Follow-up with primary care provider this week. - Discharge Plan *PRESCRIPTION DRUG MONITORING PROGRAM REVIEWED*: No *COPY OF PRESCRIPTION DRUG MONITORING REPORT IN PATIENT NIRU: No Prescriptions/Med Rec: Acetaminophen/HYDROcodone [[place] 325-5 MG] 1 tab PO Q4H PRN #20 tablet PRN Reason: Pain (Moderate 4-6) Amoxicillin/Clavulanate K [Augmentin 875-125 MG] 1 tab PO BID #10 tablet Doxycycline [Vibramycin] 100 mg PO BID #10 cap Home Medications: Home Meds Cholecalciferol (Vitamin D3) [Vitamin D3] 5,000 unit PO MOWEFR 04/04/19 [History ] Ferrous Sulfate 5 ml PO TID 04/04/19 [History] Lutein/Minerals/Vit A,C & E [Ocuvite] 1 tab PO DAILY 04/04/19 [History] Pantoprazole Sodium [Protonix] 40 mg PO BIDMEALS 04/04/19 [History] allopurinoL [Zyloprim] 100 mg PO DAILY 04/04/19 [History] bisacodyL [Laxative] 5 mg PO DAILY PRN 06/24/19 [History] Albuterol/Ipratropium [DuoNeb 3.0-0.5 MG/3 ML] 3 ml NEB Q4HRRT PRN #20 neb 06/30 [Rx] Ascorbate Calcium [Vitamin C] 500 mg PO TID 12/21/19 [History] Bumetanide [Bumex] 3 mg PO BID 12/21/19 [History] Carboxymethylcellulos/Glycerin [Refresh Optive] 1 drop EYEBOTH BID PRN 12/21/19 [History] Docusate Sodium/Sennosides [Senna Plus] 2 each PO BID 12/21/19 [History] Potassium Chloride [Klor-Con M20] 40 meq PO TID 12/21/19 [History] Saliva Stimulant Comb. No.2 [Biotene Oralbalance] 1 dose PO TID 12/21/19 [ History] Warfarin [Coumadin] 2.5 mg PO DAILY 12/21/19 [History] metOLazone [Zaroxolyn] 2.5 mg PO WE 12/21/19 [History] polyethylene glycoL 3350 [MiraLAX] 17 gm PO DAILY 12/21/19 [History] Levothyroxine [Synthroid] 50 mcg PO ACBREAKFAST tablet 12/26/19 [Rx] Acetaminophen [Tylenol] 650 mg PO BID PRN 02/02/20 [History] Acetaminophen [Tylenol] 650 mg PO QID 02/02/20 [History] Benzocaine/Benzethon Cl [Dermoplast First Aid [place]] 1 spray TOP BEDTIME [History] Benzocaine/Benzethon Cl [Dermoplast First Aid [place]] 1 spray TOP DAILY PRN 02/01 [History] Cannabidiol (Cbd) Extract [CBD Oil] 1 applic TOP DAILY PRN 02/02/20 [History] Emollient Combination No.40 [Cetaphil] 1 applic TOP BID 02/02/20 [History] Metoprolol Succinate [Toprol XL] 25 mg PO DAILY 02/02/20 [History] Solifenacin [Vesicare] 5 mg PO DAILY 02/02/20 [History] bisacodyL [Dulcolax] 10 mg RECTAL DAILY PRN 02/02/20 [History] Acetaminophen/HYDROcodone [[place] 325-5 MG] 1 tab PO Q4H PRN #20 tablet 02/07/20 [Rx] Amoxicillin/Clavulanate K [Augmentin 875-125 MG] 1 tab PO BID #10 tablet [Rx] Doxycycline [Vibramycin] 100 mg PO BID #10 cap 02/07/20 [Rx] Patient Handouts: Heart Failure, Diagnosis Forms: ED Department Discharge Referrals: Jean-Claude Barber MD [Primary Care Provider] - - Discharge Summary/Plan Comment DC Time >30 min.: No Discharge Summary/Plan Comment: Discharge to [facility]. - General Info Date of Service: 02/07/20 Admission Dx/Problem (Free Text: Admission Diagnosis/Problem Admission Diagnosis/Problem Cellulitis Subjective Update: Patient continues to be sleepy and at times difficult to arouse. He is eating when presented food. Functional Status: Reports: Pain Controlled - Review of Systems General: Reports: Fatigue HEENT: Reports: No Symptoms Pulmonary: Reports: No Symptoms Cardiovascular: Reports: No Symptoms Musculoskeletal: Reports: No Symptoms - Patient Data Vitals - Most Recent: Last Vital Signs Temp 97.0 F 02/07/20 09:31 Pulse 79 02/07/20 10:20 Resp 15 02/07/20 09:31 BP 131/76 02/07/20 10:20 Pulse Ox 93 L 02/07/20 10:20 Weight - Most Recent: 235 lb 8 oz I&O - Last 24 hours: Intake & Output 02/06/20 02/07/20 02/07/20 22:59 06:59 14:59 Intake Total 897 400 Output Total 272 1000 Balance 625 -600 Lab Results - Last 24 hrs: Laboratory Results - last 24 hr 02/07/20 02/07/20 02/07/20 Range/Units 05:20 05:37 05:37 WBC 10.92 H (4.23-9.07) K/mm3 RBC 3.26 L (4.63-6.08) M/mm3 Hgb 9.0 L (13.7-17.5) gm/dl Hct 31.1 L (40.1-51.0) % MCV 95.4 H (79.0-92.2) fl MCH 27.6 (25.7-32.2) pg MCHC 28.9 L (32.2-35.5) g/dl RDW Std Deviation 60.8 H (35.1-43.9) fL Plt Count 267 (163-337) K/mm3 MPV 9.2 L (9.4-12.3) fl Neut % (Auto) 86.1 H (34.0-67.9) % Lymph % (Auto) 2.5 L (21.8-53.1) % [place] % (Auto) 7.9 (5.3-12.2) % Eos % (Auto) 1.5 (0.8-7.0) Baso % (Auto) 0.4 (0.1-1.2) % Neut # (Auto) 9.42 H (1.78-5.38) K/mm3 Lymph # (Auto) 0.27 L (1.32-3.57) K/mm3 [place] # (Auto) 0.86 H (0.30-0.82) K/mm3 Eos # (Auto) 0.16 (0.04-0.54) K/mm3 Baso # (Auto) 0.04 (0.01-0.08) K/mm3 Manual Slide Review Abnormal smear PT 35.0 H (9.7-12.0) SECONDS INR 3.44 Sodium 139 (136-145) mEq/L Potassium 4.4 (3.5-5.1) mEq/L Chloride 101 (98-107) mEq/L Carbon Dioxide 32 (21-32) mEq/L Anion Gap 10.4 (5-15) BUN 76 H (7-18) mg/dL Creatinine 1.9 H (0.7-1.3) mg/dL Est Cr Clr Drug Dosing 30.06 mL/min Estimated GFR (MDRD) 34 (>60) mL/min BUN/Creatinine Ratio 40.0 H (14-18) Glucose 117 H (83-115) mg/dL Calcium 8.7 (8.5-10.1) mg/dL Magnesium 2.2 (1.8-2.4) mg/dl Total Bilirubin 0.6 (0.2-1.0) mg/dL AST 43 H (15-37) U/L ALT 59 (16-63) U/L Alkaline Phosphatase 345 H (46-116) U/L Total Protein 6.8 (6.4-8.2) g/dl Albumin 3.1 L (3.4-5.0) g/dl Globulin 3.7 gm/dL Albumin/Globulin Ratio 0.8 L (1-2) CANDI Results - Last 24 hrs: Microbiology 02/02/20 10:55 Aerobic Blood Culture - Preliminary Blood - Venous - Lab Draw NO GROWTH AFTER 5 DAYS Anaerobic Blood Culture - Preliminary NO GROWTH AFTER 5 DAYS 02/02/20 10:47 Aerobic Blood Culture - Preliminary Blood - Venous NO GROWTH AFTER 5 DAYS Anaerobic Blood Culture - Preliminary NO GROWTH AFTER 5 DAYS Med Orders - Current: Current Medications Acetaminophen (Tylenol) 650 mg PO Q4H PRN PRN Reason: Pain (Mild 1-3)/fever Last Admin: 02/06/20 20:48 Dose: 650 mg Hydrocodone Bitart/Acetaminophen ([place] 325-5 Mg) 1 tab PO Q4H PRN PRN Reason: Pain (moderate 4-6) Last Admin: 02/03/20 20:35 Dose: 1 tab Albuterol/Ipratropium (Duoneb 3.0-0.5 Mg/3 Ml) 3 ml NEB Q4HRRT PRN PRN Reason: Shortness of Breath Last Admin: 02/04/20 11:22 Dose: 3 ml Allopurinol (Zyloprim) 100 mg PO DAILY [facility] Last Admin: 02/07/20 10:21 Dose: 100 mg Amoxicillin/Clavulanate Potassium (Augmentin 875 Mg/125 Mg) 1 tab PO BID [facility] Last Admin: 02/07/20 10:18 Dose: 1 tab Artificial Tears (Refresh Liquigel 1%) 0 ml EYEBOTH Q4H PRN PRN Reason: Dry Eyes Bumetanide (Bumex) 3 mg PO TID [facility] Last Admin: 02/07/20 10:18 Dose: 3 mg Doxycycline Hyclate (Vibramycin) 100 mg PO BID [facility] Last Admin: 02/07/20 10:21 Dose: 100 mg Levothyroxine Sodium (Synthroid) 50 mcg PO ACBREAKFAST [facility] Last Admin: 02/07/20 06:18 Dose: 50 mcg Metoprolol Succinate (Toprol Xl) 25 mg PO DAILY [facility] Last Admin: 02/07/20 10:19 Dose: 25 mg Cetaphil - Pt's Own (Medication) 1 applic TOP BID [facility] Last Admin: 02/07/20 10:17 Dose: Not Given Ondansetron HCl (Zofran) 4 mg IV Q4H PRN PRN Reason: Nausea/Vomiting Pantoprazole Sodium (Protonix) 40 mg PO BIDMEALS [facility] Last Admin: 02/07/20 06:18 Dose: 40 mg Ferrous Sulfate (Elixir 5 Ml Ptom) 0 each PO TID [facility] Last Admin: 02/07/20 10:18 Dose: 1 each Polyethylene Glycol (Miralax) 17 gm PO DAILY [facility] Last Admin: 02/07/20 10:15 Dose: 17 gm Potassium Chloride (Klor-Con M20) 40 meq PO TID [facility] Last Admin: 02/07/20 10:18 Dose: 40 meq Senna/Docusate Sodium (Senna Plus) 2 tab PO BID [facility] Last Admin: 02/07/20 10:21 Dose: 2 tab Sodium Chloride (Saline Flush) 10 ml FLUSH ASDIRECTED PRN PRN Reason: Keep Vein Open Last Admin: 02/02/20 11:13 Dose: 10 ml Warfarin Sodium (Pharmacy To Dose - Warfarin) 1 dose .XX ASDIRECTED PRN PRN Reason: RX TO DOSE WARFARIN Warfarin Sodium (Coumadin Sliding Scale) 0 each PO QPM [facility] Stop: 02/07/20 18:01 Discontinued Medications Bisacodyl (Dulcolax) 10 mg RECTAL ONETIME ONE Stop: 02/05/20 11:07 Last Admin: 02/05/20 12:39 Dose: 10 mg Duloxetine HCl (Cymbalta) 30 mg PO DAILY [facility] Last Admin: 02/06/20 08:46 Dose: 30 mg Furosemide (Lasix) 80 mg IVPUSH NOW ONE Stop: 02/02/20 14:02 Last Admin: 02/02/20 14:30 Dose: 80 mg Furosemide (Lasix) 60 mg IVPUSH NOW ONE Stop: 02/03/20 08:09 Last Admin: 02/03/20 08:37 Dose: 60 mg Furosemide (Lasix) 60 mg IVPUSH TID [facility] Last Admin: 02/04/20 14:20 Dose: 60 mg Vancomycin HCl 2 gm/ Sodium (Chloride) 250 mls @ 250 mls/hr IV ONETIME ONE Stop: 02/02/20 11:18 Last Admin: 02/02/20 12:34 Dose: Not Given Vancomycin HCl 2 gm/ Sodium (Chloride) 500 mls @ 250 mls/hr IV ONETIME ONE Stop: 02/02/20 13:29 Last Admin: 02/02/20 11:44 Dose: 250 mls/hr Vancomycin HCl 1 gm/Vancomycin HCl 250 mg/ Sodium Chloride 250 mls @ 166.667 mls/hr IV Q24H [facility] Last Admin: 02/05/20 12:18 Dose: 166.667 mls/hr Furosemide 100 mg/ Sodium (Chloride) 100 mls @ 8 mls/hr IV TITRATE [facility]; Protocol Last Admin: 02/04/20 14:19 Dose: 8 mls/hr Sodium Chloride (Normal Saline) Confirm Administered Dose 100 mls @ as directed .ROUTE .STK-MED ONE Stop: 02/04/20 12:45 Last Admin: 02/04/20 12:52 Dose: Not Given Furosemide 100 mg/ Sodium (Chloride) 100 mls @ 6 mls/hr IV TITRATE [facility]; Protocol Furosemide 100 mg/ Sodium (Chloride) 100 mls @ 6 mls/hr IV TITRATE [facility]; Protocol Furosemide 100 mg/ Sodium (Chloride) 100 mls @ 4 mls/hr IV TITRATE [facility]; Protocol Last Infusion: 02/06/20 05:21 Dose: 7 mls/hr Ferrous Sulfate 5 Ml (Ptom) 5 ml PO TID [facility] Last Admin: 02/03/20 18:02 Dose: Not Given Vancomycin HCl (Pharmacy To Dose - Vancomycin) 1 dose .XX ASDIRECTED PRN PRN Reason: RX TO DOSE VANCO Warfarin Sodium (Coumadin) 2.5 mg PO QPM [facility] Stop: 02/02/20 18:01 Last Admin: 02/02/20 17:40 Dose: 2.5 mg Warfarin Sodium (Coumadin) 1.5 mg PO QPM [facility] Stop: 02/03/20 18:01 Last Admin: 02/03/20 17:57 Dose: 1.5 mg Warfarin Sodium (Coumadin Sliding Scale) 0 each PO QPM [facility] Stop: 02/04/20 21:00 Last Admin: 02/04/20 19:03 Dose: Not Given Warfarin Sodium (Coumadin Sliding Scale) 0 each PO QPM [facility] Stop: 02/05/20 21:00 Last Admin: 02/05/20 18:35 Dose: Not Given Warfarin Sodium (Coumadin Sliding Scale) 0 each PO QPM [facility] Stop: 02/06/20 18:01 Last Admin: 02/06/20 19:32 Dose: Not Given - Exam General: Reports: Lethargic. Denies: Alert HEENT: Reports: Pupils Equal, Mucous Membr. Moist/[place] Neck: Reports: Supple Lungs: Reports: Normal Respiratory Effort, Decreased Breath Sounds Cardiovascular: Reports: Regular Rate, Regular Rhythm GI/Abdominal Exam: Normal Bowel Sounds, Soft, Non-Tender, No Organomegaly, No Distention, No Abnormal Bruit, No Mass, Pelvis Stable Extremities: Other (Significant improvement in his lower extremity edema and erythema. Legs are wrapped with compression stockings.) Skin: Reports: Warm, Dry, Intact
[2020-02-07 13:31] VITALS: BP 114/72; PULSE 72
[2020-02-07] MEDS ORDERED: Warfarin Sliding Scale PO SCH (18:00)
== END 2020-02-07 14:40 | DRG 602 ==
LOC: JD.ED 09:40 → JD.MS 12:05
PROVIDERS: ADMIT Family Medicine; ATTEND Family Medicine
DX: L03.116 Cellulitis of left lower limb (principal); D64.89 Other specified anemias; I50.33 Acute on chronic diastolic (congestive) heart failure; I13.0 Hypertensive heart and chronic kidney disease with heart failure and stage 1 through stage 4 chronic kidney disease, or unspecified chronic kidney disease; N18.9 Chronic kidney disease, unspecified; I50.9 Heart failure, unspecified; N17.9 Acute kidney failure, unspecified; Z86.718 Personal history of other venous thrombosis and embolism; L03.115 Cellulitis of right lower limb; Z66 Do not resuscitate; N18.3 Chronic kidney disease, stage 3 (moderate); I48.91 Unspecified atrial fibrillation; N40.0 Benign prostatic hyperplasia without lower urinary tract symptoms; G47.33 Obstructive sleep apnea (adult) (pediatric); I87.2 Venous insufficiency (chronic) (peripheral); H91.90 Unspecified hearing loss, unspecified ear; G62.9 Polyneuropathy, unspecified; H54.7 Unspecified visual loss; Z85.828 Personal history of other malignant neoplasm of skin; G90.9 Disorder of the autonomic nervous system, unspecified; Z95.2 Presence of prosthetic heart valve; G89.29 Other chronic pain; M54.9 Dorsalgia, unspecified; I25.10 Atherosclerotic heart disease of native coronary artery without angina pectoris; S81.802A Unspecified open wound, left lower leg, initial encounter; S81.801A Unspecified open wound, right lower leg, initial encounter; E78.00 Pure hypercholesterolemia, unspecified; K59.09 Other constipation; K21.9 Gastro-esophageal reflux disease without esophagitis; Z20.828 Contact with and (suspected) exposure to other viral communicable diseases; N40.1 Benign prostatic hyperplasia with lower urinary tract symptoms; N39.498 Other specified urinary incontinence; M10.9 Gout, unspecified; M19.90 Unspecified osteoarthritis, unspecified site; F32.9 Major depressive disorder, single episode, unspecified; E03.9 Hypothyroidism, unspecified; E66.9 Obesity, unspecified; D63.1 Anemia in chronic kidney disease; Z85.46 Personal history of malignant neoplasm of prostate; Z95.4 Presence of other heart-valve replacement; Z79.01 Long term (current) use of anticoagulants; Z79.899 Other long term (current) drug therapy; Z95.0 Presence of cardiac pacemaker; Z79.890 Hormone replacement therapy; Z95.1 Presence of aortocoronary bypass graft; Z98.49 Cataract extraction status, unspecified eye; Z90.49 Acquired absence of other specified parts of digestive tract; Z68.31 Body mass index [BMI] 31.0-31.9, adult
CPT/HCPCS: 36415; 80053; 83605; 83880; 85025; 85610; 86140; 87040 ×2; 93971; 96365; 99285; J3370; J7040; 51702; 51798; 71045; 71045-26; 76700; 76700-26; 80202; 81001; 83735; 84100; 93306; 94640; 94660; 94761; 97162-GP; 97530-GP; 97597-GP; 99223; 99232; 99238; 99284; A9270-GY; J1940; J7050; J7620-GY; U0002

== ENCOUNTER 2020-04-17 13:51 | Emergency (ER) | payer MEDICARE, BC ==
[2020-04-17] MEDS ORDERED: Sodium Chloride 0.9% 10 ML Syringe FLUSH PRN (14:36)
[2020-04-17] MEDS ORDERED: cefTRIAXone 1 GM in Sodium Chloride 0.9% 100 ML IV ONE (15:56)
[2020-04-17 16:07] VITALS: BP 115/68
--- NOTE | 2020-04-17 16:40 | EDM.PDOC ---
ED HPI GENERAL MEDICAL PROBLEM - General Chief Complaint: Neuro Symptoms/Deficits Stated Complaint: SOB Time Seen by Provider: 04/17/20 14:19 Source of Information: Reports: Patient History Limitations: Reports: No Limitations - History of Present Illness INITIAL COMMENTS - FREE TEXT/NARRATIVE: The patient presents from the halfway with shakiness and weakness. He has a history of anemia and they are worried he may need another transfusion. He has no fever, chills, cough, chest pain, shortness of breath, abdominal pain, nausea or vomiting Onset: Gradual Duration: Day(s): Severity: Moderate Improves with: Reports: None Worsens with: Reports: None Associated Symptoms: Reports: No Other Symptoms - Related Data Allergies Allergy/AdvReac Type Severity Reaction Status Date / Time No Known Allergies Allergy Verified 04/17/20 14:20 Home Meds: Home Meds Cholecalciferol (Vitamin D3) [Vitamin D3] 5,000 unit PO MOWEFR 04/04/19 [History] Ferrous Sulfate 5 ml PO TID 04/04/19 [History] Lutein/Minerals/Vit A,C & E [Ocuvite] 1 tab PO DAILY 04/04/19 [History] Pantoprazole Sodium [Protonix] 40 mg PO BIDMEALS 04/04/19 [History] allopurinoL [Zyloprim] 100 mg PO DAILY 04/04/19 [History] bisacodyL [Laxative] 5 mg PO DAILY PRN 06/24/19 [History] Albuterol/Ipratropium [DuoNeb 3.0-0.5 MG/3 ML] 3 ml NEB Q4HRRT PRN #20 neb 06/30/19 [Rx] Ascorbate Calcium [Vitamin C] 500 mg PO TID 12/21/19 [History] Bumetanide [Bumex] 3 mg PO BID 12/21/19 [History] Carboxymethylcellulos/Glycerin [Refresh Optive] 1 drop EYEBOTH BID PRN 12/21/19 [History] Docusate Sodium/Sennosides [Senna Plus] 2 each PO BID 12/21/19 [History] Potassium Chloride [Klor-Con M20] 40 meq PO TID 12/21/19 [History] Saliva Stimulant Comb. No.2 [Biotene Oralbalance] 1 dose PO TID 12/21/19 [History] Warfarin [Coumadin] 2.5 mg PO DAILY 12/21/19 [History] metOLazone [Zaroxolyn] 2.5 mg PO WE 12/21/19 [History] polyethylene glycoL 3350 [MiraLAX] 17 gm PO DAILY 12/21/19 [History] Levothyroxine [Synthroid] 50 mcg PO ACBREAKFAST tablet 12/26/19 [Rx] Acetaminophen [Tylenol] 650 mg PO BID PRN 02/02/20 [History] Acetaminophen [Tylenol] 650 mg PO QID 02/02/20 [History] Benzocaine/Benzethon Cl [Dermoplast First Aid [place]] 1 spray TOP BEDTIME 02/02/20 [History] Benzocaine/Benzethon Cl [Dermoplast First Aid [place]] 1 spray TOP DAILY PRN 02/02/20 [History] Cannabidiol (Cbd) Extract [CBD Oil] 1 applic TOP DAILY PRN 02/02/20 [History] Emollient Combination No.40 [Cetaphil] 1 applic TOP BID 02/02/20 [History] Metoprolol Succinate [Toprol XL] 25 mg PO DAILY 02/02/20 [History] Solifenacin [Vesicare] 5 mg PO DAILY 02/02/20 [History] bisacodyL [Dulcolax] 10 mg RECTAL DAILY PRN 02/02/20 [History] Acetaminophen/HYDROcodone [[place] 325-5 MG] 1 tab PO Q4H PRN #20 tablet 02/07/20 [Rx] Amoxicillin/Clavulanate K [Augmentin 875-125 MG] 1 tab PO BID #10 tablet 02/07/20 [Rx] Doxycycline [Vibramycin] 100 mg PO BID #10 cap 02/07/20 [Rx] cephALEXin [Keflex] 500 mg PO BID #10 capsule 04/17/20 [Rx] Past Medical History HEENT History: Reports: Cataract, Hard of Hearing, Impaired Vision Cardiovascular History: Reports: Arrhythmia, Blood Clots/VTE/DVT, Bypass, CAD, Heart Failure, Heart Valve Replacement, High Cholesterol, Hypertension, Pacemaker Gastrointestinal History: Reports: Chronic Constipation, GERD Genitourinary History: Reports: BPH, Chronic Renal Insuffiency, Urinary Incontinence Musculoskeletal History: Reports: Gout, Osteoarthritis Neurological History: Reports: Neuropathy, Peripheral Psychiatric History: Reports: Depression Endocrine/Metabolic History: Reports: Hypothyroidism, Obesity/BMI 30+ Hematologic History: Reports: Anemia, Blood Transfusion(s) Oncologic (Cancer) History: Reports: Basal Cell Carcinoma, Prostate Dermatologic History: Reports: Cellulitis - Infectious Disease History Infectious Disease History: Reports: MRSA - Past Surgical History HEENT Surgical History: Reports: Cataract Surgery Cardiovascular Surgical History: Reports: Coronary Artery Bypass, Pacer, Valve Replacement GI Surgical History: Reports: Cholecystectomy, Hernia, Inguinal Male Surgical History: Reports: None Endocrine Surgical History: Reports: None Musculoskeletal Surgical History: Reports: Arthroscopic Knee Dermatological Surgical History: Reports: Skin Biopsy Social & Family History - Family History Family Medical History: Noncontributory - Tobacco Use Smoking Status *Q: Unknown Ever Smoked Second Hand Smoke Exposure: No - Caffeine Use Caffeine Use: Reports: None - Recreational Drug Use Recreational Drug Use: No Drug Use in Last 12 Months: No - Living Situation & Occupation Living situation: Reports: , Alone Occupation: Retired ED ROS GENERAL - Review of Systems Review Of Systems: See Below Constitutional: Reports: Weakness. Denies: Fever, Chills HEENT: Reports: No Symptoms Respiratory: Reports: No Symptoms Cardiovascular: Reports: No Symptoms Endocrine: Reports: No Symptoms GI/Abdominal: Denies: Abdominal Pain, Nausea, Vomiting : Reports: No Symptoms Musculoskeletal: Reports: No Symptoms ED EXAM, NEURO - Physical Exam Exam: See Below Exam Limited By: No Limitations General Appearance: Alert, No Apparent Distress Ears: Normal External Exam Nose: Normal Inspection Head Exam: Atraumatic, Normocephalic Neck: Normal Inspection Respiratory/Chest: No Respiratory Distress, Lungs Clear, Normal Breath Sounds Cardiovascular: Regular Rate, Rhythm, No Edema, No Murmur GI/Abdominal: Soft, Non-Tender, No Organomegaly, No Mass Course - Vital Signs Last Recorded V/S: Last Vital Signs Temp 97.3 F 04/17/20 16:05 Pulse 75 04/17/20 16:05 Resp 22 H 04/17/20 16:05 BP 115/68 04/17/20 16:05 Pulse Ox 98 04/17/20 16:05 - Orders/Labs/Meds Orders: Active Orders 24 hr Category Date Time Status Peripheral IV Care [RC] . DIRECTED Care 04/17/20 14:36 Active CXR [Chest 1V Frontal] [CR] Stat Exams 04/17/20 15:10 Taken CULTURE URINE [RM] Stat Lab 04/17/20 14:30 Received PATIENT RETYPE [BBK] Routine Lab 04/17/20 15:15 Ordered Sodium Chloride 0.9% [Saline Flush] Med 04/17/20 14:36 Active 10 ml FLUSH ASDIRECTED PRN Peripheral IV Insertion Adult [OM.PC] Stat Oth 04/17/20 14:36 Ordered Medication Orders Sodium Chloride (Saline Flush) 10 ml FLUSH ASDIRECTED PRN PRN Reason: Keep Vein Open Last Admin: 04/17/20 14:45 Dose: 10 ml Documented by: HUY Labs: Laboratory Tests 04/17/20 04/17/20 04/17/20 Range/Units 14:30 14:44 14:44 WBC 9.95 H (4.23-9.07) K/mm3 RBC 3.12 L (4.63-6.08) M/mm3 Hgb 8.9 L (13.7-17.5) gm/dl Hct 29.3 L (40.1-51.0) % MCV 93.9 H (79.0-92.2) fl MCH 28.5 (25.7-32.2) pg MCHC 30.4 L (32.2-35.5) g/dl RDW Std Deviation 64.0 H (35.1-43.9) fL Plt Count 280 (163-337) K/mm3 MPV 9.6 (9.4-12.3) fl Neut % (Auto) 80.8 H (34.0-67.9) % Lymph % (Auto) 4.1 L (21.8-53.1) % [place] % (Auto) 12.0 (5.3-12.2) % Eos % (Auto) 1.6 (0.8-7.0) Baso % (Auto) 0.5 (0.1-1.2) % Neut # (Auto) 8.04 H (1.78-5.38) K/mm3 Lymph # (Auto) 0.41 L (1.32-3.57) K/mm3 [place] # (Auto) 1.19 H (0.30-0.82) K/mm3 Eos # (Auto) 0.16 (0.04-0.54) K/mm3 Baso # (Auto) 0.05 (0.01-0.08) K/mm3 Manual Slide Review Abnormal smear PT 24.9 H (9.7-12.0) SECONDS INR 2.37 APTT 35 H (22-31) SECONDS Sodium (136-145) mEq/L Potassium (3.5-5.1) mEq/L Chloride (98-107) mEq/L Carbon Dioxide (21-32) mEq/L Anion Gap (5-15) BUN (7-18) mg/dL Creatinine (0.7-1.3) mg/dL Est Cr Clr Drug Dosing Estimated GFR (MDRD) (>60) mL/min BUN/Creatinine Ratio (14-18) Glucose (83-115) mg/dL Calcium (8.5-10.1) mg/dL Total Bilirubin (0.2-1.0) mg/dL AST (15-37) U/L ALT (16-63) U/L Alkaline Phosphatase (46-116) U/L Total Protein (6.4-8.2) g/dl Albumin (3.4-5.0) g/dl Globulin gm/dL Albumin/Globulin Ratio (1-2) Urine Color Light yellow (Yellow) Urine Appearance Clear (Clear) Urine pH 7.0 (5.0-8.0) Ur Specific [place] 1.015 (1.005-1.030) Urine Protein Negative (Negative) Urine Glucose (UA) Negative (Negative) Urine Ketones Negative (Negative) Urine Occult Blood Negative (Negative) Urine Nitrite Positive H (Negative) Urine Bilirubin Negative (Negative) Urine Urobilinogen 0.2 (0.2-1.0) Ur Leukocyte Esterase 2+ H (Negative) Urine RBC 0-5 (0-5) /hpf Urine WBC 20-30 H (0-5) /hpf Urine WBC Clumps Moderate (NOT SEEN) /hpf Ur Squamous Epith Cells 0-5 (0-5) /hpf Urine Bacteria Moderate H (FEW) /hpf Urine Mucus Rare (FEW) /hpf Blood Type Gel Antibody Screen 04/17/20 04/17/20 Range/Units 14:44 14:44 WBC (4.23-9.07) K/mm3 RBC (4.63-6.08) M/mm3 Hgb (13.7-17.5) gm/dl Hct (40.1-51.0) % MCV (79.0-92.2) fl MCH (25.7-32.2) pg MCHC (32.2-35.5) g/dl RDW Std Deviation (35.1-43.9) fL Plt Count (163-337) K/mm3 MPV (9.4-12.3) fl Neut % (Auto) (34.0-67.9) % Lymph % (Auto) (21.8-53.1) % [place] % (Auto) (5.3-12.2) % Eos % (Auto) (0.8-7.0) Baso % (Auto) (0.1-1.2) % Neut # (Auto) (1.78-5.38) K/mm3 Lymph # (Auto) (1.32-3.57) K/mm3 [place] # (Auto) (0.30-0.82) K/mm3 Eos # (Auto) (0.04-0.54) K/mm3 Baso # (Auto) (0.01-0.08) K/mm3 Manual Slide Review PT (9.7-12.0) SECONDS INR APTT (22-31) SECONDS Sodium 137 (136-145) mEq/L Potassium 3.3 L (3.5-5.1) mEq/L Chloride 98 (98-107) mEq/L Carbon Dioxide 30 (21-32) mEq/L Anion Gap 12.3 (5-15) BUN 93 H (7-18) mg/dL Creatinine 1.8 H (0.7-1.3) mg/dL Est Cr Clr Drug Dosing TNP Estimated GFR (MDRD) 36 (>60) mL/min BUN/Creatinine Ratio 51.7 H (14-18) Glucose 126 H (83-115) mg/dL Calcium 8.9 (8.5-10.1) mg/dL Total Bilirubin 0.6 (0.2-1.0) mg/dL AST 30 (15-37) U/L ALT 44 (16-63) U/L Alkaline Phosphatase 242 H (46-116) U/L Total Protein 7.3 (6.4-8.2) g/dl Albumin 3.5 (3.4-5.0) g/dl Globulin 3.8 gm/dL Albumin/Globulin Ratio 0.9 L (1-2) Urine Color (Yellow) Urine Appearance (Clear) Urine pH (5.0-8.0) Ur Specific [place] (1.005-1.030) Urine Protein (Negative) Urine Glucose (UA) (Negative) Urine Ketones (Negative) Urine Occult Blood (Negative) Urine Nitrite (Negative) Urine Bilirubin (Negative) Urine Urobilinogen (0.2-1.0) Ur Leukocyte Esterase (Negative) Urine RBC (0-5) /hpf Urine WBC (0-5) /hpf Urine WBC Clumps (NOT SEEN) /hpf Ur Squamous Epith Cells (0-5) /hpf Urine Bacteria (FEW) /hpf Urine Mucus (FEW) /hpf Blood Type A POSITIVE Gel Antibody Screen Negative Meds: Medications Generic Name Dose Route Start Last Admin Trade Name Freq PRN Reason Stop Dose Admin Sodium Chloride 10 ml 04/17/20 14:36 04/17/20 14:45 Saline Flush FLUSH 10 ml ASDIRECTED PRN Administration Keep Vein Open Discontinued Medications Generic Name Dose Route Start Last Admin Trade Name Freq PRN Reason Stop Dose Admin Ceftriaxone Sodium 1 gm/ 100 mls @ 200 mls/hr 04/17/20 15:56 04/17/20 16:06 Sodium Chloride IV 04/17/20 16:25 200 mls/hr ONETIME ONE Administration - Re-Assessments/Exams Free Text/Narrative Re-Assessment/Exam: 04/17/20 16:51 I ordered a CXR, IV and labs. His CXR looks good. His Hgb is 8.9. That is normally where he is at. His UA shows a UTI. I will give him a dose of rocephin and discharge him with keflex. Departure - Departure Time of Disposition: 16:40 Disposition: Home, Self-Care 01 Condition: Good Clinical Impression: UTI (urinary tract infection) Qualifiers: Urinary tract infection type: acute cystitis Hematuria presence: without hematuria Qualified Code(s): N30.00 - Acute cystitis without hematuria - Discharge Information *PRESCRIPTION DRUG MONITORING PROGRAM REVIEWED*: Not Applicable *COPY OF PRESCRIPTION DRUG MONITORING REPORT IN PATIENT NIRU: Not Applicable Prescriptions: cephALEXin [Keflex] 500 mg PO BID #10 capsule Referrals: Jean-Claude Barber MD [Primary Care Provider] - 1 Week Forms: ED Department Discharge Additional Instructions: Take your other medications as prescribed. Take the keflex 2 times per day for 5 days. Please return if you are worse. Sepsis Event Note (ED) - Evaluation Sepsis Screening Result: No Definite Risk - Focused Exam Vital Signs: Vital Signs Temp Pulse Resp BP Pulse Ox 04/17/20 16:05 97.3 F 75 22 H 115/68 98 04/17/20 14:15 97.1 F 75 20 123/71 97 - My Orders Last 24 Hours: My Active Orders 04/17/20 14:30 CULTURE URINE [RM] Stat 04/17/20 14:36 Peripheral IV Care [RC] . DIRECTED Sodium Chloride 0.9% [Saline Flush] 10 ml FLUSH ASDIRECTED PRN Peripheral IV Insertion Adult [OM.PC] Stat 04/17/20 15:10 CXR [Chest 1V Frontal] [CR] Stat 04/17/20 15:15 PATIENT RETYPE [BBK] Routine - Assessment/Plan Last 24 Hours: My Active Orders 04/17/20 14:30 CULTURE URINE [RM] Stat 04/17/20 14:36 Peripheral IV Care [RC] . DIRECTED Sodium Chloride 0.9% [Saline Flush] 10 ml FLUSH ASDIRECTED PRN Peripheral IV Insertion Adult [OM.PC] Stat 04/17/20 15:10 CXR [Chest 1V Frontal] [CR] Stat 04/17/20 15:15 PATIENT RETYPE [BBK] Routine
[2020-04-17] MEDS ORDERED: HYDROmorphone 0.5 MG/0.5 ML Syringe IVPUSH ONE (17:17)
[2020-04-17 18:16] VITALS: PULSE 68
--- NOTE | 2020-04-18 09:26 | CR ---
Chest: Portable view of the chest was obtained. Comparison: Prior chest x-ray of 02/04/20. Heart size is slightly enlarged. Tortuous thoracic aorta is noted. Pulmonary vessels are minimally increased which appears stable. Lungs otherwise are clear. Unichamber pacemaker is present. Prior sternotomy is noted with prosthetic heart valve. Bony structures are grossly intact. Impression: 1. Slight cardiomegaly with mild stable pulmonary vascular congestion. 2. Nothing acute is definitely appreciated. Diagnostic code #2 This report was dictated in MDT
== END 2020-04-17 18:08 | disposition home or self-care (01) ==
LOC: JD.ED 13:51
DX: N30.00 Acute cystitis without hematuria (principal); E78.00 Pure hypercholesterolemia, unspecified; I11.0 Hypertensive heart disease with heart failure; I50.9 Heart failure, unspecified; I25.10 Atherosclerotic heart disease of native coronary artery without angina pectoris; K21.9 Gastro-esophageal reflux disease without esophagitis; G62.9 Polyneuropathy, unspecified; E66.9 Obesity, unspecified; F32.9 Major depressive disorder, single episode, unspecified; Z90.89 Acquired absence of other organs; Z79.899 Other long term (current) drug therapy; Z79.01 Long term (current) use of anticoagulants
CPT/HCPCS: 36415; 71045; 80053; 81001; 85025; 85610; 85730; 86850; 86900; 86901; 87086; 87088; 87186; 96365; 96375; 99285; J0696; J1170; J7050; 99283

== ENCOUNTER 2020-06-22 09:10 | Emergency (ER) | payer MEDICARE, BC ==
[2020-06-22] MEDS ORDERED: Sodium Chloride 0.9% 10 ML Syringe FLUSH PRN (09:20)
[2020-06-22 09:47] VITALS: BP 138/83; PULSE 70
[2020-06-22] MEDS ORDERED: Glucagon,Human Recombinant 1 MG Vial IM PRN (12:19)
[2020-06-22] MEDS ORDERED: 50% Dextrose in Water 50 ML Syringe IV PRN (12:19)
[2020-06-22] MEDS ORDERED: 50% Dextrose in Water 50 ML Syringe IVPUSH ONE (12:19)
[2020-06-22] MEDS ORDERED: Insulin Regular, Human 100 Units/ML 3 ML Vial IVPUSH ONE (12:19)
--- NOTE | 2020-06-22 12:22 | EDM.PDOC ---
ED HPI GENERAL MEDICAL PROBLEM - General Chief Complaint: General Stated Complaint: SENT FROM [facility] Time Seen by Provider: 06/22/20 09:20 Source of Information: Reports: EMS, Provider (Dr Barber), RN Notes Reviewed - History of Present Illness INITIAL COMMENTS - FREE TEXT/NARRATIVE: 89 yr old male [place] patient has been sent over for eval and rx of hyperkalemia. Lab work drawn yesterday or today came back with a K+ of 7.6. He has hx of remal insufficiency, on bumex. The bumex wa stopped due to dehydration. He has been on oral K+ 40 meq tid which had not been stopped. Pt is not talkative at a upon arrival to ED. What hx I have is from Dr Barber and from [place] records. - Related Data Allergies Allergy/AdvReac Type Severity Reaction Status Date / Time No Known Allergies Allergy Verified 06/22/20 09:46 Home Meds: Home Meds Cholecalciferol (Vitamin D3) [Vitamin D3] 5,000 unit PO MOWEFR 04/04/19 [History] Ferrous Sulfate 5 ml PO TID 04/04/19 [History] Pantoprazole Sodium [Protonix] 40 mg PO BIDMEALS 04/04/19 [History] allopurinoL [Zyloprim] 100 mg PO DAILY 04/04/19 [History] bisacodyL [Laxative] 5 mg PO DAILY PRN 06/24/19 [History] Bumetanide [Bumex] 3 mg PO BID 12/21/19 [History] Carboxymethylcellulos/Glycerin [Refresh Optive] 1 drop EYEBOTH BID PRN 12/21/19 [History] Saliva Stimulant Comb. No.2 [Biotene Oralbalance] 1 dose PO TID 12/21/19 [History] Warfarin [Coumadin] 1.25 - 2.5 mg PO ASDIRECTED 12/21/19 [History] polyethylene glycoL 3350 [MiraLAX] 17 gm PO DAILY 12/21/19 [History] Levothyroxine [Synthroid] 50 mcg PO ACBREAKFAST tablet 12/26/19 [Rx] Acetaminophen [Tylenol] 650 mg PO TID 02/02/20 [History] Benzocaine/Benzethon Cl [Dermoplast First Aid [place]] 1 spray TOP DAILY PRN 02/02/20 [History] Cannabidiol (Cbd) Extract [CBD Oil] 1 applic TOP DAILY PRN 02/02/20 [History] Metoprolol Succinate [Toprol XL] 25 mg PO DAILY 02/02/20 [History] bisacodyL [Dulcolax] 10 mg RECTAL DAILY PRN 02/02/20 [History] Acetaminophen/HYDROcodone [[place] 325-5 MG] 1 tab PO Q4H PRN #20 tablet 02/07/20 [Rx] [place] Drops 1 drop EYEBOTH QID PRN 06/22/20 [History] Carboxymethylcellulose Sodium [Artificial Tears] 2 drop EYEBOTH QID 06/22/20 [History] Cranberry Fruit Extract [Cranberry] 425 mg PO BID 06/22/20 [History] metOLazone [Metolazone] 5 mg PO ASDIRECTED 06/22/20 [History] Past Medical History HEENT History: Reports: Cataract, Hard of Hearing, Impaired Vision Cardiovascular History: Reports: Arrhythmia, Blood Clots/VTE/DVT, Bypass, CAD, Heart Failure, Heart Valve Replacement, High Cholesterol, Hypertension, Pacemaker Gastrointestinal History: Reports: Chronic Constipation, GERD Genitourinary History: Reports: BPH, Chronic Renal Insuffiency, Urinary Incontinence Musculoskeletal History: Reports: Gout, Osteoarthritis Neurological History: Reports: Neuropathy, Peripheral Psychiatric History: Reports: Depression Endocrine/Metabolic History: Reports: Hypothyroidism, Obesity/BMI 30+ Hematologic History: Reports: Anemia, Blood Transfusion(s) Oncologic (Cancer) History: Reports: Basal Cell Carcinoma, Prostate Dermatologic History: Reports: Cellulitis - Infectious Disease History Infectious Disease History: Reports: MRSA - Past Surgical History HEENT Surgical History: Reports: Cataract Surgery Cardiovascular Surgical History: Reports: Coronary Artery Bypass, Pacer, Valve Replacement GI Surgical History: Reports: Cholecystectomy, Hernia, Inguinal Male Surgical History: Reports: None Endocrine Surgical History: Reports: None Musculoskeletal Surgical History: Reports: Arthroscopic Knee Dermatological Surgical History: Reports: Skin Biopsy Social & Family History - Family History Family Medical History: Noncontributory - Caffeine Use Caffeine Use: Reports: None - Living Situation & Occupation Living situation: Reports: , Alone Occupation: Retired ED ROS GENERAL - Review of Systems Review Of Systems: Unable To Obtain Reason Not Obtained: altered mental status ED EXAM, GENERAL - Physical Exam Exam: See Below General Appearance: Other (drowsy but arouseable) Eye Exam: Bilateral Eye: PERRL Ears: Normal External Exam Nose: Normal Inspection Throat/Mouth: Normal Inspection Head: Atraumatic Neck: Supple Respiratory/Chest: No Respiratory Distress, Lungs Clear, Normal Breath Sounds Cardiovascular: Regular Rate, Rhythm GI/Abdominal: Non-Tender Extremities: No: Pedal Edema, Leg Pain, Redness Neurological: Slow to Respond Skin Exam: Warm, Dry, Normal Color Course - Vital Signs Last Recorded V/S: Last Vital Signs Temp 97.5 F 06/22/20 09:42 Pulse 70 06/22/20 09:42 Resp 18 06/22/20 09:42 BP 138/83 06/22/20 09:42 Pulse Ox 98 06/22/20 09:42 - Orders/Labs/Meds Orders: Active Orders 24 hr Category Date Time Status EKG 12 Lead [EKG Documentation Completion] [RC] STAT Care 06/22/20 09:20 Active POC Glucose [Blood Glucose Check, Bedside] [RC] ONETIME Care 06/22/20 14:14 Active Peripheral IV Care [RC] . DIRECTED Care 06/22/20 09:20 Active Sodium Chloride 0.9% [Saline Flush] Med 06/22/20 09:20 Active 10 ml FLUSH ASDIRECTED PRN Peripheral IV Insertion Adult [OM.PC] Stat Oth 06/22/20 09:20 Ordered Medication Orders Sodium Chloride (Saline Flush) 10 ml FLUSH ASDIRECTED PRN PRN Reason: Keep Vein Open Last Admin: 06/22/20 10:28 Dose: 10 ml Documented by: SOPHIA Labs: Laboratory Tests 06/22/20 06/22/20 06/22/20 Range/Units 09:40 10:17 10:55 WBC 9.94 H (4.23-9.07) K/mm3 RBC 3.06 L (4.63-6.08) M/mm3 Hgb 8.0 L (13.7-17.5) gm/dl Hct 28.1 L (40.1-51.0) % MCV 91.8 (79.0-92.2) fl MCH 26.1 (25.7-32.2) pg MCHC 28.5 L (32.2-35.5) g/dl RDW Std Deviation 61.3 H (35.1-43.9) fL Plt Count 254 (163-337) K/mm3 MPV 10.5 (9.4-12.3) fl Neut % (Auto) 78.0 H (34.0-67.9) % Lymph % (Auto) 3.8 L (21.8-53.1) % [place] % (Auto) 14.4 H (5.3-12.2) % Eos % (Auto) 1.7 (0.8-7.0) Baso % (Auto) 0.5 (0.1-1.2) % Neut # (Auto) 7.75 H (1.78-5.38) K/mm3 Lymph # (Auto) 0.38 L (1.32-3.57) K/mm3 [place] # (Auto) 1.43 H (0.30-0.82) K/mm3 Eos # (Auto) 0.17 (0.04-0.54) K/mm3 Baso # (Auto) 0.05 (0.01-0.08) K/mm3 Manual Slide Review Abnormal smear Sodium 136 (136-145) mEq/L Potassium 6.5 H* D (3.5-5.1) mEq/L Chloride 104 (98-107) mEq/L Carbon Dioxide 19 L D (21-32) mEq/L Anion Gap 19.5 H (5-15) BUN 79 H (7-18) mg/dL Creatinine 1.9 H (0.7-1.3) mg/dL Est Cr Clr Drug Dosing 27.39 mL/min Estimated GFR (MDRD) 34 (>60) mL/min BUN/Creatinine Ratio 41.6 H (14-18) Glucose 129 H (83-115) mg/dL POC Glucose (83-110) mg/dL Calcium 9.3 (8.5-10.1) mg/dL Total Bilirubin 0.9 (0.2-1.0) mg/dL AST 65 H (15-37) U/L ALT 59 (16-63) U/L Alkaline Phosphatase 244 H (46-116) U/L Total Protein 7.1 (6.4-8.2) g/dl Albumin 3.4 (3.4-5.0) g/dl Globulin 3.7 gm/dL Albumin/Globulin Ratio 0.9 L (1-2) Urine Color Yellow (Yellow) Urine Appearance Clear (Clear) Urine pH 7.0 (5.0-8.0) Ur Specific [place] 1.020 (1.005-1.030) Urine Protein Negative (Negative) Urine Glucose (UA) Negative (Negative) Urine Ketones Negative (Negative) Urine Occult Blood Negative (Negative) Urine Nitrite Negative (Negative) Urine Bilirubin Negative (Negative) Urine Urobilinogen 0.2 (0.2-1.0) Ur Leukocyte Esterase Negative (Negative) 06/22/20 06/22/20 06/22/20 Range/Units 14:22 14:22 15:37 WBC (4.23-9.07) K/mm3 RBC (4.63-6.08) M/mm3 Hgb (13.7-17.5) gm/dl Hct (40.1-51.0) % MCV (79.0-92.2) fl MCH (25.7-32.2) pg MCHC (32.2-35.5) g/dl RDW Std Deviation (35.1-43.9) fL Plt Count (163-337) K/mm3 MPV (9.4-12.3) fl Neut % (Auto) (34.0-67.9) % Lymph % (Auto) (21.8-53.1) % [place] % (Auto) (5.3-12.2) % Eos % (Auto) (0.8-7.0) Baso % (Auto) (0.1-1.2) % Neut # (Auto) (1.78-5.38) K/mm3 Lymph # (Auto) (1.32-3.57) K/mm3 [place] # (Auto) (0.30-0.82) K/mm3 Eos # (Auto) (0.04-0.54) K/mm3 Baso # (Auto) (0.01-0.08) K/mm3 Manual Slide Review Sodium (136-145) mEq/L Potassium 6.1 H (3.5-5.1) mEq/L Chloride (98-107) mEq/L Carbon Dioxide (21-32) mEq/L Anion Gap (5-15) BUN (7-18) mg/dL Creatinine (0.7-1.3) mg/dL Est Cr Clr Drug Dosing mL/min Estimated GFR (MDRD) (>60) mL/min BUN/Creatinine Ratio (14-18) Glucose (83-115) mg/dL POC Glucose 90 153 H (83-110) mg/dL Calcium (8.5-10.1) mg/dL Total Bilirubin (0.2-1.0) mg/dL AST (15-37) U/L ALT (16-63) U/L Alkaline Phosphatase (46-116) U/L Total Protein (6.4-8.2) g/dl Albumin (3.4-5.0) g/dl Globulin gm/dL Albumin/Globulin Ratio (1-2) Urine Color (Yellow) Urine Appearance (Clear) Urine pH (5.0-8.0) Ur Specific [place] (1.005-1.030) Urine Protein (Negative) Urine Glucose (UA) (Negative) Urine Ketones (Negative) Urine Occult Blood (Negative) Urine Nitrite (Negative) Urine Bilirubin (Negative) Urine Urobilinogen (0.2-1.0) Ur Leukocyte Esterase (Negative) 06/22/20 Range/Units 16:31 WBC (4.23-9.07) K/mm3 RBC (4.63-6.08) M/mm3 Hgb (13.7-17.5) gm/dl Hct (40.1-51.0) % MCV (79.0-92.2) fl MCH (25.7-32.2) pg MCHC (32.2-35.5) g/dl RDW Std Deviation (35.1-43.9) fL Plt Count (163-337) K/mm3 MPV (9.4-12.3) fl Neut % (Auto) (34.0-67.9) % Lymph % (Auto) (21.8-53.1) % [place] % (Auto) (5.3-12.2) % Eos % (Auto) (0.8-7.0) Baso % (Auto) (0.1-1.2) % Neut # (Auto) (1.78-5.38) K/mm3 Lymph # (Auto) (1.32-3.57) K/mm3 [place] # (Auto) (0.30-0.82) K/mm3 Eos # (Auto) (0.04-0.54) K/mm3 Baso # (Auto) (0.01-0.08) K/mm3 Manual Slide Review Sodium (136-145) mEq/L Potassium (3.5-5.1) mEq/L Chloride (98-107) mEq/L Carbon Dioxide (21-32) mEq/L Anion Gap (5-15) BUN (7-18) mg/dL Creatinine (0.7-1.3) mg/dL Est Cr Clr Drug Dosing mL/min Estimated GFR (MDRD) (>60) mL/min BUN/Creatinine Ratio (14-18) Glucose (83-115) mg/dL POC Glucose 147 H (83-110) mg/dL Calcium (8.5-10.1) mg/dL Total Bilirubin (0.2-1.0) mg/dL AST (15-37) U/L ALT (16-63) U/L Alkaline Phosphatase (46-116) U/L Total Protein (6.4-8.2) g/dl Albumin (3.4-5.0) g/dl Globulin gm/dL Albumin/Globulin Ratio (1-2) Urine Color (Yellow) Urine Appearance (Clear) Urine pH (5.0-8.0) Ur Specific [place] (1.005-1.030) Urine Protein (Negative) Urine Glucose (UA) (Negative) Urine Ketones (Negative) Urine Occult Blood (Negative) Urine Nitrite (Negative) Urine Bilirubin (Negative) Urine Urobilinogen (0.2-1.0) Ur Leukocyte Esterase (Negative) Meds: Medications Generic Name Dose Route Start Last Admin Trade Name Freq PRN Reason Stop Dose Admin Sodium Chloride 10 ml 06/22/20 09:20 06/22/20 10:28 Saline Flush FLUSH 10 ml ASDIRECTED PRN Administration Keep Vein Open Discontinued Medications Generic Name Dose Route Start Last Admin Trade Name Freq PRN Reason Stop Dose Admin Calcium Gluconate 1 gm 06/22/20 11:52 06/22/20 14:46 Calcium Gluconate IVPUSH 06/22/20 11:53 0.5 gm ONETIME ONE Administration Dextrose/Water 25 ml 06/22/20 12:19 06/22/20 13:26 Dextrose 50% In Water IVPUSH 06/22/20 12:20 25 ml ASDIRECTED ONE Administration Insulin Human Regular 2 unit 06/22/20 12:19 06/22/20 13:25 Humulin R IVPUSH 06/22/20 12:20 2 unit ONETIME ONE Administration Protocol - Re-Assessments/Exams Free Text/Narrative Re-Assessment/Exam: 06/22/20 15:20 K+ 6.5. Rx with 500 mg plus 2nd dose 500 mg Calcium gluconate, 1/2 amp D50, 2 units insulin IV. K+ checked a short time ago was 6.1. 2nd dose of calcium still be given at time draw. EKG shows paced rythm, rate 70. Cardiac moniter shows no ectopy. He has been given something to eat and drink. Hgb 8.0. Dr Barber will follow that, likely transfuse him next week. His oral K+ will be stopped for now. Departure - Departure Time of Disposition: 15:25 Disposition: DC/Tfer to [facility] Condition: Fair Clinical Impression: Hyperkalemia, Renal insufficiency Anemia Qualifiers: Anemia type: other cause Other causes of anemia: other cause, not classified Qualified Code(s): D64.89 - Other specified anemias - Discharge Information Instructions: Hyperkalemia, [id number] Referrals: Jean-Claude Barber MD [Primary Care Provider] - Forms: ED Department Discharge Additional Instructions: Initial K+ was 6.5, down to 6.1 at time of recheck. Stop the oral potassium prescribed at 40 meq tid until further advised by Dr Barber. Encourage oral fluids. Call Dr Barber for further orders as needed. hgb today was 8.0. Dr Barber will consider blood transfusion next week if indicated. Sepsis Event Note (ED) - Evaluation Sepsis Screening Result: No Definite Risk - Focused Exam Vital Signs: Vital Signs Temp Pulse Resp BP Pulse Ox 06/22/20 09:42 97.5 F 70 18 138/83 98 - My Orders Last 24 Hours: My Active Orders 06/22/20 09:20 EKG 12 Lead [EKG Documentation Completion] [RC] STAT Peripheral IV Care [RC] . DIRECTED Sodium Chloride 0.9% [Saline Flush] 10 ml FLUSH ASDIRECTED PRN Peripheral IV Insertion Adult [OM.PC] Stat 06/22/20 14:14 POC Glucose [Blood Glucose Check, Bedside] [RC] ONETIME - Assessment/Plan Last 24 Hours: My Active Orders 06/22/20 09:20 EKG 12 Lead [EKG Documentation Completion] [RC] STAT Peripheral IV Care [RC] . DIRECTED Sodium Chloride 0.9% [Saline Flush] 10 ml FLUSH ASDIRECTED PRN Peripheral IV Insertion Adult [OM.PC] Stat 06/22/20 14:14 POC Glucose [Blood Glucose Check, Bedside] [RC] ONETIME
[2020-06-22] MEDS: Calcium Gluconate 10% 1 GM/10 ML SDV IVPUSH ONE ×2 (13:20→14:46)
== END 2020-06-22 16:58 ==
LOC: JD.ED 09:10
DX: E87.5 Hyperkalemia (principal); D64.89 Other specified anemias; I25.10 Atherosclerotic heart disease of native coronary artery without angina pectoris; I13.0 Hypertensive heart and chronic kidney disease with heart failure and stage 1 through stage 4 chronic kidney disease, or unspecified chronic kidney disease; I50.9 Heart failure, unspecified; N18.9 Chronic kidney disease, unspecified; E78.00 Pure hypercholesterolemia, unspecified; K21.9 Gastro-esophageal reflux disease without esophagitis; M10.9 Gout, unspecified; F32.9 Major depressive disorder, single episode, unspecified; G62.9 Polyneuropathy, unspecified; E03.9 Hypothyroidism, unspecified; E66.9 Obesity, unspecified; Z79.899 Other long term (current) drug therapy; Z95.1 Presence of aortocoronary bypass graft
CPT/HCPCS: 36415; 80053; 81003; 82962; 84132; 85025; 93005; 96374; 96375; 96376; 99285; J0610; J1815; 99283